=== PATIENT | female | born 1945 | race Caucasian/White ===

== ENCOUNTER 2019-02-07 09:55 | Emergency (ER) | payer MEDICARE, BC ==
[2019-02-07] MEDS: Ipratropium 0.02% 0.5 MG/2.5 ML Neb Soln NEB ONE (09:59)
[2019-02-07] MEDS: Ipratropium 0.02% 0.5 MG/2.5 ML Neb Soln ONE (10:06)
--- NOTE | 2019-02-07 10:39 | EDM.PDOC ---
ED HPI GENERAL MEDICAL PROBLEM - General Chief Complaint: Medication Administration Stated Complaint: med refill Time Seen by Provider: 02/07/19 10:15 Source of Information: Reports: Patient History Limitations: Reports: No Limitations - History of Present Illness INITIAL COMMENTS - FREE TEXT/NARRATIVE: Patient is O2 dependent with COPD. Usually receives separate supplies of albuterol and ipratropium via mail from [place] and her ipratropium is 5 days late. Unable to mix her nebs and use them QID PRN as directed. No acute complaints/health changes. Would like to be able to have the medication for daily use as prescribed which helps treat her chronic COPD. - Related Data Allergies Allergy/AdvReac Type Severity Reaction Status Date / Time IV Dye used for U/S (echo) Allergy Shortness Uncoded 02/07/19 10:02 of Breath Home Meds: Home Meds Albuterol/Ipratropium [Combivent Respimat] 1 puff INH QID PRN 06/26/13 [History] RX: Albuterol Sulfate 0.63 mg IH TID 06/26/13 [History] RX: Budesonide/Formoterol [Symbicort 160-4.5 MCG] 1 puff INH DAILY 06/26/13 [ History] RX: Ipratropium [place] 0.2 mg IH TID 06/26/13 [History] Warfarin [Coumadin] 5 mg PO DAILY 06/26/13 [History] Arformoterol [Brovana] 15 mcg INH Q12HR 02/07/19 [History] Budesonide [Pulmicort] 0.5 mg IH BID 02/07/19 [History] atorvaSTATin [Lipitor] 10 mg PO BEDTIME 02/07/19 [History] Past Medical History Cardiovascular History: Reports: High Cholesterol, Other (See Below) Other Cardiovascular History: chronic coumadin use Respiratory History: Reports: COPD, Other (See Below) Other Respiratory History: oxygen dependent Social & Family History - Tobacco Use Smoking Status *Q: Former Smoker Used Tobacco, but Quit: Yes Month/Year Tobacco Last Used: unknown - Caffeine Use Caffeine Use: Reports: None ED ROS GENERAL - Review of Systems Review Of Systems: Comprehensive ROS is negative, except as noted in HPI. ED EXAM, GENERAL - Physical Exam Exam: See Below Exam Limited By: No Limitations General Appearance: Alert, WD/WN, No Apparent Distress Throat/Mouth: Normal Lips, Normal Voice, No Airway Compromise Head: Atraumatic, Normocephalic Respiratory/Chest: No Respiratory Distress Neurological: Alert, Oriented, Normal Cognition Psychiatric: Normal Affect, Normal Mood Skin Exam: Warm, Dry, Intact, Normal Color Course - Vital Signs Last Recorded V/S: Last Vital Signs Temp 37.3 C 02/07/19 09:56 Pulse 87 02/07/19 09:56 Resp 24 H 02/07/19 09:56 BP 140/66 02/07/19 09:56 Pulse Ox 97 02/07/19 09:56 - Orders/Labs/Meds Orders: Active Orders 24 hr Category Date Time Status RT Post Treatment Assessment [RC] Click to Edit Care 02/07/19 10:03 Active RT Pre-Treatment Assessment [RC] Click to Edit Care 02/07/19 10:03 Active Meds: Medications Discontinued Medications Generic Name Dose Route Start Last Admin Trade Name Freq PRN Reason Stop Dose Admin Ipratropium [place] Confirm 02/07/19 09:58 02/07/19 10:06 Atrovent Administered 02/07/19 09:59 Not Given Dose 0.5 mg .ROUTE .STK-MED ONE Ipratropium [place] 0.5 mg 02/07/19 09:57 02/07/19 09:59 Atrovent NEB 02/07/19 09:58 0.5 mg ONETIME ONE Administration - Re-Assessments/Exams Free Text/Narrative Re-Assessment/Exam: 02/07/19 10:44 Patient received box of DuoNebs from ER supply. To use QID PRN. To follow up as needed. Departure - Departure Time of Disposition: 10:38 Disposition: Home, Self-Care 01 Condition: Good Clinical Impression: Has run out of medications COPD (chronic obstructive pulmonary disease) Qualifiers: COPD type: unspecified COPD Qualified Code(s): J44.9 - Chronic obstructive pulmonary disease, unspecified - Discharge Information *PRESCRIPTION DRUG MONITORING PROGRAM REVIEWED*: Not Applicable *COPY OF PRESCRIPTION DRUG MONITORING REPORT IN PATIENT INGE: Not Applicable Referrals: Leonor Millan PA-C [Primary Care Provider] - Forms: ED Department Discharge Additional Instructions: Follow up as needed. Sepsis Event Note - Evaluation Sepsis Screening Result: No Definite Risk - Focused Exam Vital Signs: Vital Signs Temp Pulse Resp BP Pulse Ox 02/07/19 09:56 37.3 C 87 24 H 140/66 97 Date Exam was Performed: 02/07/19 Time Exam was Performed: 10:41 - My Orders Last 24 Hours: My Active Orders 02/07/19 10:03 RT Post Treatment Assessment [RC] Click to Edit RT Pre-Treatment Assessment [RC] Click to Edit - Assessment/Plan Last 24 Hours: My Active Orders 02/07/19 10:03 RT Post Treatment Assessment [RC] Click to Edit RT Pre-Treatment Assessment [RC] Click to Edit
== END 2019-02-07 10:45 | disposition home or self-care (01) ==
LOC: LL.ED 09:55
DX: Z76.0 Encounter for issue of repeat prescription (principal); J44.9 Chronic obstructive pulmonary disease, unspecified; E78.00 Pure hypercholesterolemia, unspecified; Z99.81 Dependence on supplemental oxygen; Z91.041 Radiographic dye allergy status; Z79.899 Other long term (current) drug therapy; Z79.51 Long term (current) use of inhaled steroids; Z79.01 Long term (current) use of anticoagulants; Z87.891 Personal history of nicotine dependence
CPT/HCPCS: 99282-25

== ENCOUNTER 2019-05-23 10:31 | Emergency (ER) | payer MEDICARE, BC ==
[2019-05-23 11:03] LABS: CHLORIDE,CL 106 mmol/L (98-107); SODIUM,NA 144 mmol/L (136-145)
--- NOTE | 2019-05-23 11:35 | EDM.PDOC ---
ED HPI GENERAL MEDICAL PROBLEM - General Chief Complaint: Respiratory Problem Stated Complaint: SOB, COPD Time Seen by Provider: 05/23/19 11:13 Source of Information: Reports: Patient History Limitations: Reports: No Limitations - History of Present Illness INITIAL COMMENTS - FREE TEXT/NARRATIVE: She presents to the emergency department complaining of shortness of breath and cough. She states she has had a dry cough for about 2 weeks. 2 days ago she called her primary provider and was placed on oral steroids. She took just 1 dose Friday afternoon and felt worse so she has not taken any more. This morning she felt more short of breath. She increased her home oxygen from 3 L to 4 L. She is especially short of breath with activity. Cough has remained nonproductive. She had chills last night, but no other chills. No fever that she is aware of. No nausea, vomiting or diarrhea. She does have a history of COPD. She has been using her nebulization treatments at home. No known exposures. She has self quarantined at home for the past month. 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 - Related Data Allergies Allergy/AdvReac Type Severity Reaction Status Date / Time IV Dye used for U/S (echo) Allergy Shortness Uncoded 05/23/19 10:32 of Breath Home Meds: Home Meds Albuterol Sulfate 0.63 mg IH TID 06/26/13 [History] Ipratropium [place] 0.2 mg IH TID 06/26/13 [History] Warfarin [Coumadin] 5 mg PO SUTUWETHSA 06/26/13 [History] Arformoterol [Brovana] 15 mcg INH Q12HR 02/07/19 [History] Budesonide [Pulmicort] 0.5 mg IH BID 02/07/19 [History] atorvaSTATin [Lipitor] 10 mg PO BEDTIME 02/07/19 [History] Azithromycin [Zithromax] 250 mg PO DAILY 5 Days #6 tab 05/23/19 [Rx] Warfarin [Coumadin] 2.5 mg PO MOFR 05/23/19 [History] Past Medical History Cardiovascular History: Reports: High Cholesterol, Other (See Below) Other Cardiovascular History: chronic coumadin use Respiratory History: Reports: COPD, Other (See Below) Other Respiratory History: oxygen dependent Social & Family History - Tobacco Use Smoking Status *Q: Former Smoker Used Tobacco, but Quit: Yes Month/Year Tobacco Last Used: 2005 Second Hand Smoke Exposure: No - Caffeine Use Caffeine Use: Reports: None - Recreational Drug Use Recreational Drug Use: No ED ROS GENERAL - Review of Systems Review Of Systems: See Below Constitutional: Reports: Chills. Denies: Fever, Weakness HEENT: Denies: Eye Pain, Sinus Problem, Throat Pain Respiratory: Reports: Shortness of Breath, Wheezing, Cough. Denies: Sputum GI/Abdominal: Denies: Abdominal Pain, Nausea, Vomiting : Denies: Dysuria, Frequency, Urgency Skin: Denies: Rash Neurological: Denies: Confusion, Dizziness ED EXAM, GENERAL - Physical Exam Exam: See Below Exam Limited By: No Limitations General Appearance: Alert, WD/WN, No Apparent Distress Ears: Normal External Exam, Normal Canal, Hearing Grossly Normal, Normal TMs Nose: No Blood Throat/Mouth: Normal Inspection, Normal Voice, No Airway Compromise Head: Atraumatic, Normocephalic Neck: Non-Tender. No: Lymphadenopathy (L), Lymphadenopathy (R) Respiratory/Chest: No Respiratory Distress Cardiovascular: Regular Rate, Rhythm, No Murmur GI/Abdominal: Normal Bowel Sounds, Soft, Non-Tender Neurological: Alert, Oriented Psychiatric: Normal Affect, Normal Mood Skin Exam: Warm, Dry Course - Vital Signs Last Recorded V/S: Last Vital Signs Temp 36.4 C 05/23/19 10:31 Pulse 120 H 05/23/19 10:31 Resp 24 H 05/23/19 10:31 BP 139/67 05/23/19 10:31 Pulse Ox 94 L 05/23/19 10:31 - Orders/Labs/Meds Orders: Active Orders 24 hr Category Date Time Status Chest 2V [CR] Stat Exams 05/23/19 10:36 Taken Precautions [COMM] Routine Oth 05/23/19 10:55 Ordered Labs: Laboratory Tests 05/23/19 05/23/19 05/23/19 Range/Units 10:45 10:45 10:45 WBC 5.6 (4.0-10.2) K/uL RBC 4.28 (3.77-5.09) M/uL Hgb 12.3 D (11.7-15.5) g/dL Hct 39.2 (34.0-46.0) % MCV 91.6 D (84.0-98.0) fL MCH 28.7 (28.2-33.3) pg MCHC 31.4 L (31.7-36.0) g/dL RDW 13.1 (11.2-14.1) % Plt Count 200 (150-350) K/uL Neut % (Auto) 78.1 (45.0-80.0) % Lymph % (Auto) 11.8 (10.0-50.0) % [place] % (Auto) 6.8 (2.0-14.0) % Eos % (Auto) 2.9 (0.0-5.0) % Baso % (Auto) 0.4 (0.0-2.0) % Neut # (Auto) 4.37 (1.40-7.00) K/uL Lymph # (Auto) 0.66 (0.50-3.50) K/uL [place] # (Auto) 0.38 (0.00-1.00) K/uL Eos # (Auto) 0.16 (0.00-0.50) K/uL Baso # (Auto) 0.02 (0.00-0.20) K/uL PT 17.9 H (9.5-12.0) SEC INR 1.8 Sodium 144 D (136-145) mmol/L Potassium 3.8 (3.5-5.1) mmol/L Chloride 106 D (98-107) mmol/L Carbon Dioxide 29.9 (21.0-32.0) mmol/L BUN 22 H (7-18) mg/dL Creatinine 0.70 (0.51-1.17) mg/dL Est Cr Clr Drug Dosing 55.77 mL/min Estimated GFR (MDRD) > 60 mL/min Glucose 122 H (74-106) mg/dL Calcium 8.8 (8.5-10.1) mg/dL Total Bilirubin 0.6 (0.2-1.0) mg/dL AST 17 (15-37) U/L ALT 30 (12-78) U/L Alkaline Phosphatase 138 H (46-116) IU/L Total Protein 6.8 (6.4-8.2) g/dL Albumin 3.8 (3.4-5.0) g/dL - Radiology Interpretation Free Text/Narrative:: Chest x-ray shows normal cardiac silhouette. Lungs are slightly overexpanded. No apparent infiltrate. No acute process. Departure - Departure Time of Disposition: 11:44 Disposition: Home, Self-Care 01 Condition: Good Clinical Impression: COPD with exacerbation - Discharge Information *PRESCRIPTION DRUG MONITORING PROGRAM REVIEWED*: No *COPY OF PRESCRIPTION DRUG MONITORING REPORT IN PATIENT INGE: No Instructions: Shortness of Breath, Adult, [id number], Upper Respiratory Infection, Adult, [id number] Forms: ED Department Discharge Additional Instructions: Resume previous home medications. Albuterol nebulization 4 times daily. Zithromax 250 mg 2 tablets today then 1 tablet daily for 4 more days. Follow-up with primary provider if not improving. Sepsis Event Note - Evaluation Sepsis Screening Result: Possible Sepsis Risk - Focused Exam Vital Signs: Vital Signs Temp Pulse Resp BP Pulse Ox Pulse Ox 05/23/19 10:31 36.4 C 120 H 24 H 139/67 94 L 94 L Date Exam was Performed: 05/23/19 Time Exam was Performed: 11:43 - Problem List & Annotations (1) COPD with exacerbation SNOMED Code(s): 400070093 Code(s): J44.1 - CHRONIC OBSTRUCTIVE PULMONARY DISEASE W (ACUTE) EXACERBATION Status: Acute Current Visit: Yes - Problem List Review Problem List Initiated/Reviewed/Updated: Yes - My Orders Last 24 Hours: My Active Orders 05/23/19 10:36 Chest 2V [CR] Stat 05/23/19 10:55 Precautions [COMM] Routine - Assessment/Plan Last 24 Hours: My Active Orders 05/23/19 10:36 Chest 2V [CR] Stat 05/23/19 10:55 Precautions [COMM] Routine Assessment:: Apparent COPD exacerbation. Discussed findings and treatment options. She is encouraged to take the oral steroids as prescribed by her primary provider. We will treat presumptively with Zithromax for 5 days for possible secondary infection. Follow-up as needed.
[2019-05-23 12:23] VITALS: BP 138/88; PULSE 90
== END 2019-05-23 12:00 | disposition home or self-care (01) ==
LOC: LL.ED 10:31
DX: J44.1 Chronic obstructive pulmonary disease with (acute) exacerbation (principal); E78.00 Pure hypercholesterolemia, unspecified; Z79.899 Other long term (current) drug therapy; Z99.81 Dependence on supplemental oxygen; Z87.891 Personal history of nicotine dependence; Z91.041 Radiographic dye allergy status; Z79.01 Long term (current) use of anticoagulants
CPT/HCPCS: 36415; 71046; 80053; 85025; 85610; 99285-25

== ENCOUNTER 2019-07-23 08:30 | Emergency (ER) | payer MEDICARE, BC ==
--- NOTE | 2019-07-23 08:36 | EDM.PDOC ---
ED HPI GENERAL MEDICAL PROBLEM - General Chief Complaint: Respiratory Problem Stated Complaint: cough, SOB, COPD Time Seen by Provider: 07/23/19 08:30 Source of Information: Reports: Patient, Old Records ([facility] chart/EMR) History Limitations: Reports: No Limitations - History of Present Illness INITIAL COMMENTS - FREE TEXT/NARRATIVE: The patient was brought to the emergency room via private automobile by her for evaluation of progressive nonproductive cough symptoms with worsening symptoms during the last few days. Note that symptoms started on about 05/23/19 with initial evaluation in this facility at that time. Patient has been seen by her regular provider with an additional telemetry medicine visit with her medical pathologist about 2 weeks ago. The patient did complete a 1 week course of Levaquin for 7 days at the 750 mg dose with initiation of an additional regimen of 500 mg of Levaquin 5 days yesterday by her regular provider. She did have a negative COVID-19 on 07/07 with no known exposure to infection and patient following CDC guidelines for current pandemic. She did increase her oxygen on her own from previous 3 L to 4 L/m by nasal cannula. The patient denies any chest pain/pressure, heart flutter, dizziness, orthostasis, orthopnea, diaphoresis, paresthesias, recent decreased exercise tolerance, or any other anginal-type symptoms, although some increased dependent edema and dyspnea with activity during the last couple of weeks. No recent history of abdominal pain, heartburn, nausea, diarrhea, melena, gross hematochezia, or any food intolerance, including fatty foods, etc.. She denies any specific pain or discomfort. Onset: Gradual Duration: Getting Worse Location: Reports: Other (No pain) Quality: Reports: Same as Previous Episode Severity: Moderate Improves with: Reports: Rest Worsens with: Reports: Movement Context: Reports: Other (As above). Denies: Sick Contact, Trauma Associated Symptoms: Reports: Cough, Shortness of Breath. 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 Treatments, Other (see below) (Home medications) - Related Data Allergies Allergy/AdvReac Type Severity Reaction Status Date / Time IV Dye used for U/S (echo) Allergy Shortness Uncoded 07/23/19 08:36 of Breath Home Meds: Home Meds Warfarin [Coumadin] 5 mg PO SUTUWETHSA@20 06/26/13 [History] Budesonide [Pulmicort] 0.5 mg IH BID 02/07/19 [History] atorvaSTATin [Lipitor] 10 mg PO BEDTIME 02/07/19 [History] Warfarin [Coumadin] 2.5 mg PO MOFR@20 05/23/19 [History] Albuterol Sulfate 2.5 mg IH DAILY 07/23/19 [History] Albuterol [Ventolin HFA] 2 puff INH Q2H PRN 07/23/19 [History] Arformoterol [Brovana] 15 mcg INH Q12HR 07/23/19 [History] Ipratropium [Atrovent] 0.5 mg INH TID 07/23/19 [History] Levofloxacin [Levaquin] 500 mg PO DAILY 07/23/19 [History] guaiFENesin/Dextromethorphan [Mucinex Dm ER 1,200-60 mg Tab] 1 each PO Q12H #20 tab.er.12h 07/23/19 [Rx] Past Medical History HEENT History: Reports: Cataract, Impaired Vision, Other (See Below). Denies: Allergic Rhinitis, Glaucoma, Hard of Hearing, Macular Degeneration, Otitis Media , Retinal Detachment Other HEENT History: She wears glasses. Cardiovascular History: Reports: Blood Clots/VTE/DVT, High Cholesterol, Other ( See Below). Denies: Afib, Arrhythmia, CAD, Cardiomyopathy, Heart Failure, Heart Murmur, Hypertension, GA, PVD, Syncope Other Cardiovascular History: Postoperative DVT of the left leg on 02/18/07 after mastectomy in 2006 with current Coumadin therapy. Respiratory History: Reports: Bronchitis, Recurrent, COPD, Intubation, Previous , Pneumonia, Recurrent, Other (See Below). Denies: Asthma, Intubation, Difficult, PE, Pneumothorax, Sleep Apnea, TB Other Respiratory History: oxygen dependent Gastrointestinal History: Reports: Cholelithiasis. Denies: Bowel Obstruction, Celiac Disease, Chronic Constipation, Chronic Diarrhea, Colon Polyp, Fecal Incontinence, Gastritis, GERD, GI Bleed, Hepatitis, Inflammatory Bowel Disease, Irritable Bowel Syndrome, Jaundice, Pancreatitis, PUD Genitourinary History: Reports: None. Denies: Acute Renal Failure, Chronic Renal Insuffiency, Renal Calculus, STD, Urinary Incontinence, UTI, Recurrent HOSPITALIST NOCTURNIST PHYSICIAN History: Reports: Polycystic Ovaries, . Denies: Dysfunctional Uterine Bleeding, Endometriosis, Fibroids, Spontaneous : 2 Para: 2 LMP (Approximate): Other (See Below) Other HOSPITALIST NOCTURNIST PHYSICIAN History: Menopause in her 40s. Full term without complications during pregnancies or deliveries Musculoskeletal History: Reports: Arthritis, Osteoarthritis. Denies: Amputation , Back Pain, Chronic, Fracture, Fibromyalgia, Gout, Neck Pain, Chronic, Osteoporosis, RA, SLE Neurological History: Reports: Headaches, Chronic, Migraines, Other (See Below) . Denies: Cerebral Aneurysms, Concussion, CVA, Head Trauma, MS, Neuropathy, Peripheral, Parkinson's, Seizure, TIA Other Neuro History: Migraine headaches in early adulthood nonproblematic at this time. Psychiatric History: Reports: None. Denies: Abuse, Victim of, ADD, ADHD, Addiction, Anxiety, Depression, Psych Hospitalization(s), PTSD, Suicide Attempt , Suicidal Ideation Endocrine/Metabolic History: Reports: Obesity/BMI 30+, Other (See Below). Denies: Diabetes, Gestational, Diabetes, Type I, Diabetes, Type II, Diabetes Mellitus, Type 3c, Hypothyroidism, IDDM, Osteopenia, Osteoporosis Other Endocrine/Metabolic History: Prediabetes. Hyponatremia. Hematologic History: Reports: None. Denies: Anemia, Blood Transfusion(s), Iron Deficiency Immunologic History: Reports: None. Denies: AIDS, HIV, SLE Oncologic (Cancer) History: Reports: Breast, Other (See Below). Denies: Basal Cell Carcinoma, Cervix, Colon, Leukemia, Lymphoma, Malignant Melanoma, Metastatic, Non-Hodgkin's Lymphoma, Ovarian, Squamous Cell Carcinoma, Uterine Other Oncologic History: Left-sided stage I breast cancer in 2006 with mastectomy and radiation therapy. Dermatologic History: Reports: None. Denies: Eczema, Psoriasis - Infectious Disease History Infectious Disease History: Reports: Chicken Pox, Mumps. Denies: C-Difficile, Measles, Meningitis, Mononucleosis, MRSA, Pertussis (Whooping Cough), Rheumatic Fever, Rubella, Scarlet Fever, Shingles, TB, VRE - Past Surgical History Head Surgeries/Procedures: Reports: None HEENT Surgical History: Reports: Cataract Surgery, Oral Surgery, Other (See Below). Denies: Adenoidectomy, Eye Surgery, Laser Surgery, LASIK, Myringotomy w Tube(s), Naso-Sinus Surgery, Tonsillectomy Other HEENT Surgeries/Procedures: Bilateral cataract surgery in 2019. Complete teeth extraction. Cardiovascular Surgical History: Reports: None. Denies: Varicose Respiratory Surgical History: Reports: None. Denies: Thoracentesis GI Surgical History: Reports: Cholecystectomy, Other (See Below). Denies: Appendectomy, Colonoscopy, EGD, Hernia, Abdominal, Hernia, Inguinal, Hernia Repair/Other Other GI Surgeries/Procedures: Open cholecystectomy on 06/26/13. Female Surgical History: Reports: Mastectomy, Other (See Below). Denies: Section, D&C, Hysterectomy, Oophorectomy, Salpingo-Oophorectomy, Tubal Ligation Other Female Surgeries/Procedures: Left Sided mastectomy in 2006 Endocrine Surgical History: Reports: None. Denies: Thyroid Biopsy Neurological Surgical History: Reports: None. Denies: C-Spine, Discectomy, Intracranial, Laminectomy, Lumbar Spine, Sacral Spine, Spinal Fusion, Thoracic Spine, Vertebroplasty Musculoskeletal Surgical History: Reports: None. Denies: Arthroscopic Procedure , Carpal Tunnel, Ganglion Cyst, Joint Replacement, ORIF, Shoulder Surgery Oncologic Surgical History: Reports: Mastectomy, Other (See Below). Denies: Biopsy of Breast Other Oncologic Surgeries/Procedures: Mastectomy as above. Dermatological Surgical History: Reports: None - Past Imaging History Past Imaging History: Reports: CAT Scan (CT of the chest without contrast on 06/25. CT of the abdomen and pelvis on 06/26/13.), Mammogram (Last mammogram in November 2018 by patient history.), Venous Doppler (Left leg on 02/18/07.) Social & Family History - Family History HEENT: Reports: None. Denies: Glaucoma, Macular Degeneration, Retinal Detachment Cardiac: Reports: Pacemaker, Other (See Below). Denies: Afib, Aneurysm, Arrhythmia, Blood Clots/VTE/DVT, CAD, Heart Failure, Heart Murmur, High Cholesterol, Hypertension, GA, PVD/COD, Stent, Syncope Other Cardiac Family History: Mother with pacemaker. Respiratory: Reports: Asthma, Other (See Below). Denies: COPD, PE, Pneumothorax , Sleep Apnea Other Respiratory Family Hisory: Father with asthma secondary to coal exposure. GI: Reports: None. Denies: Celiac Disease, Cholelithiasis, Colon Polyps, GERD, GI bleed, Inflammatory Bowel Disease, Irritable Bowel Syndrome, PUD : Reports: None. Denies: Renal Calculus, Renal Disease/Insufficiency OBGYN: Reports: None. Denies: Endometriosis, Recurrent Spontaneous Musculoskeletal: Reports: None. Denies: Arthritis, Gout, RA, SLE Neurological: Reports: Alzheimers Disease, Dementia, Migraines, Other (See Below ). Denies: Cerebral Aneurysms, CVA, MS, Parkinson's, Seizure, TIA Other Neurological Family History: Mother with migraine headaches. Brothers 2 with organic brain syndrome. Psychiatric: Reports: None. Denies: Abuse, Victim of, ADD, ADHD, Anxiety, Depression, Psych Hospitalization(s), Psychosis, PTSD, Suicide Attempt Endocrine/Metabolic: Reports: Diabetes, type II, IDDM, Other (See Below). Denies: Diabetes, Type I, Diabetes Mellitus, Type 3c, Hypothyroidism Other Endocrine/Metabolic Family History: Mother with IDDM. Hematologic: Reports: None. Denies: Anemia, SLE Immunologic: Reports: None. Denies: AIDS, HIV, SLE Dermatologic: Reports: None. Denies: Eczema, Psoriasis Oncologic: Denies: Breast, Cervix, Colon, Hodgkin's Lymphoma, Leukemia, Lung, Lymphoma, Non-Hodgkin's Lymphoma, Ovarian, Skin - Tobacco Use Smoking Status *Q: Former Smoker Tobacco Use Within Last Twelve Months: Cigarettes Years of Tobacco use: 44 Packs/Tins Daily: 1.5 Packs/Tins Daily Comment: Smoked between ages 16 and 60. Used Tobacco, but Quit: Yes Smoking Cessation Information Provided To Patient: No Second Hand Smoke Exposure: Yes Second Hand Smoke Education Provided: Yes - Caffeine Use Caffeine Use: Reports: None. Denies: Coffee, Energy Drinks, Soda, Tea - Alcohol Use Alcohol Use History: No Days Per Week of Alcohol Use: 0 Number of Drinks Per Day: 0 Number of Drinks Per Day Comment: No previous DWIs, problems with alcohol abuse , etc. 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 ED EXAM, GENERAL - Physical Exam Exam: See Below Exam Limited By: No Limitations General Appearance: Alert, WD/WN, No Apparent Distress Eye Exam: Bilateral Eye: EOMI, Normal Inspection (No nystagmus. Patient wearing glasses.), PERRL Ears: Normal External Exam, Normal Canal, Hearing Grossly Normal, Normal TMs Nose: Normal Inspection, Normal Mucosa, No Blood Throat/Mouth: Normal Lips, Normal Gums, Normal Voice, No Airway Compromise, Other (Mild oral candidiasis). No: Normal Teeth (Complete dentures uppers and lowers), Dysphagia Head: Atraumatic, Normocephalic. No: Facial Swelling, Facial Tenderness, Sinus Tenderness Neck: Supple, Non-Tender, Full Range of Motion, Carotid Bruit (Mild bilateral bruits). No: Lymphadenopathy (L), Lymphadenopathy (R), Thyromegaly Respiratory/Chest: No Respiratory Distress, No Accessory Muscle Use, Chest Non- Tender, Rales (Mild bilateral basilar). No: Rhonchi, Wheezing, Pleural Rub, Retractions Cardiovascular: Normal Peripheral Pulses, Regular Rate, Rhythm, No Gallop, No JVD, No Murmur, No Rub. No: No Edema (Dependent edema as below), Gallop/S3, Gallop/S4, Friction Rub Peripheral Pulses: 2+: Radial (L), Radial (R), Dorsalis Pedis (L), Dorsalis Pedis (R) GI/Abdominal: Normal Bowel Sounds, Soft, Non-Tender, No Organomegaly, No Distention, No Abnormal Bruit, No Mass, Pelvis Stable, Other (Obese). No: Guarding (Female) Exam: Deferred Rectal (Female) Exam: Deferred Back Exam: Normal Inspection, Full Range of Motion. No: CVA Tenderness (L), CVA Tenderness (R), Muscle Spasm Extremities: Normal Inspection, Normal Range of Motion, Non-Tender, Normal Capillary Refill, Pedal Edema (Trace bilateral pedal/pretibial edema). No: Terrance's Sign Neurological: Alert, Oriented, CN II-XII Intact, Normal Cognition, Normal Gait, Normal Reflexes (Negative Babinski's), No Motor/Sensory Deficits Psychiatric: Normal Affect, Normal Mood Skin Exam: Warm, Dry, Intact, Normal Color, No Rash. No: Diaphoretic, Wound/ Incision Lymphatic: No Adenopathy EKG INTERPRETATION EKG Date: 07/23/19 Time: 08:52 Rhythm: NSR Rate (Beats/Min): 94 [place]: Normal (Neutral) P-Wave: Enlarged (Mild diffuse biphasic P waves with poor R-wave progression in the anterior leads) QRS: Normal (0.09 seconds with repolarization changes) ST-T: Normal (T-wave inversion in lead V1) QT: Normal OR/PQ Interval: 0.16 seconds Comparison: NA - No Prior EKG EKG Interpretation Comments: 1. No acute ischemic changes 2. Atrial enlargement-left Course - Vital Signs Last Recorded V/S: Last Vital Signs Temp 37.7 C 07/23/19 08:36 Pulse 91 07/23/19 10:06 Resp 20 07/23/19 10:06 BP 131/62 07/23/19 10:06 Pulse Ox 100 07/23/19 10:06 Vital Signs - 24 hr 07/23/19 07/23/19 07/23/19 08:36 08:51 09:06 Temperature [ 37.7 C Oral] Pulse, 100 96 93 Peripheral [ Pulse Oximetry] Respiratory 24 H 22 H 18 Rate Blood Pressure 141/78 H 127/63 140/72 [Left Upper Arm ] O2 Sat by Pulse 96 100 100 Oximetry O2 Sat by Pulse Oximetry [ Nasal Cannula] 07/23/19 09:21 Temperature [ Oral] Pulse, Peripheral [ Pulse Oximetry] Respiratory Rate Blood Pressure [Left Upper Arm ] O2 Sat by Pulse Oximetry O2 Sat by Pulse 100 Oximetry [ Nasal Cannula] Vital Signs - 24 hr 07/23/19 07/23/19 07/23/19 08:36 08:51 09:06 Temperature [ 37.7 C Oral] Pulse, 100 96 93 Peripheral [ Pulse Oximetry] Respiratory 24 H 22 H 18 Rate Blood Pressure 141/78 H 127/63 140/72 [Left Upper Arm ] O2 Sat by Pulse 96 100 100 Oximetry O2 Sat by Pulse Oximetry [ Nasal Cannula] 07/23/19 07/23/19 07/23/19 09:21 09:36 10:06 Temperature [ Oral] Pulse, 88 91 Peripheral [ Pulse Oximetry] Respiratory 20 20 Rate Blood Pressure 131/62 131/62 [Left Upper Arm ] O2 Sat by Pulse 100 100 Oximetry O2 Sat by Pulse 100 Oximetry [ Nasal Cannula] - Orders/Labs/Meds Orders: Active Orders 24 hr Category Date Time Status Cardiac Monitoring [RC] CONTINUOUS Care 07/23/19 08:37 Active Communication Order [RC] ROUTINE Care 07/23/19 08:37 Active EKG Documentation Completion [RC] ASDIRECTED Care 07/23/19 08:38 Active Oxygen Therapy, ED [RC] CONTINUOUS Care 07/23/19 08:37 Active Peripheral IV Care [RC] . DIRECTED Care 07/23/19 08:38 Active Pulse Oximetry [RC] CONTINUOUS Care 07/23/19 08:37 Active Up With Assistance [RC] ASDIRECTED Care 07/23/19 08:37 Active Nothing Per Oral Diet [DIET] Diet 07/23/19 Breakfast Active Chest 1V Frontal [CR] Stat Exams 07/23/19 08:37 Taken CORONAVIRUS COVID-19 PCR PHL Urgent Lab 07/23/19 08:50 Received CULTURE BLOOD [BC] Stat Lab 07/23/19 08:46 Received CULTURE BLOOD [BC] Stat Lab 07/23/19 08:51 Received CULTURE SPUTUM + SMEAR [RM] Urgent Lab 07/23/19 08:37 Ordered Sodium Chloride 0.9% [Saline Flush] Med 07/23/19 08:37 Active 10 ml FLUSH ASDIRECTED PRN Blood Culture x2 Reflex Set [OM.PC] Stat Oth 07/23/19 08:37 Ordered Obtain Past Medical Record [OM.PC] Stat Oth 07/23/19 08:37 Active Peripheral IV Insertion Adult [OM.PC] Stat Oth 07/23/19 08:37 Ordered Resuscitation Status Routine Resus Stat 07/23/19 08:37 Ordered Medication Orders Sodium Chloride (Saline Flush) 10 ml FLUSH ASDIRECTED PRN PRN Reason: Keep Vein Open Labs: Laboratory Tests 07/23/19 07/23/19 07/23/19 Range/Units 08:46 08:46 08:46 WBC 5.1 (4.0-10.2) K/uL RBC 4.25 (3.77-5.09) M/uL Hgb 12.3 (11.7-15.5) g/dL Hct 39.2 (34.0-46.0) % MCV 92.2 (84.0-98.0) fL MCH 28.9 (28.2-33.3) pg MCHC 31.4 L (31.7-36.0) g/dL RDW 14.3 H (11.2-14.1) % Plt Count 133 L (150-350) K/uL Neut % (Auto) 80.7 H (45.0-80.0) % Lymph % (Auto) 9.9 L (10.0-50.0) % [place] % (Auto) 8.4 (2.0-14.0) % Eos % (Auto) 0.8 (0.0-5.0) % Baso % (Auto) 0.2 (0.0-2.0) % Neut # (Auto) 4.15 (1.40-7.00) K/uL Lymph # (Auto) 0.51 (0.50-3.50) K/uL [place] # (Auto) 0.43 (0.00-1.00) K/uL Eos # (Auto) 0.04 (0.00-0.50) K/uL Baso # (Auto) 0.01 (0.00-0.20) K/uL PT 21.5 H (9.5-12.0) SEC INR 2.2 APTT 33.6 H (24.5-32.8) SEC D-Dimer, Quantitative < 100 (0-400) ng/mL Sodium (136-145) mmol/L Potassium (3.5-5.1) mmol/L Chloride (98-107) mmol/L Carbon Dioxide (21.0-32.0) mmol/L BUN (7-18) mg/dL Creatinine (0.51-1.17) mg/dL Est Cr Clr Drug Dosing mL/min Estimated GFR (MDRD) mL/min Glucose (74-106) mg/dL Lactic Acid (0.4-2.0) mmol/L Calcium (8.5-10.1) mg/dL Magnesium (1.8-2.4) mg/dL Total Bilirubin (0.2-1.0) mg/dL AST (15-37) U/L ALT (12-78) U/L Alkaline Phosphatase (46-116) IU/L Creatine Kinase (26-308) U/L Creatine Kinase Index (0.0-2.5) % CK-MB (CK-2) (0.00-3.60) ng/mL Troponin I (0.000-0.056) ng/mL NT-Pro-B Natriuret Pep (0-125) pg/mL Total Protein (6.4-8.2) g/dL Albumin (3.4-5.0) g/dL TSH, Ultra Sensitive (0.358-3.740) mIU/mL 07/23/19 07/23/19 Range/Units 08:46 08:46 WBC (4.0-10.2) K/uL RBC (3.77-5.09) M/uL Hgb (11.7-15.5) g/dL Hct (34.0-46.0) % MCV (84.0-98.0) fL MCH (28.2-33.3) pg MCHC (31.7-36.0) g/dL RDW (11.2-14.1) % Plt Count (150-350) K/uL Neut % (Auto) (45.0-80.0) % Lymph % (Auto) (10.0-50.0) % [place] % (Auto) (2.0-14.0) % Eos % (Auto) (0.0-5.0) % Baso % (Auto) (0.0-2.0) % Neut # (Auto) (1.40-7.00) K/uL Lymph # (Auto) (0.50-3.50) K/uL [place] # (Auto) (0.00-1.00) K/uL Eos # (Auto) (0.00-0.50) K/uL Baso # (Auto) (0.00-0.20) K/uL PT (9.5-12.0) SEC INR APTT (24.5-32.8) SEC D-Dimer, Quantitative (0-400) ng/mL Sodium 142 (136-145) mmol/L Potassium 4.0 (3.5-5.1) mmol/L Chloride 106 (98-107) mmol/L Carbon Dioxide 30.5 (21.0-32.0) mmol/L BUN 9 (7-18) mg/dL Creatinine 0.69 (0.51-1.17) mg/dL Est Cr Clr Drug Dosing 63.07 mL/min Estimated GFR (MDRD) > 60 mL/min Glucose 139 H (74-106) mg/dL Lactic Acid 1.0 (0.4-2.0) mmol/L Calcium 8.6 (8.5-10.1) mg/dL Magnesium 2.0 (1.8-2.4) mg/dL Total Bilirubin 1.1 H (0.2-1.0) mg/dL AST 23 (15-37) U/L ALT 42 (12-78) U/L Alkaline Phosphatase 108 (46-116) IU/L Creatine Kinase 46 (26-308) U/L Creatine Kinase Index 2.2 (0.0-2.5) % CK-MB (CK-2) 1.00 (0.00-3.60) ng/mL Troponin I 0.000 (0.000-0.056) ng/mL NT-Pro-B Natriuret Pep 168 H (0-125) pg/mL Total Protein 6.6 (6.4-8.2) g/dL Albumin 3.6 (3.4-5.0) g/dL TSH, Ultra Sensitive 2.656 (0.358-3.740) mIU/mL Blood cultures 2 were collected. Sputum could not be obtained. COVID-19 specimen collected Meds: Medications Generic Name Dose Route Start Last Admin Trade Name Freq PRN Reason Stop Dose Admin Sodium Chloride 10 ml 07/23/19 08:37 Saline Flush FLUSH ASDIRECTED PRN Keep Vein Open - Radiology Interpretation Free Text/Narrative:: Server Support Technician shows normal sinus rhythm in the 80-90s with no ectopy or arrhythmia Chest x-ray, portable, shows evidence of mild prominence of the proximal aortic arch with no cardiomegaly, however possible mild centralized CHF versus pulmonary hypertension. Moderate diffuse pulmonary obstructive disease with probable additional pulmonary fibrosis. Mild atelectasis versus beginning pulmonary infiltrates in the left lower lobe. No pneumothorax. Departure - Departure Time of Disposition: 10:35 Disposition: Home, Self-Care 01 Condition: Good Clinical Impression: Prediabetes, Oral candidiasis COPD (chronic obstructive pulmonary disease) Qualifiers: COPD type: COPD with acute lower respiratory infection Qualified Code(s): J44.0 - Chronic obstructive pulmonary disease with (acute) lower respiratory infection Hyperlipidemia Qualifiers: Hyperlipidemia type: unspecified Qualified Code(s): E78.5 - Hyperlipidemia, unspecified CHF (congestive heart failure) Qualifiers: Heart failure type: unspecified Heart failure chronicity: acute Qualified Code( s): I50.9 - Heart failure, unspecified - Discharge Information *PRESCRIPTION DRUG MONITORING PROGRAM REVIEWED*: Not Applicable *COPY OF PRESCRIPTION DRUG MONITORING REPORT IN PATIENT INGE: Not Applicable Prescriptions: guaiFENesin/Dextromethorphan [Mucinex Dm ER 1,200-60 mg Tab] 1 each PO Q12H #20 tab.er.12h Referrals: Leonor Millan PA-C [Primary Care Provider] - Forms: ED Department Discharge Additional Instructions: 1. Followup with your regular provider in 10-14 days as directed or reevaluation and recommended repeat chest x-ray, CBC, PT/INR, troponin I, CK, CK -MB, and BNP. Bring these discharge instructions with you to that visit. 2. Otherwise follow-up in this facility as already scheduled on 07/26 for your echocardiogram and CT of the chest without contrast 3. Avoid excessive use of oxygen with goal O2 saturation of 94% or greater 4. Maintain recommended quarantine until you have been notified of today's COVID-19 test results as discussed with return to previous social distancing, use of masks, etc., thereafter as per current recommended CDC guidelines 5. Immediately after this visit verify that your cellular telephone's voicemail has been activated and is empty. Also verify that your home telephone 's answering machine is operating properly and has space to receive messages. Note that it is sometimes necessary for us to be able to contact you at a later date to discuss your medical care. 6. Please remember that we are ALWAYS here for you and want to answer any questions you may have. Feel free to call the hospital any time and we call you back CHAR. 7. Listerine gargles four times per day, after meals and at bedtime, with additional Chloroseptic lozenges or spray as needed for 10 days and/or until symptoms resolve. Sepsis Event Note - Focused Exam Vital Signs: Vital Signs Temp Pulse Resp BP Pulse Ox Pulse Ox 07/23/19 10:06 91 20 131/62 100 07/23/19 09:36 88 20 131/62 100 07/23/19 09:21 100 07/23/19 09:06 93 18 140/72 100 07/23/19 08:51 96 22 H 127/63 100 07/23/19 08:36 37.7 C 100 24 H 141/78 H 96 Date Exam was Performed: 07/23/19 Time Exam was Performed: 10:51 - Problem List & Annotations (1) COPD (chronic obstructive pulmonary disease) SNOMED Code(s): 95582559 Code(s): J44.9 - CHRONIC OBSTRUCTIVE PULMONARY DISEASE, UNSPECIFIED Status : Acute Priority: High Current Visit: Yes Annotation/Comment:: O2 and steroid-dependent. Complete current Levaquin therapy with additional high-dose Mucinex DM, which should be continued until her follow-up visit as per discharge instructions. CT of the chest already ordered as below and no significant pneumonia by today's chest x-ray. Excellent O2 saturations today with the patient counseled on proper use of supplemental O2. Possible mild persistent bronchitis. Qualifiers: COPD type: COPD with acute lower respiratory infection Qualified Code(s): J44.0 - Chronic obstructive pulmonary disease with (acute) lower respiratory infection (2) CHF (congestive heart failure) SNOMED Code(s): 80138045 Code(s): I50.9 - HEART FAILURE, UNSPECIFIED Status: Acute Priority: High Current Visit: Yes Onset Date: 07/23/19 Annotation/Comment:: Mild BNP elevation with possible dyspnea secondary to borderline CHF and/or pulmonary hypertension. Her medical pathologist has already ordered an echocardiogram and CT of the chest without contrast, which will be conducted in this facility on 07/26. No recent chest pain or anginal type symptoms. No clinical evidence of DVT or PE with therapeutic INR today in spite of recent Levaquin therapy as above. Various therapeutic options were discussed with the patient wishes to delay initiation of oral Lasix and potassium chloride therapy for now. Further cardiology workup depending on her clinical course. Qualifiers: Heart failure type: unspecified Heart failure chronicity: acute Qualified Code(s): I50.9 - Heart failure, unspecified (3) Hyperlipidemia SNOMED Code(s): 22079065 Code(s): E78.5 - HYPERLIPIDEMIA, UNSPECIFIED Status: Chronic Priority: Medium Current Visit: Yes Annotation/Comment:: Currently under therapy Qualifiers: Hyperlipidemia type: unspecified Qualified Code(s): E78.5 - Hyperlipidemia , unspecified (4) Oral candidiasis SNOMED Code(s): 96644862 Code(s): B37.0 - CANDIDAL STOMATITIS Status: Acute Priority: Medium Current Visit: Yes Onset Date: 07/23/19 Annotation/Comment:: Mild oral candidiasis secondary to her recent antibiotics as above. Various therapeutic options were discussed with the patient not wishing to have gentian angelo treatment. Initiate Listerine treatments for now as per discharge instructions. (5) Prediabetes SNOMED Code(s): 134378193 Code(s): R73.03 - PREDIABETES Status: Chronic Priority: Medium Current Visit: Yes Annotation/Comment:: Stable by history. Note previous one week course of oral steroids couple of weeks ago. Continue to observe closely by her regular providers. - Problem List Review Problem List Initiated/Reviewed/Updated: Yes - My Orders Last 24 Hours: My Active Orders 07/23/19 08:37 Cardiac Monitoring [RC] CONTINUOUS Communication Order [RC] ROUTINE Oxygen Therapy, ED [RC] CONTINUOUS Pulse Oximetry [RC] CONTINUOUS Up With Assistance [RC] ASDIRECTED Chest 1V Frontal [CR] Stat CULTURE SPUTUM + SMEAR [RM] Urgent Sodium Chloride 0.9% [Saline Flush] 10 ml FLUSH ASDIRECTED PRN Blood Culture x2 Reflex Set [OM.PC] Stat Obtain Past Medical Record [OM.PC] Stat Peripheral IV Insertion Adult [OM.PC] Stat Resuscitation Status Routine 07/23/19 08:38 EKG Documentation Completion [RC] ASDIRECTED Peripheral IV Care [RC] . DIRECTED 07/23/19 08:46 CULTURE BLOOD [BC] Stat 07/23/19 08:50 CORONAVIRUS COVID-19 PCR PHL Urgent 07/23/19 08:51 CULTURE BLOOD [BC] Stat 07/23/19 Breakfast Nothing Per Oral Diet [DIET] - Assessment/Plan Last 24 Hours: My Active Orders 07/23/19 08:37 Cardiac Monitoring [RC] CONTINUOUS Communication Order [RC] ROUTINE Oxygen Therapy, ED [RC] CONTINUOUS Pulse Oximetry [RC] CONTINUOUS Up With Assistance [RC] ASDIRECTED Chest 1V Frontal [CR] Stat CULTURE SPUTUM + SMEAR [RM] Urgent Sodium Chloride 0.9% [Saline Flush] 10 ml FLUSH ASDIRECTED PRN Blood Culture x2 Reflex Set [OM.PC] Stat Obtain Past Medical Record [OM.PC] Stat Peripheral IV Insertion Adult [OM.PC] Stat Resuscitation Status Routine 07/23/19 08:38 EKG Documentation Completion [RC] ASDIRECTED Peripheral IV Care [RC] . DIRECTED 07/23/19 08:46 CULTURE BLOOD [BC] Stat 07/23/19 08:50 CORONAVIRUS COVID-19 PCR PHL Urgent 07/23/19 08:51 CULTURE BLOOD [BC] Stat 07/23/19 Breakfast Nothing Per Oral Diet [DIET] Assessment:: As above Plan: As above. Extensive precautions were given to the patient, who is in agreement with the treatment plan. See Patient Instructions for further treatment and plan.
[2019-07-23] MEDS ORDERED: Sodium Chloride 0.9% 10 ML Syringe FLUSH PRN (08:37)
[2019-07-23 09:19] LABS: PTT,PARTIAL THROMBOPLSTIN TIME 33.6 SEC (24.5-32.8)
[2019-07-23 09:22] LABS: CHLORIDE,CL 106 mmol/L (98-107); SODIUM,NA 142 mmol/L (136-145)
== END 2019-07-23 10:35 | disposition home or self-care (01) ==
LOC: LL.ED 08:30
DX: J44.0 Chronic obstructive pulmonary disease with (acute) lower respiratory infection (principal); E78.5 Hyperlipidemia, unspecified; I50.9 Heart failure, unspecified; B37.0 Candidal stomatitis; E78.00 Pure hypercholesterolemia, unspecified; Z86.718 Personal history of other venous thrombosis and embolism; E66.9 Obesity, unspecified; Z87.891 Personal history of nicotine dependence; Z68.29 Body mass index [BMI] 29.0-29.9, adult; Z91.041 Radiographic dye allergy status; Z79.01 Long term (current) use of anticoagulants; Z79.899 Other long term (current) drug therapy
CPT/HCPCS: 36415; 71045; 80053; 82550; 82553; 83605; 83735; 83880; 84443; 84484; 85025; 85379; 85610; 85730; 87040; 93005; 99284-25; U0002

== ENCOUNTER 2019-07-25 10:35 | Inpatient (IN) | payer MEDICARE, BC ==
--- NOTE | 2019-07-25 10:58 | EDM.PDOC ---
ED HPI GENERAL MEDICAL PROBLEM - General Chief Complaint: Respiratory Problem Stated Complaint: sob Time Seen by Provider: 07/25/19 10:40 Source of Information: Reports: Patient, Old Records History Limitations: Reports: No Limitations - History of Present Illness INITIAL COMMENTS - FREE TEXT/NARRATIVE: She is brought to the hospital by ambulance with complaints of shortness of breath. She has known COPD and CHF. She reports a cough with increased shortness of breath for 2 months. She states last night she had increased trouble breathing when using her nebulization all night without improvement. No fever or chills. Cough is nonproductive. No nausea, vomiting or diarrhea. No nasal congestion or sore throat. She was tested for COVID-19 about 2 weeks ago which was negative, and again 2 days ago which was also negative. She was seen in the emergency department 2 days ago. At that time they continued her Levaquin for possible pneumonia. She was also instructed to take Mucinex, but she does not feel that is been at all helpful. - Related Data Allergies Allergy/AdvReac Type Severity Reaction Status Date / Time IV Dye used for U/S (echo) Allergy Shortness Uncoded 07/25/19 10:38 of Breath Home Meds: Home Meds Warfarin [Coumadin] 5 mg PO SUTUWETHSA@20 06/26/13 [History] Budesonide [Pulmicort] 0.5 mg IH BID 02/07/19 [History] atorvaSTATin [Lipitor] 10 mg PO BEDTIME 02/07/19 [History] Warfarin [Coumadin] 2.5 mg PO MOFR@20 05/23/19 [History] Albuterol Sulfate 2.5 mg IH DAILY 07/23/19 [History] Albuterol [Ventolin HFA] 2 puff INH Q2H PRN 07/23/19 [History] Arformoterol [Brovana] 15 mcg INH Q12HR 07/23/19 [History] Ipratropium [Atrovent] 0.5 mg INH TID 07/23/19 [History] Levofloxacin [Levaquin] 500 mg PO DAILY 07/23/19 [History] guaiFENesin/Dextromethorphan [Mucinex Dm ER 1,200-60 mg Tab] 1 each PO Q12H #20 tab.er.12h 07/23/19 [Rx] Past Medical History HEENT History: Reports: Cataract, Impaired Vision, Other (See Below) Other HEENT History: She wears glasses. Cardiovascular History: Reports: Blood Clots/VTE/DVT, High Cholesterol, Other ( See Below) Other Cardiovascular History: Postoperative DVT of the left leg on 02/18/07 after mastectomy in 2006 with current Coumadin therapy. Respiratory History: Reports: Bronchitis, Recurrent, COPD, Intubation, Previous , Pneumonia, Recurrent, Other (See Below) Other Respiratory History: oxygen dependent Gastrointestinal History: Reports: Cholelithiasis Genitourinary History: Reports: None COAT EXAMINER History: Reports: Polycystic Ovaries, Other COAT EXAMINER History: Menopause in her 40s. Full term without complications during pregnancies or deliveries Musculoskeletal History: Reports: Arthritis, Osteoarthritis Neurological History: Reports: Headaches, Chronic, Migraines, Other (See Below) Other Neuro History: Migraine headaches in early adulthood nonproblematic at this time. Psychiatric History: Reports: None Endocrine/Metabolic History: Reports: Obesity/BMI 30+, Other (See Below) Other Endocrine/Metabolic History: Prediabetes. Hyponatremia. Hematologic History: Reports: None Immunologic History: Reports: None Oncologic (Cancer) History: Reports: Breast, Other (See Below) Other Oncologic History: Left-sided stage I breast cancer in 2006 with mastectomy and radiation therapy. Dermatologic History: Reports: None - Infectious Disease History Infectious Disease History: Reports: Chicken Pox, Mumps - Past Surgical History Head Surgeries/Procedures: Reports: None HEENT Surgical History: Reports: Cataract Surgery, Oral Surgery, Other (See Below) Other HEENT Surgeries/Procedures: Bilateral cataract surgery in 2019. Complete teeth extraction. Cardiovascular Surgical History: Reports: None Respiratory Surgical History: Reports: None GI Surgical History: Reports: Cholecystectomy, Other (See Below) Other GI Surgeries/Procedures: Open cholecystectomy on 06/26/13. Female Surgical History: Reports: Mastectomy, Other (See Below) Other Female Surgeries/Procedures: Left Sided mastectomy in 2006 Endocrine Surgical History: Reports: None Neurological Surgical History: Reports: None Musculoskeletal Surgical History: Reports: None Oncologic Surgical History: Reports: Mastectomy, Other (See Below) Other Oncologic Surgeries/Procedures: Mastectomy as above. Dermatological Surgical History: Reports: None - Past Imaging History Past Imaging History: Reports: CAT Scan (CT of the chest without contrast on 06/25. CT of the abdomen and pelvis on 06/26/13.), Mammogram (Last mammogram in November 2018 by patient history.), Venous Doppler (Left leg on 02/18/07.) Social & Family History - Family History HEENT: Reports: None Cardiac: Reports: Pacemaker, Other (See Below) Other Cardiac Family History: Mother with pacemaker. Respiratory: Reports: Asthma, Other (See Below) Other Respiratory Family Hisory: Father with asthma secondary to coal exposure. GI: Reports: None : Reports: None OBGYN: Reports: None Musculoskeletal: Reports: None Neurological: Reports: Alzheimers Disease, Dementia, Migraines, Other (See Below ) Other Neurological Family History: Mother with migraine headaches. Brothers 2 with organic brain syndrome. Psychiatric: Reports: None Endocrine/Metabolic: Reports: Diabetes, type II, IDDM, Other (See Below) Other Endocrine/Metabolic Family History: Mother with IDDM. Hematologic: Reports: None Immunologic: Reports: None Dermatologic: Reports: None - Caffeine Use Caffeine Use: Reports: None. 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 Denies: Fever, Chills HEENT: Denies: Hearing Loss, Rhinitis, Sinus Problem, Throat Pain, Throat Swelling Respiratory: Reports: Shortness of Breath, Wheezing, Cough Cardiovascular: Denies: Chest Pain, Lightheadedness, Palpitations GI/Abdominal: Denies: Abdominal Pain, Diarrhea, Nausea, Vomiting Musculoskeletal: Reports: No Symptoms Skin: Reports: No Symptoms Neurological: Denies: Confusion, Dizziness Psychiatric: Denies: Agitation, Anxiety, Confusion Hematologic/Lymphatic: Denies: Easy Bleeding ED EXAM, GENERAL - Physical Exam Exam: See Below Exam Limited By: No Limitations General Appearance: Alert, WD/WN, No Apparent Distress Ears: Normal External Exam Nose: Normal Inspection, Normal Mucosa Throat/Mouth: Normal Inspection, Normal Lips, Normal Gums, Normal Oropharynx Head: Atraumatic, Normocephalic Neck: Supple, Non-Tender. No: Lymphadenopathy (L), Lymphadenopathy (R) Respiratory/Chest: No Respiratory Distress, Lungs Clear, Normal Breath Sounds, Wheezing (Occasional expiratory wheezing at the bases bilaterally.). No: Stridor Cardiovascular: Regular Rate, Rhythm, No Murmur, Other (Trace edema in the ankles bilaterally.) GI/Abdominal: Normal Bowel Sounds, Soft, Non-Tender, No Mass Extremities: Pedal Edema (Trace edema in both ankles.) Neurological: Alert, Oriented, Normal Cognition Psychiatric: Normal Affect, Normal Mood Skin Exam: Warm, Dry Course - Vital Signs Last Recorded V/S: Last Vital Signs Temp 37.2 C 07/25/19 10:38 Pulse 101 H 07/25/19 10:38 Resp 22 H 07/25/19 10:38 BP 133/75 07/25/19 10:38 Pulse Ox 100 07/25/19 10:38 - Orders/Labs/Meds Orders: Active Orders 24 hr Category Date Time Status Chest 2V [CR] Stat Exams 07/25/19 10:59 Ordered Labs: Laboratory Tests 07/25/19 07/25/19 Range/Units 11:10 11:15 WBC 4.4 (4.0-10.2) K/uL RBC 4.09 (3.77-5.09) M/uL Hgb 11.8 (11.7-15.5) g/dL Hct 37.4 (34.0-46.0) % MCV 91.4 (84.0-98.0) fL MCH 28.9 (28.2-33.3) pg MCHC 31.6 L (31.7-36.0) g/dL RDW 13.9 (11.2-14.1) % Plt Count 135 L (150-350) K/uL Neut % (Auto) 81.9 H (45.0-80.0) % Lymph % (Auto) 10.0 (10.0-50.0) % [place] % (Auto) 7.2 (2.0-14.0) % Eos % (Auto) 0.7 (0.0-5.0) % Baso % (Auto) 0.2 (0.0-2.0) % Neut # (Auto) 3.62 (1.40-7.00) K/uL Lymph # (Auto) 0.44 L (0.50-3.50) K/uL [place] # (Auto) 0.32 (0.00-1.00) K/uL Eos # (Auto) 0.03 (0.00-0.50) K/uL Baso # (Auto) 0.01 (0.00-0.20) K/uL Sodium 143 (136-145) mmol/L Potassium 4.0 (3.5-5.1) mmol/L Chloride 105 (98-107) mmol/L Carbon Dioxide 27.9 (21.0-32.0) mmol/L BUN 10 (7-18) mg/dL Creatinine 0.66 (0.51-1.17) mg/dL Est Cr Clr Drug Dosing 60.91 mL/min Estimated GFR (MDRD) > 60 mL/min Glucose 122 H (74-106) mg/dL Calcium 8.9 (8.5-10.1) mg/dL Meds: Medications Discontinued Medications Generic Name Dose Route Start Last Admin Trade Name Freq PRN Reason Stop Dose Admin Furosemide 20 mg 07/25/19 11:44 Lasix IVPUSH 07/25/19 11:45 NOW ONE - Radiology Interpretation Free Text/Narrative:: chest x-ray shows no obvious infiltrate. No significant change from [id number]. - Re-Assessments/Exams Free Text/Narrative Re-Assessment/Exam: 07/25/19 11:56 Patient appears comfortable throughout the visit. Minimal cough. Since it is her second visit in 3 days with worsening complaints, will admit to the hospital for IV steroids and nebulization treatments. Departure - Departure Time of Disposition: 12:00 Disposition: Admitted As Inpatient 65 Condition: Good Clinical Impression: Shortness of breath CHF (congestive heart failure) Qualifiers: Heart failure type: unspecified Heart failure chronicity: acute Qualified Code( s): I50.9 - Heart failure, unspecified COPD (chronic obstructive pulmonary disease) Qualifiers: COPD type: COPD with acute lower respiratory infection Qualified Code(s): J44.0 - Chronic obstructive pulmonary disease with (acute) lower respiratory infection - Discharge Information *PRESCRIPTION DRUG MONITORING PROGRAM REVIEWED*: Not Applicable *COPY OF PRESCRIPTION DRUG MONITORING REPORT IN PATIENT INGE: Not Applicable Referrals: Leonor Millan PA-C [Primary Care Provider] - Forms: ED Department Discharge Sepsis Event Note - Evaluation Sepsis Screening Result: Possible Sepsis Risk - Focused Exam Vital Signs: Vital Signs Temp Pulse Resp BP Pulse Ox 07/25/19 10:38 37.2 C 101 H 22 H 133/75 100 Date Exam was Performed: 07/25/19 Time Exam was Performed: 11:56 - My Orders Last 24 Hours: My Active Orders 07/25/19 10:59 Chest 2V [CR] Stat - Assessment/Plan Last 24 Hours: My Active Orders 07/25/19 10:59 Chest 2V [CR] Stat
[2019-07-25] MEDS ORDERED: Furosemide 40 MG/4 ML VIAL IVPUSH ONE (11:44)
[2019-07-25 11:46] LABS: CHLORIDE,CL 105 mmol/L (98-107); SODIUM,NA 143 mmol/L (136-145)
[2019-07-25] MEDS ORDERED: Albuterol 0.083% 2.5 MG/3 ML Neb Soln NEB PRN (12:14)
[2019-07-25] MEDS: Sodium Chloride 0.9% 10 ML Syringe IV PRN ×2 (12:16→13:14)
[2019-07-25] MEDS: Levofloxacin 500 MG Tab PO SCH (13:14)
[2019-07-25] MEDS: Albuterol/Ipratropium 3.0-0.5 MG/3 ML Neb Soln NEB SCH ×2 (13:14→19:31)
[2019-07-25] MEDS: Omeprazole 20 MG Cap.CR PO SCH (13:14)
[2019-07-25] MEDS: methylPREDNISolone Sodium Succinate 40 MG/1 ML SDV IVPUSH SCH (13:14)
[2019-07-25] MEDS: Benzonatate 100 MG Cap PO PRN ×2 (13:14→19:41)
[2019-07-25] MEDS ORDERED: Sodium Chloride 0.9% 10 ML Syringe FLUSH PRN (16:17)
[2019-07-25] MEDS ORDERED: Budesonide 0.5 MG/2 ML Neb Susp INH SCH (18:00)
[2019-07-25] MEDS: Arformoterol 15 MCG/2 ML Neb Soln INH SCH (19:23)
[2019-07-25] MEDS ORDERED: atorvaSTATin 10 MG Tab PO SCH (20:00)
[2019-07-25] MEDS ORDERED: Warfarin 5 MG Tab PO SCH (20:00)
[2019-07-26] MEDS: methylPREDNISolone Sodium Succinate 40 MG/1 ML SDV IVPUSH SCH ×2 (00:09→11:55)
[2019-07-26] MEDS: Albuterol/Ipratropium 3.0-0.5 MG/3 ML Neb Soln NEB SCH ×2 (01:00→07:23)
[2019-07-26 07:21] VITALS: BP 133/74; PULSE 89
[2019-07-26] MEDS: Levofloxacin 500 MG Tab PO SCH (07:22)
[2019-07-26] MEDS: Omeprazole 20 MG Cap.CR PO SCH (07:22)
[2019-07-26] MEDS: Arformoterol 15 MCG/2 ML Neb Soln INH SCH (07:23)
[2019-07-26] MEDS: Benzonatate 100 MG Cap PO PRN (07:32)
[2019-07-26] MEDS ORDERED: Budesonide 0.5 MG/2 ML Neb Susp INH SCH (08:00)
[2019-07-26 09:16] LABS: CHLORIDE,CL 104 mmol/L (98-107); SODIUM,NA 144 mmol/L (136-145)
--- NOTE | 2019-07-26 12:17 | PCM.DCSUM1 ---
Discharge Summary - Hospital Course Free Text/Narrative:: Pt admitted with COPD exacerbation Pt placed on oral Cipro and IV Solu-medrol Pt uses oxygen 3 L at home Pt sats currently 98 % on 3 L Diagnosis: Stroke: No - Discharge Data Discharge Date: 07/26/19 Discharge Disposition: Home, Self-Care 01 Condition: Good - Referral to Home Health Primary Care Physician: Leonor Millan PA-C - Discharge Diagnosis/Problem(s) (1) COPD (chronic obstructive pulmonary disease) SNOMED Code(s): 91429963 ICD Code: J44.9 - CHRONIC OBSTRUCTIVE PULMONARY DISEASE, UNSPECIFIED Status : Acute Priority: High Current Visit: Yes Problem Details: O2 and steroid- dependent. Complete current Levaquin therapy with additional high-dose Mucinex DM, which should be continued until her follow-up visit as per discharge instructions. CT of the chest already ordered as below and no significant pneumonia by today's chest x-ray. Excellent O2 saturations today with the patient counseled on proper use of supplemental O2. Possible mild persistent bronchitis. Qualifiers: COPD type: COPD with acute lower respiratory infection Qualified Code(s): J44.0 - Chronic obstructive pulmonary disease with (acute) lower respiratory infection (2) COPD with exacerbation SNOMED Code(s): 651465680 ICD Code: J44.1 - CHRONIC OBSTRUCTIVE PULMONARY DISEASE W (ACUTE) EXACERBATION Status: Acute Current Visit: No - Patient Summary/Data Hospital Course: Pt placed on oral antibiotics and IV Solu-medrol Pt is doing well and at baseline - Patient Instructions Diet: Regular Diet as Tolerated Activity: As Tolerated Notify Provider of: Fever - Discharge Plan *PRESCRIPTION DRUG MONITORING PROGRAM REVIEWED*: Not Applicable *COPY OF PRESCRIPTION DRUG MONITORING REPORT IN PATIENT INGE: Not Applicable Prescriptions/Med Rec: Benzonatate [Tessalon Perle] 100 mg PO TID PRN #30 capsule PRN Reason: Cough methylPREDNISolone [Medrol Dose Pack] 4 mg PO ASDIRECTED #1 dospk Home Medications: Home Meds Warfarin [Coumadin] 5 mg PO SUTUWETHSA@06/26/13 [History] Budesonide [Pulmicort] 0.5 mg IH BID 02/07/19 [History] atorvaSTATin [Lipitor] 10 mg PO BEDTIME 02/07/19 [History] Warfarin [Coumadin] 2.5 mg PO MOFR@05/23/19 [History] Albuterol Sulfate 2.5 mg IH DAILY 07/23/19 [History] Albuterol [Ventolin HFA] 2 puff INH Q2H PRN 07/23/19 [History] Arformoterol [Brovana] 15 mcg INH Q12HR 07/23/19 [History] Ipratropium [Atrovent] 0.5 mg INH TID 07/23/19 [History] Levofloxacin [Levaquin] 500 mg PO DAILY 07/23/19 [History] guaiFENesin/Dextromethorphan [Mucinex DM ER 1,200-60 MG] 1 each PO Q12H #20 tab.er.12h 07/23/19 [Rx] Benzonatate [Tessalon Perle] 100 mg PO TID PRN #30 capsule 07/26/19 [Rx] methylPREDNISolone [Medrol Dose Pack] 4 mg PO ASDIRECTED #1 dospk 07/26/19 [Rx] Forms: ED Department Discharge Referrals: Leonor Millan PA-C [Primary Care Provider] - - Discharge Summary/Plan Comment DC Time >30 min.: No - General Info Date of Service: 07/26/19 Admission Dx/Problem (Free Text: Pt admitted with COPD exacerbation Pt doing better now - Review of Systems General: Reports: No Symptoms Pulmonary: Reports: Shortness of Breath, Cough Cardiovascular: Reports: No Symptoms Gastrointestinal: Reports: No Symptoms Genitourinary: Reports: No Symptoms Musculoskeletal: Reports: No Symptoms - Patient Data Vitals - Most Recent: Last Vital Signs Temp 98.3 F 07/26/19 07:21 Pulse 89 07/26/19 07:21 Resp 16 07/26/19 07:21 BP 133/74 07/26/19 07:21 Pulse Ox 98 07/26/19 07:21 Weight - Most Recent: 165 lb 12.813 oz I&O - Last 24 hours: Intake & Output 07/26/19 07/26/19 07/26/19 02:59 10:59 18:59 Intake Total 220 120 Output Total 300 450 Balance -300 -230 120 Lab Results - Last 24 hrs: Laboratory Results - last 24 hr 07/26/19 07/26/19 07/26/19 Range/Units 08:40 08:40 09:10 WBC 7.3 (4.0-10.2) K/uL RBC 4.47 (3.77-5.09) M/uL Hgb 13.0 (11.7-15.5) g/dL Hct 40.5 (34.0-46.0) % MCV 90.6 (84.0-98.0) fL MCH 29.1 (28.2-33.3) pg MCHC 32.1 (31.7-36.0) g/dL RDW 13.7 (11.2-14.1) % Plt Count 169 (150-350) K/uL Neut % (Auto) 94.5 H (45.0-80.0) % Lymph % (Auto) 4.4 L (10.0-50.0) % [place] % (Auto) 1.0 L (2.0-14.0) % Eos % (Auto) 0.0 (0.0-5.0) % Baso % (Auto) 0.1 (0.0-2.0) % Neut # (Auto) 6.89 (1.40-7.00) K/uL Lymph # (Auto) 0.32 L (0.50-3.50) K/uL [place] # (Auto) 0.07 (0.00-1.00) K/uL Eos # (Auto) 0.00 (0.00-0.50) K/uL Baso # (Auto) 0.01 (0.00-0.20) K/uL PT 24.2 H (9.5-12.0) SEC INR 2.5 Sodium 144 (136-145) mmol/L Potassium 3.8 (3.5-5.1) mmol/L Chloride 104 (98-107) mmol/L Carbon Dioxide 28.6 (21.0-32.0) mmol/L BUN 15 (7-18) mg/dL Creatinine 0.64 (0.51-1.17) mg/dL Est Cr Clr Drug Dosing 62.81 mL/min Estimated GFR (MDRD) > 60 mL/min Glucose 224 H (74-106) mg/dL Calcium 9.4 (8.5-10.1) mg/dL Total Bilirubin 0.8 (0.2-1.0) mg/dL AST 18 (15-37) U/L ALT 41 (12-78) U/L Alkaline Phosphatase 106 (46-116) IU/L Total Protein 6.9 (6.4-8.2) g/dL Albumin 3.7 (3.4-5.0) g/dL Med Orders - Current: Current Medications Albuterol (Proventil Neb Soln) 2.5 mg NEB Q4HRRT PRN PRN Reason: Shortness of Breath Albuterol/Ipratropium (Duoneb 3.0-0.5 Mg/3 Ml) 3 ml NEB Q6HRRT [facility] Last Admin: 07/26/19 07:23 Dose: 3 ml Arformoterol Tartrate (Brovana) 15 mcg INH Q12HR [facility] Last Admin: 07/26/19 07:23 Dose: 15 mcg Atorvastatin Calcium (Lipitor) 10 mg PO BEDTIME [facility] Last Admin: 07/25/19 19:29 Dose: 10 mg Benzonatate (Tessalon Perles) 100 mg PO TID PRN PRN Reason: Cough Last Admin: 07/26/19 07:32 Dose: 100 mg Budesonide (Pulmicort) 0.5 mg INH BIDRT [facility] Last Admin: 07/26/19 07:23 Dose: 0.5 mg Methylprednisolone Sodium Succinate (Solu-Medrol) 40 mg IVPUSH Q12H [facility] Last Admin: 07/26/19 11:55 Dose: Not Given Omeprazole (Omeprazole) 20 mg PO DAILY [facility] Last Admin: 07/26/19 07:22 Dose: 20 mg Sodium Chloride (Saline Flush) 10 ml FLUSH ASDIRECTED PRN PRN Reason: Keep Vein Open Last Admin: 07/26/19 00:09 Dose: 10 ml Warfarin Sodium (Coumadin) 2.5 mg PO MOFR@20 [place] Warfarin Sodium (Coumadin) 5 mg PO SUTUWETHSA@20 [facility] Last Admin: 07/25/19 19:29 Dose: 5 mg Discontinued Medications Budesonide (Pulmicort) 0.5 mg INH BID [facility] Last Admin: 07/25/19 17:00 Dose: 0.5 mg Furosemide (Lasix) 20 mg IVPUSH NOW ONE Stop: 07/25/19 11:45 Last Admin: 07/25/19 12:16 Dose: 20 mg Levofloxacin (Levaquin) 500 mg PO DAILY [facility] Stop: 07/26/19 08:01 Last Admin: 07/26/19 07:22 Dose: 500 mg Non-Formulary Medication (Guaifenesin/Dextromethorphan [Mucinex Dm Er 1,200-60 Mg]) 1 each PO Q12H [place] Last Admin: 07/25/19 12:59 Dose: Not Given Sodium Chloride (Saline Flush) 10 ml IV ASDIRECTED PRN PRN Reason: Keep Vein Open Last Admin: 07/25/19 13:14 Dose: 10 ml - Exam General: Reports: Alert, Oriented Neck: Reports: Supple Lungs: Reports: Decreased Breath Sounds Cardiovascular: Reports: Regular Rate GI/Abdominal Exam: Non-Tender
[2019-07-26] MEDS ORDERED: Warfarin 2.5 MG Tab PO SCH (20:00)
== END 2019-07-26 14:00 | disposition home or self-care (01) | DRG 192 ==
LOC: LL.ED 10:35 → LL.MS 11:45
PROVIDERS: ADMIT Family Medicine; ATTEND Family Medicine
DX: J44.0 Chronic obstructive pulmonary disease with (acute) lower respiratory infection (principal); J44.1 Chronic obstructive pulmonary disease with (acute) exacerbation; E78.00 Pure hypercholesterolemia, unspecified; H54.7 Unspecified visual loss; M19.90 Unspecified osteoarthritis, unspecified site; Z86.718 Personal history of other venous thrombosis and embolism; E66.9 Obesity, unspecified; I50.9 Heart failure, unspecified; Z85.3 Personal history of malignant neoplasm of breast; Z90.12 Acquired absence of left breast and nipple; Z92.3 Personal history of irradiation; Z98.42 Cataract extraction status, left eye; Z98.41 Cataract extraction status, right eye; Z91.041 Radiographic dye allergy status; Z79.01 Long term (current) use of anticoagulants; Z79.899 Other long term (current) drug therapy; Z87.01 Personal history of pneumonia (recurrent); Z79.51 Long term (current) use of inhaled steroids; Z99.81 Dependence on supplemental oxygen; Z90.49 Acquired absence of other specified parts of digestive tract; Z68.29 Body mass index [BMI] 29.0-29.9, adult
CPT/HCPCS: 36415; 71046; 80048; 80053; 85025; 85610; 94640; 99285-25; A9270-GY; J1940; J2920; J7620-GY

== ENCOUNTER 2019-07-29 15:08 | Emergency (ER) | payer MEDICARE, BC ==
[2019-07-29 15:57] LABS: CHLORIDE,CL 106 mmol/L (98-107); SODIUM,NA 144 mmol/L (136-145)
--- NOTE | 2019-07-29 16:21 | EDM.PDOC ---
ED HPI GENERAL MEDICAL PROBLEM - General Chief Complaint: Respiratory Problem Stated Complaint: shortness of breath Time Seen by Provider: 07/29/19 15:15 Source of Information: Reports: Patient History Limitations: Reports: No Limitations - History of Present Illness INITIAL COMMENTS - FREE TEXT/NARRATIVE: Pt presents with SOB Was recently admitted for COPD exacerbation Was discharged several days ago States took oral prednisone and her SOB was worse Stopped the Medrol Dosepak No fever Is followed by pulmonology Uses oxygen at home Onset: Gradual Duration: Day(s):, Chronic Location: Reports: Chest - Related Data Allergies Allergy/AdvReac Type Severity Reaction Status Date / Time IV Dye used for U/S (echo) Allergy Shortness Uncoded 07/25/19 10:38 of Breath Home Meds: Home Meds Warfarin [Coumadin] 5 mg PO SUTUWETHSA@20 06/26/13 [History] Budesonide [Pulmicort] 0.5 mg IH BID 02/07/19 [History] atorvaSTATin [Lipitor] 10 mg PO BEDTIME 02/07/19 [History] Warfarin [Coumadin] 2.5 mg PO MOFR@20 05/23/19 [History] Albuterol Sulfate 2.5 mg IH DAILY 07/23/19 [History] Albuterol [Ventolin HFA] 2 puff INH Q2H PRN 07/23/19 [History] Arformoterol [Brovana] 15 mcg INH Q12HR 07/23/19 [History] Ipratropium [Atrovent] 0.5 mg INH TID 07/23/19 [History] Levofloxacin [Levaquin] 500 mg PO DAILY 07/23/19 [History] guaiFENesin/Dextromethorphan [Mucinex DM ER 1,200-60 MG] 1 each PO Q12H #20 tab.er.12h 07/23/19 [Rx] Benzonatate [Tessalon Perle] 100 mg PO TID PRN #30 capsule 07/26/19 [Rx] methylPREDNISolone [Medrol Dose Pack] 4 mg PO ASDIRECTED #1 dospk 07/26/19 [Rx] Past Medical History HEENT History: Reports: Cataract, Impaired Vision, Other (See Below) Other HEENT History: She wears glasses. Cardiovascular History: Reports: Blood Clots/VTE/DVT, High Cholesterol, Other ( See Below) Other Cardiovascular History: Postoperative DVT of the left leg on 02/18/07 after mastectomy in 2006 with current Coumadin therapy. Respiratory History: Reports: Bronchitis, Recurrent, COPD, Intubation, Previous , Pneumonia, Recurrent, Other (See Below) Other Respiratory History: oxygen dependent Gastrointestinal History: Reports: Cholelithiasis Genitourinary History: Reports: None MANAGER [employer] SERVICES History: Reports: Polycystic Ovaries, Other MANAGER [employer] SERVICES History: Menopause in her 40s. Full term without complications during pregnancies or deliveries Musculoskeletal History: Reports: Arthritis, Osteoarthritis Neurological History: Reports: Headaches, Chronic, Migraines, Other (See Below) Other Neuro History: Migraine headaches in early adulthood nonproblematic at this time. Psychiatric History: Reports: None Endocrine/Metabolic History: Reports: Obesity/BMI 30+, Other (See Below) Other Endocrine/Metabolic History: Prediabetes. Hyponatremia. Hematologic History: Reports: None Immunologic History: Reports: None Oncologic (Cancer) History: Reports: Breast, Other (See Below) Other Oncologic History: Left-sided stage I breast cancer in 2006 with mastectomy and radiation therapy. Dermatologic History: Reports: None - Infectious Disease History Infectious Disease History: Reports: Chicken Pox, Mumps - Past Surgical History Head Surgeries/Procedures: Reports: None HEENT Surgical History: Reports: Cataract Surgery, Oral Surgery, Other (See Below) Other HEENT Surgeries/Procedures: Bilateral cataract surgery in 2019. Complete teeth extraction. Cardiovascular Surgical History: Reports: None Respiratory Surgical History: Reports: None GI Surgical History: Reports: Cholecystectomy, Other (See Below) Other GI Surgeries/Procedures: Open cholecystectomy on 06/26/13. Female Surgical History: Reports: Mastectomy, Other (See Below) Other Female Surgeries/Procedures: Left Sided mastectomy in 2006 Endocrine Surgical History: Reports: None Neurological Surgical History: Reports: None Musculoskeletal Surgical History: Reports: None Oncologic Surgical History: Reports: Mastectomy, Other (See Below) Other Oncologic Surgeries/Procedures: Mastectomy as above. Dermatological Surgical History: Reports: None - Past Imaging History Past Imaging History: Reports: CAT Scan (CT of the chest without contrast on 06/25. CT of the abdomen and pelvis on 06/26/13.), Mammogram (Last mammogram in November 2018 by patient history.), Venous Doppler (Left leg on 02/18/07.) Social & Family History - Family History HEENT: Reports: None Cardiac: Reports: Pacemaker, Other (See Below) Other Cardiac Family History: Mother with pacemaker. Respiratory: Reports: Asthma, Other (See Below) Other Respiratory Family Hisory: Father with asthma secondary to coal exposure. GI: Reports: None : Reports: None OBGYN: Reports: None Musculoskeletal: Reports: None Neurological: Reports: Alzheimers Disease, Dementia, Migraines, Other (See Below ) Other Neurological Family History: Mother with migraine headaches. Brothers 2 with organic brain syndrome. Psychiatric: Reports: None Endocrine/Metabolic: Reports: Diabetes, type II, IDDM, Other (See Below) Other Endocrine/Metabolic Family History: Mother with IDDM. 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65) ED ROS GENERAL - Review of Systems Review Of Systems: See Below Respiratory: Reports: Shortness of Breath Cardiovascular: Reports: No Symptoms GI/Abdominal: Reports: No Symptoms ED EXAM, GENERAL - Physical Exam Exam: See Below Exam Limited By: No Limitations General Appearance: Alert, No Apparent Distress Respiratory/Chest: No Respiratory Distress, Decreased Breath Sounds, Other (No wheezing) GI/Abdominal: Non-Tender Course - Vital Signs Last Recorded V/S: Last Vital Signs Temp 98.8 F 07/29/19 15:12 Pulse 96 07/29/19 15:12 Resp 16 07/29/19 15:12 BP 132/72 07/29/19 15:12 Pulse Ox 97 07/29/19 15:12 - Orders/Labs/Meds Orders: Active Orders 24 hr Category Date Time Status Chest 2V [CR] Stat Exams 07/29/19 15:22 Taken Labs: Laboratory Tests 07/29/19 07/29/19 Range/Units 15:35 15:35 WBC 6.7 (4.0-10.2) K/uL RBC 4.25 (3.77-5.09) M/uL Hgb 12.4 (11.7-15.5) g/dL Hct 38.6 (34.0-46.0) % MCV 90.8 (84.0-98.0) fL MCH 29.2 (28.2-33.3) pg MCHC 32.1 (31.7-36.0) g/dL RDW 14.0 (11.2-14.1) % Plt Count 165 (150-350) K/uL Neut % (Auto) 79.0 (45.0-80.0) % Lymph % (Auto) 12.6 (10.0-50.0) % [place]oddard % (Auto) 7.6 (2.0-14.0) % Eos % (Auto) 0.7 (0.0-5.0) % Baso % (Auto) 0.1 (0.0-2.0) % Neut # (Auto) 5.31 (1.40-7.00) K/uL Lymph # (Auto) 0.85 (0.50-3.50) K/uL [place] # (Auto) 0.51 (0.00-1.00) K/uL Eos # (Auto) 0.05 (0.00-0.50) K/uL Baso # (Auto) 0.01 (0.00-0.20) K/uL Sodium 144 (136-145) mmol/L Potassium 3.6 (3.5-5.1) mmol/L Chloride 106 (98-107) mmol/L Carbon Dioxide 29.3 (21.0-32.0) mmol/L BUN 11 (7-18) mg/dL Creatinine 0.66 (0.51-1.17) mg/dL Est Cr Clr Drug Dosing TNP Estimated GFR (MDRD) > 60 mL/min Glucose 105 (74-106) mg/dL Calcium 8.7 (8.5-10.1) mg/dL Total Bilirubin 1.2 H (0.2-1.0) mg/dL AST 17 (15-37) U/L ALT 31 (12-78) U/L Alkaline Phosphatase 98 (46-116) IU/L Total Protein 6.3 L (6.4-8.2) g/dL Albumin 3.6 (3.4-5.0) g/dL - Re-Assessments/Exams Free Text/Narrative Re-Assessment/Exam: 07/29/19 16:20 See lab and CXR report Pt sats 98% on RA in ER Departure - Departure Time of Disposition: 16:30 Disposition: Home, Self-Care 01 Clinical Impression: COPD (chronic obstructive pulmonary disease) Qualifiers: COPD type: unspecified COPD Qualified Code(s): J44.9 - Chronic obstructive pulmonary disease, unspecified - Discharge Information Instructions: Chronic Obstructive Pulmonary Disease Exacerbation, [id number] , Shortness of Breath, Adult, [id number] Referrals: Leonor Millan PA-C [Primary Care Provider] - Additional Instructions: Follow up in clinic Sepsis Event Note (ED) - Evaluation Sepsis Screening Result: No Definite Risk - Focused Exam Vital Signs: Vital Signs Temp Pulse Resp BP Pulse Ox 07/29/19 15:12 98.8 F 96 16 132/72 97 - My Orders Last 24 Hours: My Active Orders 07/29/19 15:22 Chest 2V [CR] Stat - Assessment/Plan Last 24 Hours: My Active Orders 07/29/19 15:22 Chest 2V [CR] Stat
== END 2019-07-29 16:35 | disposition home or self-care (01) ==
LOC: LL.ED 15:08
DX: J44.9 Chronic obstructive pulmonary disease, unspecified (principal); E78.00 Pure hypercholesterolemia, unspecified; Z09 Encounter for follow-up examination after completed treatment for conditions other than malignant neoplasm; Z99.81 Dependence on supplemental oxygen; E66.9 Obesity, unspecified; Z91.041 Radiographic dye allergy status; Z79.01 Long term (current) use of anticoagulants; Z79.899 Other long term (current) drug therapy; Z86.718 Personal history of other venous thrombosis and embolism
CPT/HCPCS: 36415; 71046; 80053; 85025; 85610; 99285-25

== ENCOUNTER 2020-02-04 12:47 | Emergency (ER) | payer MEDICARE, BC ==
[2020-02-04] MEDS ORDERED: Sodium Chloride 0.9% 10 ML Syringe FLUSH PRN (12:52)
[2020-02-04] MEDS ORDERED: Famotidine 20 MG/2 ML SDV IVPUSH ONE (12:52)
--- NOTE | 2020-02-04 12:52 | EDM.PDOC ---
ED HPI GENERAL MEDICAL PROBLEM - General Chief Complaint: Abdominal Pain Stated Complaint: shortness of breath, epigastric pain Time Seen by Provider: 02/04/20 12:50 Source of Information: Reports: Patient, Family (), Old Records (ARSENIO Tolliver on [facility] chart/EMR) History Limitations: Reports: No Limitations - History of Present Illness INITIAL COMMENTS - FREE TEXT/NARRATIVE: The patient was brought to the emergency room via private automobile by her for evaluation of progressive nonspecific dyspnea associated with 10/10 nonspecific epigastric/heartburn discomfort with symptoms starting at about 9 AM this morning. She has not taken any medications for her symptoms to this point. No recent history of other abdominal pain, nausea, diarrhea, melena, gross hematochezia, or any food intolerance, including fatty foods, etc., although she does have a 1 month history of nonspecific diffuse abdominal cramping and bloating with colonoscopy scheduled in this facility on 02/03/2020. She only had a very small bowel movement earlier this morning with significant abdominal discomfort from the bowel prep for the planned colonoscopy as above. Patient was seen by her regular provider at the [facility] with IV normal saline, 1 L, given yesterday secondary to possible secondary dehydration. The patient denies any chest pain/pressure, heart flutter, dizziness, orthostasis, orthopnea, diaphoresis, paresthesias, recent decreased exercise tolerance, or any other anginal-type symptoms. The patient also denies any recent fever, cough, wheezing, etc., however note nonspecific dyspnea as above. Note that her symptoms did improved to 8/10 shortly prior to arrival to this facility. Onset: Today, Gradual Onset Date: 02/04/20 Onset Time: 09:00 Duration: Improving Location: Reports: Abdomen. Denies: Head, Face, Chest, Back, Pelvis, Upper Extremity, Left, Upper Extremity, Right, Lower Extremity, Left, Radiates to Quality: Reports: Same as Previous Episode, Stabbing Severity: Severe Improves with: Reports: None Worsens with: Reports: None Context: Reports: Other (As above). Denies: Sick Contact, Trauma Associated Symptoms: Reports: Shortness of Breath. Denies: Confusion, Chest Pain, Cough, Diaphoresis, Fever/Chills, Headaches, Loss of Appetite, Nausea/Vomiting, Weakness Treatments [employer]: Reports: Other (see below) (None) Epigastric Pain Pain Score (Numeric/FACES): 8 - Related Data Allergies Allergy/AdvReac Type Severity Reaction Status Date / Time IV Dye used for U/S (echo) Allergy Shortness Uncoded 02/04/20 12:50 of Breath Home Meds: Home Meds Warfarin [Coumadin] 5 mg PO SUTUWETHSA@20 06/26/13 [History] Budesonide [Pulmicort] 0.5 mg IH BID@0800,199902/07/19 [History] Warfarin [Coumadin] 2.5 mg PO MOWEFR@20 05/23/19 [History] Albuterol Sulfate 2.5 mg IH DAILY 07/23/19 [History] Albuterol [Ventolin HFA] 2 puff INH Q4H PRN 07/23/19 [History] Arformoterol [Brovana] 15 mcg INH Q12HR 07/23/19 [History] Ipratropium [Atrovent] 0.5 mg INH TID@0800,1500,199907/23/19 [History] Phytonadione [Vitamin K] 100 mg PO DAILY 02/04/20 [History] Simethicone [Gas-X Ultra Strength] 1 tab PO ASDIRECTED 02/04/20 [History] polyethylene glycoL 3350 [MiraLAX] 17 gm PO DAILY #30 packet 02/04/20 [Rx] Past Medical History HEENT History: Reports: Cataract, Impaired Vision, Other (See Below). Denies: Allergic Rhinitis, Glaucoma, Hard of Hearing, Macular Degeneration, Otitis Media, Retinal Detachment Other HEENT History: She wears glasses. Cardiovascular History: Reports: Blood Clots/VTE/DVT, High Cholesterol, Other (See Below). Denies: Aneurysm, Arrhythmia, CAD, Heart Failure, Heart Murmur, Hypertension, RI, PVD, Syncope Other Cardiovascular History: Postoperative DVT of the left leg on 02/18/07 after mastectomy in 2006 with current Coumadin therapy. Respiratory History: Reports: Bronchitis, Recurrent, COPD, Intubation, Previous, Pneumonia, Recurrent, Other (See Below). 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 Gastrointestinal History: Reports: Cholelithiasis, Diverticulosis, GERD. Denies: Celiac Disease, Chronic Constipation, Chronic Diarrhea, Colon Polyp, Fecal Incontinence, Gastritis, GI Bleed, Hepatitis, Hiatal Hernia, Inflammatory Bowel Disease, Irritable Bowel Syndrome, Jaundice, PUD Genitourinary History: Reports: None. Denies: Acute Renal Failure, Chronic Renal Insuffiency, Renal Calculus, Retention, Urinary, STD, Urinary Incontinence, UTI, Recurrent MODEL MAKER History: Reports: Polycystic Ovaries, . Denies: Dysfunctional Uterine Bleeding, Endometriosis, Fibroids, Spontaneous : 2 Para: 2 LMP (Approximate): Other (See Below) Other MODEL MAKER History: Menopause in her 40s. Full term without complications during pregnancies or deliveries Musculoskeletal History: Reports: Arthritis, Osteoarthritis, Osteoporosis. Denies: Amputation, Back Pain, Chronic, Fracture, Gout, Neck Pain, Chronic, RA, SLE Neurological History: Reports: Headaches, Chronic, Migraines, Other (See Below). Denies: Cerebral Aneurysms, CVA, MS, Neuropathy, Peripheral, Parkinson's, Seizure, TIA, Vertigo Other Neuro History: Migraine headaches in early adulthood nonproblematic at this time. Psychiatric History: Reports: None. Denies: Abuse, Victim of, ADD, ADHD, Addiction, Anxiety, Depression, Hallucinations, Psych Hospitalization(s), PTSD, Suicide Attempt, Suicidal Ideation Endocrine/Metabolic History: Reports: Diabetes, Type II, Obesity/BMI 30+, Osteopenia, Osteoporosis, Other (See Below). Denies: Diabetes, Gestational, Diabetes, Type I, Diabetes Mellitus, Type 3c, IDDM Other Endocrine/Metabolic History: Prediabetes. Hyponatremia. Hematologic History: Reports: None. Denies: Anemia, B12 Deficiency, Blood Transfusion(s), Iron Deficiency Immunologic History: Reports: None. Denies: AIDS, HIV, SLE Oncologic (Cancer) History: Reports: Breast, Other (See Below). Denies: Basal Cell Carcinoma, Cervix, Colon, Hodgkin's Lymphoma, Leukemia, Lymphoma, Malignant Melanoma, Non-Hodgkin's Lymphoma, Ovarian, Squamous Cell Carcinoma, Uterine Other Oncologic History: Left-sided stage I breast cancer in 2006 with mastectomy and radiation therapy. Dermatologic History: Reports: None. Denies: Eczema, Psoriasis - Infectious Disease History Infectious Disease History: Reports: Chicken Pox, Mumps. Denies: C-Difficile, Measles, Meningitis, Mononucleosis, MRSA, Novel Coronavirus, Pertussis (Whooping Cough), Rheumatic Fever, Rubella, Scarlet Fever, Shingles, TB, VRE - Past Surgical History Head Surgeries/Procedures: Reports: None HEENT Surgical History: Reports: Cataract Surgery, Oral Surgery, Other (See Below). Denies: Adenoidectomy, Eye Surgery, Laser Surgery, LASIK, Myringotomy w Tube(s), Naso-Sinus Surgery, Tonsillectomy Other HEENT Surgeries/Procedures: Bilateral cataract surgery in 2019. Complete teeth extraction. Cardiovascular Surgical History: Reports: None. Denies: Varicose Respiratory Surgical History: Reports: None. Denies: Thoracentesis GI Surgical History: Reports: Cholecystectomy, Other (See Below). Denies: Appendectomy, Colonoscopy, EGD, Hernia, Abdominal, Hernia, Inguinal, Hernia Repair/Other, Polypectomy Other GI Surgeries/Procedures: Open cholecystectomy on 06/26/13. Female Surgical History: Reports: Breast Biopsy, Mastectomy, Other (See Below). Denies: D&C, Hysterectomy, Salpingo-Oophorectomy, Tubal Ligation Other Female Surgeries/Procedures: Left Sided mastectomy in 2006 Endocrine Surgical History: Reports: None. Denies: Thyroid Biopsy Neurological Surgical History: Reports: None. Denies: Discectomy, Laminectomy, Lumbar Spine, Sacral Spine, Spinal Fusion, Thoracic Spine, Vertebroplasty Musculoskeletal Surgical History: Reports: None. Denies: Arthroscopic Procedure, Carpal Tunnel, Ganglion Cyst, Hip Replacement, Joint Replacement, ORIF, Shoulder Surgery Oncologic Surgical History: Reports: Biopsy of Breast, Mastectomy, Other (See Below) Other Oncologic Surgeries/Procedures: Mastectomy as above. Dermatological Surgical History: Reports: None - Past Imaging History Past Imaging History: Reports: Cardiac Echo (08/17/2019 with ejection fraction of 50-60%.), CAT Scan (CT of the chest without contrast on 08/17/2019 [address] 06/25/17. CT of the abdomen and pelvis on 12/29/2019 and 06/26/13.), Mammogram (Last mammogram in November 2018 by patient history.), Venous Doppler (Left leg on 02/18/07.) Social & Family History - Family History HEENT: Reports: None. Denies: Glaucoma, Macular Degeneration, Retinal Detachment Cardiac: Reports: Arrhythmia, Pacemaker, Other (See Below). Denies: Afib, Aneurysm, Blood Clots/VTE/DVT, CAD, Heart Failure, High Cholesterol, Hypertension, Syncope Other Cardiac Family History: Mother with pacemaker. Respiratory: Reports: Asthma, Other (See Below). Denies: COPD, PE, Pneumothorax, Sleep Apnea Other Respiratory Family Hisory: Father with asthma secondary to coal exposure. GI: Reports: None. Denies: Cholelithiasis, Colon Polyps, GERD, GI bleed, Inflammatory Bowel Disease, Irritable Bowel Syndrome, PUD : Reports: None. Denies: Renal Calculus, Renal Disease/Insufficiency OBGYN: Reports: None. Denies: Dysfunctional uterine bleeding, Endometriosis, Recurrent Spontaneous Musculoskeletal: Reports: None. Denies: Arthritis, Gout, Osteoarthritis, RA, SLE Neurological: Reports: Alzheimers Disease, Dementia, Migraines, Other (See Below). Denies: Cerebral Aneurysms, CVA, MS, Parkinson's, Seizure, TIA Other Neurological Family History: Mother with migraine headaches. Brothers 2 with organic brain syndrome. Psychiatric: Reports: None. Denies: Abuse, Victim of, ADD, ADHD, Anxiety, Depression, Psych Hospitalization(s), Psychosis, PTSD, Suicide Attempt Endocrine/Metabolic: Reports: Diabetes, type II, IDDM, Other (See Below). Denies: Diabetes, Type I, Diabetes Mellitus, Type 3c, Hypothyroidism Other Endocrine/Metabolic Family History: Mother with IDDM. Hematologic: Reports: None. Denies: SLE Immunologic: Reports: None. Denies: AIDS, HIV, SLE Dermatologic: Reports: None. Denies: Eczema, Psoriasis Oncologic: Reports: None. Denies: Breast, Cervix, Colon, Hodgkin's Lymphoma, Leukemia, Lymphoma, Non-Hodgkin's Lymphoma, Ovarian, Skin, Uterine - Tobacco Use Tobacco Use Status *Q: Former Tobacco User Tobacco Use Within Last Twelve Months: No Years of Tobacco use: 44 Packs/Tins Daily: 1.5 Packs/Tins Daily Comment: Smoked between ages 16 and 60. Used Tobacco, but Quit: Yes Smoking Cessation Information Provided To Patient: No Second Hand Smoke Exposure: Yes - Caffeine Use Caffeine Use: Reports: None. Denies: Coffee, Energy Drinks, Soda, Tea - Alcohol Use Alcohol Use History: No Days Per Week of Alcohol Use: 0 Number of Drinks Per Day: 0 Number of Drinks Per Day Comment: No previous DWIs, problems with alcohol abuse, etc. 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 ED EXAM, GENERAL - Physical Exam Exam: See Below Exam Limited By: No Limitations General Appearance: Alert, WD/WN, No Apparent Distress Eye Exam: Bilateral Eye: EOMI, Normal Inspection (Patient is wearing glasses. No nystagmus), PERRL Ears: Normal External Exam, Normal Canal, Hearing Grossly Normal, Normal TMs Nose: Normal Inspection, Normal Mucosa, No Blood Throat/Mouth: Normal Lips, Normal Teeth (Complete dentures uppers and lowers), Normal Gums, Normal Oropharynx, Normal Voice, No Airway Compromise. No: Dysphagia, Perioral Cyanosis Head: Atraumatic, Normocephalic. No: Facial Swelling, Facial Tenderness, Sinus Tenderness Neck: Supple, Non-Tender, Full Range of Motion, Carotid Bruit (Mild bilateral carotid bruits). No: Lymphadenopathy (L), Lymphadenopathy (R), Thyromegaly Respiratory/Chest: No Respiratory Distress, Lungs Clear, Normal Breath Sounds, No Accessory Muscle Use, Chest Non-Tender. No: Pleural Rub, Retractions Cardiovascular: Normal Peripheral Pulses, Regular Rate, Rhythm, No Edema, No Gallop, No JVD, No Murmur, No Rub. No: Gallop/S3, Gallop/S4, Friction Rub Peripheral Pulses: 2+: Radial (L), Radial (R) GI/Abdominal: Normal Bowel Sounds, Soft, Non-Tender, No Organomegaly, No Distention, No Abnormal Bruit, No Mass, Other (Obese). No: Guarding (Female) Exam: Deferred Rectal (Female) Exam: Deferred Back Exam: Normal Inspection, Full Range of Motion. No: CVA Tenderness (L), CVA Tenderness (R), Muscle Spasm Extremities: Normal Inspection, Normal Range of Motion, Non-Tender, No Pedal Edema, Normal Capillary Refill. No: Terrance's Sign Neurological: Alert, Oriented, CN II-XII Intact, Normal Cognition, Normal Gait, No Motor/Sensory Deficits Psychiatric: Normal Affect, Normal Mood Skin Exam: Warm, Dry, Intact, Normal Color, No Rash. No: Diaphoretic, Wound/Incision Lymphatic: No Adenopathy #1 Interpretation EKG Date: 02/04/20 Time: 13:14 Rhythm: NSR Rate (Beats/Min): 86 [place]: Normal (Left cardiac access) P-Wave: Present QRS: Normal (0.09 seconds with stable repolarization changes with resolution of previous T wave inversion in lead V1) ST-T: Normal QT: Normal CO/PQ Interval: 0.16 seconds with poor R wave progression in the anterior leads. Comparison: Change From Previous EKG (As above since 07/23/2019.) EKG Interpretation Comments: 1. No acute ischemic changes 2. Repolarization changes Course - Vital Signs Last Recorded V/S: Last Vital Signs Temp 35.6 C L 02/04/20 13:55 Pulse 80 02/04/20 14:10 Resp 20 02/04/20 14:10 BP 123/63 02/04/20 14:10 Pulse Ox 100 02/04/20 14:10 Vital Signs - 24 hr 02/04/20 02/04/20 12:52 13:55 Temperature [ 35.6 C L 35.6 C L Temporal] Pulse, 90 87 Peripheral [ Right Pulse Oximetry] Respiratory 22 H 22 H Rate Blood Pressure 109/76 122/58 L [Right Upper Arm] O2 Sat by Pulse 98 100 Oximetry O2 Sat by Pulse 98 Oximetry [ Nasal Cannula] - Orders/Labs/Meds Orders: Active Orders 24 hr Category Date Time Status Abdomen Series w Chest 1V [CR] Routine Exams 02/04/20 12:54 Taken Isolation [COMM] Routine Oth 02/04/20 12:54 Active Obtain Past Medical Record [OM.PC] Urgent Oth 02/04/20 12:52 Active Peripheral IV Insertion Adult [OM.PC] Stat Oth 02/04/20 12:52 Ordered Resuscitation Status Stat Resus Stat 02/04/20 12:52 Ordered Labs: Laboratory Tests 12/18/20 12/18/20 12/18/20 Range/Units 12:53 13:08 13:08 WBC 5.4 (4.0-10.2) K/uL RBC 4.16 (3.77-5.09) M/uL Hgb 12.0 (11.7-15.5) g/dL Hct 37.8 (34.0-46.0) % MCV 90.9 (84.0-98.0) fL MCH 28.8 (28.2-33.3) pg MCHC 31.7 (31.7-36.0) g/dL RDW 14.2 H (11.2-14.1) % Plt Count 170 (150-350) K/uL Neut % (Auto) 82.6 H (45.0-80.0) % Lymph % (Auto) 9.9 L (10.0-50.0) % [place] % (Auto) 6.7 (2.0-14.0) % Eos % (Auto) 0.6 (0.0-5.0) % Baso % (Auto) 0.2 (0.0-2.0) % Neut # (Auto) 4.42 (1.40-7.00) K/uL Lymph # (Auto) 0.53 (0.50-3.50) K/uL [place] # (Auto) 0.36 (0.00-1.00) K/uL Eos # (Auto) 0.03 (0.00-0.50) K/uL Baso # (Auto) 0.01 (0.00-0.20) K/uL PT 20.3 H D (9.5-12.0) SEC INR 2.1 APTT 30.4 (24.5-32.8) SEC D-Dimer, Quantitative (0-400) ng/mL Sodium (136-145) mmol/L Potassium (3.5-5.1) mmol/L Chloride (98-107) mmol/L Carbon Dioxide (21.0-32.0) mmol/L BUN (7-18) mg/dL Creatinine (0.51-1.17) mg/dL Est Cr Clr Drug Dosing Estimated GFR (MDRD) mL/min Glucose (74-106) mg/dL Lactic Acid (0.4-2.0) mmol/L Uric Acid (2.6-7.2) mg/dL Calcium (8.5-10.1) mg/dL Magnesium (1.8-2.4) mg/dL Total Bilirubin (0.2-1.0) mg/dL AST (15-37) U/L ALT (12-78) U/L Alkaline Phosphatase (46-116) IU/L Creatine Kinase (26-308) U/L Creatine Kinase Index (0.0-2.5) % CK-MB (CK-2) (0.00-3.60) ng/mL Troponin I (0.000-0.056) ng/mL NT-Pro-B Natriuret Pep (0-125) pg/mL Total Protein (6.4-8.2) g/dL Albumin (3.4-5.0) g/dL Amylase (25-115) U/L Lipase (73-393) U/L TSH, Ultra Sensitive (0.358-3.740) mIU/mL SARS-CoV-2 RNA (BETO) Negative (NEGATIVE) 02/04/20 02/04/20 02/04/20 Range/Units 13:08 13:08 13:08 WBC (4.0-10.2) K/uL RBC (3.77-5.09) M/uL Hgb (11.7-15.5) g/dL Hct (34.0-46.0) % MCV (84.0-98.0) fL MCH (28.2-33.3) pg MCHC (31.7-36.0) g/dL RDW (11.2-14.1) % Plt Count (150-350) K/uL Neut % (Auto) (45.0-80.0) % Lymph % (Auto) (10.0-50.0) % [place] % (Auto) (2.0-14.0) % Eos % (Auto) (0.0-5.0) % Baso % (Auto) (0.0-2.0) % Neut # (Auto) (1.40-7.00) K/uL Lymph # (Auto) (0.50-3.50) K/uL [place] # (Auto) (0.00-1.00) K/uL Eos # (Auto) (0.00-0.50) K/uL Baso # (Auto) (0.00-0.20) K/uL PT (9.5-12.0) SEC INR APTT (24.5-32.8) SEC D-Dimer, Quantitative < 100 (0-400) ng/mL Sodium 140 (136-145) mmol/L Potassium 3.7 (3.5-5.1) mmol/L Chloride 104 (98-107) mmol/L Carbon Dioxide 26.5 (21.0-32.0) mmol/L BUN 8 (7-18) mg/dL Creatinine 0.59 (0.51-1.17) mg/dL Est Cr Clr Drug Dosing TNP Estimated GFR (MDRD) > 60 mL/min Glucose 97 (74-106) mg/dL Lactic Acid 1.1 (0.4-2.0) mmol/L Uric Acid 4.5 (2.6-7.2) mg/dL Calcium 9.1 (8.5-10.1) mg/dL Magnesium 1.9 (1.8-2.4) mg/dL Total Bilirubin 0.5 (0.2-1.0) mg/dL AST 17 (15-37) U/L ALT 25 (12-78) U/L Alkaline Phosphatase 119 H (46-116) IU/L Creatine Kinase 70 (26-308) U/L Creatine Kinase Index 1.1 (0.0-2.5) % CK-MB (CK-2) 0.80 (0.00-3.60) ng/mL Troponin I 0.000 (0.000-0.056) ng/mL NT-Pro-B Natriuret Pep 264 H (0-125) pg/mL Total Protein 6.6 (6.4-8.2) g/dL Albumin 3.9 (3.4-5.0) g/dL Amylase 25 (25-115) U/L Lipase 39 L (73-393) U/L TSH, Ultra Sensitive 2.350 (0.358-3.740) mIU/mL SARS-CoV-2 RNA (BETO) (NEGATIVE) Microbiology 02/04/20 13:08 Influenza Type A Antigen Screen - Final Nasal, Unspecified NEGATIVE INFLUENZA A VIRUS AG REFERENCE RANGE: NEGATIVE Influenza Type B Antigen Screen - Final NEGATIVE INFLUENZA B VIRUS AG REFERENCE RANGE: NEGATIVE Meds: Medications Discontinued Medications Generic Name Dose Route Start Last Admin Trade Name Freq PRN Reason Stop Dose Admin Famotidine 40 mg 02/04/20 12:52 02/04/20 13:37 Pepcid IVPUSH 02/04/20 12:53 40 mg ONETIME ONE Administration Sodium Chloride 10 ml 02/04/20 12:52 Saline Flush FLUSH ASDIRECTED PRN Keep Vein Open - Radiology Interpretation Free Text/Narrative:: teletypesetter monitor shows normal sinus rhythm with heart rate in the 80s with no ectopy or arrhythmia Acute abdominal x-rays shows mild prominence of the proximal aortic arch and mild aortic valve calcification with no significant cardiomegaly, CHF, or pulmonary infiltrates. Note surgical clips in the right upper quadrant consistent with previous cholecystectomy. Large amounts of diffuse stool with nonspecific bowel gaseous pattern with no fluid levels, ileus, free air, etc. Moderate osteoarthritic changes noted. Moderate COPD also present. Departure - Departure Time of Disposition: 15:00 Disposition: Home, Self-Care 01 Clinical Impression: Peptic reflux disease, Diverticulosis CHF (congestive heart failure) Qualifiers: Heart failure type: unspecified Heart failure chronicity: acute Qualified Code(s): I50.9 - Heart failure, unspecified COPD (chronic obstructive pulmonary disease) Qualifiers: COPD type: unspecified COPD Qualified Code(s): J44.9 - Chronic obstructive pulmonary disease, unspecified Constipation Qualifiers: Constipation type: chronic idiopathic constipation Qualified Code(s): K59.04 - Chronic idiopathic constipation - Discharge Information *PRESCRIPTION DRUG MONITORING PROGRAM REVIEWED*: Not Applicable *COPY OF PRESCRIPTION DRUG MONITORING REPORT IN PATIENT INGE: Not Applicable Prescriptions: polyethylene glycoL 3350 [MiraLAX] 17 gm PO DAILY #30 packet Instructions: High-Fiber Diet, Constipation, Adult, Cpdn-hb-Tapp, Diverticulosis Referrals: Leonor Millan PA-C [Primary Care Provider] - Forms: ED Department Discharge Additional Instructions: 1. Followup with your regular provider in 10-14 days as directed for reevaluation and preoperative history and physical, blood work, etc. for admission into our facility for recommended EGD and colonoscopy with admission 2 days prior for aggressive bowel preparation, IV hydration, etc. as discussed. Bring these discharge instructions with you to that visit. 2. [place] diet including encouragement of oral fluids such as sports drinks, etc. for 24-48 hours as directed. Advance to fluid restricted, high-fiber, diverticulosis, heart healthy diet as tolerated thereafter. 3. Immediately after this visit verify that your cellular telephone's voicemail has been activated and is empty. Also verify that your home telephone's answering machine is operating properly and has space to receive messages. Note that it is sometimes necessary for us to be able to contact you at a later date to discuss your medical care. 4. Please remember that we are ALWAYS here for you and want to answer any questions you may have. Feel free to call the hospital any time and we call you back CHAR. 5. 1 packet versus 1 capful of MiraLAX and prune juice daily as discussed with this medication to be held, if severe diarrhea occurs. Sepsis Event Note (ED) - Focused Exam Vital Signs: Vital Signs Temp Pulse Resp BP Pulse Ox Pulse Ox 02/04/20 14:10 80 20 123/63 100 02/04/20 14:00 83 20 126/65 100 02/04/20 13:55 35.6 C L 87 22 H 122/58 L 100 02/04/20 12:52 35.6 C L 90 22 H 109/76 98 98 - Problem List & Annotations (1) Constipation SNOMED Code(s): 13701727 Code(s): K59.00 - CONSTIPATION, UNSPECIFIED Status: Acute Priority: High Onset Date: 02/04/20 Annotation/Comment:: Significant constipation despite previous bowel prep for colonoscopy as above. No colonoscopy on 02/03/2020 was canceled secondary to patient's problems with the bowel preparation. This procedure would have been ineffective secondary to persistent large stool today with overall poor bowel preparation. Various therapeutic options were discussed with the patient and her with patient to be admitted to this facility 2 days prior to planned recommended EGD and colonoscopy in early February. Aggressive bowel preparation and careful IV fluid hydration should be conducted during that hospital stay. Dietary issues were extensively discussed, including high-fiber, diverticulosis, etc. with information provided at discharge. Patient agrees to initiate daily MiraLAX for now. Recommend repeat abdominal x- rays both on admission and shortly prior to her colonoscopy to verify adequate bowel preparation prior to initiation of anesthesia. Qualifiers: Constipation type: chronic idiopathic constipation Qualified Code(s): K59.04 - Chronic idiopathic constipation (2) Peptic reflux disease SNOMED Code(s): 356571688 Code(s): K21.9 - GASTRO-ESOPHAGEAL REFLUX DISEASE WITHOUT ESOPHAGITIS Status: Acute Priority: Medium Onset Date: 02/04/20 Annotation/Comment:: Probable GERD. Overall good response to IV Pepcid given in the emergency room. Additional EGD to be conducted with previously planned colonoscopy as per discharge instructions and as above. (3) Diverticulosis SNOMED Code(s): 528002952 Code(s): K57.90 - DVRTCLOS OF INTEST, PART UNSP, W/O PERF OR ABSCESS W/O BLEED Status: Chronic Priority: Medium Annotation/Comment:: By CT scan of the abdomen and pelvis on 12/29/2019. No evidence of diverticulitis. High- fiber diverticulosis diet as above. (4) CHF (congestive heart failure) SNOMED Code(s): 69412540 Code(s): I50.9 - HEART FAILURE, UNSPECIFIED Status: Acute Priority: High Onset Date: 07/23/19 Annotation/Comment:: Mild BNP elevation with no significant evidence of significant CHF either by physical exam or today's chest x-ray. Note IV fluids given by her regular provider yesterday secondary to some mild dehydration from her previous bowel preparation without apparent sequelae. No chest pain or anginal type symptoms. Qualifiers: Heart failure type: unspecified Heart failure chronicity: acute Qualified Code(s): I50.9 - Heart failure, unspecified (5) COPD (chronic obstructive pulmonary disease) SNOMED Code(s): 39752167 Code(s): J44.9 - CHRONIC OBSTRUCTIVE PULMONARY DISEASE, UNSPECIFIED Status: Acute Priority: High Annotation/Comment:: O2 and steroid-dependent COPD with no evidence of acute bronchitis, fever, etc. Patient did receive her influenza booster this season. Note negative influenza and COVID-19 tests today. Qualifiers: COPD type: unspecified COPD Qualified Code(s): J44.9 - Chronic obstructive pulmonary disease, unspecified - Problem List Review Problem List Initiated/Reviewed/Updated: Yes - My Orders Last 24 Hours: My Active Orders 02/04/20 12:52 Obtain Past Medical Record [OM.PC] Urgent Peripheral IV Insertion Adult [OM.PC] Stat Resuscitation Status Stat 02/04/20 12:54 Abdomen Series w Chest 1V [CR] Routine Isolation [COMM] Routine - Assessment/Plan Last 24 Hours: My Active Orders 02/04/20 12:52 Obtain Past Medical Record [OM.PC] Urgent Peripheral IV Insertion Adult [OM.PC] Stat Resuscitation Status Stat 02/04/20 12:54 Abdomen Series w Chest 1V [CR] Routine Isolation [COMM] Routine Assessment:: As above Plan: As above. Extensive precautions were given to the patient and her , who are in agreement with the treatment plan. See Patient Instructions for further treatment and plan.
[2020-02-04 13:33] LABS: PTT,PARTIAL THROMBOPLSTIN TIME 30.4 SEC (24.5-32.8)
[2020-02-04 13:42] LABS: CHLORIDE,CL 104 mmol/L (98-107); SODIUM,NA 140 mmol/L (136-145)
== END 2020-02-04 15:00 | disposition home or self-care (01) ==
LOC: LL.ED 12:47
DX: K21.9 Gastro-esophageal reflux disease without esophagitis (principal); I50.9 Heart failure, unspecified; J44.9 Chronic obstructive pulmonary disease, unspecified; K59.04 Chronic idiopathic constipation; K57.90 Diverticulosis of intestine, part unspecified, without perforation or abscess without bleeding; E11.9 Type 2 diabetes mellitus without complications; E66.9 Obesity, unspecified; Z91.041 Radiographic dye allergy status; Z79.01 Long term (current) use of anticoagulants; Z79.899 Other long term (current) drug therapy; Z86.718 Personal history of other venous thrombosis and embolism; Z99.81 Dependence on supplemental oxygen; Z20.828 Contact with and (suspected) exposure to other viral communicable diseases
CPT/HCPCS: 36415; 74022; 80053; 82150; 82550; 82553; 83605; 83690; 83735; 83880; 84443; 84484; 84550; 85025; 85379; 85610; 85730; 87804; 93005; 96374; 99285-25; J3490; U0002

== ENCOUNTER 2020-03-09 09:33 | Day surgery (SDC) | payer MEDICARE, BC ==
--- OUTSIDE RECORDS SUMMARY | 2020-01-17 15:48 | XMSREPORT | Referral Summary ---
:1945 Author Organization [facility] s Address [address] [place] [id number] Care Team Providers Name Role Phone Fam Millan PA-C Attributed Provider Fam Millan PA-C Primary Care Provider Reason for Referral Transitions of Care (Routine) Status Reason Specialty Diagnoses / Referred By Referred To Procedures Contact Contact New Request Patient Diagnoses Generalized abdominal fullness Leonor Millan, Health, [facility] Preference [place], [address] [facility] [address] [place] [phone] Phone: Fax: Reason for Visit Reason Comments Constipation Encounter Details Date Type Department Care Team Description 01/17/2020 Office Visit [facility] Leonor Millan, Generalized abdominal [facility] fullness (Primary Dx) [address] [place] [address] [place] [address] Allergies Active Allergy Reactions Severity Noted Date Comments Methylprednisolone Shortness of breath 08/01/2019 Revefenacin Other (Specify in 06/29/2019 Lightheade d, did not Comments) feel well on th is documented as of this encounter (statuses as of 01/17/2020) Medications Medication Sig Dispensed Refills Start End Status Date Date roflumilast (DALIRESP) Take 1 tablet 90 tablet 4 01/07/20 Active 500 mcg (500 mcg) by 19 tabletIndications: mouth 1 time COPD, severe (HCC) per day atorvaSTATin (LIPITOR) Take 1 tablet 90 tablet 2 03/26/19 Active 10 mg (10 mg) by 20 tabletIndications: Pure mouth every hypercholesterolemia night at bedtime albuterol HFA INHALE 2 PUFFS 3 Inhaler 4 05/10/19 A ctive (ALBUTEROL, VENTOLIN ORALLY EVERY 4 20 BRAND,) 108 (90 Base) HOURS NEEDED MCG/ACT FOR SHORTNESS inhalerIndications: OF BREATH COPD, severe (HCC) warfarin (COUMADIN) 5 *ANTICOAGULATIO 135 tablet 3 12/22/19 Active mg tabletIndications: N CLINIC 20 [facility] current use MANAGED PT* of anticoagulant TAKE therapy DIRECTED. (INSURANCE PURPOSES ONLY: 5MG - 7.5 MG DAILY DOSE RANGE) CALL [phone] WITH ?'S arformoterol (BROVANA) Inhale 1 nebule 360 mL 4 01/04/20 1 03/10/ Active 15 MCG/2ML inhalation (15 mcg) by 2020 solutionIndications: nebulization 2 Chronic obstructive times a day pulmonary disease, unspecified COPD type (HCC) budesonide (PULMICORT) Inhale 1 nebule 360 mL 4 01/04/20 1 03/10/ Active 0.5 mg/2 mL inhalation (0.5 mg) by 2020 solutionIndications: nebulization 2 Chronic obstructive times a day pulmonary disease, unspecified COPD type (HCC) ipratropium (ATROVENT) Inhale 1 675 mL 4 01/04/2001/08/ Active 0.5 mg/2.5 mL unit-dose (0.5 2020 inhalation mg) by solutionIndications: nebulization 3 COPD, severe (HCC) times a day albuterol (PROVENTIL) Inhale 1 nebule 90 nebule 4 01/04/20/ Active (2.5 mg/3mL) 0.083% (2.5 mg) by 2020 inhalation nebulization 1 solutionIndications: time per day COPD, severe (HCC) Phytonadione, vitamin Take 1 tablet 100 tablet 01/10/20 Active K, 100 MCG TABS (100 mcg) by tabletIndications: Long mouth 1 time term current use of per day anticoagulant predniSONE 10 mg Take 4 tabs 23 tablet 0 12/01/19 iscontinued tabletIndications: once daily X 3 2019 (Therapy Acute exacerbation of days then 2 completed) chronic obstructive tabs X 3 days pulmonary disease then 1 tab X 3 (COPD) (HCC) days then 0.5 tab X 3 days documented as of this encounter (statuses as of 01/17/2020) Active Problems Problem Noted Date Pure hypercholesterolemia 03/17/2018 Obesity (BMI 30.0-34.9) 03/16/2018 COPD (chronic obstructive pulmonary disease) 4 History of DVT (deep vein thrombosis) 08/08/2011 Heterozygous factor V Leiden mutation 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 010 Edema 06/02/2008 Malignant neoplasm of female breast 12/15/2006 documented as of this encounter (statuses as of 01/17/2020) Resolved Problems Problem Noted Date Resolved Date Pneumonia 10/04/2016 05/15/2017 COPD exacerbation 10/04/2016 05/15/2017 Prediabetes 07/15/2013 10/14/2018 Cholecystitis, acute 06/28/2013 03/16/2018 Acute thromboembolism of deep veins of lower extremity 02/1809/04/2015 documented as of this encounter (statuses as of 01/17/2020) Immunizations Name Administration Dates Next Due FLU VACCINE TRIVALENT 11/23/2012 MULTIDOSE(Fluvirin,Afluria) Influenza Trivalent w/preserv 02/08/2008 FLU VACCINE HIGH DOSE 65YR+(Fluzone) 11/16/2019, 11/12/2018, 10/29/2017, 11/04/2016, 12/18/2015, 12/06/2013 Influenza Vaccine,unspecified 11/15/2010 Pneumococcal Conj PCV13 12/18/2015 Pneumococcal Polysaccharide PPSV23 01/16/2012, 11/15/2006 TDAP 03/27/2012 documented as of this encounter Social History Tobacco Use Types Packs/Day Years Used Date Former Smoker Cigarettes 1.25 54 10/29/1953 - 0 03/19/2006 Smokeless Tobacco: Never Used Alcohol Use Drinks/Week oz/Week Comments No Physical Activity Answer Date Recorded On average, how many days per week do you engage in moderate to 5 days 10/13/2018 strenuous exercise (like walking fast, running, jogging, dancing, swimming, biking, or other activities that cause a light or heavy sweat)? On average, how many minutes do you engage in exercise at th is 30 min 10/13/2018 level? 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 Is this person blind or does he/she have difficulty No 10/04/2016 seeing even when wearing glasses? Do you have difficulty with walking, balance, climbing No 03/16/2018 stairs, or had a fall in the last 3 months? Does the patient have difficulty dressing or bathing? No 10/04/2016 Because of a physical, mental, or emotional condition; No 10/04/2016 does this person have difficulty doing errands alone such as visiting a doctor's office or shopping? Cognitive Status Response Date of Assessment Because of a physical, mental, or emotional condition; No 10/04/2016 does this person have serious difficulty concentrating, remembering, or making decisions? documented as of this encounter Plan of Treatment Name Type Priority Associated Diagnoses Order S [facility] CLINIC REFERRAL Referral Routine Generalized abdominal Ord ered: 01/17/2020 ENDOSCOPY NON ONE CHART fullness documented as of this encounter Goals Goal Patient Goal Associated Recent Patient-Stated? Author Type Problems Progress DIET - REDUCE Diet No Buhr, CALORIE INTAKE MAU Silver RD, LRD LIFESTYLE - Exercise No Buhr, EXERCISE A Lupe Gustafson, NUMBER OF TIMES RD, LRD PER WEEK Lifestyle < 200 Lifestyle 72.3 kg (159 No Buhr, lb 6.4 oz) Lupe Gustafson (01/17/2020 RD, LRD 2:48 PM MAINTENANCE DISPATCHER) documented as of this encounter Visit Diagnoses Diagnosis Generalized abdominal fullness - Primary Other symptoms involving abdomen and pel vis documented in this encounter
--- OUTSIDE RECORDS SUMMARY | 2020-02-22 08:42 | XMSREPORT | Referral Summary ---
:1945 Author Organization [facility] Address [address] [place] [address] [address] [place] [address] Care Team Providers Name Role Phone Fam Millan PA-C Attributed Provider Fam Millan PA-C Primary Care Provider Reason for Referral Transitions of Care (Routine) Status Reason Specialty Diagnoses / Referred By Referred To Procedures Contact Contact New Request Service Not Diagnoses Abdominal bloating Weight loss, unintentional Malaise Leonor Millan, Health, Chi Available at [facility] [address] [place] [id number] Phone: Fax: Reason for Visit Reason Comments Other Visit about colonoscopy Encounter Details Date Type Department Care Team Description 02/15/2020 Office Visit [facility] Leonor Millan, Abdominal bl oating (Primary Dx); [facility] Weight loss, unintentional; [address] [place] [address] [place] [address] Allergies Active Allergy Reactions Severity Noted Date Comments Methylprednisolone Shortness of breath 08/01/2019 Revefenacin Other (Specify in 06/29/2019 Lightheade d, did not Comments) feel well on th is documented as of this encounter (statuses as of 02/15/2020) Medications Medication Sig Dispensed Refills Start End Date Status Date roflumilast (DALIRESP) Take 1 tablet 90 tablet 4 Active 500 mcg (500 mcg) by 9 tabletIndications: COPD, mouth 1 time per severe (HCC) day warfarin (COUMADIN) 5 mg *ANTICOAGULATION 135 tablet 3 02 Active tabletIndications: Long CLINIC MANAGED 0 term current use of PT* TAKE anticoagulant therapy DIRECTED. (INSURANCE PURPOSES ONLY: 5MG - 7.5 MG DAILY DOSE RANGE) CALL [phone] WITH ?'S ipratropium (ATROVENT) Inhale 1 675 mL 4 0 Active 0.5 mg/2.5 mL inhalation unit-dose (0.5 0 21 solutionIndications: mg) by COPD, severe (HCC) nebulization 3 times a day Phytonadione, vitamin K, Take 1 tablet 100 tablet Active 100 MCG TABS (100 mcg) by 0 tabletIndications: Long mouth 1 time per term current use of day anticoagulant benzonatate (TESSALON) Take 1 capsule 42 capsule 0 Active 100 mg (100 mg) by mouth 0 capsuleIndications: Cough 3 times a day atorvaSTATin (LIPITOR) 10 TAKE 1 TABLET (10 90 tablet 0 Active mg tabletIndications: MG) BY MOUTH 0 Pure hypercholesterolemia EVERY NIGHT AT BEDTIME albuterol (PROVENTIL) Inhale 1 nebule 270 mL 4 Active (2.5 mg/3mL) 0.083% (2.5 mg) by 0 21 inhalation nebulization 1 solutionIndications: time per day COPD, severe (HCC) arformoterol (BROVANA) 15 Inhale 1 nebule 360 mL 4 01/21/20 2 01/26/20 Active MCG/2ML inhalation (15 mcg) by 0 21 solutionIndications: nebulization 2 Chronic obstructive times a day pulmonary disease, unspecified COPD type (HCC) budesonide (PULMICORT) Inhale 1 nebule 360 mL 4 1 03/28/19 Active 0.5 mg/2 mL inhalation (0.5 mg) by 0 21 solutionIndications: nebulization 2 Chronic obstructive times a day pulmonary disease, unspecified COPD type (HCC) albuterol HFA (ALBUTEROL, INHALE 2 PUFFS 54 g 4 Active VENTOLIN BRAND,) 108 (90 ORALLY EVERY 4 0 Base) MCG/ACT HOURS NEEDED inhalerIndications: COPD, FOR SHORTNESS OF severe (HCC) BREATH Hospital, Clinic, or Other Ordered Dose Route Frequency Start Date End Date Status Facility Administered Medication sodium chloride 0.9% IV IV Continuous 02/03/2020 Active solutionIndications: Dehydration documented as of this encounter (statuses as of 02/15/2020) Active Problems Problem Noted Date Pure hypercholesterolemia 03/17/2018 Obesity (BMI 30.0-34.9) 03/16/2018 COPD (chronic obstructive pulmonary disease) 4 History of DVT (deep vein thrombosis) 08/08/2011 Heterozygous factor V Leiden mutation 08/08/2011 [facility] current use of anticoagulant therapy 010 Edema 06/02/2008 Malignant neoplasm of female breast 12/15/2006 documented as of this encounter (statuses as of 02/15/2020) Resolved Problems Problem Noted Date Resolved Date Pneumonia 10/04/2016 05/15/2017 COPD exacerbation 10/04/2016 05/15/2017 Prediabetes 07/15/2013 10/14/2018 Cholecystitis, acute 06/28/2013 03/16/2018 Acute thromboembolism of deep veins of lower extremity 02/1809/04/2015 documented as of this encounter (statuses as of 02/15/2020) Immunizations Name Administration Dates Next Due FLU [...] Sign Reading Time Taken Comments Blood Pressure 128/60 02/15/2020 1:06 PM MUSHROOM GROWING SUPERVISOR Pulse 96 02/15/2020 1:06 PM MUSHROOM GROWING SUPERVISOR Temperature - - Respiratory Rate 16 02/15/2020 1:06 PM MUSHROOM GROWING SUPERVISOR Oxygen Saturation 93% 02/15/2020 1:06 PM MUSHROOM GROWING SUPERVISOR Inhaled Oxygen Concentration - - Weight 70.3 kg (155 lb) 02/15/2020 1:06 PM MUSHROOM GROWING SUPERVISOR Height - - Body Mass Index 27.9 12/17/2018 2:02 PM CDT documented in this [...] Name Type Priority Associated Diagnoses Order S chedule CLINIC REFERRAL Referral Routine Abdominal bloati ng Ordered: 02/15/2020 ENDOSCOPY NON ONE CHART Weight loss, unintentional Malaise documented as of this encounter Goals Goal Patient Goal Associated Recent Patient-Stated? Author Type Problems Progress DIET - REDUCE Diet No Buhr, CALORIE INTAKE Lupe Gustafson, [place] RD, LRD LIFESTYLE - Exercise No Buhr, EXERCISE A Lupe Gustafson, NUMBER OF TIMES RD, LRD PER WEEK Lifestyle < 200 Lifestyle 70.3 kg (155 No Buhr, lb) Lupe Gustafson, (02/15/2020 RD, LRD 1:06 PM MUSHROOM GROWING SUPERVISOR) documented as of this encounter Visit Diagnoses Diagnosis Abdominal bloating - Primary Flatulence, eructation, and gas pain Weight loss, unintentional Loss of weight Malaise Other malaise and fatigue documented in this encounter
[2020-03-09] MEDS ORDERED: Sodium Chloride 0.9% 10 ML Syringe FLUSH PRN (09:45)
[2020-03-09] MEDS ORDERED: Lactated Ringers 1,000 ML IV SCH (09:45)
[2020-03-09] MEDS ORDERED: Midazolam 1 MG/ML 2 ML SDV ONE ×2 (11:41→11:44)
[2020-03-09] MEDS ORDERED: Propofol 200 MG/20 ML SDV ONE ×2 (11:41→11:44)
--- NOTE | 2020-03-09 11:46 | PCM.HPR ---
H & P Addendum review - H & P Addendum Review Date of Original H & P: 02/15/20 Date Reviewed: 03/09/20 (n) Patient was Examined: No Changes
--- NOTE | 2020-03-09 12:10 | PCM.OPNOTE ---
- General Post-Op/Procedure Note Date of Surgery/Procedure: 03/09/20 Operative Procedure(s): Colonoscopy Findings: Diverticulosis Pre Op Diagnosis: Abd Pain, cahnge in bowel habits Post-Op Diagnosis: Same Anesthesia Technique: CHA Primary Surgeon: Meet Maria Anesthesia Provider: Elva Dowd Complications: None Condition: Good
--- NOTE | 2020-03-09 13:20 | OR ---
Date of Procedure: 03/09/2020 PREOPERATIVE DIAGNOSIS: Abdominal pain and bloating with change in bowel habits. POSTOPERATIVE DIAGNOSIS: Diverticulosis. PROCEDURE: Colonoscopy. ANESTHESIA: IV sedation. PROCEDURE IN DETAIL: Patient was brought to the procedure room where she was placed on her left side and IV sedation administered. Digital rectal exam was performed, which was normal. Colonoscope was inserted and advanced to the level of the cecum with minimal difficulty getting through a tortuous left colon with multiple large diverticula present. I was then able to reach the cecum easily, which was confirmed by identifying the appendiceal lumen and ileocecal valve. The prep was good and surfaces were well visualized. Upon withdrawing the scope, the ascending, transverse, and descending colon were normal other than a few scattered diverticula. Sigmoid colon was tortuous with multiple large diverticula. Rectum was normal and retroflexion was normal. Air was removed, and the scope withdrawn. The patient tolerated the procedure well and returned to recovery in stable condition. No further colon screening is necessary due to patient's age. I will recommend that she use MiraLAX daily to try to maintain regularity. JIM HOLLIDAY MD /[id number]
== END 2020-03-09 13:31 | disposition home or self-care (01) ==
LOC: LL.SDS 09:33
PROVIDERS: ATTEND Surgery
DX: K57.30 Diverticulosis of large intestine without perforation or abscess without bleeding (principal); E78.00 Pure hypercholesterolemia, unspecified; E66.9 Obesity, unspecified; J44.9 Chronic obstructive pulmonary disease, unspecified; Z01.812 Encounter for preprocedural laboratory examination; Z20.822 Contact with and (suspected) exposure to COVID-19; Z68.27 Body mass index [BMI] 27.0-27.9, adult; Z79.899 Other long term (current) drug therapy; Z88.8 Allergy status to other drugs, medicaments and biological substances; Z79.01 Long term (current) use of anticoagulants
CPT/HCPCS: 45378; J2250; J2704; J7120; U0002; 00812

== ENCOUNTER 2020-05-27 12:49 | Emergency (ER) | payer MEDICARE, BC ==
[2020-05-27] MEDS ORDERED: Albuterol/Ipratropium 3.0-0.5 MG/3 ML Neb Soln NEB ONE (13:04)
[2020-05-27] MEDS ORDERED: Sodium Chloride 0.9% 10 ML Syringe FLUSH PRN (13:04)
[2020-05-27] MEDS ORDERED: Budesonide 0.5 MG/2 ML Neb Susp NEB ONE (13:04)
[2020-05-27] MEDS ORDERED: Dexamethasone 10 MG/ML SDV IV ONE (13:05)
[2020-05-27] MEDS ORDERED: Dexamethasone 10 MG/ML SDV PO ONE (13:16)
[2020-05-27 13:45] LABS: CHLORIDE,CL 104 mmol/L (98-107); SODIUM,NA 138 mmol/L (136-145)
--- NOTE | 2020-05-27 14:03 | EDM.PDOC ---
ED HPI GENERAL MEDICAL PROBLEM - General Chief Complaint: Respiratory Problem Stated Complaint: coughing up sputum, increased SOB Time Seen by Provider: 05/27/20 12:51 Source of Information: Reports: Patient History Limitations: Reports: No Limitations - History of Present Illness INITIAL COMMENTS - FREE TEXT/NARRATIVE: Patient comes emergency department today with complaints of worsening shortness of breath cough and increased sputum production. This patient is in a long-term COPD patient who for the past 3 to 4 days has had increasing shortness of breath difficulty breathing as well as increased in sputum production and thickness. She denies any fever or chills. No tightness or pain in her chest. No weakness dizziness lightheadedness. No palpitations. No abdominal pain no nausea or vomiting. No hematuria dysuria or urinary frequency. No Covid exposure no Covid symptoms. She was just recently started on Daliresp to help her sleep at night because she cannot sleep when she is laying down. She does use her CPap at bedtime. Covid exposure no Covid symptoms - Related Data Allergies Allergy/AdvReac Type Severity Reaction Status Date / Time methylprednisolone Allergy Shortness Verified 05/27/20 12:51 of Breath revefenacin [From Yupelri] Allergy Other Verified 05/27/20 12:51 IV Dye used for U/S (echo) Allergy Shortness Uncoded 05/27/20 12:51 of Breath Home Meds: Home Meds Budesonide [Pulmicort] 0.5 mg IH BID@08,199902/07/19 [History] Albuterol Sulfate 1 ampule INH QAM 07/23/19 [History] Albuterol [Ventolin HFA] 2 puff INH Q4H PRN 07/23/19 [History] Arformoterol [Brovana] 15 mcg INH Q12HR 07/23/19 [History] Ipratropium [Atrovent] 0.5 mg INH TID@0800,1499,199907/23/19 [History] Phytonadione [Vitamin K] 100 mg PO DAILY 02/04/20 [History] Benzonatate [Tessalon Perle] 100 mg PO BID 03/08/20 [History] Warfarin [Coumadin] 1 tab PO SUTUTHSA@199903/08/20 [History] Warfarin [Coumadin] 0.5 tab PO MOWEFR@199903/09/20 [History] Doxycycline Hyclate 100 mg PO BID #4 tablet. 05/27/20 [Rx] Roflumilast [Daliresp] 1 tab PO BEDTIME 05/27/20 [History] predniSONE 10 mg PO DAILY #16 tab 05/27/20 [Rx] Past Medical History HEENT History: Reports: Impaired Vision Other HEENT History: wears glasses. has full upper and lower dentures Cardiovascular History: Reports: Blood Clots/VTE/DVT Other Cardiovascular History: Postoperative DVT of the left leg on 02/18/07 after mastectomy in 2006 with current Coumadin therapy. Respiratory History: Reports: COPD Other Respiratory History: oxygen dependent at home: 3L/NC Gastrointestinal History: Reports: Cholelithiasis, Diverticulosis, GERD Genitourinary History: Reports: None ADMISSIONS NURSE History: Reports: Polycystic Ovaries, Other ADMISSIONS NURSE History: Menopause in her 40s. Full term without complications during pregnancies or deliveries Musculoskeletal History: Reports: Arthritis, Osteoarthritis, Osteoporosis Neurological History: Reports: Headaches, Chronic, Migraines, Other (See Below) Other Neuro History: Migraine headaches in early adulthood nonproblematic at this time. Psychiatric History: Reports: None Endocrine/Metabolic History: Reports: Diabetes, Type II, Obesity/BMI 30+, Osteopenia, Osteoporosis, Other (See Below) Other Endocrine/Metabolic History: Prediabetes. Hyponatremia. Hematologic History: Reports: None Immunologic History: Reports: None Oncologic (Cancer) History: Reports: Breast, Other (See Below) Other Oncologic History: Left-sided stage I breast cancer in 2006 with mastectomy and radiation therapy. Dermatologic History: Reports: None - Infectious Disease History Infectious Disease History: Reports: Chicken Pox, Mumps - Past Surgical History GI Surgical History: Reports: Cholecystectomy - Past Imaging History Past Imaging History: Reports: Cardiac Echo (08/17/2019 with ejection fraction of 50-60%.), CAT Scan (CT of the chest without contrast on 08/17/2019 and 06/25/17. CT of the abdomen and pelvis on 12/29/2019 and 06/26/13.), Mammogram (Last mammogram in November 2018 by patient history.), Venous Doppler (Left leg on 02/18/07.) Social & Family History - Family History HEENT: Reports: None Cardiac: Reports: Arrhythmia, Pacemaker, Other (See Below) Other Cardiac Family History: Mother with pacemaker. Respiratory: Reports: Asthma, Other (See Below) Other Respiratory Family Hisory: Father with asthma secondary to coal exposure. GI: Reports: None : Reports: None OBGYN: Reports: None Musculoskeletal: Reports: None Neurological: Reports: Alzheimers Disease, Dementia, Migraines, Other (See Below) Other Neurological Family History: Mother with migraine headaches. Brothers 2 with organic brain syndrome. Psychiatric: Reports: None Endocrine/Metabolic: Reports: Diabetes, type II, IDDM, Other (See Below) Other Endocrine/Metabolic Family History: Mother with IDDM. 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 ED EXAM, GENERAL - Physical Exam Exam: See Below Free Text/Narrative:: She appears dyspneic when I enter the room. She is able to speak in 2-3 word sentences before she has to stop and take a breath. She is alert appropriate maintaining her airway. Exam Limited By: Respiratory Distress General Appearance: Alert, WD/WN, Moderate Distress Eye Exam: Bilateral Eye: EOMI, PERRL Throat/Mouth: Normal Inspection Head: Atraumatic, Normocephalic Neck: Normal Inspection, Supple, Non-Tender, Full Range of Motion Respiratory/Chest: Respiratory Distress (Moderate distress.), Decreased Breath Sounds (Throughout), Wheezing (Inspiratory expiratory), Accessory Muscle Use (Supraclavicular retractions and tripod positioning) Cardiovascular: Normal Peripheral Pulses, Regular Rate, Rhythm, Tachycardia Peripheral Pulses: 2+: Radial (L), Radial (R), Posterior Tibial (L), Posterior Tibial (R), Dorsalis Pedis (L), Dorsalis Pedis (R) GI/Abdominal: Normal Bowel Sounds, Soft (Female) Exam: Deferred Rectal (Female) Exam: Deferred Back Exam: Normal Inspection Extremities: Normal Inspection Neurological: Alert, Oriented, Normal Cognition, No Motor/Sensory Deficits Psychiatric: Normal Affect, Normal Mood Skin Exam: Warm, Dry, Intact, Normal Color, No Rash Course - Vital Signs Last Recorded V/S: Last Vital Signs Temp 97.0 F 05/27/20 13:00 Pulse 106 H 05/27/20 13:00 Resp 24 H 05/27/20 13:00 BP 155/71 H 05/27/20 13:00 Pulse Ox 96 05/27/20 13:00 - Orders/Labs/Meds Orders: Active Orders 24 hr Category Date Time Status EKG Documentation Completion [RC] ASDIRECTED Care 05/27/20 13:29 Active EKG Documentation Completion [RC] STAT Care 05/27/20 13:02 Active Peripheral IV Care [RC] . DIRECTED Care 05/27/20 13:04 Active RT Aerosol Therapy [RC] ASDIRECTED Care 05/27/20 13:04 Active Chest 2V [CR] Urgent Exams 05/27/20 13:03 Taken Sodium Chloride 0.9% [Saline Flush] Med 05/27/20 13:04 Active 10 ml FLUSH ASDIRECTED PRN Peripheral IV Insertion Adult [OM.PC] Stat Oth 05/27/20 13:02 Ordered Medication Orders Sodium Chloride (Sodium Chloride 0.9% 10 Ml Syringe) 10 ml FLUSH ASDIRECTED PRN PRN Reason: Keep Vein Open Labs: Laboratory Tests 05/27/20 05/27/20 05/27/20 Range/Units 12:50 13:16 13:16 WBC 5.6 (4.0-10.2) K/uL RBC 4.23 (3.77-5.09) M/uL Hgb 12.2 (11.7-15.5) g/dL Hct 37.3 (34.0-46.0) % MCV 88.2 (84.0-98.0) fL MCH 28.8 (28.2-33.3) pg MCHC 32.7 (31.7-36.0) g/dL RDW 12.5 (11.2-14.1) % Plt Count 176 (150-350) K/uL Neut % (Auto) 81.8 H (45.0-80.0) % Lymph % (Auto) 10.0 (10.0-50.0) % [place] % (Auto) 7.3 (2.0-14.0) % Eos % (Auto) 0.5 (0.0-5.0) % Baso % (Auto) 0.4 (0.0-2.0) % Neut # (Auto) 4.57 (1.40-7.00) K/uL Lymph # (Auto) 0.56 (0.50-3.50) K/uL [place] # (Auto) 0.41 (0.00-1.00) K/uL Eos # (Auto) 0.03 (0.00-0.50) K/uL Baso # (Auto) 0.02 (0.00-0.20) K/uL Sodium 138 (136-145) mmol/L Potassium 3.6 (3.5-5.1) mmol/L Chloride 104 (98-107) mmol/L Carbon Dioxide 22.5 (21.0-32.0) mmol/L BUN 8 (7-18) mg/dL Creatinine 0.56 (0.51-1.17) mg/dL Est Cr Clr Drug Dosing TNP Estimated GFR (MDRD) > 60 mL/min Glucose 98 (70-99) mg/dL Lactic Acid (0.4-2.0) mmol/L Calcium 8.9 (8.5-10.1) mg/dL Total Bilirubin 0.6 (0.2-1.0) mg/dL AST 18 (15-37) U/L ALT 15 (12-78) U/L Alkaline Phosphatase 124 H (46-116) IU/L Troponin I 0.000 (0.000-0.056) ng/mL C-Reactive Protein 2.4 H (<=0.9) mg/dL Total Protein 6.5 (6.4-8.2) g/dL Albumin 3.5 (3.4-5.0) g/dL SARS-CoV-2 RNA (BETO) Negative (NEGATIVE) 05/27/20 Range/Units 13:16 WBC (4.0-10.2) K/uL RBC (3.77-5.09) M/uL Hgb (11.7-15.5) g/dL Hct (34.0-46.0) % MCV (84.0-98.0) fL MCH (28.2-33.3) pg MCHC (31.7-36.0) g/dL RDW (11.2-14.1) % Plt Count (150-350) K/uL Neut % (Auto) (45.0-80.0) % Lymph % (Auto) (10.0-50.0) % [place] % (Auto) (2.0-14.0) % Eos % (Auto) (0.0-5.0) % Baso % (Auto) (0.0-2.0) % Neut # (Auto) (1.40-7.00) K/uL Lymph # (Auto) (0.50-3.50) K/uL [place] # (Auto) (0.00-1.00) K/uL Eos # (Auto) (0.00-0.50) K/uL Baso # (Auto) (0.00-0.20) K/uL Sodium (136-145) mmol/L Potassium (3.5-5.1) mmol/L Chloride (98-107) mmol/L Carbon Dioxide (21.0-32.0) mmol/L BUN (7-18) mg/dL Creatinine (0.51-1.17) mg/dL Est Cr Clr Drug Dosing Estimated GFR (MDRD) mL/min Glucose (70-99) mg/dL Lactic Acid 0.9 (0.4-2.0) mmol/L Calcium (8.5-10.1) mg/dL Total Bilirubin (0.2-1.0) mg/dL AST (15-37) U/L ALT (12-78) U/L Alkaline Phosphatase (46-116) IU/L Troponin I (0.000-0.056) ng/mL C-Reactive Protein (<=0.9) mg/dL Total Protein (6.4-8.2) g/dL Albumin (3.4-5.0) g/dL SARS-CoV-2 RNA (BETO) (NEGATIVE) Meds: Medications Generic Name Dose Route Start Last Admin Trade Name Freq PRN Reason Stop Dose Admin Sodium Chloride 10 ml 05/27/20 13:04 Sodium Chloride 0.9% 10 Ml Syringe FLUSH ASDIRECTED PRN Keep Vein Open Discontinued Medications Generic Name Dose Route Start Last Admin Trade Name Freq PRN Reason Stop Dose Admin Albuterol/Ipratropium 3 ml 05/27/20 13:04 05/27/20 14:03 Albuterol/Ipratropium 3.0-0.5 Mg/3 Ml Neb Soln NEB 05/27/20 13:05 3 ml ONETIME ONE Administration Budesonide 1 mg 05/27/20 13:04 05/27/20 14:07 Budesonide 0.5 Mg/2 Ml Neb Susp NEB 05/27/20 13:05 1 mg ONETIME ONE Administration Dexamethasone 6 mg 05/27/20 13:05 05/27/20 13:33 Dexamethasone 10 Mg/Ml Sdv IV 05/27/20 13:06 Not Given ONETIME ONE Dexamethasone 10 mg 05/27/20 13:16 05/27/20 13:31 Dexamethasone 10 Mg/Ml Sdv PO 05/27/20 13:17 10 mg ONETIME ONE Administration Doxycycline Monohydrate 100 mg 05/27/20 15:00 05/27/20 15:23 Doxycycline Monohydrate 100 Mg Cap PO 05/27/20 15:01 100 mg ONETIME ONE Administration - Radiology Interpretation Free Text/Narrative:: Chest x-ray initially reviewed by myself Stemper any sleep. Signs of chronic hyperinflation without any hemopneumothorax infiltrate consolidation or vascular congestion. No pleural effusions. Radiological review to follow. - Re-Assessments/Exams Free Text/Narrative Re-Assessment/Exam: Labs are drawn. 10 mg of IV Decadron given orally. Budesonide 1 mg nebulizer. DuoNeb nebulizer. EKG completed. Chest x-ray no acute findings on my extemporaneously initial review. Radiological review to follow. Laboratory evaluation actually looks really good. She has a normal white blood cell count 5.6, hemoglobin 12.2, platelets 176. She has a normal comprehensive metabolic panel other than a alk phos of 124. Troponin is normal at 0.000. C-reactive protein minimally elevated if at all at 2.4. Covid test is negative. After the above therapy the patient felt quite a bit better. She was able to speak in pretty much full sentences and her accessory muscle use has resolved. She was given a dose of doxycycline in the emergency department. I also discussed with her that when she is having a COPD flare is important for her to use her nebulizers instead of the MDI she will get better relief from these as the timing is not is crucial with the nebulizers as they are with the MDIs. She is not back to baseline but she feels quite a bit better and would like to try it at home. I think that is appropriate at this time as she is shown quite a bit of improvement initially in the emergency department. We will dose her with prednisone with a slow tapering because of her chronicity and seriousness of her COPD. Cover her with doxycycline as well. Anything new or worse she is to recheck she is comfortable with this plan and her questions are answered. Departure - Departure Time of Disposition: 15:13 Disposition: Home, Self-Care 01 Clinical Impression: COPD with exacerbation - Discharge Information *PRESCRIPTION DRUG MONITORING PROGRAM REVIEWED*: Not Applicable *COPY OF PRESCRIPTION DRUG MONITORING REPORT IN PATIENT INGE: Not Applicable Prescriptions: Doxycycline Hyclate 100 mg PO BID #4 tablet. predniSONE 10 mg PO DAILY #16 tab Instructions: Chronic Obstructive Pulmonary Disease Exacerbation, [id number] Forms: ED Department Discharge Additional Instructions: Continue with your previous breathing treatments. Add when you are in distress Albuterol nebulizer 1 every 4 hrs as needed for sob wheezing or cough. Works better than your inhaler during times of exacerbation. Box sent home from the ED. Doxycycline 1 tablet twice daily for the next 7 days. 5 days home from the ED and RX sent to your pharmacy in [place]. Prednisone 10mg tablet. 60mg a day starting 05/28/20 for 3 days. Then 40mg a day for 3 days and then 20mg a day for 3 days. Rx to your pharmacy. Return to the ED if new or worsening symptoms. Follow up with PCP in the next 4-6 days if not improving sooner if worse. Sepsis Event Note (ED) - Evaluation Sepsis Screening Result: No Definite Risk - Focused Exam Vital Signs: Vital Signs Temp Pulse Resp BP Pulse Ox 05/27/20 13:00 97.0 F 106 H 24 H 155/71 H 96 - My Orders Last 24 Hours: My Active Orders 05/27/20 13:02 EKG Documentation Completion [RC] STAT Peripheral IV Insertion Adult [OM.PC] Stat 05/27/20 13:03 Chest 2V [CR] Urgent 05/27/20 13:04 Peripheral IV Care [RC] . DIRECTED RT Aerosol Therapy [RC] ASDIRECTED Sodium Chloride 0.9% [Saline Flush] 10 ml FLUSH ASDIRECTED PRN 05/27/20 13:29 EKG Documentation Completion [RC] ASDIRECTED - Assessment/Plan Last 24 Hours: My Active Orders 05/27/20 13:02 EKG Documentation Completion [RC] STAT Peripheral IV Insertion Adult [OM.PC] Stat 05/27/20 13:03 Chest 2V [CR] Urgent 05/27/20 13:04 Peripheral IV Care [RC] . DIRECTED RT Aerosol Therapy [RC] ASDIRECTED Sodium Chloride 0.9% [Saline Flush] 10 ml FLUSH ASDIRECTED PRN 05/27/20 13:29 EKG Documentation Completion [RC] ASDIRECTED
[2020-05-27] MEDS ORDERED: Doxycycline Monohydrate 100 MG Cap PO ONE (15:00)
== END 2020-05-27 15:28 | disposition home or self-care (01) ==
LOC: LL.ED 12:49
DX: J44.1 Chronic obstructive pulmonary disease with (acute) exacerbation (principal); E11.9 Type 2 diabetes mellitus without complications; E66.9 Obesity, unspecified; Z86.718 Personal history of other venous thrombosis and embolism; Z20.822 Contact with and (suspected) exposure to COVID-19; Z88.8 Allergy status to other drugs, medicaments and biological substances; Z91.041 Radiographic dye allergy status; Z79.01 Long term (current) use of anticoagulants
CPT/HCPCS: 36415; 71046; 80053; 83605; 84484; 85025; 86140; 93005; 99285-25; A9270-GY; J1100; J7620-GY; U0002

== ENCOUNTER 2020-06-02 08:42 | Emergency (ER) | payer MEDICARE, BC ==
[2020-06-02 09:39] LABS: CHLORIDE,CL 101 mmol/L (98-107); SODIUM,NA 137 mmol/L (136-145)
--- NOTE | 2020-06-02 10:32 | EDM.PDOC ---
ED HPI GENERAL MEDICAL PROBLEM - General Chief Complaint: General Stated Complaint: dry mouth Time Seen by Provider: 06/02/20 09:35 Source of Information: Reports: Patient History Limitations: Reports: No Limitations - History of Present Illness INITIAL COMMENTS - FREE TEXT/NARRATIVE: Patient comes to ER concerned that she has a dry mouth/lips cracked. Started within last 24 hours. Discharged two days ago from [place]. Was evaluated and treated for a cough complaint. Had a two week history of irritating cough and white foamy sputum. The cough made her feel SOB. 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 Evaluated last weekend at ER here. Started on Doxy and placed on Prednisone. Evaluation at that time did not show pneumonia/obvious infection. Xray showed COPD. Patient says she felt worse the next day/shaky and ended up in [place] admitted. Was told by provider in [place] that "everything looked fine" but received IV steroids and was on antibiotics. Discharged home two days ago on Ceftin and Prednisone taper. Two new meds: Pepcid and Ceftin. Took Pepcid after discharge and had no issue. Took for dose of Ceftin last night once Rx available. Very unhappy because she slept poorly and her mouth felt dry despite drinking water. Does wear C-Pap at night. She is here wondering if it is safe to take the Ceftin with the Pepcid (denies heart burn/reflux) as her discharge papers said they interacted. Is wondering if she is dehydrated and that is causing the dry lips/mouth. Dry cough did improve during admission. Denies having any fevers over the past few weeks. No other acute changes of ROS. No acute SOB complaint. - Related Data Allergies Allergy/AdvReac Type Severity Reaction Status Date / Time methylprednisolone Allergy Shortness Verified 06/02/20 08:52 of Breath revefenacin [From Yupelri] Allergy Other Verified 06/02/20 08:52 IV Dye used for U/S (echo) Allergy Shortness Uncoded 06/02/20 08:52 of Breath Home Meds: Home Meds Budesonide [Pulmicort] 0.5 mg IH BID@0800,199902/07/19 [History] Albuterol Sulfate 1 ampule INH QAM 07/23/19 [History] Albuterol [Ventolin HFA] 2 puff INH Q4H PRN 07/23/19 [History] Arformoterol [Brovana] 15 mcg INH Q12HR 07/23/19 [History] Ipratropium [Atrovent] 0.5 mg INH TID@0800,1500,199907/23/19 [History] Phytonadione [Vitamin K] 100 mg PO DAILY 02/04/20 [History] Benzonatate [Tessalon Perle] 100 mg PO BID 03/08/20 [History] Warfarin [Coumadin] 1 tab PO SUTUTHSA@199903/08/20 [History] Warfarin [Coumadin] 0.5 tab PO MOWEFR@199903/09/20 [History] Roflumilast [Daliresp] 1 tab PO BEDTIME 05/27/20 [History] predniSONE 10 mg PO DAILY #16 tab 05/27/20 [Rx] Cefuroxime [Ceftin] 500 mg pe PO BID 06/02/20 [History] Famotidine [Pepcid] 1 tab PO DAILY 06/02/20 [History] Past Medical History HEENT History: Reports: Impaired Vision Other HEENT History: wears glasses. has full upper and lower dentures Cardiovascular History: Reports: Blood Clots/VTE/DVT Other Cardiovascular History: Postoperative DVT of the left leg on 02/18/07 after mastectomy in 2006 with current Coumadin therapy. Respiratory History: Reports: COPD Other Respiratory History: oxygen dependent at home: 3L/NC Gastrointestinal History: Reports: Cholelithiasis, Diverticulosis, GERD Genitourinary History: Reports: None SCALER PACKER History: Reports: Polycystic Ovaries, Other SCALER PACKER History: Menopause in her 40s. Full term without complications during pregnancies or deliveries Musculoskeletal History: Reports: Arthritis, Osteoarthritis, Osteoporosis Neurological History: Reports: Headaches, Chronic, Migraines, Other (See Below) Other Neuro History: Migraine headaches in early adulthood nonproblematic at this time. Psychiatric History: Reports: None Endocrine/Metabolic History: Reports: Diabetes, Type II, Obesity/BMI 30+, Osteopenia, Osteoporosis, Other (See Below) Other Endocrine/Metabolic History: Prediabetes. Hyponatremia. Hematologic History: Reports: None Immunologic History: Reports: None Oncologic (Cancer) History: Reports: Breast, Other (See Below) Other Oncologic History: Left-sided stage I breast cancer in 2006 with mastectomy and radiation therapy. Dermatologic History: Reports: None - Infectious Disease History Infectious Disease History: Reports: Chicken Pox, Mumps - Past Surgical History Head Surgeries/Procedures: Reports: None HEENT Surgical History: Reports: Cataract Surgery, Oral Surgery, Other (See Below) Other HEENT Surgeries/Procedures: Bilateral cataract surgery in 2019. Complete teeth extraction. Cardiovascular Surgical History: Reports: None Respiratory Surgical History: Reports: None GI Surgical History: Reports: Cholecystectomy Other GI Surgeries/Procedures: Open cholecystectomy on 06/26/13. Female Surgical History: Reports: Breast Biopsy, Mastectomy, Other (See Below) Other Female Surgeries/Procedures: Left Sided mastectomy in 2006 Endocrine Surgical History: Reports: None Neurological Surgical History: Reports: None Musculoskeletal Surgical History: Reports: None Oncologic Surgical History: Reports: Biopsy of Breast, Mastectomy, Other (See Below) Other Oncologic Surgeries/Procedures: Mastectomy as above. Dermatological Surgical History: Reports: None - Past Imaging History Past Imaging History: Reports: Cardiac Echo (08/17/2019 with ejection fraction of 50-60%.), CAT Scan (CT of the chest without contrast on 08/17/2019 and 06/25/17. CT of the abdomen and pelvis on 12/29/2019 and 06/26/13.), Mammogram (Last mammogram in November 2018 by patient history.), Venous Doppler (Left leg on 02/18/07.) Social & Family History - Family History HEENT: Reports: None Cardiac: Reports: Arrhythmia, Pacemaker, Other (See Below) Other Cardiac Family History: Mother with pacemaker. Respiratory: Reports: Asthma, Other (See Below) Other Respiratory Family Hisory: Father with asthma secondary to coal exposure. GI: Reports: None : Reports: None OBGYN: Reports: None Musculoskeletal: Reports: None Neurological: Reports: Alzheimers Disease, Dementia, Migraines, Other (See Below) Other Neurological Family History: Mother with migraine headaches. Brothers 2 with organic brain syndrome. Psychiatric: Reports: None Endocrine/Metabolic: Reports: Diabetes, type II, IDDM, Other (See Below) Other Endocrine/Metabolic Family History: Mother with IDDM. 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 ED EXAM, GENERAL - Physical Exam Exam: See Below Exam Limited By: No Limitations General Appearance: Alert, Anxious Eye Exam: Bilateral Eye: EOMI, PERRL Ears: Hearing Grossly Normal Nose: No: Nasal Deformity, Nasal Swelling, Nasal Drainage Throat/Mouth: Normal Lips, Normal Voice, No Airway Compromise Head: Atraumatic, Normocephalic Neck: Supple Respiratory/Chest: No Respiratory Distress, Lungs Clear, Normal Breath Sounds, No Accessory Muscle Use, Chest Non-Tender. No: Respiratory Distress, Decreased Breath Sounds, Crackles, Rales, Rhonchi, Wheezing, Stridor, Accessory Muscle Use, Retractions Cardiovascular: Regular Rate, Rhythm, No Murmur GI/Abdominal: Soft, Non-Tender (Female) Exam: Deferred Rectal (Female) Exam: Deferred Back Exam: No: CVA Tenderness (L) Extremities: Normal Capillary Refill Neurological: Alert, Oriented, No Motor/Sensory Deficits Psychiatric: Anxious Skin Exam: Warm, Dry, Ecchymosis (arms/recent IV sites) Course - Vital Signs Last Recorded V/S: Last Vital Signs Temp 36.8 C 06/02/20 08:47 Pulse 94 06/02/20 09:01 Resp 18 06/02/20 09:01 BP 136/66 06/02/20 09:01 Pulse Ox 100 06/02/20 09:01 - Orders/Labs/Meds Labs: Laboratory Tests 06/02/20 06/02/20 06/02/20 Range/Units 09:20 09:20 09:49 WBC 9.5 (4.0-10.2) K/uL RBC 4.28 (3.77-5.09) M/uL Hgb 12.4 (11.7-15.5) g/dL Hct 38.1 (34.0-46.0) % MCV 89.0 (84.0-98.0) fL MCH 29.0 (28.2-33.3) pg MCHC 32.5 (31.7-36.0) g/dL RDW 12.5 (11.2-14.1) % Plt Count 196 (150-350) K/uL Neut % (Auto) 78.2 (45.0-80.0) % Lymph % (Auto) 11.5 (10.0-50.0) % Morris % (Auto) 9.9 (2.0-14.0) % Eos % (Auto) 0.3 (0.0-5.0) % Baso % (Auto) 0.1 (0.0-2.0) % Neut # (Auto) 7.46 H (1.40-7.00) K/uL Lymph # (Auto) 1.10 (0.50-3.50) K/uL Morris # (Auto) 0.94 (0.00-1.00) K/uL Eos # (Auto) 0.03 (0.00-0.50) K/uL Baso # (Auto) 0.01 (0.00-0.20) K/uL Sodium 137 (136-145) mmol/L Potassium 3.4 L (3.5-5.1) mmol/L Chloride 101 (98-107) mmol/L Carbon Dioxide 28.2 (21.0-32.0) mmol/L BUN 11 (7-18) mg/dL Creatinine 0.63 (0.51-1.17) mg/dL Est Cr Clr Drug Dosing 61.02 mL/min Estimated GFR (MDRD) > 60 mL/min Glucose 129 H (70-99) mg/dL Calcium 8.7 (8.5-10.1) mg/dL Magnesium 2.3 (1.8-2.4) mg/dL Total Bilirubin 0.5 (0.2-1.0) mg/dL AST 13 L (15-37) U/L ALT 23 (12-78) U/L Alkaline Phosphatase 88 (46-116) IU/L Total Protein 5.8 L (6.4-8.2) g/dL Albumin 3.4 (3.4-5.0) g/dL Specimen Type Urinblad Urine Color Yellow Urine Appearance Clear Urine pH 6.5 (5.0-9.0) Ur Specific [place] 1.010 (1.005-1.030) Urine Protein Negative (NEGATIVE) mg/dL Urine Glucose (UA) Negative (NEGATIVE) mg/dL Urine Ketones Negative (NEGATIVE) mg/dL Urine Occult Blood Trace-intact H (NEGATIVE) Urine Nitrite Negative (NEGATIVE) Urine Bilirubin Negative (NEGATIVE) Urine Urobilinogen 0.2 (0.2-1.0) E.U./dL Ur Leukocyte Esterase Negative (NEGATIVE) Urine RBC 0-5 /HPF Urine WBC 0-5 /HPF Ur Epithelial Cells Occasional /LPF Urine Bacteria Not seen (NONE TO FEW) /HPF - Re-Assessments/Exams Free Text/Narrative Re-Assessment/Exam: 06/02/20 10:50 Basic labs requested. Overall unremarkable/no evidence of acute dehydration noted. Interactions/side effects of Solumedrol/Prednisone/Pepcid/Ceftin reviewed. Medication that would most likely cause this would be the steroids. Steroids also linked to anxiety and poor sleep. Much less likely with the other two meds. Significant amount of time spent reviewing patient's concerns with patient and potential causes for the dry mouth and insomnia. Plan formulated where patient can put Pepcid and Prednisone on hold today. Given the half life of the IV steroids she received in addition to the PO steroids she should cont inue to experience their anti-inflammatory effect for the 24-48 hours we discussed holding it. She is to RESTART the steroids by the 48 hour bartolome and is aware that if the dry mouth improves, it may get worse again with the restart. OK to hold Pepcid for now. She denies history of reflux/heartburn. To continue Ceftin. Recommend she make an appointment for re-eval by PCP next week. To return to ER if she has sudden worsening problems. Departure - Departure Time of Disposition: 10:27 Disposition: Home, Self-Care 01 Condition: Good Clinical Impression: Dry mouth - Discharge Information *PRESCRIPTION DRUG MONITORING PROGRAM REVIEWED*: Not Applicable *COPY OF PRESCRIPTION DRUG MONITORING REPORT IN PATIENT INGE: Not Applicable Referrals: Leonor Millan PA-C [Primary Care Provider] - Forms: ED Department Discharge Additional Instructions: We did check your blood count, blood chemistry, and urine. Everything looked good and there is no flag indicating dehydration. Your oxygen saturation on room air was 100%. As we discussed, the most obvious potential cause for dry mouth/poor sleep would be the Solu-Medrol/steroids that you received this week. The antibiotic and antacid would be less likely to do that. Steroids can also mess up sleep and make one more agitated. You can hold the Pepcid for now to see if that helps. The Pepcid can reduce the absorption of the Ceftin anyway. You can also hold the Prednisone for a few days as you will still have some in your system from the IV steroids you received in [place] as we discussed. If your lips get a bit better but then get worse again when you restart the Prednisone, then we likely have identified the problem. Follow up with your primary provider next week/get an appointment set up so that you can be rechecked for the cough and today's complaints. Sepsis Event Note (ED) - Evaluation Sepsis Screening Result: No Definite Risk - Focused Exam Vital Signs: Vital Signs Temp Pulse Resp BP Pulse Ox 06/02/20 09:01 94 18 136/66 100 06/02/20 08:47 36.8 C 97 18 139/70 100
== END 2020-06-02 10:50 | disposition home or self-care (01) ==
LOC: LL.ED 08:42
DX: R68.2 Dry mouth, unspecified (principal); J44.9 Chronic obstructive pulmonary disease, unspecified; E11.9 Type 2 diabetes mellitus without complications; E66.9 Obesity, unspecified; K21.9 Gastro-esophageal reflux disease without esophagitis; Z79.01 Long term (current) use of anticoagulants; Z86.718 Personal history of other venous thrombosis and embolism; Z91.041 Radiographic dye allergy status; Z88.8 Allergy status to other drugs, medicaments and biological substances; Z87.891 Personal history of nicotine dependence; Z68.26 Body mass index [BMI] 26.0-26.9, adult
CPT/HCPCS: 36415; 80053; 81001; 83735; 85025; 99283

== ENCOUNTER 2020-06-05 15:04 | Emergency (ER) | payer MEDICARE, BC ==
--- NOTE | 2020-06-05 15:26 | EDM.PDOC ---
ED HPI GENERAL MEDICAL PROBLEM - General Chief Complaint: General Stated Complaint: just has questions Time Seen by Provider: 06/05/20 15:12 Source of Information: Reports: Patient, Family History Limitations: Reports: No Limitations - History of Present Illness INITIAL COMMENTS - FREE TEXT/NARRATIVE: Was recently admitted in [place] for COPD exacerbation Is oxygen dependent COPD Was started on Ceftin, Tessalon and Prednisone Also given Famotadine Has questions about her meds Duration: Chronic Location: Reports: Generalized - Related Data Allergies Allergy/AdvReac Type Severity Reaction Status Date / Time methylprednisolone Allergy Shortness Verified 06/02/20 08:52 of Breath revefenacin [From Yupelri] Allergy Other Verified 06/02/20 08:52 IV Dye used for U/S (echo) Allergy Shortness Uncoded 06/02/20 08:52 of Breath Home Meds: Home Meds Budesonide [Pulmicort] 0.5 mg IH BID@0800,199902/07/19 [History] Albuterol Sulfate 1 ampule INH QAM 07/23/19 [History] Albuterol [Ventolin HFA] 2 puff INH Q4H PRN 07/23/19 [History] Arformoterol [Brovana] 15 mcg INH Q12HR 07/23/19 [History] Ipratropium [Atrovent] 0.5 mg INH TID@0800,1500,199907/23/19 [History] Phytonadione [Vitamin K] 100 mg PO DAILY 02/04/20 [History] Benzonatate [Tessalon Perle] 100 mg PO BID 03/08/20 [History] Warfarin [Coumadin] 1 tab PO SUTUTHSA@199903/08/20 [History] Warfarin [Coumadin] 0.5 tab PO MOWEFR@199903/09/20 [History] Roflumilast [Daliresp] 1 tab PO BEDTIME 05/27/20 [History] predniSONE 10 mg PO DAILY #16 tab 05/27/20 [Rx] Cefuroxime [Ceftin] 500 mg pe PO BID 06/02/20 [History] Famotidine [Pepcid] 1 tab PO DAILY 06/02/20 [History] Past Medical History HEENT History: Reports: Impaired Vision Other HEENT History: wears glasses. has full upper and lower dentures Cardiovascular History: Reports: Blood Clots/VTE/DVT Other Cardiovascular History: Postoperative DVT of the left leg on 02/18/07 after mastectomy in 2006 with current Coumadin therapy. Respiratory History: Reports: COPD Other Respiratory History: oxygen dependent at home: 3L/NC Gastrointestinal History: Reports: Cholelithiasis, Diverticulosis, GERD Genitourinary History: Reports: None HUMANITIES INSTRUCTOR History: Reports: Polycystic Ovaries, Other HUMANITIES INSTRUCTOR History: Menopause in her 40s. Full term without complications during pregnancies or deliveries Musculoskeletal History: Reports: Arthritis, Osteoarthritis, Osteoporosis Neurological History: Reports: Headaches, Chronic, Migraines, Other (See Below) Other Neuro History: Migraine headaches in early adulthood nonproblematic at this time. Psychiatric History: Reports: None Endocrine/Metabolic History: Reports: Diabetes, Type II, Obesity/BMI 30+, Osteopenia, Osteoporosis, Other (See Below) Other Endocrine/Metabolic History: Prediabetes. Hyponatremia. Hematologic History: Reports: None Immunologic History: Reports: None Oncologic (Cancer) History: Reports: Breast, Other (See Below) Other Oncologic History: Left-sided stage I breast cancer in 2006 with mastectomy and radiation therapy. Dermatologic History: Reports: None - Infectious Disease History Infectious Disease History: Reports: Chicken Pox, Mumps - Past Surgical History Head Surgeries/Procedures: Reports: None HEENT Surgical History: Reports: Cataract Surgery, Oral Surgery, Other (See Below) Other HEENT Surgeries/Procedures: Bilateral cataract surgery in 2019. Complete teeth extraction. Cardiovascular Surgical History: Reports: None Respiratory Surgical History: Reports: None GI Surgical History: Reports: Cholecystectomy Other GI Surgeries/Procedures: Open cholecystectomy on 06/26/13. Female Surgical History: Reports: Breast Biopsy, Mastectomy, Other (See Below) Other Female Surgeries/Procedures: Left Sided mastectomy in 2006 Endocrine Surgical History: Reports: None Neurological Surgical History: Reports: None Musculoskeletal Surgical History: Reports: None Oncologic Surgical History: Reports: Biopsy of Breast, Mastectomy, Other (See Below) Other Oncologic Surgeries/Procedures: Mastectomy as above. Dermatological Surgical History: Reports: None - Past Imaging History Past Imaging History: Reports: Cardiac Echo (08/17/2019 with ejection fraction of 50-60%.), CAT Scan (CT of the chest without contrast on 08/17/2019 [address] 06/25/17. CT of the abdomen and pelvis on 12/29/2019 and 06/26/13.), Mammogram (Last mammogram in November 2018 by patient history.), Venous Doppler (Left leg on 02/18/07.) Social & Family History - Family History HEENT: Reports: None Cardiac: Reports: Arrhythmia, Pacemaker, Other (See Below) Other Cardiac Family History: Mother with pacemaker. Respiratory: Reports: Asthma, Other (See Below) Other Respiratory Family Hisory: Father with asthma secondary to coal exposure. GI: Reports: None : Reports: None OBGYN: Reports: None Musculoskeletal: Reports: None Neurological: Reports: Alzheimers Disease, Dementia, Migraines, Other (See Below) Other Neurological Family History: Mother with migraine headaches. Brothers 2 with organic brain syndrome. Psychiatric: Reports: None Endocrine/Metabolic: Reports: Diabetes, type II, IDDM, Other (See Below) Other Endocrine/Metabolic Family History: Mother with IDDM. 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65) ED ROS GENERAL - Review of Systems Review Of Systems: See Below HEENT: Reports: No Symptoms Respiratory: Reports: Shortness of Breath Cardiovascular: Reports: No Symptoms GI/Abdominal: Reports: No Symptoms Musculoskeletal: Reports: No Symptoms Skin: Reports: No Symptoms ED EXAM, GENERAL - Physical Exam Exam: See Below Exam Limited By: No Limitations General Appearance: Alert, WD/WN Respiratory/Chest: Decreased Breath Sounds Course - Vital Signs Last Recorded V/S: Last Vital Signs Temp 98.8 F 06/05/20 15:06 Pulse 92 06/05/20 15:06 Resp 20 06/05/20 15:06 BP 125/88 06/05/20 15:06 Pulse Ox 98 06/05/20 15:06 - Re-Assessments/Exams Free Text/Narrative Re-Assessment/Exam: 06/05/20 15:25 Paperwork from previous admit reviewed Medications d/w patient Questions answered Will restart her meds and complete RX Follow up with usual provider Departure - Departure Time of Disposition: 15:30 Disposition: Home, Self-Care 01 Clinical Impression: COPD with exacerbation - Discharge Information *PRESCRIPTION DRUG MONITORING PROGRAM REVIEWED*: Not Applicable *COPY OF PRESCRIPTION DRUG MONITORING REPORT IN PATIENT INGE: Not Applicable Instructions: Chronic Obstructive Pulmonary Disease, [id number] Additional Instructions: Follow up in clinic Sepsis Event Note (ED) - Evaluation Sepsis Screening Result: No Definite Risk - Focused Exam Vital Signs: Vital Signs Temp Pulse Resp BP Pulse Ox 06/05/20 15:06 98.8 F 92 20 125/88 98
== END 2020-06-05 15:30 | disposition home or self-care (01) ==
LOC: LL.ED 15:04
DX: J44.1 Chronic obstructive pulmonary disease with (acute) exacerbation (principal); E11.9 Type 2 diabetes mellitus without complications; E66.9 Obesity, unspecified; K21.9 Gastro-esophageal reflux disease without esophagitis; Z88.8 Allergy status to other drugs, medicaments and biological substances; Z91.041 Radiographic dye allergy status; Z79.899 Other long term (current) drug therapy; Z79.01 Long term (current) use of anticoagulants; Z86.718 Personal history of other venous thrombosis and embolism; Z99.81 Dependence on supplemental oxygen
CPT/HCPCS: 99284

== ENCOUNTER 2020-07-10 11:58 | Emergency (ER) | payer MEDICARE, BC ==
[2020-07-10] MEDS ORDERED: Furosemide 40 MG/4 ML VIAL IVPUSH ONE (12:10)
[2020-07-10] MEDS ORDERED: Sodium Chloride 0.9% 10 ML Syringe FLUSH PRN (12:10)
[2020-07-10] MEDS ORDERED: LORazepam 2 MG/ML SDV IVPUSH ONE (12:13)
[2020-07-10] MEDS ORDERED: Albuterol/Ipratropium 3.0-0.5 MG/3 ML Neb Soln NEB ONE (12:16)
[2020-07-10] MEDS ORDERED: methylPREDNISolone Sodium Succinate 125 MG/2 ML SDV IV ONE (12:16)
[2020-07-10 12:49] LABS: CHLORIDE,CL 103 mmol/L (98-107); SODIUM,NA 140 mmol/L (136-145)
--- NOTE | 2020-07-10 13:13 | EDM.PDOC ---
ED HPI GENERAL MEDICAL PROBLEM - General Chief Complaint: Respiratory Problem Stated Complaint: anxiety, SOB Time Seen by Provider: 07/10/20 12:04 Source of Information: Reports: Patient, EMS History Limitations: Reports: No Limitations - History of Present Illness INITIAL COMMENTS - FREE TEXT/NARRATIVE: Pt. presents to ER with complaints of shortness of breath and anxiety. Pt. has a longstanding history of COPD and was hospitalized at [facility] from 07/02 thru 07/05 with COPD exacerbation, acute on chronic respiratory failure, and was on BiPAP at that time. Chest x-ray on 07/02 did not show any acute infiltrate. Pt. was started on IV rocephin and solu medrol, and discharged with a prednisone taper and oral ceftin. Pt. finished the course of antibiotics, but is still on the prednisone. Pt. also on lasix in the hospital but this was discontinued prior to discharge. She was receiving ativan as well as vistaril for anxiety, and was discharged home with vistaril which she states makes her feel fatigued and generally unwell. She was also discharged home with tessalon, and states that she has not been coughing much lately. Pt. states that over the past 24 hours, he has noticed increased edema in lower extremities, as well as increased shortness of breath. She has been doing her breathing treatments. She states that she has not been experiencing any substernal chest, jaw, arm, or neck pain. Denies any lightheadedness or palpitations. No nausea, vomiting, or diarrhea. - Related Data Allergies Allergy/AdvReac Type Severity Reaction Status Date / Time methylprednisolone Allergy Shortness Verified 07/10/20 12:13 of Breath revefenacin [From Yupelri] Allergy Other Verified 07/10/20 12:13 IV Dye used for U/S (echo) Allergy Shortness Uncoded 07/10/20 12:13 of Breath Home Meds: Home Meds Budesonide [Pulmicort] 0.5 mg IH BID@799,199902/07/19 [History] Albuterol Sulfate 1 ampule INH QAM 07/23/19 [History] Albuterol [Ventolin HFA] 2 puff INH Q4H PRN 07/23/19 [History] Arformoterol [Brovana] 15 mcg INH Q12HR 07/23/19 [History] Ipratropium [Atrovent] 0.5 mg INH TID@0800,1500,199907/23/19 [History] Benzonatate [Tessalon Perle] 100 mg PO BID 03/08/20 [History] Warfarin [Coumadin] 1 tab PO SUTUTHSA@199903/08/20 [History] Roflumilast [Daliresp] 1 tab PO BEDTIME 05/27/20 [History] Nystatin 4 ml PO QID 07/10/20 [History] Phytonadione [Vitamin K] 100 mcg PO DAILY 07/10/20 [History] atorvaSTATin [Lipitor] 10 mg PO BEDTIME 07/10/20 [History] hydrOXYzine pamoate [Vistaril] 25 mg PO Q6H PRN 07/10/20 [History] polyethylene glycoL 3350 [MiraLAX] 17 gm PO BEDTIME 07/10/20 [History] predniSONE [Prednisone] 30 mg PO BID 07/10/20 [History] Past Medical History HEENT History: Reports: Impaired Vision Other HEENT History: wears glasses. has full upper and lower dentures Cardiovascular History: Reports: Blood Clots/VTE/DVT Other Cardiovascular History: Postoperative DVT of the left leg on 02/18/07 after mastectomy in 2006 with current Coumadin therapy. Respiratory History: Reports: COPD Other Respiratory History: oxygen dependent at home: 3L/NC Gastrointestinal History: Reports: Cholelithiasis, Diverticulosis, GERD Genitourinary History: Reports: None MARKET MANAGER History: Reports: Polycystic Ovaries, Other MARKET MANAGER History: Menopause in her 40s. Full term without complications during pregnancies or deliveries Musculoskeletal History: Reports: Arthritis, Osteoarthritis, Osteoporosis Neurological History: Reports: Headaches, Chronic, Migraines, Other (See Below) Other Neuro History: Migraine headaches in early adulthood nonproblematic at this time. Psychiatric History: Reports: None Endocrine/Metabolic History: Reports: Diabetes, Type II, Obesity/BMI 30+, Osteo penia, Osteoporosis, Other (See Below) Other Endocrine/Metabolic History: Prediabetes. Hyponatremia. Hematologic History: Reports: None Immunologic History: Reports: None Oncologic (Cancer) History: Reports: Breast, Other (See Below) Other Oncologic History: Left-sided stage I breast cancer in 2006 with mastectomy and radiation therapy. Dermatologic History: Reports: None - Infectious Disease History Infectious Disease History: Reports: Chicken Pox, Mumps - Past Surgical History Head Surgeries/Procedures: Reports: None HEENT Surgical History: Reports: Cataract Surgery, Oral Surgery, Other (See Below) Other HEENT Surgeries/Procedures: Bilateral cataract surgery in 2019. Complete teeth extraction. Cardiovascular Surgical History: Reports: None Respiratory Surgical History: Reports: None GI Surgical History: Reports: Cholecystectomy Other GI Surgeries/Procedures: Open cholecystectomy on 06/26/13. Female Surgical History: Reports: Breast Biopsy, Mastectomy, Other (See Below) Other Female Surgeries/Procedures: Left Sided mastectomy in 2006 Endocrine Surgical History: Reports: None Neurological Surgical History: Reports: None Musculoskeletal Surgical History: Reports: None Oncologic Surgical History: Reports: Biopsy of Breast, Mastectomy, Other (See Below) Other Oncologic Surgeries/Procedures: Mastectomy as above. Dermatological Surgical History: Reports: None - Past Imaging History Past Imaging History: Reports: Cardiac Echo (08/17/2019 with ejection fraction of 50-60%.), CAT Scan (CT of the chest without contrast on 08/17/2019 and 06/25/17. CT of the abdomen and pelvis on 12/29/2019 and 06/26/13.), Mammogram (Last mammogram in November 2018 by patient history.), Venous Doppler (Left leg on 02/18/07.) Social & Family History - Family History HEENT: Reports: None Cardiac: Reports: Arrhythmia, Pacemaker, Other (See Below) Other Cardiac Family History: Mother with pacemaker. Respiratory: Reports: Asthma, Other (See Below) Other Respiratory Family Hisory: Father with asthma secondary to coal exposure. GI: Reports: None : Reports: None OBGYN: Reports: None Musculoskeletal: Reports: None Neurological: Reports: Alzheimers Disease, Dementia, Migraines, Other (See Below) Other Neurological Family History: Mother with migraine headaches. Brothers 2 with organic brain syndrome. Psychiatric: Reports: None Endocrine/Metabolic: Reports: Diabetes, type II, IDDM, Other (See Below) Other Endocrine/Metabolic Family History: Mother with IDDM. 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 Denies: Fever, Chills, Malaise, Weakness, Fatigue HEENT: Reports: No Symptoms Respiratory: Reports: Shortness of Breath. Denies: Cough Cardiovascular: Reports: Orthopnea, Palpitations Endocrine: Reports: No Symptoms GI/Abdominal: Reports: No Symptoms : Reports: No Symptoms Musculoskeletal: Reports: No Symptoms Skin: Reports: No Symptoms Neurological: Reports: No Symptoms Psychiatric: Reports: Anxiety Hematologic/Lymphatic: Reports: No Symptoms Immunologic: Reports: No Symptoms ED EXAM, GENERAL - Physical Exam Exam: See Below Exam Limited By: No Limitations General Appearance: Alert, WD/WN, No Apparent Distress Eye Exam: Bilateral Eye: EOMI, PERRL Nose: Normal Inspection, Normal Mucosa, No Blood Throat/Mouth: Normal Inspection, Normal Lips, Normal Voice, No Airway Compromise Head: Atraumatic, Normocephalic Neck: Normal Inspection, Supple, Non-Tender, Full Range of Motion Respiratory/Chest: Decreased Breath Sounds, Crackles, Prolonged Expiration Cardiovascular: Normal Peripheral Pulses, Regular Rate, Rhythm, Other (1+ peripheral edema) Peripheral Pulses: 4+: Radial (L) GI/Abdominal: Soft, Non-Tender, No Distention, No Mass (Female) Exam: Deferred Rectal (Female) Exam: Deferred Back Exam: Normal Inspection, Full Range of Motion Extremities: Normal Inspection, Normal Range of Motion, Non-Tender, Normal Capillary Refill Neurological: Alert, Oriented, CN II-XII Intact, Normal Cognition, Normal Reflexes, No Motor/Sensory Deficits Psychiatric: Anxious Skin Exam: Warm, Dry, Intact, Normal Color, No Rash Lymphatic: No Adenopathy #1 Interpretation Rhythm: NSR [place]: Normal P-Wave: Present QRS: Normal ST-T: Normal QT: Normal Comparison: No Change Course - Vital Signs Last Recorded V/S: Last Vital Signs Temp 37.0 C 07/10/20 12:04 Pulse 97 07/10/20 13:00 Resp 20 07/10/20 12:04 BP 140/65 07/10/20 13:00 Pulse Ox 100 07/10/20 13:00 - Orders/Labs/Meds Orders: Active Orders 24 hr Category Date Time Status EKG Documentation Completion [RC] ASDIRECTED Care 07/10/20 12:12 Active Peripheral IV Care [RC] . DIRECTED Care 07/10/20 12:12 Active RT Aerosol Therapy [RC] ASDIRECTED Care 07/10/20 12:17 Active Chest 1V Frontal [CR] Stat Exams 07/10/20 12:17 Ordered Sodium Chloride 0.9% [Saline Flush] Med 07/10/20 12:10 Active 10 ml FLUSH ASDIRECTED PRN Peripheral IV Insertion Adult [OM.PC] Routine Oth 07/10/20 12:11 Ordered Medication Orders Sodium Chloride (Sodium Chloride 0.9% 10 Ml Syringe) 10 ml FLUSH ASDIRECTED PRN PRN Reason: Keep Vein Open Last Admin: 07/10/20 12:44 Dose: 10 ml Documented by: KRISS Labs: Laboratory Tests 07/10/20 07/10/20 07/10/20 Range/Units 12:11 12:11 12:19 WBC (4.0-10.2) K/uL RBC (3.77-5.09) M/uL Hgb (11.7-15.5) g/dL Hct (34.0-46.0) % MCV (84.0-98.0) fL MCH (28.2-33.3) pg MCHC (31.7-36.0) g/dL RDW (11.2-14.1) % Plt Count (150-350) K/uL Neut % (Auto) (45.0-80.0) % Lymph % (Auto) (10.0-50.0) % [place] % (Auto) (2.0-14.0) % Eos % (Auto) (0.0-5.0) % Baso % (Auto) (0.0-2.0) % Neut # (Auto) (1.40-7.00) K/uL Lymph # (Auto) (0.50-3.50) K/uL [place] # (Auto) (0.00-1.00) K/uL Eos # (Auto) (0.00-0.50) K/uL Baso # (Auto) (0.00-0.20) K/uL PT (9.5-12.0) SEC INR APTT (24.5-32.8) SEC Sodium (136-145) mmol/L Potassium (3.5-5.1) mmol/L Chloride (98-107) mmol/L Carbon Dioxide (21.0-32.0) mmol/L BUN (7-18) mg/dL Creatinine (0.51-1.17) mg/dL Est Cr Clr Drug Dosing Estimated GFR (MDRD) mL/min Glucose (70-99) mg/dL Calcium (8.5-10.1) mg/dL Magnesium (1.8-2.4) mg/dL Total Bilirubin (0.2-1.0) mg/dL AST (15-37) U/L ALT (12-78) U/L Alkaline Phosphatase (46-116) IU/L Troponin I (0.000-0.056) ng/mL C-Reactive Protein (<=0.9) mg/dL NT-Pro-B Natriuret Pep 435 H (0-125) pg/mL Total Protein (6.4-8.2) g/dL Albumin (3.4-5.0) g/dL Specimen Type Urincc Urine Color Yellow Urine Appearance Clear Urine pH 6.5 (5.0-9.0) Ur Specific [place] 1.010 (1.005-1.030) Urine Protein Negative (NEGATIVE) mg/dL Urine Glucose (UA) Negative (NEGATIVE) mg/dL Urine Ketones Negative (NEGATIVE) mg/dL Urine Occult Blood Trace-lysed H (NEGATIVE) Urine Nitrite Negative (NEGATIVE) Urine Bilirubin Negative (NEGATIVE) Urine Urobilinogen 0.2 (0.2-1.0) E.U./dL Ur Leukocyte Esterase Negative (NEGATIVE) Urine RBC 0-5 /HPF Urine WBC Not seen /HPF Ur Epithelial Cells Occasional /LPF Urine Bacteria Occasional (NONE TO FEW) /HPF SARS-CoV-2 RNA (BETO) Negative (NEGATIVE) 07/10/20 07/10/20 07/10/20 Range/Units 12:30 12:30 12:30 WBC 18.6 H (4.0-10.2) K/uL RBC 4.79 (3.77-5.09) M/uL Hgb 13.5 (11.7-15.5) g/dL Hct 41.5 (34.0-46.0) % MCV 86.6 (84.0-98.0) fL MCH 28.2 (28.2-33.3) pg MCHC 32.5 (31.7-36.0) g/dL RDW 13.7 (11.2-14.1) % Plt Count 271 D (150-350) K/uL Neut % (Auto) 91.2 H (45.0-80.0) % Lymph % (Auto) 5.5 L (10.0-50.0) % [place] % (Auto) 3.2 (2.0-14.0) % Eos % (Auto) 0.0 (0.0-5.0) % Baso % (Auto) 0.1 (0.0-2.0) % Neut # (Auto) 16.94 H (1.40-7.00) K/uL Lymph # (Auto) 1.03 (0.50-3.50) K/uL [place] # (Auto) 0.59 (0.00-1.00) K/uL Eos # (Auto) 0.00 (0.00-0.50) K/uL Baso # (Auto) 0.01 (0.00-0.20) K/uL PT 38.4 H D (9.5-12.0) SEC INR 4.0 APTT (24.5-32.8) SEC Sodium 140 (136-145) mmol/L Potassium 3.8 (3.5-5.1) mmol/L Chloride 103 (98-107) mmol/L Carbon Dioxide 25.0 (21.0-32.0) mmol/L BUN 16 (7-18) mg/dL Creatinine 0.62 (0.51-1.17) mg/dL Est Cr Clr Drug Dosing TNP Estimated GFR (MDRD) > 60 mL/min Glucose 179 H (70-99) mg/dL Calcium 8.9 (8.5-10.1) mg/dL Magnesium 2.4 (1.8-2.4) mg/dL Total Bilirubin 0.5 (0.2-1.0) mg/dL AST 14 L (15-37) U/L ALT 38 (12-78) U/L Alkaline Phosphatase 90 (46-116) IU/L Troponin I 0.003 (0.000-0.056) ng/mL C-Reactive Protein < 0.2 (<=0.9) mg/dL NT-Pro-B Natriuret Pep (0-125) pg/mL Total Protein 6.1 L (6.4-8.2) g/dL Albumin 3.3 L (3.4-5.0) g/dL Specimen Type Urine Color Urine Appearance Urine pH (5.0-9.0) Ur Specific [place] (1.005-1.030) Urine Protein (NEGATIVE) mg/dL Urine Glucose (UA) (NEGATIVE) mg/dL Urine Ketones (NEGATIVE) mg/dL Urine Occult Blood (NEGATIVE) Urine Nitrite (NEGATIVE) Urine Bilirubin (NEGATIVE) Urine Urobilinogen (0.2-1.0) E.U./dL Ur Leukocyte Esterase (NEGATIVE) Urine RBC /HPF Urine WBC /HPF Ur Epithelial Cells /LPF Urine Bacteria (NONE TO FEW) /HPF SARS-CoV-2 RNA (BETO) (NEGATIVE) 07/10/20 Range/Units 12:30 WBC (4.0-10.2) K/uL RBC (3.77-5.09) M/uL Hgb (11.7-15.5) g/dL Hct (34.0-46.0) % MCV (84.0-98.0) fL MCH (28.2-33.3) pg MCHC (31.7-36.0) g/dL RDW (11.2-14.1) % Plt Count (150-350) K/uL Neut % (Auto) (45.0-80.0) % Lymph % (Auto) (10.0-50.0) % [place] % (Auto) (2.0-14.0) % Eos % (Auto) (0.0-5.0) % Baso % (Auto) (0.0-2.0) % Neut # (Auto) (1.40-7.00) K/uL Lymph # (Auto) (0.50-3.50) K/uL [place] # (Auto) (0.00-1.00) K/uL Eos # (Auto) (0.00-0.50) K/uL Baso # (Auto) (0.00-0.20) K/uL PT (9.5-12.0) SEC INR APTT 29.1 (24.5-32.8) SEC Sodium (136-145) mmol/L Potassium (3.5-5.1) mmol/L Chloride (98-107) mmol/L Carbon Dioxide (21.0-32.0) mmol/L BUN (7-18) mg/dL Creatinine (0.51-1.17) mg/dL Est Cr Clr Drug Dosing Estimated GFR (MDRD) mL/min Glucose (70-99) mg/dL Calcium (8.5-10.1) mg/dL Magnesium (1.8-2.4) mg/dL Total Bilirubin (0.2-1.0) mg/dL AST (15-37) U/L ALT (12-78) U/L Alkaline Phosphatase (46-116) IU/L Troponin I (0.000-0.056) ng/mL C-Reactive Protein (<=0.9) mg/dL NT-Pro-B Natriuret Pep (0-125) pg/mL Total Protein (6.4-8.2) g/dL Albumin (3.4-5.0) g/dL Specimen Type Urine Color Urine Appearance Urine pH (5.0-9.0) Ur Specific [place] (1.005-1.030) Urine Protein (NEGATIVE) mg/dL Urine Glucose (UA) (NEGATIVE) mg/dL Urine Ketones (NEGATIVE) mg/dL Urine Occult Blood (NEGATIVE) Urine Nitrite (NEGATIVE) Urine Bilirubin (NEGATIVE) Urine Urobilinogen (0.2-1.0) E.U./dL Ur Leukocyte Esterase (NEGATIVE) Urine RBC /HPF Urine WBC /HPF Ur Epithelial Cells /LPF Urine Bacteria (NONE TO FEW) /HPF SARS-CoV-2 RNA (BETO) (NEGATIVE) Meds: Medications Generic Name Dose Route Start Last Admin Trade Name Freq PRN Reason Stop Dose Admin Sodium Chloride 10 ml 07/10/20 12:10 07/10/20 12:44 Sodium Chloride 0.9% 10 Ml Syringe FLUSH 10 ml ASDIRECTED PRN Administration Keep Vein Open Discontinued Medications Generic Name Dose Route Start Last Admin Trade Name Freq PRN Reason Stop Dose Admin Albuterol/Ipratropium 3 ml 07/10/20 12:16 07/10/20 12:50 Albuterol/Ipratropium 3.0-0.5 Mg/3 Ml Neb Soln NEB 07/10/20 12:17 3 ml ONETIME ONE Administration Furosemide 40 mg 07/10/20 12:10 07/10/20 12:42 Furosemide 40 Mg/4 Ml Vial IVPUSH 07/10/20 12:11 40 mg NOW ONE Administration Lorazepam 1 mg 07/10/20 12:13 07/10/20 12:34 Lorazepam 2 Mg/Ml Sdv IVPUSH 07/10/20 12:14 1 mg ONETIME ONE Administration Methylprednisolone Sodium Succinate 125 mg 07/10/20 12:16 07/10/20 12:39 Methylprednisolone Sodium Succinate 125 Mg/2 Ml Sdv IV 07/10/20 12:17 125 mg ONETIME ONE Administration - Radiology Interpretation Free Text/Narrative:: No acute cardiopulmonary pathology. Evidence of hyperinflation. No infiltrate, pneumothorax, or other pathology noted. - Re-Assessments/Exams Free Text/Narrative Re-Assessment/Exam: IV access established. Pt. Pt. was given ativan 1 mg IV. She was also given lasix 40mg IV and solu medrol 125mg IV. She was given a duo neb breathing treatment. Pt. reported feeling much improved after above medications. Chest x-ray did no reveal any significant failure pattern, infiltrate, or other pathology. EKG was unchanged. Departure - Departure Time of Disposition: 14:36 Disposition: Home, Self-Care 01 Clinical Impression: Cor pulmonale, Anxiety - Discharge Information Instructions: Generalized Anxiety Disorder, Adult, Cor Pulmonale Referrals: Leonor Millan PA-C [Primary Care Provider] - Forms: ED Department Discharge Additional Instructions: Lasix 20mg 1 tab every morning. Ativan 1mg 1 tab three times daily as needed for anxiety. Stop the hydroxyzine. Echocardiogram tomorrow. The likely cause of your heart failure today is caused by your COPD, but I want to make sure you don't have any valve/structural problems with the heart. If there is anything abnormal, I will call you. I will forward the results to your Scott Chart. Watch your intake of salt. This contributes to fluid retention. Return to ER if you have worsening shortness of breath, chest pain, lighthead edness, or call at any time. Sepsis Event Note (ED) - Evaluation Sepsis Screening Result: No Definite Risk - Focused Exam Vital Signs: Vital Signs Temp Pulse Resp BP Pulse Ox 07/10/20 13:00 97 140/65 100 07/10/20 12:45 94 122/59 L 100 07/10/20 12:30 94 117/78 100 07/10/20 12:15 96 100 07/10/20 12:04 37.0 C 103 H 20 142/94 H 100 07/10/20 12:00 142/94 H 100 - Problem List Review Problem List Initiated/Reviewed/Updated: Yes - My Orders Last 24 Hours: My Active Orders 07/10/20 12:10 Sodium Chloride 0.9% [Saline Flush] 10 ml FLUSH ASDIRECTED PRN 07/10/20 12:11 Peripheral IV Insertion Adult [OM.PC] Routine 07/10/20 12:12 EKG Documentation Completion [RC] ASDIRECTED Peripheral IV Care [RC] . DIRECTED 07/10/20 12:17 RT Aerosol Therapy [RC] ASDIRECTED Chest 1V Frontal [CR] Stat - Assessment/Plan Last 24 Hours: My Active Orders 07/10/20 12:10 Sodium Chloride 0.9% [Saline Flush] 10 ml FLUSH ASDIRECTED PRN 07/10/20 12:11 Peripheral IV Insertion Adult [OM.PC] Routine 07/10/20 12:12 EKG Documentation Completion [RC] ASDIRECTED Peripheral IV Care [RC] . DIRECTED 07/10/20 12:17 RT Aerosol Therapy [RC] ASDIRECTED Chest 1V Frontal [CR] Stat Plan: Hydroxyzine will be stopped. Start ativan 1mg three times daily as needed for anxiety. Continue with prednisone course. No need for further antibiotics at this time. Pt. does have an elevated white count, likely a stress response. She is afebrile and has no other signs of infectious process. UA is negative. Start lasix 20mg once daily Transthoracic echo was ordered for tomorrow. She has not had one since 2017. Cause of her fluid retention is likely R heart failure secondary to cor pulmon milly.Typically these patients respond well to lower doses of loop diuretics. Will refer to cardiology as needed if there is evidence of valvular heart disease/L heart failure.
== END 2020-07-10 14:15 | disposition home or self-care (01) ==
LOC: LL.ED 11:58
DX: F41.9 Anxiety disorder, unspecified (principal); J44.9 Chronic obstructive pulmonary disease, unspecified; K21.9 Gastro-esophageal reflux disease without esophagitis; E11.9 Type 2 diabetes mellitus without complications; E66.9 Obesity, unspecified; Z68.30 Body mass index [BMI] 30.0-30.9, adult; Z86.718 Personal history of other venous thrombosis and embolism; Z79.01 Long term (current) use of anticoagulants; Z91.041 Radiographic dye allergy status; Z88.1 Allergy status to other antibiotic agents; Z20.822 Contact with and (suspected) exposure to COVID-19
CPT/HCPCS: 36415; 71045; 80053; 81001; 83735; 83880; 84484; 85025; 85610; 85730; 86140; 93005; 93010; 94640; 96374; 96375; 99285; 99285-25; J1940; J2060; J2930; J7620-GY; U0002

== ENCOUNTER 2020-07-27 17:45 | Emergency (ER) | payer MEDICARE, BC ==
[2020-07-27] MEDS: Lactated Ringers 1,000 ML IV SCH (18:25)
--- NOTE | 2020-07-27 18:27 | EDM.PDOC ---
ED HPI GENERAL MEDICAL PROBLEM - General Chief Complaint: General Stated Complaint: dry cough, dry mouth Time Seen by Provider: 07/27/20 17:53 Source of Information: Reports: Patient, Family History Limitations: Reports: No Limitations - History of Present Illness INITIAL COMMENTS - FREE TEXT/NARRATIVE: Pt. presents to ER with complaints of weakness and dry mouth. Pt. was seen in ER on 07/10 with complaints of shortness of breath, anxiety, and increased peripheral edema. Pt. was noted to have 2+ ankle edema at that time and was started on lasix 20mg daily. Pt. has a history of severe COPD and frequent COPD exacerbations. Pt was hospitalized at [place] from 07/02-07/05. She was on BiPAP during that stay and was weaned. Echocardiogram was ordered and was performed 07/11. It showed EF of 55-60%, no significant LV or RV dysfunction, and no significant valvular disease. She did have a trace pericardial effusion. She states that the lasix is making her urinate a lot. She also complains that her house is hot, especially last night when the air conditioning was off. She states that she has greatly decreased her sodium and water consumption due to fears of holding on to more fluid. She denies any significant shortness of breath, more than normal. Denies any chest pain. Denies any palpitations or lightheadedness. denies any fever or chills. Denies any nausea, vomiting, or diarrhea. states that he is concerned that the patient is depressed. Her appetite is poor. Onset: Today Onset Date: 07/27/20 Location: Reports: Generalized Associated Symptoms: Reports: Malaise, Weakness. Denies: Confusion, Chest Pain, Cough, cough w sputum, Diaphoresis, Fever/Chills, Headaches, Loss of Appetite, Nausea/Vomiting, Rash, Seizure, Shortness of Breath - Related Data Allergies Allergy/AdvReac Type Severity Reaction Status Date / Time methylprednisolone Allergy Shortness Verified 07/27/20 18:03 of Breath revefenacin [From Yupelri] Allergy Other Verified 07/27/20 18:03 IV Dye used for U/S (echo) Allergy Shortness Uncoded 07/27/20 18:03 of Breath Home Meds: Home Meds Budesonide [Pulmicort] 0.5 mg IH BID@0800,199902/07/19 [History] Albuterol Sulfate 1 ampule INH QAM 07/23/19 [History] Albuterol [Ventolin HFA] 2 puff INH Q4H PRN 07/23/19 [History] Arformoterol [Brovana] 15 mcg INH Q12HR 07/23/19 [History] Ipratropium [Atrovent] 0.5 mg INH TID@0800,1500,2000 07/23/19 [History] Benzonatate [Tessalon Perle] 100 mg PO TID 03/08/20 [History] Warfarin [Coumadin] 1 tab PO ASDIRECTED 03/08/20 [History] Roflumilast [Daliresp] 1 tab PO BEDTIME 05/27/20 [History] Phytonadione [Vitamin K] 100 mcg PO DAILY 07/10/20 [History] atorvaSTATin [Lipitor] 10 mg PO BEDTIME 07/10/20 [History] polyethylene glycoL 3350 [MiraLAX] 17 gm PO BEDTIME 07/10/20 [History] Furosemide [Lasix] 20 mg PO DAILY 07/27/20 [History] LORazepam [Ativan] 1 mg PO TID PRN 07/27/20 [History] Past Medical History HEENT History: Reports: Impaired Vision Other HEENT History: wears glasses. has full upper and lower dentures Cardiovascular History: Reports: Blood Clots/VTE/DVT Other Cardiovascular History: Postoperative DVT of the left leg on 02/18/07 after mastectomy in 2006 with current Coumadin therapy. Respiratory History: Reports: COPD Other Respiratory History: oxygen dependent at home: 3L/NC Gastrointestinal History: Reports: Cholelithiasis, Diverticulosis, GERD Genitourinary History: Reports: None JOB HAND History: Reports: Polycystic Ovaries, Other JOB HAND History: Menopause in her 40s. Full term without complications during pregnancies or deliveries Musculoskeletal History: Reports: Arthritis, Osteoarthritis, Osteoporosis Neurological History: Reports: Headaches, Chronic, Migraines, Other (See Below) Other Neuro History: Migraine headaches in early adulthood nonproblematic at this time. Psychiatric History: Reports: None Endocrine/Metabolic History: Reports: Diabetes, Type II, Obesity/BMI 30+, Osteopenia, Osteoporosis, Other (See Below) Other Endocrine/Metabolic History: Prediabetes. Hyponatremia. Hematologic History: Reports: None Immunologic History: Reports: None Oncologic (Cancer) History: Reports: Breast, Other (See Below) Other Oncologic History: Left-sided stage I breast cancer in 2006 with mastectomy and radiation therapy. Dermatologic History: Reports: None - Infectious Disease History Infectious Disease History: Reports: Chicken Pox, Mumps - Past Surgical History Head Surgeries/Procedures: Reports: None HEENT Surgical History: Reports: Cataract Surgery, Oral Surgery, Other (See Below) Other HEENT Surgeries/Procedures: Bilateral cataract surgery in 2019. Complete teeth extraction. Cardiovascular Surgical History: Reports: None Respiratory Surgical History: Reports: None GI Surgical History: Reports: Cholecystectomy Other GI Surgeries/Procedures: Open cholecystectomy on 06/26/13. Female Surgical History: Reports: Breast Biopsy, Mastectomy, Other (See Below) Other Female Surgeries/Procedures: Left Sided mastectomy in 2006 Endocrine Surgical History: Reports: None Neurological Surgical History: Reports: None Musculoskeletal Surgical History: Reports: None Oncologic Surgical History: Reports: Biopsy of Breast, Mastectomy, Other (See Below) Other Oncologic Surgeries/Procedures: Mastectomy as above. Dermatological Surgical History: Reports: None - Past Imaging History Past Imaging History: Reports: Cardiac Echo (08/17/2019 with ejection fraction of 50-60%.), CAT Scan (CT of the chest without contrast on 08/17/2019 [address] 06/25/17. CT of the abdomen and pelvis on 12/29/2019 and 06/26/13.), Mammogram (Last mammogram in November 2018 by patient history.), Venous Doppler (Left leg on 02/18/07.) Social & Family History - Family History HEENT: Reports: None Cardiac: Reports: Arrhythmia, Pacemaker, Other (See Below) Other Cardiac Family History: Mother with pacemaker. Respiratory: Reports: Asthma, Other (See Below) Other Respiratory Family Hisory: Father with asthma secondary to coal exposure. GI: Reports: None : Reports: None OBGYN: Reports: None Musculoskeletal: Reports: None Neurological: Reports: Alzheimers Disease, Dementia, Migraines, Other (See Below) Other Neurological Family History: Mother with migraine headaches. Brothers 2 with organic brain syndrome. Psychiatric: Reports: None Endocrine/Metabolic: Reports: Diabetes, type II, IDDM, Other (See Below) Other Endocrine/Metabolic Family History: Mother with IDDM. 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 Denies: Fever, Chills HEENT: Reports: No Symptoms Respiratory: Reports: No Symptoms. Denies: Shortness of Breath, Wheezing, Pleuritic Chest Pain, Cough, Sputum, Hemoptysis Cardiovascular: Reports: No Symptoms. Denies: Chest Pain, Claudication, Palpitations, PND, Syncope Endocrine: Reports: No Symptoms GI/Abdominal: Reports: No Symptoms : Reports: No Symptoms Musculoskeletal: Reports: No Symptoms Skin: Reports: No Symptoms Neurological: Reports: No Symptoms Psychiatric: Reports: No Symptoms Hematologic/Lymphatic: Reports: No Symptoms Immunologic: Reports: No Symptoms ED EXAM, GENERAL - Physical Exam Exam: See Below Exam Limited By: No Limitations General Appearance: Alert, WD/WN, Mild Distress Throat/Mouth: Normal Lips, Normal Teeth, Normal Voice, No Airway Compromise, Other (oral mucosa is quite dry) Neck: Normal Inspection, Supple, Non-Tender Respiratory/Chest: No Respiratory Distress, No Accessory Muscle Use, Chest Non- Tender, Decreased Breath Sounds, Other (Decreased BS, no wheezing. Significantly improved from her visit on 07/10/2020.) Cardiovascular: Normal Peripheral Pulses, Regular Rate, Rhythm, No Edema (No edema, significantly improved from previous visit.), No JVD GI/Abdominal: Soft, Non-Tender, No Distention, No Mass (Female) Exam: Deferred Back Exam: Normal Inspection, Full Range of Motion Extremities: Normal Inspection, Normal Range of Motion, Non-Tender, No Pedal Edema, Normal Capillary Refill Neurological: Alert, Oriented, CN II-XII Intact, Normal Cognition, Normal Gait Psychiatric: Normal Affect, Normal Mood Skin Exam: Warm, Dry, Intact, Normal Color, No Rash Course - Vital Signs Last Recorded V/S: Last Vital Signs Temp 37.0 C 07/27/20 17:53 Pulse 98 07/27/20 17:53 Resp 20 07/27/20 17:53 BP 113/64 07/27/20 17:53 Pulse Ox 95 07/27/20 17:53 - Orders/Labs/Meds Orders: Active Orders 24 hr Category Date Time Status Chest 1V Frontal [CR] Stat Exams 07/27/20 17:59 Ordered CBC WITH AUTO DIFF [HEME] Stat Lab 07/27/20 18:15 Received COMPREHENSIVE METABOLIC PN,CMP [CHEM] Stat Lab 07/27/20 17:58 Ordered CRP [C-REACTIVE PROTEIN] [CHEM] Stat Lab 07/27/20 17:58 Ordered MAGNESIUM [CHEM] Stat Lab 07/27/20 17:58 Ordered PRO B-TYPE NATRIUR PEPT,BNPPRO [CHEM] Stat Lab 07/27/20 17:58 Ordered Lactated Ringers [Ringers, Lactated] 1,000 ml Med 07/27/20 18:15 Active IV ASDIRECTED Medication Orders Lactated Ringer's (Ringers, Lactated) 1,000 mls @ 500 mls/hr IV ASDIRECTED OK Last Admin: 07/27/20 18:25 Dose: 500 mls/hr Documented by: BONITA Meds: Medications Generic Name Dose Route Start Last Admin Trade Name Freq PRN Reason Stop Dose Admin Lactated Ringer's 1,000 mls @ 500 mls/hr 07/27/20 18:15 07/27/20 18:25 Ringers, Lactated IV 500 mls/hr ASDIRECTED OK Administration - Radiology Interpretation Free Text/Narrative:: CHF, no significant acute pathology. Departure - Departure Time of Disposition: 18:58 Disposition: Home, Self-Care 01 Clinical Impression: Dehydration - Discharge Information Referrals: Leonor Millan PA-C [Primary Care Provider] - Forms: ED Department Discharge Sepsis Event Note (ED) - Evaluation Sepsis Screening Result: No Definite Risk - Focused Exam Vital Signs: Vital Signs Temp Pulse Resp BP Pulse Ox 07/27/20 17:53 37.0 C 98 20 113/64 95 - Problem List Review Problem List Initiated/Reviewed/Updated: Yes - My Orders Last 24 Hours: My Active Orders 07/27/20 17:58 COMPREHENSIVE METABOLIC PN,CMP [CHEM] Stat CRP [C-REACTIVE PROTEIN] [CHEM] Stat MAGNESIUM [CHEM] Stat PRO B-TYPE NATRIUR PEPT,BNPPRO [CHEM] Stat 07/27/20 17:59 Chest 1V Frontal [CR] Stat 07/27/20 18:15 CBC WITH AUTO DIFF [HEME] Stat Lactated Ringers [Ringers, Lactated] 1,000 ml IV ASDIRECTED - Assessment/Plan Last 24 Hours: My Active Orders 07/27/20 17:58 COMPREHENSIVE METABOLIC PN,CMP [CHEM] Stat CRP [C-REACTIVE PROTEIN] [CHEM] Stat MAGNESIUM [CHEM] Stat PRO B-TYPE NATRIUR PEPT,BNPPRO [CHEM] Stat 07/27/20 17:59 Chest 1V Frontal [CR] Stat 07/27/20 18:15 CBC WITH AUTO DIFF [HEME] Stat Lactated Ringers [Ringers, Lactated] 1,000 ml IV ASDIRECTED Plan: Pt. will be discharged. She was given a 500ml bolus of LR in ER and reported feeling much improved. Discontinued lasix for now. states that she has been fluid restricting and minimizing consumption of sodium. She was advised to eat a regular, low sodium diet, but she does need to eat some sodium. He is also concerned that the pt. is depressed and not eating. Advised her to follow-up with her PCP to discuss possible depression, appetite stimulants, etc.
[2020-07-27 18:42] LABS: CHLORIDE,CL 105 mmol/L (98-107); SODIUM,NA 140 mmol/L (136-145)
== END 2020-07-27 19:26 | disposition home or self-care (01) ==
LOC: LL.ED 17:45
DX: E86.0 Dehydration (principal); J44.9 Chronic obstructive pulmonary disease, unspecified; E11.9 Type 2 diabetes mellitus without complications; E66.9 Obesity, unspecified; Z68.30 Body mass index [BMI] 30.0-30.9, adult; Z91.041 Radiographic dye allergy status; Z88.8 Allergy status to other drugs, medicaments and biological substances; Z79.899 Other long term (current) drug therapy
CPT/HCPCS: 36415; 71045; 80053; 83735; 83880; 85025; 86140; 99284; 99285-25; J7120

== ENCOUNTER 2020-07-30 12:01 | Emergency (ER) | payer MEDICARE, BC ==
--- NOTE | 2020-07-30 12:20 | EDM.PDOC ---
ED HPI GENERAL MEDICAL PROBLEM - General Chief Complaint: General Stated Complaint: shortness of breath, "swollen ankles" Time Seen by Provider: 07/30/20 12:20 Source of Information: Reports: Patient, Family (), Old Records ([facility] chart/EMR) History Limitations: Reports: No Limitations - History of Present Illness INITIAL COMMENTS - FREE TEXT/NARRATIVE: The patient was brought to the emergency room via private automobile by her for evaluation of progressive dyspnea and increased dependent edema since about 10 PM yesterday. Note that the patient has been evaluated in this emergency room for similar type symptoms both on 07/10 and 07/27/2020 after previous hospitalization at [facility] in [place] from 07/02 through 07/05/2020 for COPD exacerbation with BiPAP required at that time. The patient does have a chronic O2 requirement with no recent needed increased oxygen therapy at this time. She did take her nebulizer treatment yesterday evening and also her Ventolin inhaler shortly prior to arrival today with no improvement of her symptoms. Note that the patient was advised to stop her oral Lasix therapy on 07/27/2020 secondary to some dehydration at that time, although she did take her dose of Lasix this morning at about 9 AM. The patient denies any chest pain/pressure, heart flutter, dizziness, orthostasis, orthopnea, diap horesis, paresthesias, recent decreased exercise tolerance, or any other anginal-type symptoms, although her overall activity level is low secondary to her COPD. No recent history of abdominal pain, heartburn, nausea, diarrhea, melena, gross hematochezia, or any food intolerance, including fatty foods, etc. with normal BM earlier this morning. She denies any gross hematuria, colic, or other UTI symptoms. The patient also denies any recent fever, wheezing, etc., with stable mostly clear nonproductive cough, however increased dyspnea as above. She denies any current pain or discomfort. She does not weigh herself daily as previously recommended. Onset: Gradual, Other (As above) Onset Date: 07/29/20 Onset Time: 22:00 Duration: Getting Worse, Other (No pain) Quality: Reports: Same as Previous Episode Severity: Severe (Dyspnea) Improves with: Reports: None Worsens with: Reports: None Context: Reports: Other (As above). Denies: Sick Contact, Trauma Associated Symptoms: Reports: Cough (Stable as above), cough w sputum (Stable clear as above), Shortness of Breath. Denies: Confusion, Chest Pain, Diaphoresis, Fever/Chills, Headaches, Loss of Appetite, Malaise, Nausea/Vomiting, Rash, Seizure, Syncope, Weakness Treatments CLINICAL APPLICATION SPECIALIST: Reports: Breathing Treatments (As above), Oxygen (Stable chronic) - Related Data Allergies Allergy/AdvReac Type Severity Reaction Status Date / Time methylprednisolone Allergy Shortness Verified 07/30/20 12:03 of Breath revefenacin [From Yupelri] Allergy Other Verified 07/30/20 12:03 IV Dye used for U/S (echo) Allergy Shortness Uncoded 07/30/20 12:03 of Breath Home Meds: Home Meds Budesonide [Pulmicort] 0.5 mg IH BID@799,199902/07/19 [History] Albuterol Sulfate 1 ampule INH QAM 07/23/19 [History] Albuterol [Ventolin HFA] 2 puff INH Q4H PRN 07/23/19 [History] Arformoterol [Brovana] 15 mcg INH Q12HR 07/23/19 [History] Ipratropium [Atrovent] 0.5 mg INH TID@0800,1499,199907/23/19 [History] Benzonatate [Tessalon Perle] 100 mg PO TID 03/08/20 [History] Warfarin [Coumadin] 1 tab PO ASDIRECTED 03/08/20 [History] Roflumilast [Daliresp] 1 tab PO BEDTIME 05/27/20 [History] Phytonadione [Vitamin K] 100 mcg PO DAILY 07/10/20 [History] atorvaSTATin [Lipitor] 10 mg PO BEDTIME 07/10/20 [History] polyethylene glycoL 3350 [MiraLAX] 17 gm PO BEDTIME 07/10/20 [History] Furosemide [Lasix] 20 mg PO DAILY 07/27/20 [History] LORazepam [Ativan] 1 mg PO TID PRN 07/27/20 [History] Potassium Chloride 20 meq PO BIDMEALS #20 tablet.er 07/30/20 [Rx] Past Medical History HEENT History: Reports: Cataract, Impaired Vision. Denies: Allergic Rhinitis, Glaucoma, Hard of Hearing, Macular Degeneration, Otitis Media, Retinal Detachment Other HEENT History: Patient wears glasses. Complete full upper and lower dentures. Cardiovascular History: Reports: Arrhythmia, Blood Clots/VTE/DVT, Cardiomyopathy, Heart Failure, High Cholesterol. Denies: Afib, Aneurysm, CAD, Hypertension, KS, PVD, Syncope Other Cardiovascular History: PVCs. Moderate sinus arrhythmia. Cardiomegaly with history of Cor pulmonale. Postoperative DVT of the left leg on 02/18/07 after mastectomy in 2006 with current Coumadin therapy. Respiratory History: Reports: Bronchitis, Recurrent, COPD, Intubation, Previous, Pneumonia, Recurrent. Denies: Asthma, Intubation, Difficult, PE, Pneumothorax, Sleep Apnea, TB Other Respiratory History: Oxygen dependent at home: 2-3L/NC. Despite previous medical records patient denies history of sleep apnea and CPAP requirement. Gastrointestinal History: Reports: Cholelithiasis, Chronic Constipation, Diverticulosis, GERD, Other (See Below). Denies: Celiac Disease, Colon Polyp, Fecal Incontinence, Gastritis, GI Bleed, Hepatitis, Hiatal Hernia, Inflammatory Bowel Disease, Irritable Bowel Syndrome, Jaundice, Pancreatitis Other Gastrointestinal History: Tortuous colon. Genitourinary History: Reports: None. Denies: Acute Renal Failure, Chronic Renal Insuffiency, Renal Calculus, STD, Urinary Incontinence, UTI, Recurrent SPANISH PROFESSOR History: Reports: Polycystic Ovaries, . Denies: Dysfunctional Uterine Bleeding, Endometriosis, Fibroids, Spontaneous : 2 Para: 2 LMP (Approximate): Other (See Below) Other SPANISH PROFESSOR History: Menopause in her 40s. Full term without complications during pregnancies or deliveries Musculoskeletal History: Reports: Arthritis, Osteoarthritis, Osteoporosis. Denies: Amputation, Back Pain, Chronic, Fracture, Gout, Neck Pain, Chronic, RA, SLE Neurological History: Reports: Headaches, Chronic, Migraines, Other (See Below). Denies: Alzheimers Disease, Cerebral Aneurysms, Concussion, CVA, Head Trauma, MS, Neuropathy, Peripheral, Parkinson's, Seizure, TIA, Vertigo Other Neuro History: Migraine headaches in early adulthood nonproblematic at this time. Psychiatric History: Reports: Anxiety, Depression. Denies: Abuse, Victim of, ADD, ADHD, Addiction, Psych Hospitalization(s), PTSD, Suicide Attempt, Suicidal Ideation Endocrine/Metabolic History: Reports: Diabetes, Type II, Hypokalemia, Obesity/BMI 30+, Osteopenia, Osteoporosis, Other (See Below). Denies: Diabetes, Gestational, Diabetes, Type I, Diabetes Mellitus, Type 3c, Hypothyroidism, IDDM Other Endocrine/Metabolic History: Prediabetes. Hyponatremia. Hypoalbuminemia. Hematologic History: Reports: None. Denies: Anemia, B12 Deficiency, Blood Transfusion(s), Iron Deficiency Immunologic History: Reports: None. Denies: AIDS, HIV, SLE Oncologic (Cancer) History: Reports: Breast, Other (See Below). Denies: Basal Cell Carcinoma, Cervix, Colon, Hodgkin's Lymphoma, Leukemia, Lymphoma, Malignant Melanoma, Metastatic, Non-Hodgkin's Lymphoma, Ovarian, Squamous Cell Carcinoma, Uterine Other Oncologic History: Left-sided stage I breast cancer in 2006 with mastectomy and radiation therapy. Dermatologic History: Reports: None. Denies: Eczema, Psoriasis - Infectious Disease History Infectious Disease History: Reports: Chicken Pox, Mumps. Denies: C-Difficile, Measles, Meningitis, Mononucleosis, MRSA, Novel Coronavirus (The patient did receive her second Moderna injection in April 2020.), Pertussis (Whooping Cough), Rheumatic Fever, Rubella, Shingles, TB, VRE - Past Surgical History Head Surgeries/Procedures: Reports: None HEENT Surgical History: Reports: Cataract Surgery, Oral Surgery, Other (See Below). Denies: Adenoidectomy, Eye Surgery, Laser Surgery, LASIK, Myringotomy w Tube(s), Naso-Sinus Surgery, Tonsillectomy Other HEENT Surgeries/Procedures: Bilateral cataract surgery in 2019. Complete teeth extraction. Cardiovascular Surgical History: Reports: None. Denies: Varicose, Vascular Surgery Respiratory Surgical History: Reports: None. Denies: Thoracentesis GI Surgical History: Reports: Cholecystectomy, Colonoscopy. Denies: Appendectomy, EGD, Hernia, Abdominal, Hernia, Inguinal, Hernia Repair/Other, Catrachito ypectomy Other GI Surgeries/Procedures: Colonoscopy on 03/09/2020. Open cholecystectomy on 06/26/13. Female Surgical History: Reports: Breast Biopsy, Mastectomy, Other (See Below) Other Female Surgeries/Procedures: Left Sided mastectomy in 2006 Endocrine Surgical History: Reports: None. Denies: Thyroid Biopsy Neurological Surgical History: Reports: None. Denies: C-Spine, Discectomy, Laminectomy, Lumbar Spine, Sacral Spine, Spinal Fusion, Thoracic Spine, Vertebroplasty Musculoskeletal Surgical History: Reports: None. Denies: Arthroscopic Procedure, Carpal Tunnel, Ganglion Cyst, Joint Replacement, ORIF, Shoulder Surgery Oncologic Surgical History: Reports: Biopsy of Breast, Mastectomy, Other (See Below) Other Oncologic Surgeries/Procedures: Mastectomy as above. Dermatological Surgical History: Reports: None - Past Imaging History Past Imaging History: Reports: Cardiac Echo (Last on 07/17/2020 with ejection fraction of 55-60% with previous evaluation on 08/17/2019 with ejection fraction of 50-60%.), CAT Scan (CT of the chest without contrast on 08/17/2019 [address] 06/25/17. CT of the abdomen and pelvis on 12/29/2019 and 06/26/13.), Mammogram (Last mammogram in November 2018 by patient history.), Venous Doppler (Left leg on 02/18/07.) Social & Family History - Family History HEENT: Reports: None. Denies: Glaucoma, Macular Degeneration, Retinal Detachment Cardiac: Reports: Arrhythmia, Pacemaker, Other (See Below). Denies: Afib, An eurysm, Blood Clots/VTE/DVT, CAD, Cardiomyopathy, Heart Failure, Heart Murmur, KS, PVD/COD, Syncope Other Cardiac Family History: Mother with pacemaker. Respiratory: Reports: Asthma, Other (See Below). Denies: COPD, PE, Pneumothorax, Sleep Apnea Other Respiratory Family Hisory: Father with asthma secondary to coal exposure. GI: Reports: None. Denies: Celiac Disease, Cholelithiasis, Colon Polyps, GERD, GI bleed, Inflammatory Bowel Disease, Irritable Bowel Syndrome, PUD : Reports: None. Denies: Renal Calculus, Renal Disease/Insufficiency OBGYN: Reports: None. Denies: Dysfunctional uterine bleeding, Endometriosis, Recurrent Spontaneous Musculoskeletal: Reports: None. Denies: Arthritis, Gout, Osteoarthritis, RA, SLE Neurological: Reports: Alzheimers Disease, Dementia, Migraines, Other (See Below). Denies: Cerebral Aneurysms, CVA, MS, Parkinson's, Seizure, TIA Other Neurological Family History: Mother with migraine headaches. Brothers 2 with organic brain syndrome. Psychiatric: Reports: None. Denies: Abuse, Victim of, ADD, ADHD, Anxiety, Depression, Psych Hospitalization(s), PTSD, Suicide Attempt Endocrine/Metabolic: Reports: Diabetes, type II, IDDM, Other (See Below). Denies: Diabetes, Gestational, Diabetes, Type I, Diabetes Mellitus, Type 3c, Hypothyroidism Other Endocrine/Metabolic Family History: Mother with IDDM. Hematologic: Reports: None. Denies: Anemia, SLE Immunologic: Reports: None. Denies: AIDS, HIV, SLE Dermatologic: Reports: None. Denies: Eczema, Psoriasis Oncologic: Reports: None. Denies: Bladder, Breast, Cervix, Colon, Hodgkin's Lymphoma, Leukemia, Lung, Lymphoma, Non-Hodgkin's Lymphoma, Ovarian, Skin, Uterine - Tobacco Use Tobacco Use Status *Q: Former Tobacco User Tobacco Use Within Last Twelve Months: No Years of Tobacco use: 44 Packs/Tins Daily: 1.5 Packs/Tins Daily Comment: Smoked between ages 16 and 60. Used Tobacco, but Quit: Yes Smoking Cessation Information Provided To Patient: No Second Hand Smoke Exposure: No Second Hand Smoke Education Provided: No - Caffeine Use Caffeine Use: Reports: None. Denies: Coffee, Energy Drinks, Soda, Tea - Alcohol Use Alcohol Use History: No Days Per Week of Alcohol Use: 0 Number of Drinks Per Day: 0 Number of Drinks Per Day Comment: No previous DWIs, problems with alcohol abuse, etc. 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 ED EXAM, GENERAL - Physical Exam Exam: See Below Exam Limited By: No Limitations General Appearance: Alert, WD/WN, No Apparent Distress, Anxious (Moderate) Eye Exam: Bilateral Eye: EOMI, Normal Inspection (No vertigo or nystagmus. Patient is wearing glasses), PERRL Ears: Normal External Exam, Normal Canal, Hearing Grossly Normal, Normal TMs Nose: Normal Inspection, Normal Mucosa, No Blood Throat/Mouth: Normal Inspection, Normal Lips, Normal Gums, Normal Oropharynx, Normal Voice, No Airway Compromise, Other (Mild Kussmaul breathing). No: Normal Teeth (Complete absent dentition with complete upper and lower dentures.), Dysphagia, Inflammation, Perioral Cyanosis Head: Atraumatic, Normocephalic. No: Facial Swelling, Facial Tenderness, Sinus Tenderness Neck: Supple, Non-Tender, Full Range of Motion, Carotid Bruit (Mild bilateral carotid bruits). No: Lymphadenopathy (L), Lymphadenopathy (R), Thyromegaly Respiratory/Chest: No Accessory Muscle Use, Respiratory Distress ( minimal), Rales (Mild bilateral basilar). No: Rhonchi, Wheezing, Pleural Rub, Retractions Cardiovascular: Normal Peripheral Pulses, No Gallop, No JVD, No Murmur, No Rub, Tachycardia (Regular rhythm). No: No Edema (Dependent edema as below), Gallop/S3, Gallop/S4, Friction Rub Peripheral Pulses: 2+: Radial (L), Radial (R), Dorsalis Pedis (L), Dorsalis Pedis (R) GI/Abdominal: Normal Bowel Sounds, Soft, Non-Tender, No Organomegaly, No Distention, No Abnormal Bruit, No Mass, Other (Obese). No: Guarding (Female) Exam: Deferred Rectal (Female) Exam: Deferred Back Exam: Normal Inspection, Full Range of Motion. No: CVA Tenderness (L), CVA Tenderness (R), Muscle Spasm Extremities: Normal Range of Motion, Non-Tender, Normal Capillary Refill, Pedal Edema (+1 bilateral pedal/pretibial). No: Terrance's Sign Neurological: Alert, Oriented, CN II-XII Intact, Normal Cognition, Normal Gait, Normal Reflexes (Negative Babinski's), No Motor/Sensory Deficits Psychiatric: Anxious (Moderate), Depressed Mood (Borderline) Skin Exam: Warm, Dry, Intact, Normal Color, No Rash. No: Diaphoretic, Wo und/Incision Lymphatic: No Adenopathy #1 Interpretation EKG Date: 07/30/20 Time: 12:56 Rhythm: Other (Sinus tachycardia with PVCs and one fusion complex, which are new.) Rate (Beats/Min): 104 Hammon: Normal (Neutral) P-Wave: Enlarged (Moderate diffuse biphasic) QRS: Normal (0.09 seconds) ST-T: Normal (Stable borderline T wave inversion lead aVL) QT: Normal CA/PQ Interval: 0.17 seconds with stable severe poor R wave progression in the anterior leads Comparison: Change From Previous EKG (As above since 07/10/2020.) EKG Interpretation Comments: 1. No acute ischemic changes 2. Sinus tachycardia with PVCs/fusion complexes 3. Left atrial enlargement Course - Vital Signs Last Recorded V/S: Last Vital Signs Temp 36.8 C 07/30/20 13:48 Pulse 106 H 07/30/20 13:48 Resp 25 H 07/30/20 13:48 BP 108/55 L 07/30/20 13:48 Pulse Ox 100 07/30/20 13:48 Vital Signs - 24 hr 07/30/20 07/30/20 12:05 12:30 Temperature [ 36.1 C Temporal] Pulse, 115 H 110 H Peripheral [ Pulse Oximetry] Respiratory 24 H 23 H Rate Blood Pressure 117/69 100/72 [Left Upper Arm ] O2 Sat by Pulse 100 100 Oximetry - Orders/Labs/Meds Orders: Active Orders 24 hr Category Date Time Status Chest 1V Frontal [CR] Stat Exams 07/30/20 12:21 Taken Obtain Past Medical Record [OM.PC] Urgent Oth 07/30/20 12:21 Active Peripheral IV Insertion Adult [OM.PC] Stat Oth 07/30/20 12:21 Ordered Resuscitation Status Stat Resus Stat 07/30/20 12:21 Ordered Labs: Laboratory Tests 07/30/20 07/30/20 07/30/20 Range/Units 12:50 13:01 13:01 WBC 4.2 (4.0-10.2) K/uL RBC 4.09 (3.77-5.09) M/uL Hgb 11.6 L (11.7-15.5) g/dL Hct 35.6 (34.0-46.0) % MCV 87.0 (84.0-98.0) fL MCH 28.4 (28.2-33.3) pg MCHC 32.6 (31.7-36.0) g/dL RDW 13.7 (11.2-14.1) % Plt Count 233 D (150-350) K/uL Neut % (Auto) 77.7 (45.0-80.0) % Lymph % (Auto) 12.6 (10.0-50.0) % Ocean % (Auto) 8.8 (2.0-14.0) % Eos % (Auto) 0.7 (0.0-5.0) % Baso % (Auto) 0.2 (0.0-2.0) % Neut # (Auto) 3.26 (1.40-7.00) K/uL Lymph # (Auto) 0.53 (0.50-3.50) K/uL Ocean # (Auto) 0.37 (0.00-1.00) K/uL Eos # (Auto) 0.03 (0.00-0.50) K/uL Baso # (Auto) 0.01 (0.00-0.20) K/uL PT 21.1 H D (9.5-12.0) SEC INR 2.2 APTT 28.5 (24.5-32.8) SEC D-Dimer, Quantitative (0-400) ng/mL Sodium (136-145) mmol/L Potassium (3.5-5.1) mmol/L Chloride (98-107) mmol/L Carbon Dioxide (21.0-32.0) mmol/L BUN (7-18) mg/dL Creatinine (0.51-1.17) mg/dL Est Cr Clr Drug Dosing Estimated GFR (MDRD) mL/min Glucose (70-99) mg/dL Lactic Acid (0.4-2.0) mmol/L Uric Acid (2.6-7.2) mg/dL Calcium (8.5-10.1) mg/dL Magnesium (1.8-2.4) mg/dL Total Bilirubin (0.2-1.0) mg/dL AST (15-37) U/L ALT (12-78) U/L Alkaline Phosphatase (46-116) IU/L Troponin I (0.000-0.056) ng/mL NT-Pro-B Natriuret Pep (0-125) pg/mL Total Protein (6.4-8.2) g/dL Albumin (3.4-5.0) g/dL TSH, Ultra Sensitive (0.358-3.740) mIU/mL SARS-CoV-2 RNA (BETO) Negative (NEGATIVE) 07/30/20 07/30/20 07/30/20 Range/Units 13:01 13:01 13:01 WBC (4.0-10.2) K/uL RBC (3.77-5.09) M/uL Hgb (11.7-15.5) g/dL Hct (34.0-46.0) % MCV (84.0-98.0) fL MCH (28.2-33.3) pg MCHC (31.7-36.0) g/dL RDW (11.2-14.1) % Plt Count (150-350) K/uL Neut % (Auto) (45.0-80.0) % Lymph % (Auto) (10.0-50.0) % Ocean % (Auto) (2.0-14.0) % Eos % (Auto) (0.0-5.0) % Baso % (Auto) (0.0-2.0) % Neut # (Auto) (1.40-7.00) K/uL Lymph # (Auto) (0.50-3.50) K/uL Ocean # (Auto) (0.00-1.00) K/uL Eos # (Auto) (0.00-0.50) K/uL Baso # (Auto) (0.00-0.20) K/uL PT (9.5-12.0) SEC INR APTT (24.5-32.8) SEC D-Dimer, Quantitative 146 (0-400) ng/mL Sodium 140 (136-145) mmol/L Potassium 3.2 L (3.5-5.1) mmol/L Chloride 102 (98-107) mmol/L Carbon Dioxide 30.4 (21.0-32.0) mmol/L BUN 3 L (7-18) mg/dL Creatinine 0.60 (0.51-1.17) mg/dL Est Cr Clr Drug Dosing TNP Estimated GFR (MDRD) > 60 mL/min Glucose 114 H (70-99) mg/dL Lactic Acid 1.5 (0.4-2.0) mmol/L Uric Acid 4.4 (2.6-7.2) mg/dL Calcium 9.0 (8.5-10.1) mg/dL Magnesium 1.8 (1.8-2.4) mg/dL Total Bilirubin 0.8 (0.2-1.0) mg/dL AST 18 (15-37) U/L ALT 27 (12-78) U/L Alkaline Phosphatase 113 (46-116) IU/L Troponin I 0.000 (0.000-0.056) ng/mL NT-Pro-B Natriuret Pep 290 H (0-125) pg/mL Total Protein 6.5 (6.4-8.2) g/dL Albumin 3.3 L (3.4-5.0) g/dL TSH, Ultra Sensitive 2.321 (0.358-3.740) mIU/mL SARS-CoV-2 RNA (BETO) (NEGATIVE) Meds: Medications Discontinued Medications Generic Name Dose Route Start Last Admin Trade Name Freq PRN Reason Stop Dose Admin Famotidine 40 mg 07/30/20 12:21 07/30/20 13:09 Famotidine 20 Mg/2 Ml Sdv IVPUSH 07/30/20 12:22 40 mg ONETIME ONE Administration Furosemide 20 mg 07/30/20 13:39 07/30/20 13:52 Furosemide 40 Mg/4 Ml Vial IVPUSH 07/30/20 13:40 20 mg NOW ONE Administration Potassium Chloride 40 meq 07/30/20 13:15 07/30/20 13:20 Potassium Chloride 20 Meq Tab.Er PO 07/30/20 13:16 40 meq ONETIME ONE Administration Sodium Chloride 10 ml 07/30/20 12:21 07/30/20 13:52 Sodium Chloride 0.9% 10 Ml Syringe FLUSH 10 ml ASDIRECTED PRN Administration Keep Vein Open - Radiology Interpretation Free Text/Narrative:: property assessment monitor shows mild sinus tachycardia with heart rate in the 100s 110s with no ectopy or arrhythmia Chest x-ray, portable, shows moderate to severe COPD with probable pulmonary hypertension and/or mild centralized CHF. No significant cardiomegaly, pulmonary infiltrates, pneumothorax, etc. Departure - Departure Time of Disposition: 13:55 Disposition: Home, Self-Care 01 Condition: Good Clinical Impression: Mixed anxiety depressive disorder, Peptic reflux disease, Hypoalbuminemia, Hypokalemia, PVCs (premature ventricular contractions) COPD (chronic obstructive pulmonary disease) Qualifiers: COPD type: emphysema Emphysema type: panlobular Qualified Code(s): J43.1 - Panlobular emphysema CHF (congestive heart failure) Qualifiers: Heart failure type: unspecified Heart failure chronicity: acute Qualified Cod e(s): I50.9 - Heart failure, unspecified Osteoarthritis Qualifiers: Osteoarthritis location: multiple joints Osteoarthritis type: primary Qualified Code(s): M89.49 - Other hypertrophic osteoarthropathy, multiple sites - Discharge Information *PRESCRIPTION DRUG MONITORING PROGRAM REVIEWED*: Not Applicable *COPY OF PRESCRIPTION DRUG MONITORING REPORT IN PATIENT INGE: Not Applicable Prescriptions: Potassium Chloride 20 meq PO BIDMEALS #20 tablet.er Referrals: Leonor Millan PA-C [Primary Care Provider] - Forms: ED Department Discharge Additional Instructions: 1. Followup with your regular provider in 4-5 days as directed for reevaluation and recommended repeat CBC, CRP, basic metabolic panel, magnesium level, t roponin I, and BNP. Additional chest x-ray and EKG depending on your symptoms at that time. Bring these discharge instructions with you to that visit. 2. Daily weights with your regular provider to be notified, if you gain more than 5 pounds. 3. Continue oral Lasix/furosemide therapy and initiate your new potassium chloride therapy tomorrow morning as discussed. 4. Immediately after this visit verify that your cellular telephone's voicemail has been activated and is empty. Also verify that your home telephone's answering machine is operating properly and has space to receive messages. Note that it is sometimes necessary for us to be able to contact you at a later date to discuss your medical care. 5. Please remember that we are ALWAYS here for you and want to answer any questions you may have. Feel free to call the hospital any time and we call you back CHRA. Sepsis Event Note (ED) - Evaluation Sepsis Screening Result: No Definite Risk - Focused Exam Vital Signs: Vital Signs Temp Pulse Resp BP Pulse Ox 07/30/20 13:48 36.8 C 106 H 25 H 108/55 L 100 07/30/20 12:45 105 H 25 H 115/63 100 07/30/20 12:30 110 H 23 H 100/72 100 07/30/20 12:05 36.1 C 115 H 24 H 117/69 100 - Problem List & Annotations (1) CHF (congestive heart failure) SNOMED Code(s): 93175425 Code(s): I50.9 - HEART FAILURE, UNSPECIFIED Status: Acute Priority: High Onset Date: 07/23/19 Annotation/Comment:: Mild BNP elevation with borderline centralized CHF by chest x-ray with additional increasing dependent edema. She did take her Lasix orally this morning with delay of IV Lasix for now. Patient and feel that her morning Lasix has already helped with her dependent edema. Additional low-dose IV Lasix therapy was given in the emergency room with excessive diuretic therapy avoided secondary to patient's mild hypokalemia. Follow-up by regular provider as per discharge instructions. No chest pain or anginal type symptoms with chest pain protocol not initiated in the emergency room. Note recent normal echocardiogram on 07/11/2020, although diastolic dysfunction could not be assessed at that time. Qualifiers: Heart failure type: unspecified Heart failure chronicity: acute Qualified Code(s): I50.9 - Heart failure, unspecified (2) COPD (chronic obstructive pulmonary disease) SNOMED Code(s): 17516455 Code(s): J44.9 - CHRONIC OBSTRUCTIVE PULMONARY DISEASE, UNSPECIFIED Status: Acute Priority: High Annotation/Comment:: O2 dependant COPD with no recent history of hypoxia or increased oxygen requirement. Note previous steroid dependency. No recent history of fever or bronchitic type symptoms despite mildly elevated CRP. Decreased exercise tolerance likely secondary to her CHF. Patient did receive her influenza booster this season. Note negative influenza and COVID-19 test today was negative with patient already receiving her complete Moderna immunization as above. Qualifiers: COPD type: emphysema Emphysema type: panlobular Qualified Code(s): J43.1 - Panlobular emphysema (3) Hypoalbuminemia SNOMED Code(s): 712812422 Code(s): E88.09 - OTH DISORDERS OF PLASMA-PROTEIN METABOLISM, NEC Status: Chronic Priority: Medium Annotation/Comment:: Stable continue to observe by regular providers. (4) Hypokalemia SNOMED Code(s): 44174495 Code(s): E87.6 - HYPOKALEMIA Status: Acute Priority: Medium Onset Date: 07/30/20 Annotation/Comment:: High-dose potassium chloride given orally as above. Continue oral potassium starting tomorrow. Close follow-up by regular provider. (5) Peptic reflux disease SNOMED Code(s): 697100456 Code(s): K21.9 - GASTRO-ESOPHAGEAL REFLUX DISEASE WITHOUT ESOPHAGITIS Status: Acute Priority: Medium Onset Date: 02/04/20 Annotation/Comment:: Nonproblematic at this time. High-dose IV Pepcid given as GI prophylaxis. (6) Mixed anxiety depressive disorder SNOMED Code(s): 390708864 Code(s): F41.8 - OTHER SPECIFIED ANXIETY DISORDERS Status: Acute Priority: Medium Annotation/Comment:: Chronic and currently under moderate control. Continue to observe closely by regular providers. (7) Osteoarthritis SNOMED Code(s): 436308300 Code(s): M19.90 - UNSPECIFIED OSTEOARTHRITIS, UNSPECIFIED SITE Status: Chronic Priority: Medium Annotation/Comment:: Stable by history Qualifiers: Osteoarthritis location: multiple joints Osteoarthritis type: primary Qualified Code(s): M89.49 - Other hypertrophic osteoarthropathy, multiple sites (8) PVCs (premature ventricular contractions) SNOMED Code(s): 73029950 Code(s): I49.3 - VENTRICULAR PREMATURE DEPOLARIZATION Status: Chronic Priority: Medium Annotation/Comment:: Nonsymptomatic. Fusion complexes noted in EKG. Note mild sinus tachycardia. Continue to observe closely with consideration of Holter/event monitor, etc. depending on her clinical course. - Problem List Review Problem List Initiated/Reviewed/Updated: Yes - My Orders Last 24 Hours: My Active Orders 07/30/20 12:21 Chest 1V Frontal [CR] Stat Obtain Past Medical Record [OM.PC] Urgent Peripheral IV Insertion Adult [OM.PC] Stat Resuscitation Status Stat - Assessment/Plan Last 24 Hours: My Active Orders 07/30/20 12:21 Chest 1V Frontal [CR] Stat Obtain Past Medical Record [OM.PC] Urgent Peripheral IV Insertion Adult [OM.PC] Stat Resuscitation Status Stat Assessment:: As above. Plan: As above. Extensive precautions were given to the patient and her , who are in agreement with the treatment plan. See Patient Instructions for further treatment and plan.
[2020-07-30] MEDS ORDERED: Famotidine 20 MG/2 ML SDV IVPUSH ONE (12:21)
[2020-07-30] MEDS: Sodium Chloride 0.9% 10 ML Syringe FLUSH PRN ×2 (13:10→13:52)
[2020-07-30] MEDS ORDERED: Potassium Chloride 20 MEQ Tab.ER PO ONE (13:15)
[2020-07-30 13:22] LABS: PTT,PARTIAL THROMBOPLSTIN TIME 28.5 SEC (24.5-32.8)
[2020-07-30 13:33] LABS: CHLORIDE,CL 102 mmol/L (98-107); SODIUM,NA 140 mmol/L (136-145)
[2020-07-30] MEDS ORDERED: Furosemide 40 MG/4 ML VIAL IVPUSH ONE (13:39)
== END 2020-07-30 13:55 | disposition home or self-care (01) ==
LOC: LL.ED 12:01
DX: J43.1 Panlobular emphysema (principal); I50.9 Heart failure, unspecified; F41.8 Other specified anxiety disorders; M89.49 Other hypertrophic osteoarthropathy, multiple sites; K21.9 Gastro-esophageal reflux disease without esophagitis; E66.09 Other obesity due to excess calories; I49.3 Ventricular premature depolarization; E87.6 Hypokalemia; E66.9 Obesity, unspecified; Z87.891 Personal history of nicotine dependence; Z20.822 Contact with and (suspected) exposure to COVID-19; Z68.30 Body mass index [BMI] 30.0-30.9, adult; Z79.899 Other long term (current) drug therapy; Z91.041 Radiographic dye allergy status; Z88.8 Allergy status to other drugs, medicaments and biological substances; Z79.01 Long term (current) use of anticoagulants
CPT/HCPCS: 36415; 71045; 80053; 83605; 83735; 83880; 84443; 84484; 84550; 85025; 85379; 85610; 85730; 93005; 96374; 96375; 99285; A9270; J1940; J3490; U0002; 93010; 99284

== ENCOUNTER 2020-08-05 18:32 | Observation (INO) | payer MEDICARE, BC ==
[2020-08-05] MEDS ORDERED: Lactated Ringers 1,000 ML IV SCH ×2 (19:00→21:00)
--- NOTE | 2020-08-05 19:14 | EDM.PDOC ---
ED HPI GENERAL MEDICAL PROBLEM - General Chief Complaint: General Stated Complaint: weakness Time Seen by Provider: 08/05/20 18:39 Source of Information: Reports: Patient History Limitations: Reports: No Limitations - History of Present Illness INITIAL COMMENTS - FREE TEXT/NARRATIVE: Pt. presents to ER with complaints of fall x2, lightheadedness, and dry mouth. Pt. was seen in ER numerous times this month, the past time being the 30 of July. Pt. at that time was complaining of shortness of breath and increased peripheral edema. Pt. has a history of COPD and congestive heart failure. Her lasix was increased at that time. She has been fluid restricting and states that she has not been eating or drinking due to concerns of fluid retention. has been concerned about this in the past, and she was recently started on lexapro for depression. Pt. states that she is lightheaded when she goes from lying to sitting and sitting to standing. Pt. denies any chest pain or shortness of breath. No abdominal pain. Denies any bloody stools, diarrhea, fever, chills, dysuria, headache, or abdominal pain. Onset: Today Location: Reports: Generalized - Related Data Allergies Allergy/AdvReac Type Severity Reaction Status Date / Time methylprednisolone Allergy Shortness Verified 08/05/20 18:53 of Breath revefenacin [From Yupelri] Allergy Other Verified 08/05/20 18:53 IV Dye used for U/S (echo) Allergy Shortness Uncoded 08/05/20 18:53 of Breath Home Meds: Home Meds Budesonide [Pulmicort] 0.5 mg IH BID@799,199902/07/19 [History] Albuterol Sulfate 1 ampule INH QAM 07/23/19 [History] Albuterol [Ventolin HFA] 2 puff INH Q4H PRN 07/23/19 [History] Arformoterol [Brovana] 15 mcg INH Q12HR 07/23/19 [History] Ipratropium [Atrovent] 0.5 mg INH TID@0800,1500,199907/23/19 [History] Benzonatate [Tessalon Perle] 100 mg PO TID 03/08/20 [History] Warfarin [Coumadin] 1 tab PO ASDIRECTED 03/08/20 [History] Roflumilast [Daliresp] 1 tab PO BEDTIME 05/27/20 [History] Phytonadione [Vitamin K] 100 mcg PO DAILY 07/10/20 [History] atorvaSTATin [Lipitor] 10 mg PO BEDTIME 07/10/20 [History] polyethylene glycoL 3350 [MiraLAX] 17 gm PO BEDTIME 07/10/20 [History] Furosemide [Lasix] 20 mg PO DAILY 07/27/20 [History] LORazepam [Ativan] 1 mg PO TID PRN 07/27/20 [History] Potassium Chloride 20 meq PO BIDMEALS #20 tablet.er 07/30/20 [Rx] Citalopram [Citalopram HBr] 20 mg PO DAILY 08/05/20 [History] Doxycycline [Vibramycin] 100 mg PO BID 08/05/20 [History] Past Medical History HEENT History: Reports: Cataract, Impaired Vision. Denies: Allergic Rhinitis, Glaucoma, Hard of Hearing, Macular Degeneration, Otitis Media, Retinal Detachment Other HEENT History: Patient wears glasses. Complete full upper and lower dentures. Cardiovascular History: Reports: Arrhythmia, Blood Clots/VTE/DVT, Cardiomyopathy, Heart Failure, High Cholesterol. Denies: Afib, Aneurysm, CAD, Hypertension, [place], PVD, Syncope Other Cardiovascular History: PVCs. Moderate sinus arrhythmia. Cardiomegaly with history of Cor pulmonale. Postoperative DVT of the left leg on 02/18/07 after mastectomy in 2006 with current Coumadin therapy. Respiratory History: Reports: Bronchitis, Recurrent, COPD, Intubation, Previous, Pneumonia, Recurrent. Denies: Asthma, Intubation, Difficult, PE, Pneumothorax, Sleep Apnea, TB Other Respiratory History: Oxygen dependent at home: 2-3L/NC. Despite previous medical records patient denies history of sleep apnea and CPAP requirement. Gastrointestinal History: Reports: Cholelithiasis, Chronic Constipation, Diverticulosis, GERD, Other (See Below). Denies: Celiac Disease, Colon Polyp, Fecal Incontinence, Gastritis, GI Bleed, Hepatitis, Hiatal Hernia, Inflammatory Bowel Disease, Irritable Bowel Syndrome, Jaundice, Pancreatitis Other Gastrointestinal History: Tortuous colon. Genitourinary History: Reports: None. Denies: Acute Renal Failure, Chronic Renal Insuffiency, Renal Calculus, STD, Urinary Incontinence, UTI, Recurrent DYE TANK TENDER History: Reports: Polycystic Ovaries, . Denies: Dysfunctional Uterine Bleeding, Endometriosis, Fibroids, Spontaneous Other DYE TANK TENDER History: Menopause in her 40s. Full term without complications during pregnancies or deliveries Musculoskeletal History: Reports: Arthritis, Osteoarthritis, Osteoporosis. Denies: Amputation, Back Pain, Chronic, Fracture, Gout, Neck Pain, Chronic, RA, SLE Neurological History: Reports: Headaches, Chronic, Migraines, Other (See Below). Denies: Alzheimers Disease, Cerebral Aneurysms, Concussion, CVA, Head Trauma, MS, Neuropathy, Peripheral, Parkinson's, Seizure, TIA, Vertigo Other Neuro History: Migraine headaches in early adulthood nonproblematic at this time. Psychiatric History: Reports: Anxiety, Depression. Denies: Abuse, Victim of, ADD, ADHD, Addiction, Psych Hospitalization(s), PTSD, Suicide Attempt, Suicidal Ideation Endocrine/Metabolic History: Reports: Diabetes, Type II, Hypokalemia, Obesity/BMI 30+, Osteopenia, Osteoporosis, Other (See Below). Denies: Diabetes, Gestational, Diabetes, Type I, Diabetes Mellitus, Type 3c, Hypothyroidism, IDDM Other Endocrine/Metabolic History: Prediabetes. Hyponatremia. Hypoalbuminemia. Hematologic History: Reports: None. Denies: Anemia, B12 Deficiency, Blood Transfusion(s), Iron Deficiency Immunologic History: Reports: None. Denies: AIDS, HIV, SLE Oncologic (Cancer) History: Reports: Breast, Other (See Below). Denies: Basal Cell Carcinoma, Cervix, Colon, Hodgkin's Lymphoma, Leukemia, Lymphoma, Malignant Melanoma, Metastatic, Non-Hodgkin's Lymphoma, Ovarian, Squamous Cell Carcinoma, Uterine Other Oncologic History: Left-sided stage I breast cancer in 2006 with mastectomy and radiation therapy. Dermatologic History: Reports: None. Denies: Eczema, Psoriasis - Infectious Disease History Infectious Disease History: Reports: Chicken Pox, Mumps. Denies: C-Difficile, Measles, Meningitis, Mononucleosis, MRSA, Novel Coronavirus (The patient did receive her second Moderna injection in April 2020.), Pertussis (Whooping Cough), Rheumatic Fever, Rubella, Shingles, TB, VRE - Past Surgical History HEENT Surgical History: Reports: Cataract Surgery, Oral Surgery, Other (See Below). Denies: Adenoidectomy, Eye Surgery, Laser Surgery, LASIK, Myringotomy w Tube(s), Naso-Sinus Surgery, Tonsillectomy Cardiovascular Surgical History: Reports: None. Denies: Varicose, Vascular Surgery Respiratory Surgical History: Reports: None. Denies: Thoracentesis GI Surgical History: Reports: Cholecystectomy, Colonoscopy. Denies: Appendectomy, EGD, Hernia, Abdominal, Hernia, Inguinal, Hernia Repair/Other, Polypectomy Other GI Surgeries/Procedures: Colonoscopy on 03/09/2020. Open cholecystectomy on 06/26/13. Endocrine Surgical History: Reports: None. Denies: Thyroid Biopsy Neurological Surgical History: Reports: None. Denies: C-Spine, Discectomy, Laminectomy, Lumbar Spine, Sacral Spine, Spinal Fusion, Thoracic Spine, Vertebroplasty Musculoskeletal Surgical History: Reports: None. Denies: Arthroscopic Procedure, Carpal Tunnel, Ganglion Cyst, Joint Replacement, ORIF, Shoulder Surgery - Past Imaging History Past Imaging History: Reports: Cardiac Echo (Last on 07/17/2020 with ejection fraction of 55-60% with previous evaluation on 08/17/2019 with ejection fraction of 50-60%.), CAT Scan (CT of the chest without contrast on 08/17/2019 [address] 06/25/17. CT of the abdomen and pelvis on 12/29/2019 and 06/26/13.), Mammogram (Last mammogram in November 2018 by patient history.), Venous Doppler (Left leg on 02/18/07.) Social & Family History - Family History HEENT: Reports: None. Denies: Glaucoma, Macular Degeneration, Retinal Detachment Cardiac: Reports: Arrhythmia, Pacemaker, Other (See Below). Denies: Afib, Aneurysm, Blood Clots/VTE/DVT, CAD, Cardiomyopathy, Heart Failure, Heart Murmur, NJ, PVD/COD, Syncope Other Cardiac Family History: Mother with pacemaker. Respiratory: Reports: Asthma, Other (See Below). Denies: COPD, PE, Pneumothorax, Sleep Apnea Other Respiratory Family Hisory: Father with asthma secondary to coal exposure. GI: Reports: None. Denies: Celiac Disease, Cholelithiasis, Colon Polyps, GERD, GI bleed, Inflammatory Bowel Disease, Irritable Bowel Syndrome, PUD : Reports: None. Denies: Renal Calculus, Renal Disease/Insufficiency OBGYN: Reports: None. Denies: Dysfunctional uterine bleeding, Endometriosis, Recurrent Spontaneous Musculoskeletal: Reports: None. Denies: Arthritis, Gout, Osteoarthritis, RA, SLE Neurological: Reports: Alzheimers Disease, Dementia, Migraines, Other (See Below). Denies: Cerebral Aneurysms, CVA, MS, Parkinson's, Seizure, TIA Other Neurological Family History: Mother with migraine headaches. Brothers 2 with organic brain syndrome. Psychiatric: Reports: None. Denies: Abuse, Victim of, ADD, ADHD, Anxiety, Depression, Psych Hospitalization(s), PTSD, Suicide Attempt Endocrine/Metabolic: Reports: Diabetes, type II, IDDM, Other (See Below). Denies: Diabetes, Gestational, Diabetes, Type I, Diabetes Mellitus, Type 3c, Hypothyroidism Other Endocrine/Metabolic Family History: Mother with IDDM. Hematologic: Reports: None. Denies: Anemia, SLE Immunologic: Reports: None. Denies: AIDS, HIV, SLE Dermatologic: Reports: None. Denies: Eczema, Psoriasis Oncologic: Reports: None. Denies: Bladder, Breast, Cervix, Colon, Hodgkin's Lymphoma, Leukemia, Lung, Lymphoma, Non-Hodgkin's Lymphoma, Ovarian, Skin, Uterine - Caffeine Use Caffeine Use: Reports: None. 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65) ED ROS GENERAL - Review of Systems Review Of Systems: See Below Constitutional: Reports: No Symptoms HEENT: Reports: Other (dry mouth) Respiratory: Reports: No Symptoms Cardiovascular: Reports: Lightheadedness Endocrine: Reports: No Symptoms GI/Abdominal: Reports: No Symptoms : Reports: No Symptoms Musculoskeletal: Reports: No Symptoms Skin: Reports: No Symptoms Neurological: Reports: Weakness Psychiatric: Reports: Depression, Mood Lability Hematologic/Lymphatic: Reports: No Symptoms Immunologic: Reports: No Symptoms ED EXAM, GENERAL - Physical Exam Exam: See Below Exam Limited By: No Limitations General Appearance: Alert, WD/WN, No Apparent Distress Eye Exam: Bilateral Eye: EOMI, Normal Fundi, PERRL Throat/Mouth: Normal Inspection, Normal Lips, Other (oral mucosa dry) Head: Atraumatic, Normocephalic Neck: Normal Inspection, Supple, Non-Tender Respiratory/Chest: No Respiratory Distress, Lungs Clear, Normal Breath Sounds, No Accessory Muscle Use, Chest Non-Tender Cardiovascular: Normal Peripheral Pulses, Regular Rate, Rhythm, No JVD Peripheral Pulses: 4+: Radial (R) GI/Abdominal: Soft, Non-Tender, No Distention, No Mass (Female) Exam: Deferred Rectal (Female) Exam: Deferred Back Exam: Normal Inspection, Full Range of Motion Extremities: Normal Inspection, Normal Range of Motion, Normal Capillary Refill Neurological: Alert, Oriented, CN II-XII Intact, Normal Cognition, Normal Reflexes, No Motor/Sensory Deficits Psychiatric: Depressed Mood, Flat Affect #1 Interpretation EKG Date: 08/05/20 Rhythm: NSR Marks: Normal P-Wave: Present QRS: Normal ST-T: Normal QT: Normal Course - Vital Signs Last Recorded V/S: Last Vital Signs Temp 37.2 C 08/05/20 18:39 Pulse 110 H 08/05/20 18:39 Resp 20 08/05/20 18:39 BP 116/62 08/05/20 18:39 Pulse Ox 96 08/05/20 18:39 - Orders/Labs/Meds Orders: Active Orders 24 hr Category Date Time Status Patient Status [ADT] Routine ADT 08/05/20 20:00 Active EKG Documentation Completion [RC] STAT Care 08/05/20 19:00 Active UA RFX ADAN AND CULT IF INDIC [URIN] Stat Lab 08/05/20 19:00 Ordered Lactated Ringers [Ringers, Lactated] 1,000 ml Med 08/05/20 19:00 Active IV ASDIRECTED EKG 12 Lead [EK] Stat Ther 08/05/20 19:00 Ordered Medication Orders Lactated Ringer's (Ringers, Lactated) 1,000 mls @ 500 mls/hr IV ASDIRECTED OK Last Admin: 08/05/20 19:00 Dose: 500 mls/hr Documented by: EZIO Lactated Ringer's (Ringers, Lactated) 1,000 mls @ 100 mls/hr IV ASDIRECTED [facility] Labs: Laboratory Tests 08/05/20 08/05/20 08/05/20 Range/Units 19:26 19:26 19:26 WBC 6.9 (4.0-10.2) K/uL RBC 3.78 (3.77-5.09) M/uL Hgb 10.6 L (11.7-15.5) g/dL Hct 32.8 L (34.0-46.0) % MCV 86.8 (84.0-98.0) fL MCH 28.0 L (28.2-33.3) pg MCHC 32.3 (31.7-36.0) g/dL RDW 13.6 (11.2-14.1) % Plt Count 245 (150-350) K/uL Neut % (Auto) 80.3 H (45.0-80.0) % Lymph % (Auto) 9.3 L (10.0-50.0) % Cassia % (Auto) 9.7 (2.0-14.0) % Eos % (Auto) 0.4 (0.0-5.0) % Baso % (Auto) 0.3 (0.0-2.0) % Neut # (Auto) 5.52 (1.40-7.00) K/uL Lymph # (Auto) 0.64 (0.50-3.50) K/uL Cassia # (Auto) 0.67 (0.00-1.00) K/uL Eos # (Auto) 0.03 (0.00-0.50) K/uL Baso # (Auto) 0.02 (0.00-0.20) K/uL Sodium 136 (136-145) mmol/L Potassium 3.9 (3.5-5.1) mmol/L Chloride 97 L (98-107) mmol/L Carbon Dioxide 27.8 (21.0-32.0) mmol/L BUN 6 L (7-18) mg/dL Creatinine 0.61 (0.51-1.17) mg/dL Est Cr Clr Drug Dosing TNP Estimated GFR (MDRD) > 60 mL/min Glucose 105 H (70-99) mg/dL Calcium 8.6 (8.5-10.1) mg/dL Magnesium 1.5 L (1.8-2.4) mg/dL Total Bilirubin 0.7 (0.2-1.0) mg/dL AST 22 (15-37) U/L ALT 21 (12-78) U/L Alkaline Phosphatase 88 (46-116) IU/L Troponin I 0.000 (0.000-0.056) ng/mL NT-Pro-B Natriuret Pep 495 H (0-125) pg/mL Total Protein 5.6 L (6.4-8.2) g/dL Albumin 2.5 L (3.4-5.0) g/dL Meds: Medications Generic Name Dose Route Start Last Admin Trade Name Freq PRN Reason Stop Dose Admin Lactated Ringer's 1,000 mls @ 500 mls/hr 08/05/20 19:00 08/05/20 19:00 Ringers, Lactated IV 500 mls/hr ASDIRECTED OK Administration Lactated Ringer's 1,000 mls @ 100 mls/hr 08/05/20 21:00 Ringers, Lactated IV ASDIRECTED OK Discontinued Medications Generic Name Dose Route Start Last Admin Trade Name Freq PRN Reason Stop Dose Admin Magnesium Sulfate 4 gm/ Premix 100 mls @ 100 mls/hr 08/05/20 20:09 IV 08/05/20 21:08 ONETIME ONE Departure - Departure Time of Disposition: 21:32 Disposition: Home, Self-Care 01 Condition: Fair Clinical Impression: Dehydration, Hypomagnesemia - Discharge Information Sepsis Event Note (ED) - Evaluation Sepsis Screening Result: No Definite Risk - Focused Exam Vital Signs: Vital Signs Temp Pulse Resp BP Pulse Ox 08/05/20 18:39 37.2 C 110 H 20 116/62 96 - Problem List Review Problem List Initiated/Reviewed/Updated: Yes - My Orders Last 24 Hours: My Active Orders 08/05/20 19:00 EKG Documentation Completion [RC] STAT UA RFX ADAN AND CULT IF INDIC [URIN] Stat Lactated Ringers [Ringers, Lactated] 1,000 ml IV ASDIRECTED EKG 12 Lead [EK] Stat 08/05/20 20:00 Patient Status [ADT] Routine - Assessment/Plan Admission H&P: Please use this note as an admission H&P Last 24 Hours: My Active Orders 08/05/20 19:00 EKG Documentation Completion [RC] STAT UA RFX ADAN AND CULT IF INDIC [URIN] Stat Lactated Ringers [Ringers, Lactated] 1,000 ml IV ASDIRECTED EKG 12 Lead [EK] Stat 08/05/20 20:00 Patient Status [ADT] Routine Plan: Pt. will be admitted observation. She indicates that she is a full code. Pt. will be kept on LR at 100ml/hr. after the first liter. Pt. will be given 4 gm mag sulfate infused over 4 hours tonight. Telemetry tonight. Recheck chemistry and magnesium tomorrow. O2 only if sat is less than 92%. She is using her O2 [employer] and is satting in the high 90s in ER. She is supposed to only use it when she sleeps. Still awaiting urine sample to obtain UA. Discussed findings at length with and on phone with the pt. daughter, Delmis ([phone]). Daughter lives in the [facility] and is coming to [place] to help her parents. Pt. family members are concerned about the pt. cognitive status. Will order a cognitive eval. Pt. will likely be discharged tomorrow but this can be done as an outpatient. They are also concerned about depression. She was started on citalopram 20mg on 08/04/2020. Will continue this.
[2020-08-05 19:51] LABS: CHLORIDE,CL 97 mmol/L (98-107); SODIUM,NA 136 mmol/L (136-145)
[2020-08-05] MEDS ORDERED: Magnesium Sulfate/Water 4 GM in Premix Bag 1 BAG IV ONE (20:09)
[2020-08-06] MEDS: Arformoterol 15 MCG/2 ML Neb Soln NEB SCH ×2 (02:26→08:31)
[2020-08-06] MEDS: Budesonide 0.5 MG/2 ML Neb Susp NEB SCH ×2 (02:29→08:15)
[2020-08-06] MEDS ORDERED: LORazepam 1 MG Tab PO PRN (07:09)
[2020-08-06] MEDS ORDERED: Albuterol 6.7 GM Inhaler INH PRN (07:09)
[2020-08-06] MEDS ORDERED: Warfarin 5 MG Tab PO SCH (07:15)
[2020-08-06] MEDS ORDERED: Potassium Chloride 20 MEQ Tab.ER PO SCH (07:30)
[2020-08-06] MEDS ORDERED: Phytonadione 100 MCG Tab PO SCH (08:00)
[2020-08-06] MEDS ORDERED: Budesonide 0.5 MG/2 ML Neb Susp INH SCH (08:00)
[2020-08-06] MEDS ORDERED: Furosemide 20 MG Tab PO SCH (08:00)
[2020-08-06] MEDS ORDERED: Albuterol 0.083% 2.5 MG/3 ML Neb Soln NEB ONE (08:00)
[2020-08-06] MEDS ORDERED: Albuterol 0.083% 2.5 MG/3 ML Neb Soln INH SCH (08:00)
[2020-08-06] MEDS ORDERED: Arformoterol 15 MCG/2 ML Neb Soln INH SCH (08:00)
[2020-08-06] MEDS ORDERED: Ipratropium 0.02% 0.5 MG/2.5 ML Neb Soln INH SCH (08:00)
[2020-08-06] MEDS ORDERED: Citalopram 20 MG Tab PO SCH (08:00)
[2020-08-06] MEDS ORDERED: Doxycycline Monohydrate 100 MG Cap PO SCH (08:00)
[2020-08-06] MEDS: Benzonatate 100 MG Cap PO SCH ×2 (08:31→11:41)
[2020-08-06 08:58] LABS: CHLORIDE,CL 100 mmol/L (98-107); SODIUM,NA 137 mmol/L (136-145)
--- NOTE | 2020-08-06 10:26 | PCM.DCSUM1 ---
Discharge Summary - Hospital Course Free Text/Narrative:: Pt. was admitted last evening for dehydration secondary to overdiuresis with oral furosemide. She was given a 500ml bolus of LR in ER and then was started on LR at 100ml/hr. overnight. She was also given magnesium 4 gm IV overnight as well. Pt. states that she is feeling somewhat better today. She he been ambulating to the bathroom. Denies any current shortness of breath. No lightheadedness or chest pain. No nausea, vomiting, or diarrhea. Troponin was trended and is negative this AM. Magnesium is back into normal limits. Plan is to discharge patient today for follow-up with her PCP this week. Cognitive eval was ordered for the patient that will be done as an outpatient. Pt. daughter is coming to stay with her parents to help facilitate her care in the next few weeks. Diagnosis: Stroke: No Modified [place] Scale: No Symptoms at All Modified [place] Scale Score: 0 - Discharge Data Discharge Date: 08/06/20 Discharge Disposition: Home, Self-Care 01 Condition: Good - Referral to Home Health Primary Care Physician: Leonor Millan PA-C - Discharge Diagnosis/Problem(s) (1) Dehydration SNOMED Code(s): 44388691 ICD Code: E86.0 - DEHYDRATION Status: Acute Current Visit: Yes (2) Hypomagnesemia SNOMED Code(s): 683691236 ICD Code: E83.42 - HYPOMAGNESEMIA Status: Acute Current Visit: Yes - Discharge Plan Home Medications: Home Meds Budesonide [Pulmicort] 0.5 mg IH BID@799,199902/07/19 [History] Albuterol Sulfate 1 ampule INH QAM 07/23/19 [History] Albuterol [Ventolin HFA] 2 puff INH Q4H PRN 07/23/19 [History] Arformoterol [Brovana] 15 mcg INH Q12HR 07/23/19 [History] Ipratropium [Atrovent] 0.5 mg INH TID@0800,1500,199907/23/19 [History] Benzonatate [Tessalon Perle] 100 mg PO TID 03/08/20 [History] Warfarin [Coumadin] 1 tab PO ASDIRECTED 03/08/20 [History] Roflumilast [Daliresp] 1 tab PO BEDTIME 05/27/20 [History] Phytonadione [Vitamin K] 100 mcg PO DAILY 07/10/20 [History] atorvaSTATin [Lipitor] 10 mg PO BEDTIME 07/10/20 [History] polyethylene glycoL 3350 [MiraLAX] 17 gm PO BEDTIME 07/10/20 [History] Furosemide [Lasix] 20 mg PO DAILY 07/27/20 [History] LORazepam [Ativan] 1 mg PO TID PRN 07/27/20 [History] Potassium Chloride 20 meq PO BIDMEALS #20 tablet.er 07/30/20 [Rx] Citalopram [Citalopram HBr] 20 mg PO DAILY 08/05/20 [History] Doxycycline [Vibramycin] 100 mg PO BID 08/05/20 [History] Arformoterol [Brovana] 15 mcg NEB BIDRT neb 08/06/20 [Rx] Budesonide [Pulmicort] 0.5 mg NEB BIDRT neb 08/06/20 [Rx] Forms: ED Department Discharge Referrals: Leonor Millan PA-C [Primary Care Provider] - - Discharge Summary/Plan Comment DC Time >30 min.: Yes Discharge Summary/Plan Comment: OT will contact pt. regarding cognitive evaluation. Start magnesium 500mg twice daily (OTC supplement). Stressed the importance of eating and drinking. Wear TOMMY hose to decrease peripheral edema. Continue all other medications. - General Info Date of Service: 08/06/20 Functional Status: Reports: Pain Controlled - Review of Systems General: Reports: No Symptoms HEENT: Reports: No Symptoms Pulmonary: Reports: No Symptoms Cardiovascular: Reports: No Symptoms Gastrointestinal: Reports: No Symptoms Genitourinary: Reports: No Symptoms Musculoskeletal: Reports: No Symptoms Skin: Reports: No Symptoms Neurological: Reports: No Symptoms Psychiatric: Reports: No Symptoms - Patient Data Vitals - Most Recent: Last Vital Signs Temp 37.1 C 08/06/20 04:00 Pulse 93 08/06/20 04:00 Resp 28 H 08/06/20 04:00 BP 108/49 L 08/06/20 04:00 Pulse Ox 96 08/06/20 04:00 Weight - Most Recent: 59.375 kg I&O - Last 24 hours: Intake & Output 08/05/20 08/06/20 08/06/20 22:59 06:59 14:59 Intake Total 998 Output Total 500 Balance 498 Lab Results - Last 24 hrs: Laboratory Results - last 24 hr 08/05/20 08/05/20 08/05/20 Range/Units 19:26 19:26 19:26 WBC 6.9 (4.0-10.2) K/uL RBC 3.78 (3.77-5.09) M/uL Hgb 10.6 L (11.7-15.5) g/dL Hct 32.8 L (34.0-46.0) % MCV 86.8 (84.0-98.0) fL MCH 28.0 L (28.2-33.3) pg MCHC 32.3 (31.7-36.0) g/dL RDW 13.6 (11.2-14.1) % Plt Count 245 (150-350) K/uL Neut % (Auto) 80.3 H (45.0-80.0) % Lymph % (Auto) 9.3 L (10.0-50.0) % [place] % (Auto) 9.7 (2.0-14.0) % Eos % (Auto) 0.4 (0.0-5.0) % Baso % (Auto) 0.3 (0.0-2.0) % Neut # (Auto) 5.52 (1.40-7.00) K/uL Lymph # (Auto) 0.64 (0.50-3.50) K/uL [place] # (Auto) 0.67 (0.00-1.00) K/uL Eos # (Auto) 0.03 (0.00-0.50) K/uL Baso # (Auto) 0.02 (0.00-0.20) K/uL Sodium 136 (136-145) mmol/L Potassium 3.9 (3.5-5.1) mmol/L Chloride 97 L (98-107) mmol/L Carbon Dioxide 27.8 (21.0-32.0) mmol/L BUN 6 L (7-18) mg/dL Creatinine 0.61 (0.51-1.17) mg/dL Est Cr Clr Drug Dosing TNP Estimated GFR (MDRD) > 60 mL/min Glucose 105 H (70-99) mg/dL Calcium 8.6 (8.5-10.1) mg/dL Magnesium 1.5 L (1.8-2.4) mg/dL Total Bilirubin 0.7 (0.2-1.0) mg/dL AST 22 (15-37) U/L ALT 21 (12-78) U/L Alkaline Phosphatase 88 (46-116) IU/L Troponin I 0.000 (0.000-0.056) ng/mL NT-Pro-B Natriuret Pep 495 H (0-125) pg/mL Total Protein 5.6 L (6.4-8.2) g/dL Albumin 2.5 L (3.4-5.0) g/dL Specimen Type Urine Color Urine Appearance Urine pH (5.0-9.0) Ur Specific [place] (1.005-1.030) Urine Protein (NEGATIVE) mg/dL Urine Glucose (UA) (NEGATIVE) mg/dL Urine Ketones (NEGATIVE) mg/dL Urine Occult Blood (NEGATIVE) Urine Nitrite (NEGATIVE) Urine Bilirubin (NEGATIVE) Urine Urobilinogen (0.2-1.0) E.U./dL Ur Leukocyte Esterase (NEGATIVE) 08/05/20 08/06/20 08/06/20 Range/Units 21:54 08:09 08:09 WBC (4.0-10.2) K/uL RBC (3.77-5.09) M/uL Hgb (11.7-15.5) g/dL Hct (34.0-46.0) % MCV (84.0-98.0) fL MCH (28.2-33.3) pg MCHC (31.7-36.0) g/dL RDW (11.2-14.1) % Plt Count (150-350) K/uL Neut % (Auto) (45.0-80.0) % Lymph % (Auto) (10.0-50.0) % [place] % (Auto) (2.0-14.0) % Eos % (Auto) (0.0-5.0) % Baso % (Auto) (0.0-2.0) % Neut # (Auto) (1.40-7.00) K/uL Lymph # (Auto) (0.50-3.50) K/uL [place] # (Auto) (0.00-1.00) K/uL Eos # (Auto) (0.00-0.50) K/uL Baso # (Auto) (0.00-0.20) K/uL Sodium 137 (136-145) mmol/L Potassium 3.7 (3.5-5.1) mmol/L Chloride 100 (98-107) mmol/L Carbon Dioxide 27.9 (21.0-32.0) mmol/L BUN 4 L (7-18) mg/dL Creatinine 0.51 (0.51-1.17) mg/dL Est Cr Clr Drug Dosing TNP Estimated GFR (MDRD) > 60 mL/min Glucose 85 (70-99) mg/dL Calcium 7.9 L (8.5-10.1) mg/dL Magnesium 2.1 (1.8-2.4) mg/dL Total Bilirubin (0.2-1.0) mg/dL AST (15-37) U/L ALT (12-78) U/L Alkaline Phosphatase (46-116) IU/L Troponin I 0.008 (0.000-0.056) ng/mL NT-Pro-B Natriuret Pep (0-125) pg/mL Total Protein (6.4-8.2) g/dL Albumin (3.4-5.0) g/dL Specimen Type [place] Urine Color Yellow Urine Appearance Clear Urine pH 5.0 (5.0-9.0) Ur Specific [place] 1.015 (1.005-1.030) Urine Protein Negative (NEGATIVE) mg/dL Urine Glucose (UA) Negative (NEGATIVE) mg/dL Urine Ketones 40 H (NEGATIVE) mg/dL Urine Occult Blood Negative (NEGATIVE) Urine Nitrite Negative (NEGATIVE) Urine Bilirubin Negative (NEGATIVE) Urine Urobilinogen 0.2 (0.2-1.0) E.U./dL Ur Leukocyte Esterase Negative (NEGATIVE) Med Orders - Current: Current Medications Albuterol (Albuterol 6.7 Gm Inhaler) gm INH Q4H PRN PRN Reason: Dyspnea Albuterol (Albuterol 0.083% 2.5 Mg/3 Ml Neb Soln) 2.5 mg INH QAM [facility] Last Admin: 08/06/20 08:00 Dose: 2.5 mg Documented by: Arformoterol Tartrate (Arformoterol 15 Mcg/2 Ml Neb Soln) 15 mcg NEB BIDRT [facility] Last Admin: 08/06/20 08:31 Dose: 15 mcg Documented by: Atorvastatin Calcium (Atorvastatin 10 Mg Tab) 10 mg PO BEDTIME [facility] Benzonatate (Benzonatate 100 Mg Cap) 100 mg PO TID [facility] Last Admin: 08/06/20 08:31 Dose: 100 mg Documented by: Budesonide (Budesonide 0.5 Mg/2 Ml Neb Susp) 0.5 mg NEB BIDRT [facility] Last Admin: 08/06/20 08:15 Dose: 0.5 mg Documented by: Citalopram Hydrobromide (Citalopram 20 Mg Tab) 20 mg PO DAILY [facility] Last Admin: 08/06/20 08:31 Dose: 20 mg Documented by: Doxycycline Monohydrate (Doxycycline Monohydrate 100 Mg Cap) 100 mg PO BID [facility] Stop: 08/12/20 23:59 Last Admin: 08/06/20 08:31 Dose: 100 mg Documented by: Furosemide (Furosemide 20 Mg Tab) 20 mg PO DAILY [facility] Last Admin: 08/06/20 08:31 Dose: 20 mg Documented by: Lactated Ringer's (Ringers, Lactated) 1,000 mls @ 500 mls/hr IV ASDIRECTED [facility] Last Admin: 08/05/20 19:00 Dose: 500 mls/hr Documented by: Ipratropium [place] (Ipratropium 0.02% 0.5 Mg/2.5 Ml Neb Soln) 0.5 mg INH TID@0800,1500,2000 [facility] Lorazepam (Lorazepam 1 Mg Tab) 1 mg PO TID PRN PRN Reason: Anxiety Non-Formulary Medication (Roflumilast [Daliresp]) 1 tab PO BEDTIME [facility] Phytonadione (Phytonadione 100 Mcg Tab) 100 mcg PO DAILY [facility] Last Admin: 08/06/20 08:31 Dose: 100 mcg Documented by: Polyethylene Glycol (Polyethylene Glycol 3350 Powder 17 Gm Packet) 17 gm PO BEDTIME [facility] Potassium Chloride (Potassium Chloride 20 Meq Tab.Er) 20 meq PO BIDMEALS [facility] Last Admin: 08/06/20 08:31 Dose: 20 meq Documented by: Warfarin Sodium (Warfarin 5 Mg Tab) 5 mg PO ASDIRECTED [facility] Discontinued Medications Albuterol (Albuterol 0.083% 2.5 Mg/3 Ml Neb Soln) 2.5 mg NEB ONETIME ONE Stop: 08/06/20 08:01 Last Admin: 08/06/20 09:08 Dose: Not Given Documented by: Arformoterol Tartrate (Arformoterol 15 Mcg/2 Ml Neb Soln) 15 mcg INH Q12HR [facility] Last Admin: 08/06/20 09:08 Dose: Not Given Documented by: Budesonide (Budesonide 0.5 Mg/2 Ml Neb Susp) 0.5 mg INH BID@0800,2000 [facility] Last Admin: 08/06/20 09:08 Dose: Not Given Documented by: Magnesium Sulfate 4 gm/ Premix 100 mls @ 100 mls/hr IV ONETIME ONE Stop: 08/05/20 21:08 Last Admin: 08/05/20 22:01 Dose: 100 mls/hr Documented by: Lactated Ringer's (Ringers, Lactated) 1,000 mls @ 100 mls/hr IV ASDIRECTED [facility] Last Admin: 08/05/20 23:12 Dose: 100 mls/hr Documented by: - Exam General: Reports: Alert, Oriented Lungs: Reports: Clear to Auscultation, Normal Respiratory Effort Cardiovascular: Reports: Regular Rate, Regular Rhythm GI/Abdominal Exam: Soft, Non-Tender, No Organomegaly, No Distention, No Mass Extremities: Normal Inspection, Normal Range of Motion, Non-Tender, No Pedal Edema, Normal Capillary Refill Skin: Reports: Warm, Dry, Intact Neurological: Reports: No New Focal Deficit Psy/Mental Status: Reports: Alert, Normal Affect, Normal Mood
[2020-08-06] MEDS ORDERED: atorvaSTATin 10 MG Tab PO SCH (20:00)
[2020-08-06] MEDS ORDERED: Polyethylene Glycol 3350 Powder 17 GM Packet PO SCH (20:00)
== END 2020-08-06 12:25 | disposition home or self-care (01) ==
LOC: LL.ED 18:32 → LL.MS 20:25
PROVIDERS: ADMIT Physician Assistant; ATTEND Physician Assistant
DX: R42 Dizziness and giddiness (principal); J44.9 Chronic obstructive pulmonary disease, unspecified; I50.9 Heart failure, unspecified; E86.0 Dehydration; E83.42 Hypomagnesemia; Z88.8 Allergy status to other drugs, medicaments and biological substances; Z91.041 Radiographic dye allergy status; Z79.899 Other long term (current) drug therapy; Z98.890 Other specified postprocedural states; Z90.49 Acquired absence of other specified parts of digestive tract
CPT/HCPCS: 36415; 80048; 80053; 81003; 83735; 83880; 84484; 85025; 93005; 94640; 96374; 99217; 99220; 99285-25; A9270-GY; G0378; J3475; J7120; J7613-GY

== ENCOUNTER 2020-10-01 14:05 | Inpatient (IN) | payer MEDICARE, BC ==
[2020-10-01] MEDS ORDERED: Sodium Chloride 0.9% 1,000 ML IV SCH (14:45)
--- NOTE | 2020-10-01 14:51 | EDM.PDOC ---
ED HPI GENERAL MEDICAL PROBLEM - General Chief Complaint: General Stated Complaint: "feel icky", feeling unwell with stomach upset, weakness and falls Time Seen by Provider: 10/01/20 14:35 Source of Information: Reports: Patient, EMS, Family, Old Records History Limitations: Reports: Other (memory impairment, helps with history ) - History of Present Illness INITIAL COMMENTS - FREE TEXT/NARRATIVE: Patient presents to the ED via EMS for increasing weakness and feeling unwell for the last week. Patient has been having some physical and cognitive decline over the past couple of months. Has been at home with her and does not leave with fear of covid. She has been vaccinated. SHe has home health nursing and therapy. She has been taking her medications and eating and drinking normally. She states that her stomach does not feel well, can not say when it started but is not vomtiing. Nauseated and normal bowel movements that she recalls. 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 She was last seen in the ED in late July, was sent for cognitive testing but has refused to go to [place] due to concerns for Covid 19. Fell two days ago x 2 on carpet, unsure if she hit her head. According to is acting appropriately in regards to no new neurological deficit, but just significantly weaker. She does have COPD and is maintained on 2 lpm NC Onset: Gradual Duration: Day(s):, Getting Worse Associated Symptoms: Reports: Confusion, Malaise, Nausea/Vomiting, Weakness - Related Data Allergies Allergy/AdvReac Type Severity Reaction Status Date / Time methylprednisolone Allergy Shortness Verified 10/01/20 14:47 of Breath revefenacin [From Yupelri] Allergy Other Verified 10/01/20 14:47 IV Dye used for U/S (echo) Allergy Shortness Uncoded 08/05/20 18:53 of Breath Home Meds: Home Meds Budesonide [Pulmicort] 0.5 mg IH BID@08,199902/07/19 [History] Albuterol Sulfate 1 ampule INH QAM 07/23/19 [History] Albuterol [Ventolin HFA] 2 puff INH Q4H PRN 07/23/19 [History] Arformoterol [Brovana] 15 mcg INH Q12HR 07/23/19 [History] Ipratropium [Atrovent] 0.5 mg INH TID@0800,1500,2000 07/23/19 [History] Benzonatate [Tessalon Perle] 100 mg PO TID 03/08/20 [History] Warfarin [Coumadin] 1 tab PO ASDIRECTED 03/08/20 [History] Roflumilast [Daliresp] 1 tab PO DAILY 05/27/20 [History] Phytonadione [Vitamin K] 100 mcg PO DAILY 07/10/20 [History] atorvaSTATin [Lipitor] 10 mg PO BEDTIME 07/10/20 [History] polyethylene glycoL 3350 [MiraLAX] 17 gm PO BEDTIME 07/10/20 [History] Furosemide [Lasix] 20 mg PO DAILY 07/27/20 [History] LORazepam [Ativan] 1 mg PO TID PRN 07/27/20 [History] Potassium Chloride 20 meq PO BIDMEALS #20 tablet.er 07/30/20 [Rx] Citalopram [Citalopram HBr] 20 mg PO DAILY 08/05/20 [History] Arformoterol [Brovana] 15 mcg NEB BIDRT neb 08/06/20 [Rx] Budesonide [Pulmicort] 0.5 mg NEB BIDRT neb 08/06/20 [Rx] Past Medical History HEENT History: Reports: Cataract, Impaired Vision Other HEENT History: Patient wears glasses. Complete full upper and lower dentures. Cardiovascular History: Reports: Arrhythmia, Blood Clots/VTE/DVT, Cardiomyopathy, Heart Failure, High Cholesterol Other Cardiovascular History: PVCs. Moderate sinus arrhythmia. Cardiomegaly with history of Cor pulmonale. Postoperative DVT of the left leg on 02/18/07 after mastectomy in 2006 with current Coumadin therapy. Respiratory History: Reports: Bronchitis, Recurrent, COPD, Intubation, Previous, Pneumonia, Recurrent Other Respiratory History: Oxygen dependent at home: 2-3L/NC. Despite previous medical records patient denies history of sleep apnea and CPAP requirement. Gastrointestinal History: Reports: Cholelithiasis, Chronic Constipation, Diverticulosis, GERD, Other (See Below) Other Gastrointestinal History: Tortuous colon. Genitourinary History: Reports: None RUG CUTTER HELPER History: Reports: Polycystic Ovaries, Other RUG CUTTER HELPER History: Menopause in her 40s. Full term without complications during pregnancies or deliveries Musculoskeletal History: Reports: Arthritis, Osteoarthritis, Osteoporosis Neurological History: Reports: Headaches, Chronic, Migraines, Other (See Below) Other Neuro History: Migraine headaches in early adulthood nonproblematic at this time. Psychiatric History: Reports: Anxiety, Depression Endocrine/Metabolic History: Reports: Diabetes, Type II, Hypokalemia, Obesity/BMI 30+, Osteopenia, Osteoporosis, Other (See Below) Other Endocrine/Metabolic History: Prediabetes. Hyponatremia. Hypoalbuminemia. Hematologic History: Reports: None Immunologic History: Reports: None Oncologic (Cancer) History: Reports: Breast, Other (See Below) Other Oncologic History: Left-sided stage I breast cancer in 2006 with mastectomy and radiation therapy. Dermatologic History: Reports: None - Infectious Disease History Infectious Disease History: Reports: Chicken Pox, Mumps - Past Surgical History Head Surgeries/Procedures: Reports: None HEENT Surgical History: Reports: Cataract Surgery, Oral Surgery, Other (See Below) Other HEENT Surgeries/Procedures: Bilateral cataract surgery in 2019. Complete teeth extraction. Cardiovascular Surgical History: Reports: None Respiratory Surgical History: Reports: None GI Surgical History: Reports: Cholecystectomy, Colonoscopy Other GI Surgeries/Procedures: Colonoscopy on 03/09/2020. Open cholecystectomy on 06/26/13. Female Surgical History: Reports: Breast Biopsy, Mastectomy, Other (See Below) Other Female Surgeries/Procedures: Left Sided mastectomy in 2006 Endocrine Surgical History: Reports: None Neurological Surgical History: Reports: None Musculoskeletal Surgical History: Reports: None Oncologic Surgical History: Reports: Biopsy of Breast, Mastectomy, Other (See Below) Other Oncologic Surgeries/Procedures: Mastectomy as above. Dermatological Surgical History: Reports: None - Past Imaging History Past Imaging History: Reports: Cardiac Echo (Last on 07/17/2020 with ejection fraction of 55-60% with previous evaluation on 08/17/2019 with ejection fraction of 50-60%.), CAT Scan (CT of the chest without contrast on 08/17/2019 and 06/25/17. CT of the abdomen and pelvis on 12/29/2019 and 06/26/13.), Mammogram (Last mammogram in November 2018 by patient history.), Venous Doppler (Left leg on 02/18/07.) Social & Family History - Family History HEENT: Reports: None Cardiac: Reports: Arrhythmia, Pacemaker, Other (See Below) Other Cardiac Family History: Mother with pacemaker. Respiratory: Reports: Asthma, Other (See Below) Other Respiratory Family Hisory: Father with asthma secondary to coal exposure. GI: Reports: None : Reports: None OBGYN: Reports: None Musculoskeletal: Reports: None Neurological: Reports: Alzheimers Disease, Dementia, Migraines, Other (See Below) Other Neurological Family History: Mother with migraine headaches. Brothers 2 with organic brain syndrome. Psychiatric: Reports: None Endocrine/Metabolic: Reports: Diabetes, type II, IDDM, Other (See Below) Other Endocrine/Metabolic Family History: Mother with IDDM. 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 Denies: Rhinitis, Sinus Problem, Throat Pain, Throat Swelling Respiratory: Reports: No Symptoms. Denies: Shortness of Breath, Pleuritic Chest Pain, Cough Cardiovascular: Reports: No Symptoms. Denies: Chest Pain, Dyspnea on Exertion, Edema, Lightheadedness, Palpitations GI/Abdominal: Reports: Abdominal Pain, Decreased Appetite, Nausea. Denies: Diarrhea, Difficulty Swallowing, Flatus, Hematemesis, Hematochezia, Vomiting : Reports: No Symptoms Musculoskeletal: Reports: Muscle Pain (diffuse, difficult to do tasks, not new, due to deconditioning) Neurological: Reports: Confusion, Pre-Existing Deficit ED EXAM, GENERAL - Physical Exam Exam: See Below Exam Limited By: No Limitations General Appearance: Alert, WD/WN, No Apparent Distress Eye Exam: Bilateral Eye: EOMI, Normal Inspection, PERRL Ears: Normal External Exam, Normal Canal, Hearing Grossly Normal, Normal TMs Nose: Normal Inspection, Normal Mucosa, No Blood. No: Nasal Swelling Throat/Mouth: Normal Inspection, Normal Lips, Normal Teeth, Normal Oropharynx, Normal Voice, No Airway Compromise Head: Atraumatic Neck: Normal Inspection, Supple, Non-Tender, Full Range of Motion Respiratory/Chest: No Respiratory Distress, Lungs Clear, Normal Breath Sounds, No Accessory Muscle Use, Chest Non-Tender Cardiovascular: Normal Peripheral Pulses, Regular Rate, Rhythm, No Edema, No Gallop, No Murmur GI/Abdominal: Normal Bowel Sounds, Soft, Non-Tender, No Organomegaly, No Abnormal Bruit, No Mass Back Exam: Normal Inspection, Full Range of Motion. No: CVA Tenderness (L), CVA Tenderness (R), Decreased Range of Motion, Muscle Spasm, Paraspinal Tenderness, Vertebral Tenderness Extremities: Normal Inspection, Normal Range of Motion, Non-Tender, No Pedal Edema, Other (moves upper and lower extremities freely, ) Neurological: Alert, CN II-XII Intact, Confused, Memory Loss Remote Events, Memory Loss Recent Events, Other (tremors, negative pronator drift, normal finger to nose with eyes closed. Gait is shakey but not ataxic) Psychiatric: Anxious #1 Interpretation EKG Date: 10/01/20 Time: 15:23 Rhythm: NSR Rate (Beats/Min): 87 [place]: Normal P-Wave: Present ST-T: Other (T flipped in V1 and flat in V2, changed from previous) QT: Normal Comparison: Change From Previous EKG Course - Vital Signs Last Recorded V/S: Last Vital Signs Temp 37.0 C 10/01/20 14:29 Pulse 82 10/01/20 17:05 Resp 20 10/01/20 17:05 BP 122/58 L 10/01/20 17:05 Pulse Ox 100 10/01/20 17:05 - Orders/Labs/Meds Orders: Active Orders 24 hr Category Date Time Status EKG Documentation Completion [RC] ASDIRECTED Care 10/01/20 14:38 Active Peripheral IV Care [RC] . DIRECTED Care 10/01/20 14:38 Active Chest 1V Frontal [CR] Stat Exams 10/01/20 14:37 Ordered Head wo Cont [CT] Stat Exams 10/01/20 14:37 Ordered Sodium Chloride 0.9% [Normal Saline] 1,000 ml Med 10/01/20 14:45 Active IV ASDIRECTED Sodium Chloride 0.9% [Saline Flush] Med 10/01/20 14:37 Active 10 ml FLUSH ASDIRECTED PRN levETIRAcetam [Keppra] 1,000 mg Med 10/01/20 17:30 Ordered Sodium Chloride 0.9% [Normal Saline] 100 ml IV ONETIME Peripheral IV Insertion Adult [OM.PC] Routine Oth 10/01/20 14:37 Ordered Medication Orders Sodium Chloride (Normal Saline) 1,000 mls @ 1,000 mls/hr IV ASDIRECTED KO Last Admin: 10/01/20 15:45 Dose: 1,000 mls/hr Documented by: [email or web address] Levetiracetam 1,000 mg/ Sodium (Chloride) 110 mls @ 400 mls/hr IV ONETIME ONE Stop: 10/01/20 17:46 Sodium Chloride (Sodium Chloride 0.9% 10 Ml Syringe) 10 ml FLUSH ASDIRECTED PRN PRN Reason: Keep Vein Open Labs: Laboratory Tests 10/01/20 10/01/20 10/01/20 Range/Units 15:00 15:00 15:00 WBC 6.8 (4.0-10.2) K/uL RBC 3.99 (3.77-5.09) M/uL Hgb 11.1 L (11.7-15.5) g/dL Hct 35.2 (34.0-46.0) % MCV 88.2 (84.0-98.0) fL MCH 27.8 L (28.2-33.3) pg MCHC 31.5 L (31.7-36.0) g/dL RDW 14.4 H (11.2-14.1) % Plt Count 204 (150-350) K/uL Neut % (Auto) 80.6 H (45.0-80.0) % Lymph % (Auto) 10.4 (10.0-50.0) % [place] % (Auto) 8.0 (2.0-14.0) % Eos % (Auto) 0.7 (0.0-5.0) % Baso % (Auto) 0.3 (0.0-2.0) % Neut # (Auto) 5.45 (1.40-7.00) K/uL Lymph # (Auto) 0.70 (0.50-3.50) K/uL [place] # (Auto) 0.54 (0.00-1.00) K/uL Eos # (Auto) 0.05 (0.00-0.50) K/uL Baso # (Auto) 0.02 (0.00-0.20) K/uL PT (9.5-12.0) SEC INR Sodium 141 (136-145) mmol/L Potassium 4.2 (3.5-5.1) mmol/L Chloride 105 (98-107) mmol/L Carbon Dioxide 32.3 H (21.0-32.0) mmol/L Anion Gap 7.9 (7-15) meq/L BUN 13 (7-18) mg/dL Creatinine 0.75 (0.51-1.17) mg/dL Est Cr Clr Drug Dosing TNP Estimated GFR (MDRD) > 60 mL/min Glucose 131 H (70-99) mg/dL Lactic Acid 0.9 (0.4-2.0) mmol/L Calcium 8.6 (8.5-10.1) mg/dL Magnesium 2.0 (1.8-2.4) mg/dL Total Bilirubin 0.4 (0.2-1.0) mg/dL AST 10 L (15-37) U/L ALT 22 (12-78) U/L Alkaline Phosphatase 107 (46-116) IU/L Troponin I High Sens < 4 (<=51) ng/L C-Reactive Protein 1.3 H (<=0.9) mg/dL Total Protein 6.2 L (6.4-8.2) g/dL Albumin 3.1 L (3.4-5.0) g/dL Lipase 58 L (73-393) U/L Specimen Type Urine Color Urine Appearance Urine pH (5.0-9.0) Ur Specific [place] (1.005-1.030) Urine Protein (NEGATIVE) mg/dL Urine Glucose (UA) (NEGATIVE) mg/dL Urine Ketones (NEGATIVE) mg/dL Urine Occult Blood (NEGATIVE) Urine Nitrite (NEGATIVE) Urine Bilirubin (NEGATIVE) Urine Urobilinogen (0.2-1.0) E.U./dL Ur Leukocyte Esterase (NEGATIVE) U Hyaline Cast (Auto) Urine RBC /HPF Urine WBC /HPF Ur Epithelial Cells /LPF Amorphous Sediment (0/HPF) /HPF Urine Bacteria (NONE TO FEW) /HPF SARS-CoV-2 RNA (BETO) (NEGATIVE) 10/01/20 10/01/20 10/01/20 Range/Units 15:00 15:20 15:20 WBC (4.0-10.2) K/uL RBC (3.77-5.09) M/uL Hgb (11.7-15.5) g/dL Hct (34.0-46.0) % MCV (84.0-98.0) fL MCH (28.2-33.3) pg MCHC (31.7-36.0) g/dL RDW (11.2-14.1) % Plt Count (150-350) K/uL Neut % (Auto) (45.0-80.0) % Lymph % (Auto) (10.0-50.0) % [place] % (Auto) (2.0-14.0) % Eos % (Auto) (0.0-5.0) % Baso % (Auto) (0.0-2.0) % Neut # (Auto) (1.40-7.00) K/uL Lymph # (Auto) (0.50-3.50) K/uL [place] # (Auto) (0.00-1.00) K/uL Eos # (Auto) (0.00-0.50) K/uL Baso # (Auto) (0.00-0.20) K/uL PT 35.2 H D (9.5-12.0) SEC INR 3.7 Sodium (136-145) mmol/L Potassium (3.5-5.1) mmol/L Chloride (98-107) mmol/L Carbon Dioxide (21.0-32.0) mmol/L Anion Gap (7-15) meq/L BUN (7-18) mg/dL Creatinine (0.51-1.17) mg/dL Est Cr Clr Drug Dosing Estimated GFR (MDRD) mL/min Glucose (70-99) mg/dL Lactic Acid (0.4-2.0) mmol/L Calcium (8.5-10.1) mg/dL Magnesium (1.8-2.4) mg/dL Total Bilirubin (0.2-1.0) mg/dL AST (15-37) U/L ALT (12-78) U/L Alkaline Phosphatase (46-116) IU/L Troponin I High Sens (<=51) ng/L C-Reactive Protein (<=0.9) mg/dL Total Protein (6.4-8.2) g/dL Albumin (3.4-5.0) g/dL Lipase (73-393) U/L Specimen Type Urincc Urine Color Yellow Urine Appearance Cloudy Urine pH 8.5 (5.0-9.0) Ur Specific [place] 1.020 (1.005-1.030) Urine Protein Negative (NEGATIVE) mg/dL Urine Glucose (UA) Negative (NEGATIVE) mg/dL Urine Ketones Negative (NEGATIVE) mg/dL Urine Occult Blood Trace-intact H (NEGATIVE) Urine Nitrite Negative (NEGATIVE) Urine Bilirubin Negative (NEGATIVE) Urine Urobilinogen 0.2 (0.2-1.0) E.U./dL Ur Leukocyte Esterase Negative (NEGATIVE) U Hyaline Cast (Auto) Occasional Urine RBC 0-5 /HPF Urine WBC 0-5 /HPF Ur Epithelial Cells Few /LPF Amorphous Sediment Moderate H (0/HPF) /HPF Urine Bacteria Occasional (NONE TO FEW) /HPF SARS-CoV-2 RNA (BETO) Negative (NEGATIVE) Meds: Medications Generic Name Dose Route Start Last Admin Trade Name Freq PRN Reason Stop Dose Admin Sodium Chloride 1,000 mls @ 1,000 mls/hr 10/01/20 14:45 10/01/20 15:45 Normal Saline IV 1,000 mls/hr ASDIRECTED OK Administration Levetiracetam 1,000 mg/ Sodium 110 mls @ 400 mls/hr 10/01/20 17:30 Chloride IV 10/01/20 17:46 ONETIME ONE Sodium Chloride 10 ml 10/01/20 14:37 Sodium Chloride 0.9% 10 Ml Syringe FLUSH ASDIRECTED PRN Keep Vein Open Discontinued Medications Generic Name Dose Route Start Last Admin Trade Name Freq PRN Reason Stop Dose Admin Factor IX Complex Human/ 0 mls @ 2,500 mls/hr 10/01/20 17:15 Factor IX (Pha) IV 10/01/20 17:16 ONETIME ONE - Radiology Interpretation Free Text/Narrative:: chest x-ray interpreted prelinimary by author, no acute call from radiology 16:55 Ct head non contrast with subacute ( acute on chronic) bilateral parietal and frontal subdural hematomas 10-11 mm with 2-3 mm hyperacute bleeding within. There is effacement of the ventricles, no midline shift and no eminent herniation. See report; - Re-Assessments/Exams Free Text/Narrative Re-Assessment/Exam: 10/01/20 14:56 VSS, no temp. Will check lab,s urine, ekg, head ct due to recent trauma on a blood thinner. Will check covid and give a liter of fluid. History of meaghan, electrolyte problems, troponin and chest x-ray. 10/01/20 16:00 laboratory testing is normal, slight dehydration noted in the urine, otherwise coumadin is therapeutic, negative for covid. Awaiting CT results. fluids infusing 17:00 call to [facility] call for transfer after discussion with family. Neurosurgeon will review and call back. 10/01/20 17:[address] Kruse, neurosurgeon at [facility] and he did review the images. Feels since the fall was not today and no focal neurological defect, will reverse the coumain. She is on this for a blood clot post breast surgery 10 years ago/ MAnaged by [facility] in [place]. Will stop the coumadin after reversal. We do not have kcentra available here. Will reverse with vitamin K. Discussed appropriate dosing with telepharmacy. Will give IV 10 mg and recheck INR in 12 hours. Platelets are available, but only 1 units for lakia. recheck INR closely. Keppra one gram IV given, will be on bid 500 mg indefinitely. we will repeat head ct in the morning. neuro checks q 4 hours and will need neurosrugery follow up in [address] Sooner for changes. Discussed all of this along with a possible [facility] admission or [facility] for rehab until the daughter Delmis can move home in 10 days or so. Family understands the need for short term rehab, Will talk with therapy and social work tomorrow ( friday). Daughters number is [phone] 10/01/20 18:02 Please use the ED document as the admission H & P Departure - Departure Time of Disposition: 17:02 Disposition: Admitted As Inpatient 65 Clinical Impression: Weakness, Dehydration, Subdural hematoma - Discharge Information *PRESCRIPTION DRUG MONITORING PROGRAM REVIEWED*: Not Applicable *COPY OF PRESCRIPTION DRUG MONITORING REPORT IN PATIENT INGE: Not Applicable Instructions: Weakness, [id number], Dehydration, Adult, [id number] Referrals: PCP,None [Primary Care Provider] - Forms: ED Department Discharge Additional Instructions: please use er document as admission h and P Sepsis Event Note (ED) - Evaluation Sepsis Screening Result: No Definite Risk - Focused Exam Vital Signs: Vital Signs Temp Pulse Resp BP BP Pulse Ox 10/01/20 17:05 82 20 122/58 L 100 10/01/20 17:00 82 20 122/58 L 100 10/01/20 15:32 88 20 109/56 L 10/01/20 14:47 81 108/59 L 10/01/20 14:32 82 20 117/60 98 10/01/20 14:29 37.0 C 88 20 103/61 99 10/01/20 14:19 37.0 C 87 20 103/61 100 - My Orders Last 24 Hours: My Active Orders 10/01/20 14:37 Chest 1V Frontal [CR] Stat Head wo Cont [CT] Stat Sodium Chloride 0.9% [Saline Flush] 10 ml FLUSH ASDIRECTED PRN Peripheral IV Insertion Adult [OM.PC] Routine 10/01/20 14:38 EKG Documentation Completion [RC] ASDIRECTED Peripheral IV Care [RC] . DIRECTED 10/01/20 14:45 Sodium Chloride 0.9% [Normal Saline] 1,000 ml IV ASDIRECTED 10/01/20 17:30 levETIRAcetam [Keppra] 1,000 mg Sodium Chloride 0.9% [Normal Saline] 100 ml IV ONETIME - Assessment/Plan Last 24 Hours: My Active Orders 10/01/20 14:37 Chest 1V Frontal [CR] Stat Head wo Cont [CT] Stat Sodium Chloride 0.9% [Saline Flush] 10 ml FLUSH ASDIRECTED PRN Peripheral IV Insertion Adult [OM.PC] Routine 10/01/20 14:38 EKG Documentation Completion [RC] ASDIRECTED Peripheral IV Care [RC] . DIRECTED 10/01/20 14:45 Sodium Chloride 0.9% [Normal Saline] 1,000 ml IV ASDIRECTED 10/01/20 17:30 levETIRAcetam [Keppra] 1,000 mg Sodium Chloride 0.9% [Normal Saline] 100 ml IV ONETIME
[2020-10-01 15:27] LABS: CHLORIDE,CL 105 mmol/L (98-107); SODIUM,NA 141 mmol/L (136-145)
[2020-10-01 15:29] LABS: ANION GAP 7.9 meq/L (7-15)
[2020-10-01] MEDS ORDERED: HUM PROTHROMBIN CPLX(PCC)4FACT 2,000 UNIT, Factor IX Complex Human 500 UNIT IV ONE ×2 (17:15)
[2020-10-01] MEDS ORDERED: levETIRAcetam 1,000 MG in Sodium Chloride 0.9% 100 ML IV ONE (17:30)
[2020-10-01] MEDS ORDERED: Phytonadione 10 MG in Sodium Chloride 0.9% 50 ML IV ONE (17:52)
[2020-10-01] MEDS: Sodium Chloride 0.9% 10 ML Syringe FLUSH PRN (18:07)
[2020-10-01] MEDS ORDERED: Acetaminophen 325 MG Tab PO PRN (18:58)
[2020-10-01] MEDS ORDERED: Ondansetron 4 MG Tab.DIS PO PRN (18:58)
[2020-10-01] MEDS ORDERED: Bisacodyl 5 MG Tab PO PRN (18:58)
[2020-10-01] MEDS ORDERED: LORazepam 1 MG Tab PO PRN (19:07)
[2020-10-01] MEDS: Ipratropium 0.02% 0.5 MG/2.5 ML Neb Soln INH SCH (20:01)
[2020-10-01] MEDS: atorvaSTATin 10 MG Tab PO SCH (20:01)
[2020-10-01] MEDS: Budesonide 0.5 MG/2 ML Neb Susp NEB SCH (20:01)
[2020-10-01] MEDS: Arformoterol 15 MCG/2 ML Neb Soln INH SCH (20:01)
--- NOTE | 2020-10-01 23:12 | PCM.SN.2 ---
- Free Text/Narrative Note: Note there was only one unit of FFP available. Given in conjunction with 10 mg Vitamin K IV. INR after FFP was down to 2.2 from 3.7. Will recheck in the morning 12 hours from initial Vitamine K dose. If INR is greater than 1.2 will repeat 10 mg of vitamin K IV
[2020-10-02] MEDS ORDERED: Albuterol 0.083% 2.5 MG/3 ML Neb Soln NEB PRN (06:10)
[2020-10-02] MEDS ORDERED: Phytonadione 10 MG in Sodium Chloride 0.9% 50 ML IV ONE (06:30)
[2020-10-02 07:16] LABS: CHLORIDE,CL 108 mmol/L (98-107); SODIUM,NA 143 mmol/L (136-145)
[2020-10-02 07:18] LABS: PTT,PARTIAL THROMBOPLSTIN TIME 25.6 SEC (24.5-32.8)
[2020-10-02 07:19] LABS: ANION GAP 7.4 meq/L (7-15)
[2020-10-02] MEDS: Sodium Chloride 0.9% 10 ML Syringe FLUSH PRN ×2 (09:04→19:17)
[2020-10-02] MEDS: Benzonatate 100 MG Cap PO SCH ×3 (09:07→17:12)
[2020-10-02] MEDS: Potassium Chloride 20 MEQ Tab.ER PO SCH ×2 (09:07→17:12)
[2020-10-02] MEDS: levETIRAcetam 500 MG Tab PO SCH ×2 (09:08→17:12)
[2020-10-02] MEDS: Citalopram 20 MG Tab PO SCH (09:08)
[2020-10-02] MEDS: Furosemide 20 MG Tab PO SCH (09:08)
[2020-10-02] MEDS: Albuterol 0.083% 2.5 MG/3 ML Neb Soln INH SCH (09:12)
[2020-10-02] MEDS: Budesonide 0.5 MG/2 ML Neb Susp NEB SCH ×2 (09:12→19:16)
[2020-10-02] MEDS: Arformoterol 15 MCG/2 ML Neb Soln INH SCH ×2 (09:13→19:16)
[2020-10-02] MEDS: Ipratropium 0.02% 0.5 MG/2.5 ML Neb Soln INH SCH ×3 (09:13→19:16)
--- NOTE | 2020-10-02 14:35 | PCM.PN ---
- General Info Date of Service: 10/02/20 Admission Dx/Problem (Free Text): acute on chronic subdural hematoma on warfarin Subjective Update: patient did well over night. Able to get up and use the bathroom with walker. maintaining sats well . No new neurological problems, INR last night 2.2, repeat this am 1.4, another 10 mg of vitamin K given IV. repeat INR pending Functional Status: Reports: Pain Controlled, Tolerating Diet, Ambulating. Denies: New Symptoms - Review of Systems General: Reports: Weakness, Fatigue HEENT: Reports: No Symptoms Pulmonary: Reports: Shortness of Breath (chronically) Cardiovascular: Reports: No Symptoms Gastrointestinal: Reports: No Symptoms Genitourinary: Reports: No Symptoms Musculoskeletal: Reports: No Symptoms Skin: Reports: No Symptoms Neurological: Reports: Confusion, Tremors - Patient Data Vitals - Most Recent: Last Vital Signs Temp 36.3 C 10/02/20 06:54 Pulse 80 10/02/20 06:54 Resp 17 10/02/20 06:54 BP 98/51 L 10/02/20 06:54 Pulse Ox 98 10/02/20 06:54 Weight - Most Recent: 57.153 kg I&O - Last 24 Hours: Intake & Output 10/01/20 10/02/20 10/02/20 22:59 06:59 14:59 Intake Total 1327 270 Output Total 900 200 600 Balance 427 -200 -330 Lab Results Last 24 Hours: Laboratory Results - last 24 hr 10/01/20 10/01/20 10/01/20 Range/Units 15:00 15:00 15:00 WBC 6.8 (4.0-10.2) K/uL RBC 3.99 (3.77-5.09) M/uL Hgb 11.1 L (11.7-15.5) g/dL Hct 35.2 (34.0-46.0) % MCV 88.2 (84.0-98.0) fL MCH 27.8 L (28.2-33.3) pg MCHC 31.5 L (31.7-36.0) g/dL RDW 14.4 H (11.2-14.1) % Plt Count 204 (150-350) K/uL Neut % (Auto) 80.6 H (45.0-80.0) % Lymph % (Auto) 10.4 (10.0-50.0) % [place] % (Auto) 8.0 (2.0-14.0) % Eos % (Auto) 0.7 (0.0-5.0) % Baso % (Auto) 0.3 (0.0-2.0) % Neut # (Auto) 5.45 (1.40-7.00) K/uL Lymph # (Auto) 0.70 (0.50-3.50) K/uL [place] # (Auto) 0.54 (0.00-1.00) K/uL Eos # (Auto) 0.05 (0.00-0.50) K/uL Baso # (Auto) 0.02 (0.00-0.20) K/uL PT (9.5-12.0) SEC INR APTT (24.5-32.8) SEC Sodium 141 (136-145) mmol/L Potassium 4.2 (3.5-5.1) mmol/L Chloride 105 (98-107) mmol/L Carbon Dioxide 32.3 H (21.0-32.0) mmol/L Anion Gap 7.9 (7-15) meq/L BUN 13 (7-18) mg/dL Creatinine 0.75 (0.51-1.17) mg/dL Est Cr Clr Drug Dosing TNP Estimated GFR (MDRD) > 60 mL/min Glucose 131 H (70-99) mg/dL Lactic Acid 0.9 (0.4-2.0) mmol/L Calcium 8.6 (8.5-10.1) mg/dL Magnesium 2.0 (1.8-2.4) mg/dL Total Bilirubin 0.4 (0.2-1.0) mg/dL AST 10 L (15-37) U/L ALT 22 (12-78) U/L Alkaline Phosphatase 107 (46-116) IU/L Troponin I High Sens < 4 (<=51) ng/L C-Reactive Protein 1.3 H (<=0.9) mg/dL Total Protein 6.2 L (6.4-8.2) g/dL Albumin 3.1 L (3.4-5.0) g/dL Lipase 58 L (73-393) U/L Specimen Type Urine Color Urine Appearance Urine pH (5.0-9.0) Ur Specific [place] (1.005-1.030) Urine Protein (NEGATIVE) mg/dL Urine Glucose (UA) (NEGATIVE) mg/dL Urine Ketones (NEGATIVE) mg/dL Urine Occult Blood (NEGATIVE) Urine Nitrite (NEGATIVE) Urine Bilirubin (NEGATIVE) Urine Urobilinogen (0.2-1.0) E.U./dL Ur Leukocyte Esterase (NEGATIVE) U Hyaline Cast (Auto) Urine RBC /HPF Urine WBC /HPF Ur Epithelial Cells /LPF Amorphous Sediment (0/HPF) /HPF Urine Bacteria (NONE TO FEW) /HPF SARS-CoV-2 RNA (BETO) (NEGATIVE) Blood Type 10/01/20 10/01/20 10/01/20 Range/Units 15:00 15:00 15:20 WBC (4.0-10.2) K/uL RBC (3.77-5.09) M/uL Hgb (11.7-15.5) g/dL Hct (34.0-46.0) % MCV (84.0-98.0) fL MCH (28.2-33.3) pg MCHC (31.7-36.0) g/dL RDW (11.2-14.1) % Plt Count (150-350) K/uL Neut % (Auto) (45.0-80.0) % Lymph % (Auto) (10.0-50.0) % [place] % (Auto) (2.0-14.0) % Eos % (Auto) (0.0-5.0) % Baso % (Auto) (0.0-2.0) % Neut # (Auto) (1.40-7.00) K/uL Lymph # (Auto) (0.50-3.50) K/uL [place] # (Auto) (0.00-1.00) K/uL Eos # (Auto) (0.00-0.50) K/uL Baso # (Auto) (0.00-0.20) K/uL PT 35.2 H D (9.5-12.0) SEC INR 3.7 APTT (24.5-32.8) SEC Sodium (136-145) mmol/L Potassium (3.5-5.1) mmol/L Chloride (98-107) mmol/L Carbon Dioxide (21.0-32.0) mmol/L Anion Gap (7-15) meq/L BUN (7-18) mg/dL Creatinine (0.51-1.17) mg/dL Est Cr Clr Drug Dosing Estimated GFR (MDRD) mL/min Glucose (70-99) mg/dL Lactic Acid (0.4-2.0) mmol/L Calcium (8.5-10.1) mg/dL Magnesium (1.8-2.4) mg/dL Total Bilirubin (0.2-1.0) mg/dL AST (15-37) U/L ALT (12-78) U/L Alkaline Phosphatase (46-116) IU/L Troponin I High Sens (<=51) ng/L C-Reactive Protein (<=0.9) mg/dL Total Protein (6.4-8.2) g/dL Albumin (3.4-5.0) g/dL Lipase (73-393) U/L Specimen Type Urincc Urine Color Yellow Urine Appearance Cloudy Urine pH 8.5 (5.0-9.0) Ur Specific [place] 1.020 (1.005-1.030) Urine Protein Negative (NEGATIVE) mg/dL Urine Glucose (UA) Negative (NEGATIVE) mg/dL Urine Ketones Negative (NEGATIVE) mg/dL Urine Occult Blood Trace-intact H (NEGATIVE) Urine Nitrite Negative (NEGATIVE) Urine Bilirubin Negative (NEGATIVE) Urine Urobilinogen 0.2 (0.2-1.0) E.U./dL Ur Leukocyte Esterase Negative (NEGATIVE) U Hyaline Cast (Auto) Occasional Urine RBC 0-5 /HPF Urine WBC 0-5 /HPF Ur Epithelial Cells Few /LPF Amorphous Sediment Moderate H (0/HPF) /HPF Urine Bacteria Occasional (NONE TO FEW) /HPF SARS-CoV-2 RNA (BETO) (NEGATIVE) Blood Type A POSITIVE 10/01/20 10/01/20 10/02/20 Range/Units 15:20 21:20 06:52 WBC 5.0 (4.0-10.2) K/uL RBC 3.77 (3.77-5.09) M/uL Hgb 10.5 L (11.7-15.5) g/dL Hct 33.9 L (34.0-46.0) % MCV 89.9 (84.0-98.0) fL MCH 27.9 L (28.2-33.3) pg MCHC 31.0 L (31.7-36.0) g/dL RDW 14.6 H (11.2-14.1) % Plt Count 188 (150-350) K/uL Neut % (Auto) 72.2 (45.0-80.0) % Lymph % (Auto) 18.6 (10.0-50.0) % [place] % (Auto) 7.6 (2.0-14.0) % Eos % (Auto) 1.2 (0.0-5.0) % Baso % (Auto) 0.4 (0.0-2.0) % Neut # (Auto) 3.61 (1.40-7.00) K/uL Lymph # (Auto) 0.93 (0.50-3.50) K/uL [place] # (Auto) 0.38 (0.00-1.00) K/uL Eos # (Auto) 0.06 (0.00-0.50) K/uL Baso # (Auto) 0.02 (0.00-0.20) K/uL PT 21.2 H D (9.5-12.0) SEC INR 2.2 APTT (24.5-32.8) SEC Sodium (136-145) mmol/L Potassium (3.5-5.1) mmol/L Chloride (98-107) mmol/L Carbon Dioxide (21.0-32.0) mmol/L Anion Gap (7-15) meq/L BUN (7-18) mg/dL Creatinine (0.51-1.17) mg/dL Est Cr Clr Drug Dosing Estimated GFR (MDRD) mL/min Glucose (70-99) mg/dL Lactic Acid (0.4-2.0) mmol/L Calcium (8.5-10.1) mg/dL Magnesium (1.8-2.4) mg/dL Total Bilirubin (0.2-1.0) mg/dL AST (15-37) U/L ALT (12-78) U/L Alkaline Phosphatase (46-116) IU/L Troponin I High Sens (<=51) ng/L C-Reactive Protein (<=0.9) mg/dL Total Protein (6.4-8.2) g/dL Albumin (3.4-5.0) g/dL Lipase (73-393) U/L Specimen Type Urine Color Urine Appearance Urine pH (5.0-9.0) Ur Specific [place] (1.005-1.030) Urine Protein (NEGATIVE) mg/dL Urine Glucose (UA) (NEGATIVE) mg/dL Urine Ketones (NEGATIVE) mg/dL Urine Occult Blood (NEGATIVE) Urine Nitrite (NEGATIVE) Urine Bilirubin (NEGATIVE) Urine Urobilinogen (0.2-1.0) E.U./dL Ur Leukocyte Esterase (NEGATIVE) U Hyaline Cast (Auto) Urine RBC /HPF Urine WBC /HPF Ur Epithelial Cells /LPF Amorphous Sediment (0/HPF) /HPF Urine Bacteria (NONE TO FEW) /HPF SARS-CoV-2 RNA (BETO) Negative (NEGATIVE) Blood Type 10/02/20 10/02/20 Range/Units 06:52 06:52 WBC (4.0-10.2) K/uL RBC (3.77-5.09) M/uL Hgb (11.7-15.5) g/dL Hct (34.0-46.0) % MCV (84.0-98.0) fL MCH (28.2-33.3) pg MCHC (31.7-36.0) g/dL RDW (11.2-14.1) % Plt Count (150-350) K/uL Neut % (Auto) (45.0-80.0) % Lymph % (Auto) (10.0-50.0) % [place] % (Auto) (2.0-14.0) % Eos % (Auto) (0.0-5.0) % Baso % (Auto) (0.0-2.0) % Neut # (Auto) (1.40-7.00) K/uL Lymph # (Auto) (0.50-3.50) K/uL [place] # (Auto) (0.00-1.00) K/uL Eos # (Auto) (0.00-0.50) K/uL Baso # (Auto) (0.00-0.20) K/uL PT 14.2 H D (9.5-12.0) SEC INR 1.4 APTT 25.6 (24.5-32.8) SEC Sodium 143 (136-145) mmol/L Potassium 3.9 (3.5-5.1) mmol/L Chloride 108 H (98-107) mmol/L Carbon Dioxide 31.5 (21.0-32.0) mmol/L Anion Gap 7.4 (7-15) meq/L BUN 13 (7-18) mg/dL Creatinine 0.55 (0.51-1.17) mg/dL Est Cr Clr Drug Dosing 68.82 Estimated GFR (MDRD) > 60 mL/min Glucose 104 H (70-99) mg/dL Lactic Acid (0.4-2.0) mmol/L Calcium 8.6 (8.5-10.1) mg/dL Magnesium (1.8-2.4) mg/dL Total Bilirubin (0.2-1.0) mg/dL AST (15-37) U/L ALT (12-78) U/L Alkaline Phosphatase (46-116) IU/L Troponin I High Sens (<=51) ng/L C-Reactive Protein (<=0.9) mg/dL Total Protein (6.4-8.2) g/dL Albumin (3.4-5.0) g/dL Lipase (73-393) U/L Specimen Type Urine Color Urine Appearance Urine pH (5.0-9.0) Ur Specific [place] (1.005-1.030) Urine Protein (NEGATIVE) mg/dL Urine Glucose (UA) (NEGATIVE) mg/dL Urine Ketones (NEGATIVE) mg/dL Urine Occult Blood (NEGATIVE) Urine Nitrite (NEGATIVE) Urine Bilirubin (NEGATIVE) Urine Urobilinogen (0.2-1.0) E.U./dL Ur Leukocyte Esterase (NEGATIVE) U Hyaline Cast (Auto) Urine RBC /HPF Urine WBC /HPF Ur Epithelial Cells /LPF Amorphous Sediment (0/HPF) /HPF Urine Bacteria (NONE TO FEW) /HPF SARS-CoV-2 RNA (BETO) (NEGATIVE) Blood Type Med Orders - Current: Current Medications Acetaminophen (Acetaminophen 325 Mg Tab) 650 mg PO Q4H PRN PRN Reason: Pain (Mild 1-3)/fever Albuterol (Albuterol 0.083% 2.5 Mg/3 Ml Neb Soln) 2.5 mg INH DAILYRT [facility] Last Admin: 10/02/20 09:12 Dose: 2.5 mg Documented by: Albuterol (Albuterol 0.083% 2.5 Mg/3 Ml Neb Soln) 2.5 mg NEB Q4HRRT PRN PRN Reason: Dyspnea Last Admin: 10/02/20 06:24 Dose: 2.5 mg Documented by: Arformoterol Tartrate (Arformoterol 15 Mcg/2 Ml Neb Soln) 15 mcg INH [id number] [facility] Last Admin: 10/02/20 09:13 Dose: 15 mcg Documented by: Atorvastatin Calcium (Atorvastatin 10 Mg Tab) 10 mg PO BEDTIME [facility] Last Admin: 10/01/20 20:01 Dose: 10 mg Documented by: Benzonatate (Benzonatate 100 Mg Cap) 100 mg PO TID [facility] Last Admin: 10/02/20 12:27 Dose: 100 mg Documented by: Bisacodyl (Bisacodyl 5 Mg Tab) 5 mg PO DAILY PRN PRN Reason: Constipation Budesonide (Budesonide 0.5 Mg/2 Ml Neb Susp) 0.5 mg NEB BIDRT [facility] Last Admin: 10/02/20 09:12 Dose: 0.5 mg Documented by: Citalopram Hydrobromide (Citalopram 20 Mg Tab) 20 mg PO DAILY [facility] Last Admin: 10/02/20 09:08 Dose: 20 mg Documented by: Furosemide (Furosemide 20 Mg Tab) 20 mg PO DAILY [facility] Last Admin: 10/02/20 09:08 Dose: 20 mg Documented by: Sodium Chloride (Normal Saline) 1,000 mls @ 1,000 mls/hr IV ASDIRECTED [facility] Last Admin: 10/01/20 15:45 Dose: 1,000 mls/hr Documented by: Ipratropium [place] (Ipratropium 0.02% 0.5 Mg/2.5 Ml Neb Soln) 0.5 mg INH TIDRT [facility] Last Admin: 10/02/20 09:13 Dose: 0.5 mg Documented by: Levetiracetam (Levetiracetam 500 Mg Tab) 500 mg PO BID [facility] Last Admin: 10/02/20 09:08 Dose: 500 mg Documented by: Lorazepam (Lorazepam 1 Mg Tab) 1 mg PO TID PRN PRN Reason: Anxiety Non-Formulary Medication (Roflumilast [Daliresp]) 1 tab PO DAILY [facility] Ondansetron HCl (Ondansetron 4 Mg Tab.Dis) 4 mg PO Q4H PRN PRN Reason: Nausea/Vomiting Potassium Chloride (Potassium Chloride 20 Meq Tab.Er) 20 meq PO BIDMEALS [place] Last Admin: 10/02/20 09:07 Dose: 20 meq Documented by: Sodium Chloride (Sodium Chloride 0.9% 10 Ml Syringe) 10 ml FLUSH ASDIRECTED PRN PRN Reason: Keep Vein Open Last Admin: 10/02/20 09:04 Dose: 10 ml Documented by: Discontinued Medications Factor IX Complex Human/ (Factor IX (Pha)) 0 mls @ 2,500 mls/hr IV ONETIME ONE Stop: 10/01/20 17:16 Last Admin: 10/01/20 18:21 Dose: Not Given Documented by: Levetiracetam 1,000 mg/ Sodium (Chloride) 110 mls @ 400 mls/hr IV ONETIME ONE Stop: 10/01/20 17:46 Last Admin: 10/01/20 17:27 Dose: 400 mls/hr Documented by: Phytonadione 10 mg/ Sodium (Chloride) 51 mls @ 100 mls/hr IV NOW ONE Stop: 10/01/20 18:22 Last Admin: 10/01/20 18:06 Dose: 100 mls/hr Documented by: Phytonadione 10 mg/ Sodium (Chloride) 51 mls @ 100 mls/hr IV ONETIME ONE Stop: 10/02/20 07:00 Last Admin: 10/02/20 09:04 Dose: 100 mls/hr Documented by: - Exam Quality Assessment: Supplemental Oxygen General: Alert, Oriented HEENT: Pupils Equal Neck: Supple Lungs: Decreased Breath Sounds (bases, stable) Cardiovascular: Regular Rate, Regular Rhythm GI/Abdominal Exam: Normal Bowel Sounds Extremities: Normal Inspection, Normal Range of Motion Neurological: No New Focal Deficit - Patient Data Lab Results Last 24 hrs: Laboratory Results - last 24 hr 10/01/20 10/01/20 10/01/20 Range/Units 15:00 15:00 15:00 WBC 6.8 (4.0-10.2) K/uL RBC 3.99 (3.77-5.09) M/uL Hgb 11.1 L (11.7-15.5) g/dL Hct 35.2 (34.0-46.0) % MCV 88.2 (84.0-98.0) fL MCH 27.8 L (28.2-33.3) pg MCHC 31.5 L (31.7-36.0) g/dL RDW 14.4 H (11.2-14.1) % Plt Count 204 (150-350) K/uL Neut % (Auto) 80.6 H (45.0-80.0) % Lymph % (Auto) 10.4 (10.0-50.0) % [place] % (Auto) 8.0 (2.0-14.0) % Eos % (Auto) 0.7 (0.0-5.0) % Baso % (Auto) 0.3 (0.0-2.0) % Neut # (Auto) 5.45 (1.40-7.00) K/uL Lymph # (Auto) 0.70 (0.50-3.50) K/uL [place] # (Auto) 0.54 (0.00-1.00) K/uL Eos # (Auto) 0.05 (0.00-0.50) K/uL Baso # (Auto) 0.02 (0.00-0.20) K/uL PT (9.5-12.0) SEC INR APTT (24.5-32.8) SEC Sodium 141 (136-145) mmol/L Potassium 4.2 (3.5-5.1) mmol/L Chloride 105 (98-107) mmol/L Carbon Dioxide 32.3 H (21.0-32.0) mmol/L Anion Gap 7.9 (7-15) meq/L BUN 13 (7-18) mg/dL Creatinine 0.75 (0.51-1.17) mg/dL Est Cr Clr Drug Dosing TNP Estimated GFR (MDRD) > 60 mL/min Glucose 131 H (70-99) mg/dL Lactic Acid 0.9 (0.4-2.0) mmol/L Calcium 8.6 (8.5-10.1) mg/dL Magnesium 2.0 (1.8-2.4) mg/dL Total Bilirubin 0.4 (0.2-1.0) mg/dL AST 10 L (15-37) U/L ALT 22 (12-78) U/L Alkaline Phosphatase 107 (46-116) IU/L Troponin I High Sens < 4 (<=51) ng/L C-Reactive Protein 1.3 H (<=0.9) mg/dL Total Protein 6.2 L (6.4-8.2) g/dL Albumin 3.1 L (3.4-5.0) g/dL Lipase 58 L (73-393) U/L Specimen Type Urine Color Urine Appearance Urine pH (5.0-9.0) Ur Specific [place] (1.005-1.030) Urine Protein (NEGATIVE) mg/dL Urine Glucose (UA) (NEGATIVE) mg/dL Urine Ketones (NEGATIVE) mg/dL Urine Occult Blood (NEGATIVE) Urine Nitrite (NEGATIVE) Urine Bilirubin (NEGATIVE) Urine Urobilinogen (0.2-1.0) E.U./dL Ur Leukocyte Esterase (NEGATIVE) U Hyaline Cast (Auto) Urine RBC /HPF Urine WBC /HPF Ur Epithelial Cells /LPF Amorphous Sediment (0/HPF) /HPF Urine Bacteria (NONE TO FEW) /HPF SARS-CoV-2 RNA (BETO) (NEGATIVE) Blood Type 10/01/20 10/01/20 10/01/20 Range/Units 15:00 15:00 15:20 WBC (4.0-10.2) K/uL RBC (3.77-5.09) M/uL Hgb (11.7-15.5) g/dL Hct (34.0-46.0) % MCV (84.0-98.0) fL MCH (28.2-33.3) pg MCHC (31.7-36.0) g/dL RDW (11.2-14.1) % Plt Count (150-350) K/uL Neut % (Auto) (45.0-80.0) % Lymph % (Auto) (10.0-50.0) % [place] % (Auto) (2.0-14.0) % Eos % (Auto) (0.0-5.0) % Baso % (Auto) (0.0-2.0) % Neut # (Auto) (1.40-7.00) K/uL Lymph # (Auto) (0.50-3.50) K/uL [place] # (Auto) (0.00-1.00) K/uL Eos # (Auto) (0.00-0.50) K/uL Baso # (Auto) (0.00-0.20) K/uL PT 35.2 H D (9.5-12.0) SEC INR 3.7 APTT (24.5-32.8) SEC Sodium (136-145) mmol/L Potassium (3.5-5.1) mmol/L Chloride (98-107) mmol/L Carbon Dioxide (21.0-32.0) mmol/L Anion Gap (7-15) meq/L BUN (7-18) mg/dL Creatinine (0.51-1.17) mg/dL Est Cr Clr Drug Dosing Estimated GFR (MDRD) mL/min Glucose (70-99) mg/dL Lactic Acid (0.4-2.0) mmol/L Calcium (8.5-10.1) mg/dL Magnesium (1.8-2.4) mg/dL Total Bilirubin (0.2-1.0) mg/dL AST (15-37) U/L ALT (12-78) U/L Alkaline Phosphatase (46-116) IU/L Troponin I High Sens (<=51) ng/L C-Reactive Protein (<=0.9) mg/dL Total Protein (6.4-8.2) g/dL Albumin (3.4-5.0) g/dL Lipase (73-393) U/L Specimen Type Urincc Urine Color Yellow Urine Appearance Cloudy Urine pH 8.5 (5.0-9.0) Ur Specific [place] 1.020 (1.005-1.030) Urine Protein Negative (NEGATIVE) mg/dL Urine Glucose (UA) Negative (NEGATIVE) mg/dL Urine Ketones Negative (NEGATIVE) mg/dL Urine Occult Blood Trace-intact H (NEGATIVE) Urine Nitrite Negative (NEGATIVE) Urine Bilirubin Negative (NEGATIVE) Urine Urobilinogen 0.2 (0.2-1.0) E.U./dL Ur Leukocyte Esterase Negative (NEGATIVE) U Hyaline Cast (Auto) Occasional Urine RBC 0-5 /HPF Urine WBC 0-5 /HPF Ur Epithelial Cells Few /LPF Amorphous Sediment Moderate H (0/HPF) /HPF Urine Bacteria Occasional (NONE TO FEW) /HPF SARS-CoV-2 RNA (BETO) (NEGATIVE) Blood Type A POSITIVE 10/01/20 10/01/20 10/02/20 Range/Units 15:20 21:20 06:52 WBC 5.0 (4.0-10.2) K/uL RBC 3.77 (3.77-5.09) M/uL Hgb 10.5 L (11.7-15.5) g/dL Hct 33.9 L (34.0-46.0) % MCV 89.9 (84.0-98.0) fL MCH 27.9 L (28.2-33.3) pg MCHC 31.0 L (31.7-36.0) g/dL RDW 14.6 H (11.2-14.1) % Plt Count 188 (150-350) K/uL Neut % (Auto) 72.2 (45.0-80.0) % Lymph % (Auto) 18.6 (10.0-50.0) % [place] % (Auto) 7.6 (2.0-14.0) % Eos % (Auto) 1.2 (0.0-5.0) % Baso % (Auto) 0.4 (0.0-2.0) % Neut # (Auto) 3.61 (1.40-7.00) K/uL Lymph # (Auto) 0.93 (0.50-3.50) K/uL [place] # (Auto) 0.38 (0.00-1.00) K/uL Eos # (Auto) 0.06 (0.00-0.50) K/uL Baso # (Auto) 0.02 (0.00-0.20) K/uL PT 21.2 H D (9.5-12.0) SEC INR 2.2 APTT (24.5-32.8) SEC Sodium (136-145) mmol/L Potassium (3.5-5.1) mmol/L Chloride (98-107) mmol/L Carbon Dioxide (21.0-32.0) mmol/L Anion Gap (7-15) meq/L BUN (7-18) mg/dL Creatinine (0.51-1.17) mg/dL Est Cr Clr Drug Dosing Estimated GFR (MDRD) mL/min Glucose (70-99) mg/dL Lactic Acid (0.4-2.0) mmol/L Calcium (8.5-10.1) mg/dL Magnesium (1.8-2.4) mg/dL Total Bilirubin (0.2-1.0) mg/dL AST (15-37) U/L ALT (12-78) U/L Alkaline Phosphatase (46-116) IU/L Troponin I High Sens (<=51) ng/L C-Reactive Protein (<=0.9) mg/dL Total Protein (6.4-8.2) g/dL Albumin (3.4-5.0) g/dL Lipase (73-393) U/L Specimen Type Urine Color Urine Appearance Urine pH (5.0-9.0) Ur Specific [place] (1.005-1.030) Urine Protein (NEGATIVE) mg/dL Urine Glucose (UA) (NEGATIVE) mg/dL Urine Ketones (NEGATIVE) mg/dL Urine Occult Blood (NEGATIVE) Urine Nitrite (NEGATIVE) Urine Bilirubin (NEGATIVE) Urine Urobilinogen (0.2-1.0) E.U./dL Ur Leukocyte Esterase (NEGATIVE) U Hyaline Cast (Auto) Urine RBC /HPF Urine WBC /HPF Ur Epithelial Cells /LPF Amorphous Sediment (0/HPF) /HPF Urine Bacteria (NONE TO FEW) /HPF SARS-CoV-2 RNA (BETO) Negative (NEGATIVE) Blood Type 10/02/20 10/02/20 Range/Units 06:52 06:52 WBC (4.0-10.2) K/uL RBC (3.77-5.09) M/uL Hgb (11.7-15.5) g/dL Hct (34.0-46.0) % MCV (84.0-98.0) fL MCH (28.2-33.3) pg MCHC (31.7-36.0) g/dL RDW (11.2-14.1) % Plt Count (150-350) K/uL Neut % (Auto) (45.0-80.0) % Lymph % (Auto) (10.0-50.0) % [place] % (Auto) (2.0-14.0) % Eos % (Auto) (0.0-5.0) % Baso % (Auto) (0.0-2.0) % Neut # (Auto) (1.40-7.00) K/uL Lymph # (Auto) (0.50-3.50) K/uL [place] # (Auto) (0.00-1.00) K/uL Eos # (Auto) (0.00-0.50) K/uL Baso # (Auto) (0.00-0.20) K/uL PT 14.2 H D (9.5-12.0) SEC INR 1.4 APTT 25.6 (24.5-32.8) SEC Sodium 143 (136-145) mmol/L Potassium 3.9 (3.5-5.1) mmol/L Chloride 108 H (98-107) mmol/L Carbon Dioxide 31.5 (21.0-32.0) mmol/L Anion Gap 7.4 (7-15) meq/L BUN 13 (7-18) mg/dL Creatinine 0.55 (0.51-1.17) mg/dL Est Cr Clr Drug Dosing 68.82 Estimated GFR (MDRD) > 60 mL/min Glucose 104 H (70-99) mg/dL Lactic Acid (0.4-2.0) mmol/L Calcium 8.6 (8.5-10.1) mg/dL Magnesium (1.8-2.4) mg/dL Total Bilirubin (0.2-1.0) mg/dL AST (15-37) U/L ALT (12-78) U/L Alkaline Phosphatase (46-116) IU/L Troponin I High Sens (<=51) ng/L C-Reactive Protein (<=0.9) mg/dL Total Protein (6.4-8.2) g/dL Albumin (3.4-5.0) g/dL Lipase (73-393) U/L Specimen Type Urine Color Urine Appearance Urine pH (5.0-9.0) Ur Specific [place] (1.005-1.030) Urine Protein (NEGATIVE) mg/dL Urine Glucose (UA) (NEGATIVE) mg/dL Urine Ketones (NEGATIVE) mg/dL Urine Occult Blood (NEGATIVE) Urine Nitrite (NEGATIVE) Urine Bilirubin (NEGATIVE) Urine Urobilinogen (0.2-1.0) E.U./dL Ur Leukocyte Esterase (NEGATIVE) U Hyaline Cast (Auto) Urine RBC /HPF Urine WBC /HPF Ur Epithelial Cells /LPF Amorphous Sediment (0/HPF) /HPF Urine Bacteria (NONE TO FEW) /HPF SARS-CoV-2 RNA (BETO) (NEGATIVE) Blood Type Result Diagrams: 10/02/20 06:52 10/02/20 06:52 Imaging Impressions Last 24 hrs: similar size adn configuration of the bilateral mixed density subdural hematomas with assoicated mass effect causing mild to moderate effacement of the bilateral cerebral sulchi and moderate effacement of the suprasellar cistern. Stable from yesterday Sepsis Event Note - Evaluation Sepsis Screening Result: No Definite Risk - Focused Exam Vital Signs: Vital Signs Temp Pulse Resp BP Pulse Ox Pulse Ox 10/02/20 06:54 36.3 C 80 17 98/51 L 98 10/02/20 06:00 97 10/02/20 04:00 36.2 C 79 16 91/46 L 98 - Problem List & Annotations (1) Subdural hematoma SNOMED Code(s): 151439447 Code(s): S06.5X9A - TRAUM SUBDR HEM W LOC OF UNSP DURATION, INIT Status: Ac little traverse Current Visit: Yes Annotation/Comment:: 10/02/2020 stable from yesterday. Has been reversed with anticoagulation, needs follow up with neurosurgery in 3 weeks with repeat head ct unless new neurological changes (2) Weakness SNOMED Code(s): 43396252 Code(s): R53.1 - WEAKNESS Status: Acute Current Visit: Yes Annotation/Comment:: Physical therapy evaluation. Fall risk at home. can not lift her. Concern for need for rehab prior to home and prior to daughter moving here. (3) COPD (chronic obstructive pulmonary disease) SNOMED Code(s): 72788001 Code(s): J44.9 - CHRONIC OBSTRUCTIVE PULMONARY DISEASE, UNSPECIFIED Status: Acute Priority: High Current Visit: No Qualifiers: COPD type: emphysema Emphysema type: panlobular Qualified Code(s): J43.1 - Panlobular emphysema Annotation/Comment:: 10/02 stable continue chronic cares previous noted O2 dependant COPD with no recent history of hypoxia or increased oxygen re quirement. Note previous steroid dependency. No recent history of fever or bronchitic type symptoms despite mildly elevated CRP. Decreased exercise tolerance likely secondary to her CHF. Patient did receive her influenza booster this season. Note negative influenza and COVID-19 test today was negative with patient already receiving her complete Moderna immunization as above. - Problem List Review Problem List Initiated/Reviewed/Updated: Yes - My Orders Last 24 Hours: My Active Orders 10/01/20 14:37 Chest 1V Frontal [CR] Stat Head wo Cont [CT] Stat Sodium Chloride 0.9% [Saline Flush] 10 ml FLUSH ASDIRECTED PRN Peripheral IV Insertion Adult [OM.PC] Routine 10/01/20 14:38 EKG Documentation Completion [RC] ASDIRECTED 10/01/20 14:45 Sodium Chloride 0.9% [Normal Saline] 1,000 ml IV ASDIRECTED 10/01/20 17:39 Admission Status [Patient Status] [ADT] Routine 10/01/20 18:56 Blood Transfusion Reflex Orders [OM.PC] Routine Transfuse Fresh Frozen Plasma [COMM] Stat 10/01/20 18:58 Height and Weight [RC] DAILY May Shower [RC] ASDIRECTED Oxygen Therapy [RC] 18 Up With Assistance [RC] ASDIRECTED VTE/DVT Education [RC] PER UNIT ROUTINE Acetaminophen [TylenoL] 650 mg PO Q4H PRN Ondansetron [Zofran ODT] 4 mg PO Q4H PRN bisacodyL [Dulcolax] 5 mg PO DAILY PRN Anticoagulation Contraindications VTE [AST] Per Unit Routine Resuscitation Status Routine 10/01/20 19:01 Intake and Output [RC] 06,18 10/01/20 19:02 Antiembolic Devices [RC] 08,20 Sequential Compression Device [OM.PC] Per Unit Routine 10/01/20 19:06 Communication Order [RC] STAT 10/01/20 19:07 LORazepam [Ativan] 1 mg PO TID PRN 10/01/20 19:09 RT Aerosol Therapy [RC] ASDIRECTED RT Post Treatment Assessment [RC] Click to Edit RT Pre-Treatment Assessment [RC] Click to Edit 10/01/20 20:00 Arformoterol [Brovana] 15 mcg INH [id number] Budesonide [Pulmicort] 0.5 mg NEB BIDRT Ipratropium [Atrovent] 0.5 mg INH TIDRT atorvaSTATin [Lipitor] 10 mg PO BEDTIME 10/02/20 06:10 Albuterol [Proventil Neb Soln] 2.5 mg NEB Q4HRRT PRN 10/02/20 06:11 RT Aerosol Therapy [RC] ASDIRECTED 10/02/20 06:54 Vital Signs [RC] Q8H 10/02/20 Breakfast Regular Diet [DIET] Potassium Chloride [Klor-Con M20] 20 meq PO BIDMEALS 10/02/20 08:00 Head wo Cont [CT] Routine Albuterol [Proventil Neb Soln] 2.5 mg INH DAILYRT Benzonatate [Tessalon Perles] 100 mg PO TID Citalopram [Celexa] 20 mg PO DAILY Furosemide [Lasix] 20 mg PO DAILY Roflumilast [Daliresp] 1 tab PO DAILY levETIRAcetam [Keppra] 500 mg PO BID 10/02/20 11:08 Dietary Supplements [RC] BIDAC 10/02/20 11:13 Consult to Physical Therapy [PT Evaluation and Treatment] [CONS] Routine 10/02/20 17:00 INR,PT,PROTHROMBIN TIME [COAG] Routine - Assessment Assessment:: acute on chronic subdural hematoma with stability. has been reversed with anticogulation weakness, needs rehab - Plan Plan:: consult physical therapy. Consider swingbed or residential. Social work and nursing is working on this.
[2020-10-02] MEDS: atorvaSTATin 10 MG Tab PO SCH (19:16)
--- NOTE | 2020-10-02 19:31 | PCM.SN.2 ---
- Free Text/Narrative Note: Patient qualifies for swingbed. needs two more inapatient days for qualification. medically stable, no further bleeding on scan and no new neurological problems. INR still at 1.4 today. will continue with orders and hand off care to new provider in the morning
--- NOTE | 2020-10-03 07:07 | PCM.SN.2 ---
- Free Text/Narrative Note: Patient has been doing well without neurological changes. Physical therapy has qualified her for swingbed. This will happen after 10/04. report given to provider coming on board for coverage. no new orders Vital Signs - 24 hr 10/02/20 10/02/20 14:54 21:58 Temperature [ 36.1 C 35.8 C L Temporal] Pulse, 73 74 Peripheral [ Left Pulse Oximetry] Respiratory 17 19 Rate Blood Pressure 108/54 L [Left Upper Arm ] Blood Pressure 106/61 [Right Upper Arm] O2 Sat by Pulse 100 99 Oximetry
[2020-10-03] MEDS: Budesonide 0.5 MG/2 ML Neb Susp NEB SCH ×2 (07:35→19:52)
[2020-10-03] MEDS: levETIRAcetam 500 MG Tab PO SCH ×2 (07:36→17:04)
[2020-10-03] MEDS: Benzonatate 100 MG Cap PO SCH ×3 (07:36→17:05)
[2020-10-03] MEDS: Ipratropium 0.02% 0.5 MG/2.5 ML Neb Soln INH SCH ×3 (07:36→19:53)
[2020-10-03] MEDS: Citalopram 20 MG Tab PO SCH (07:36)
[2020-10-03] MEDS: Furosemide 20 MG Tab PO SCH (07:36)
[2020-10-03] MEDS: Potassium Chloride 20 MEQ Tab.ER PO SCH ×2 (07:36→17:05)
[2020-10-03] MEDS: Albuterol 0.083% 2.5 MG/3 ML Neb Soln INH SCH (07:36)
[2020-10-03] MEDS: Arformoterol 15 MCG/2 ML Neb Soln INH SCH ×2 (07:36→19:53)
--- NOTE | 2020-10-03 11:19 | PCM.PN ---
- General Info Date of Service: 10/03/20 Admission Dx/Problem (Free Text): acute on chronic subdural hematoma on warfarin Subjective Update: This is hospital day 2. Patient was admitted on 10-01-20 for acute on chronic subdural hemorrhages on Coumadin. Today the patient is resting comfortably. She offers no complaints. She has no headache visual acuity changes. No weakness dizziness lightheadedness. She has been eating and drinking appropriately. No visual acuity changes. No paresthesias of her upper or lower extremities. No change in the functionality of her upper or lower extremities. No chest pain no shortness of breath or difficulty breathing. No cough or congestion. No abdominal pain. No nausea or vomiting. No fever no chills. No hematuria dysuria urinary frequency. She had a bowel movement yesterday. She really feels quite well. She does have what she reports is a chronic fine tremor to her upper extremities which is at baseline. Functional Status: Reports: Pain Controlled. Denies: New Symptoms - Patient Data Vitals - Most Recent: Last Vital Signs Temp 97 F 10/03/20 07:41 Pulse 80 10/03/20 07:41 Resp 20 10/03/20 07:41 BP 102/50 L 10/03/20 07:41 Pulse Ox 100 10/03/20 07:41 Weight - Most Recent: 124 lb 12.8 oz I&O - Last 24 Hours: Intake & Output 10/02/20 10/03/20 10/03/20 22:59 06:59 14:59 Intake Total 1000 200 480 Output Total 400 Balance 600 200 480 Lab Results Last 24 Hours: Laboratory Results - last 24 hr 10/02/20 Range/Units 16:55 INR 1.4 Med Orders - Current: Current Medications Acetaminophen (Acetaminophen 325 Mg Tab) 650 mg PO Q4H PRN PRN Reason: Pain (Mild 1-3)/fever Albuterol (Albuterol 0.083% 2.5 Mg/3 Ml Neb Soln) 2.5 mg INH DAILYRT [place] Last Admin: 10/03/20 07:36 Dose: 2.5 mg Documented by: Albuterol (Albuterol 0.083% 2.5 Mg/3 Ml Neb Soln) 2.5 mg NEB Q4HRRT PRN PRN Reason: Dyspnea Last Admin: 10/02/20 06:24 Dose: 2.5 mg Documented by: Arformoterol Tartrate (Arformoterol 15 Mcg/2 Ml Neb Soln) 15 mcg INH [id number] [facility] Last Admin: 10/03/20 07:36 Dose: 15 mcg Documented by: Atorvastatin Calcium (Atorvastatin 10 Mg Tab) 10 mg PO BEDTIME [facility] Last Admin: 10/02/20 19:16 Dose: 10 mg Documented by: Benzonatate (Benzonatate 100 Mg Cap) 100 mg PO TID [facility] Last Admin: 10/03/20 07:36 Dose: 100 mg Documented by: Bisacodyl (Bisacodyl 5 Mg Tab) 5 mg PO DAILY PRN PRN Reason: Constipation Budesonide (Budesonide 0.5 Mg/2 Ml Neb Susp) 0.5 mg NEB BIDRT [facility] Last Admin: 10/03/20 07:35 Dose: 0.5 mg Documented by: Citalopram Hydrobromide (Citalopram 20 Mg Tab) 20 mg PO DAILY [facility] Last Admin: 10/03/20 07:36 Dose: 20 mg Documented by: Furosemide (Furosemide 20 Mg Tab) 20 mg PO DAILY [facility] Last Admin: 10/03/20 07:36 Dose: 20 mg Documented by: Ipratropium [place] (Ipratropium 0.02% 0.5 Mg/2.5 Ml Neb Soln) 0.5 mg INH TIDRT [facility] Last Admin: 10/03/20 07:36 Dose: 0.5 mg Documented by: Levetiracetam (Levetiracetam 500 Mg Tab) 500 mg PO BID [facility] Last Admin: 10/03/20 07:36 Dose: 500 mg Documented by: Lorazepam (Lorazepam 1 Mg Tab) 1 mg PO TID PRN PRN Reason: Anxiety Non-Formulary Medication (Roflumilast [Daliresp]) 1 tab PO DAILY [facility] Ondansetron HCl (Ondansetron 4 Mg Tab.Dis) 4 mg PO Q4H PRN PRN Reason: Nausea/Vomiting Potassium Chloride (Potassium Chloride 20 Meq Tab.Er) 20 meq PO BIDMEALS [facility] Last Admin: 10/03/20 07:36 Dose: 20 meq Documented by: Sodium Chloride (Sodium Chloride 0.9% 10 Ml Syringe) 10 ml FLUSH ASDIRECTED PRN PRN Reason: Keep Vein Open Last Admin: 10/02/20 19:17 Dose: 10 ml Documented by: Discontinued Medications Sodium Chloride (Normal Saline) 1,000 mls @ 1,000 mls/hr IV ASDIRECTED [place] Last Admin: 10/01/20 15:45 Dose: 1,000 mls/hr Documented by: Factor IX Complex Human/ (Factor IX (Pha)) 0 mls @ 2,500 mls/hr IV ONETIME ONE Stop: 10/01/20 17:16 Last Admin: 10/01/20 18:21 Dose: Not Given Documented by: Levetiracetam 1,000 mg/ Sodium (Chloride) 110 mls @ 400 mls/hr IV ONETIME ONE Stop: 10/01/20 17:46 Last Admin: 10/01/20 17:27 Dose: 400 mls/hr Documented by: Phytonadione 10 mg/ Sodium (Chloride) 51 mls @ 100 mls/hr IV NOW ONE Stop: 10/01/20 18:22 Last Admin: 10/01/20 18:06 Dose: 100 mls/hr Documented by: Phytonadione 10 mg/ Sodium (Chloride) 51 mls @ 100 mls/hr IV ONETIME ONE Stop: 10/02/20 07:00 Last Admin: 10/02/20 09:04 Dose: 100 mls/hr Documented by: - Patient Data Lab Results Last 24 hrs: Laboratory Results - last 24 hr 10/02/20 Range/Units 16:55 INR 1.4 Result Diagrams: 10/02/20 06:52 10/02/20 06:52 Sepsis Event Note - Evaluation Sepsis Screening Result: No Definite Risk - Focused Exam Vital Signs: Vital Signs Temp Pulse Resp BP Pulse Ox 10/03/20 07:41 97 F 80 20 102/50 L 100 - Problem List & Annotations (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 There is no indication at this time for a provoked DVT for long-term anticoagulation therapy. We will discontinue her therapy which was done previously and will not need to be reinitiated upon discharge. (2) Subdural hematoma SNOMED Code(s): 813176394 Code(s): S06.5X9A - TRAUM SUBDR HEM W LOC OF UNSP DURATION, INIT Status: Acute Current Visit: Yes Annotation/Comment:: Neurological exam today rather unremarkable other than a fine tremor of her upper extremities. This is most likely chronic as she has had chronically. INR today of 1.4 last received Vit K 10mg 10/02/20. Did receive one unit of FFP previously on 10/01/20. INR 1.4 probably her baseline. No intervention at this time. Repeat CT in 3 weeks for following. (3) Weakness SNOMED Code(s): 12444672 Code(s): R53.1 - WEAKNESS Status: Acute Current Visit: Yes Annotation/Comment:: Weakness most likely multifactorial. Physical therapy to evaluate for possible swing bed placement. Fall risk at home. Will need rehab prior to returning home until her daughter moved here and has assistance. (4) CHF (congestive heart failure) SNOMED Code(s): 16719741 Code(s): I50.9 - HEART FAILURE, UNSPECIFIED Status: Acute Priority: High Current Visit: No Onset Date: 07/23/19 Qualifiers: Heart failure type: unspecified Heart failure chronicity: acute Qualified Code(s): I50.9 - Heart failure, unspecified Annotation/Comment:: No concern of congestive heart failure at this time. No chest pain no shortness of breath. No ACS type symptoms. Continue home therapies. Stable. (5) COPD (chronic obstructive pulmonary disease) SNOMED Code(s): 32600461 Code(s): J44.9 - CHRONIC OBSTRUCTIVE PULMONARY DISEASE, UNSPECIFIED Status: Acute Priority: High Current Visit: No Qualifiers: COPD type: emphysema Emphysema type: panlobular Qualified Code(s): J43.1 - Panlobular emphysema Annotation/Comment:: Continue home therapies. No signs of exacerbation. Tolerating home therapies. We will continue on oxygen. No steroids at this time. Stable. Continue to monitor (6) Anemia SNOMED Code(s): 533007793 Code(s): D64.9 - ANEMIA, UNSPECIFIED Status: Acute Current Visit: Yes Qualifiers: Anemia type: unspecified type Qualified Code(s): D64.9 - Anemia, unspecified Annotation/Comment:: Patient's hemoglobin on 07-10-20 was 13.5, 07-27-20 was 10.8 and today is 10.5. Unsure of the cause of her anemia. Could be multifactorial it does appear that she has some decrease in her MCV and MCH which could be concerning for iron deficiency or could be related to the recent bleeding. Anemia panel has been ordered. Stool for occult blood. No other sites of bleeding. Treat accordingly after the work-up. - Problem List Review Problem List Initiated/Reviewed/Updated: Yes - Assessment Assessment:: Assessment/plan as above. Continue previous therapies. Repeat labs in the morning. Evaluate anemia. Most likely swing bed tomorrow. VTE: Active acute on chronic subdural bleeds teds at this time no anticoagulation. Sepsis: No signs of sepsis at this time. Continue to monitor. CODE STATUS DNR/DNI. Patient needs continued inpatient management at this time to ensure that her INR is still appropriate. She also needs evaluation for her anemia. Continue with therapies as previous. Most likely switch to swing bed tomorrow.
[2020-10-03] MEDS: atorvaSTATin 10 MG Tab PO SCH (19:52)
[2020-10-03] MEDS: Sodium Chloride 0.9% 10 ML Syringe FLUSH PRN (19:53)
[2020-10-04] MEDS: Benzonatate 100 MG Cap PO SCH (07:32)
[2020-10-04] MEDS: Potassium Chloride 20 MEQ Tab.ER PO SCH (07:33)
[2020-10-04] MEDS: levETIRAcetam 500 MG Tab PO SCH (07:34)
[2020-10-04] MEDS: Citalopram 20 MG Tab PO SCH (07:36)
[2020-10-04] MEDS: Furosemide 20 MG Tab PO SCH (07:37)
[2020-10-04] MEDS ORDERED: Ferrous Sulfate 325 MG Tab PO SCH (08:00)
[2020-10-04 08:07] LABS: ANION GAP 4.3 meq/L (7-15); CHLORIDE,CL 107 mmol/L (98-107); SODIUM,NA 143 mmol/L (136-145)
[2020-10-04 08:22] LABS: PTT,PARTIAL THROMBOPLSTIN TIME 26.9 SEC (24.5-32.8)
[2020-10-04] MEDS: Albuterol 0.083% 2.5 MG/3 ML Neb Soln INH SCH (08:35)
[2020-10-04] MEDS: Budesonide 0.5 MG/2 ML Neb Susp NEB SCH (08:36)
[2020-10-04] MEDS: Ipratropium 0.02% 0.5 MG/2.5 ML Neb Soln INH SCH (08:36)
[2020-10-04] MEDS: Arformoterol 15 MCG/2 ML Neb Soln INH SCH (08:36)
--- NOTE | 2020-10-04 13:12 | PCM.DCSUM1 ---
Discharge Summary - Hospital Course Brief History: This patient was admitted into the hospital on 10-01-20 with constricted chronic subdural and bilateral hematomas. This patient had increasing weakness and falls at home over the past couple of weeks. She is on Coumadin chronically for a provoked DVT approximately 10 years ago of surgery for Johnie with breast cancer. In consultation with neurosurgery in [place] was advised to bring patient monitor neuro status repeat CT at 24 hours and then at 3 weeks with a neurosurgery consult following. She is unable care for herself at home currently due to her declining health. Her daughter is moving to the area and she will be placed on swing bed if she is not safe to be at home by herself until she can have the appropriate assistant project engineer. She will chronic neurological deficits prior to this incidence she has a chronic tremor which continues. Otherwise no neurological acute change in the subdurals. 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 There is no indication at this time for a provoked DVT for long-term anticoagulation therapy. We will discontinue her therapy which was done previously and will not need to be reinitiated upon discharge. Her INR is at 1.4 which is problably her base line. No VTE prophylaxis at this time due to the acute bleeding episodes. (2) Subdural hematoma SNOMED Code(s): 638330549 ICD Code: S06.5X9A - TRAUM SUBDR HEM W LOC OF UNSP DURATION, INIT Status: Acute Problem Details: Unchanged Neurological exam today rather unremarkable other than a fine tremor of her upper extremities. This is most likely chronic as she has had chronically. INR today of 1.4 last received Vit K 10mg 10/02/20. Did receive one unit of FFP previously on 10/01/20. INR 1.4 probably her baseline. No intervention at this time. Repeat CT in [address] has been ordered for follow up and neurosurgical follow has been scheduled as well. (3) Weakness SNOMED Code(s): 94485533 ICD Code: R53.1 - WEAKNESS Status: Acute Problem Details: Weakness most likely multifactorial. Physical therapy to evaluate for possible swing bed placement. Fall risk at home. Will need rehab prior to returning home until her daughter moved here and has assistance. (4) CHF (congestive heart failure) SNOMED Code(s): 35666030 ICD Code: I50.9 - HEART FAILURE, UNSPECIFIED Status: Acute Priority: High Onset Date: 07/23/19 Problem Details: No concern of congestive heart failure at this time. No chest pain no shortness of breath. No ACS type symptoms. Continue home therapies. Stable. Qualifiers: Heart failure type: unspecified Heart failure chronicity: acute Qualified Code(s): I50.9 - Heart failure, unspecified (5) COPD (chronic obstructive pulmonary disease) SNOMED Code(s): 68831488 ICD Code: J44.9 - CHRONIC OBSTRUCTIVE PULMONARY DISEASE, UNSPECIFIED Status: Acute Priority: High Problem Details: Continue home therapies. No signs of exacerbation. Tolerating home therapies. We will continue on oxygen. No steroids at this time. Stable. Continue to monitor Qualifiers: COPD type: emphysema Emphysema type: panlobular Qualified Code(s): J43.1 - Panlobular emphysema (6) Anemia SNOMED Code(s): 342011073 ICD Code: D64.9 - ANEMIA, UNSPECIFIED Status: Acute Problem Details: Patient's hemoglobin level today 10.7 which is stable from yesterday. INR is 1.2. I did complete an anemia panel where her iron level was 26 which is quite low her TIBC which is 249 which is low she had a normal ferritin vitamin B12 and folate. This is clearly iron deficiency anemia her Hemoccult was negative. We will continue her iron supplementation and follow this. Qualifiers: Anemia type: iron deficiency - Patient Summary/Data Consults: Consultations 10/02/20 11:13 Consult to Physical Therapy [PT Evaluation and Treatment] [CONS] Routine 10/03/20 10:48 OT Evaluation and Treatment [CONS] Routine Hospital Course: This patient was brought to emergency department on 10/01/2020 with concerns of weakness and falls at home. She was found to have acute on chronic bilateral subdurals in the presence of long-term anticoagulation. This person is on Coumadin for either a DVT or a PE which was provoked following a breast surgery 10 years ago. At home she has had some falls due to declining health and physical ability at home. She was noted to be supratherapeutic upon arrival in the emergency department. She was given vitamin K and 1 unit of FFP. Neurosurgery was consulted and instructions were given to follow her neurological status repeat CT in 24 hours which was unchanged and a neurosurgery follow-up with CT at 3 weeks. Her INR has been reduced down to 1.2. She has had no other changes in her neurological exam. She does have a deficit of a prior tremor that she had prior to these falls. Otherwise her neurological exam is unremarkable. Her vital signs of been stable. She is unable to return home at this time due to her physical deconditioning. We will place her in a swing bed for continued therapy and monitoring. Once her family is able to assist her at home which should be in the next couple of weeks we will discharge the patient at that time from swing bed. I do not feel that there is any need for long-term anticoagulation for a provoked DVT this far out over 10 years. We will hold her Coumadin at this time. - Discharge Plan *PRESCRIPTION DRUG MONITORING PROGRAM REVIEWED*: Not Applicable *COPY OF PRESCRIPTION DRUG MONITORING REPORT IN PATIENT INGE: Not Applicable Home Medications: Home Meds Budesonide [Pulmicort] 0.5 mg IH BID@799,199902/07/19 [History] Albuterol Sulfate 1 ampule INH QAM 07/23/19 [History] Albuterol [Ventolin HFA] 2 puff INH Q4H PRN 07/23/19 [History] Arformoterol [Brovana] 15 mcg INH Q12HR 07/23/19 [History] Ipratropium [Atrovent] 0.5 mg INH TID@0800,1499,199907/23/19 [History] Benzonatate [Tessalon [place]] 100 mg PO TID 03/08/20 [History] Warfarin [Coumadin] 1 tab PO ASDIRECTED 03/08/20 [History] Roflumilast [Daliresp] 1 tab PO DAILY 05/27/20 [History] Phytonadione [Vitamin K] 100 mcg PO DAILY 07/10/20 [History] atorvaSTATin [Lipitor] 10 mg PO BEDTIME 07/10/20 [History] polyethylene glycoL 3350 [MiraLAX] 17 gm PO BEDTIME 07/10/20 [History] Furosemide [Lasix] 20 mg PO DAILY 07/27/20 [History] LORazepam [Ativan] 1 mg PO TID PRN 07/27/20 [History] Potassium Chloride 20 meq PO BIDMEALS #20 tablet.er 07/30/20 [Rx] Citalopram [Citalopram HBr] 20 mg PO DAILY 08/05/20 [History] Arformoterol [Brovana] 15 mcg NEB BIDRT neb 08/06/20 [Rx] Budesonide [Pulmicort] 0.5 mg NEB BIDRT neb 08/06/20 [Rx] Patient Handouts: Weakness, [id number], Dehydration, Adult, [id number] Forms: ED Department Discharge Referrals: PCP,None [Primary Care Provider] - - Discharge Summary/Plan Comment DC Time >30 min.: Yes Total # of Minutes for Discharge Time: 60 Discharge Summary/Plan Comment: Please use this note as the discharge summary from the acute stay in the hospital in her admission note for swing bed please - General Info Admission Dx/Problem (Free Text: acute on chronic subdural hematoma on warfarin Subjective Update: This is hospital day 3 of inpatient stay for this patient with acute on chronic bilateral subdurals following multiple falls at home who is on long-term anticoagulation with Coumadin. She has been off her Coumadin since her hospitalization. She really offers no complaints today. Her chronic tremor that she had prior to the subdurals is unchanged. She has no headache visual acuity changes. No weakness dizziness lightheadedness. No chest pain shortness of breath or difficulty breathing. Abdominal pain nausea vomiting. She has been eating and drinking appropriately. She has been voiding without assistance. No black or tarry stools or diarrhea. She is able to ambulate around the room with her walker with the assistance of the nursing staff as well. She offers no complaints today. Functional Status: Reports: Pain Controlled - Patient Data Vitals - Most Recent: Last Vital Signs Temp 96.2 F L 10/04/20 07:54 Pulse 73 10/04/20 07:54 Resp 24 H 10/04/20 07:54 BP 112/64 10/04/20 07:54 Pulse Ox 97 08/18/21 07:54 Weight - Most Recent: 125 lb 6.4 oz I&O - Last 24 hours: Intake & Output 10/03/20 10/04/20 10/04/20 22:59 06:59 14:59 Intake Total 510 200 240 Output Total 100 150 Balance 410 50 240 Lab Results - Last 24 hrs: Laboratory Results - last 24 hr 10/04/20 10/04/20 10/04/20 Range/Units 07:25 07:25 07:45 WBC 4.7 (4.0-10.2) K/uL RBC 3.94 (3.77-5.09) M/uL Hgb 10.7 L (11.7-15.5) g/dL Hct 34.8 (34.0-46.0) % MCV 88.3 (84.0-98.0) fL MCH 27.2 L (28.2-33.3) pg MCHC 30.7 L (31.7-36.0) g/dL RDW 14.0 (11.2-14.1) % Plt Count 210 (150-350) K/uL Neut % (Auto) 69.1 (45.0-80.0) % Lymph % (Auto) 20.1 (10.0-50.0) % [place] % (Auto) 8.7 (2.0-14.0) % Eos % (Auto) 1.7 (0.0-5.0) % Baso % (Auto) 0.4 (0.0-2.0) % Neut # (Auto) 3.27 (1.40-7.00) K/uL Lymph # (Auto) 0.95 (0.50-3.50) K/uL [place] # (Auto) 0.41 (0.00-1.00) K/uL Eos # (Auto) 0.08 (0.00-0.50) K/uL Baso # (Auto) 0.02 (0.00-0.20) K/uL PT 11.6 (9.5-12.0) SEC INR 1.2 APTT 26.9 (24.5-32.8) SEC Sodium 143 (136-145) mmol/L Potassium 3.8 (3.5-5.1) mmol/L Chloride 107 (98-107) mmol/L Carbon Dioxide 31.7 (21.0-32.0) mmol/L Anion Gap 4.3 L (7-15) meq/L BUN 12 (7-18) mg/dL Creatinine 0.59 (0.51-1.17) mg/dL Est Cr Clr Drug Dosing 64.16 mL/min Estimated GFR (MDRD) > 60 mL/min Glucose 108 H (70-99) mg/dL Calcium 8.7 (8.5-10.1) mg/dL ADAN Results - Last 24 hrs: Microbiology 10/03/20 17:09 Stool Occult Blood (ADAN) - Final Stool / Feces NEGATIVE OCCULT BLOOD REFERENCE RANGE: NEGATIVE Med Orders - Current: Current Medications Acetaminophen (Acetaminophen 325 Mg Tab) 650 mg PO Q4H PRN PRN Reason: Pain (Mild 1-3)/fever Albuterol (Albuterol 0.083% 2.5 Mg/3 Ml Neb Soln) 2.5 mg INH DAILYRT [facility] Last Admin: 10/04/20 08:35 Dose: 2.5 mg Documented by: Albuterol (Albuterol 0.083% 2.5 Mg/3 Ml Neb Soln) 2.5 mg NEB Q4HRRT PRN PRN Reason: Dyspnea Last Admin: 10/02/20 06:24 Dose: 2.5 mg Documented by: Arformoterol Tartrate (Arformoterol 15 Mcg/2 Ml Neb Soln) 15 mcg INH E00TIIN [facility] Last Admin: 10/04/20 08:36 Dose: 15 mcg Documented by: Atorvastatin Calcium (Atorvastatin 10 Mg Tab) 10 mg PO BEDTIME [facility] Last Admin: 10/03/20 19:52 Dose: 10 mg Documented by: Benzonatate (Benzonatate 100 Mg Cap) 100 mg PO TID [facility] Last Admin: 10/04/20 07:32 Dose: 100 mg Documented by: Bisacodyl (Bisacodyl 5 Mg Tab) 5 mg PO DAILY PRN PRN Reason: Constipation Budesonide (Budesonide 0.5 Mg/2 Ml Neb Susp) 0.5 mg NEB BIDRT [facility] Last Admin: 10/04/20 08:36 Dose: 0.5 mg Documented by: Citalopram Hydrobromide (Citalopram 20 Mg Tab) 20 mg PO DAILY [facility] Last Admin: 10/04/20 07:36 Dose: 20 mg Documented by: Ferrous Sulfate (Ferrous Sulfate 325 Mg Tab) 325 mg PO WITHBREAKFAST [facility] Last Admin: 10/04/20 07:34 Dose: 325 mg Documented by: Furosemide (Furosemide 20 Mg Tab) 20 mg PO DAILY [facility] Last Admin: 10/04/20 07:37 Dose: 20 mg Documented by: Ipratropium [place] (Ipratropium 0.02% 0.5 Mg/2.5 Ml Neb Soln) 0.5 mg INH TIDRT [facility] Last Admin: 10/04/20 08:36 Dose: 0.5 mg Documented by: Levetiracetam (Levetiracetam 500 Mg Tab) 500 mg PO BID [facility] Last Admin: 10/04/20 07:34 Dose: 500 mg Documented by: Lorazepam (Lorazepam 1 Mg Tab) 1 mg PO TID PRN PRN Reason: Anxiety Ondansetron HCl (Ondansetron 4 Mg Tab.Dis) 4 mg PO Q4H PRN PRN Reason: Nausea/Vomiting Potassium Chloride (Potassium Chloride 20 Meq Tab.Er) 20 meq PO BID@0730,1700 [facility] Last Admin: 10/04/20 07:33 Dose: 20 meq Documented by: Sodium Chloride (Sodium Chloride 0.9% 10 Ml Syringe) 10 ml FLUSH ASDIRECTED PRN PRN Reason: Keep Vein Open Last Admin: 10/03/20 19:53 Dose: 10 ml Documented by: Discontinued Medications Sodium Chloride (Normal Saline) 1,000 mls @ 1,000 mls/hr IV ASDIRECTED [facility] Last Admin: 10/01/20 15:45 Dose: 1,000 mls/hr Documented by: Factor IX Complex Human/ (Factor IX (Pha)) 0 mls @ 2,500 mls/hr IV ONETIME ONE Stop: 10/01/20 17:16 Last Admin: 10/01/20 18:21 Dose: Not Given Documented by: Levetiracetam 1,000 mg/ Sodium (Chloride) 110 mls @ 400 mls/hr IV ONETIME ONE Stop: 10/01/20 17:46 Last Admin: 10/01/20 17:27 Dose: 400 mls/hr Documented by: Phytonadione 10 mg/ Sodium (Chloride) 51 mls @ 100 mls/hr IV NOW ONE Stop: 10/01/20 18:22 Last Admin: 10/01/20 18:06 Dose: 100 mls/hr Documented by: Phytonadione 10 mg/ Sodium (Chloride) 51 mls @ 100 mls/hr IV ONETIME ONE Stop: 10/02/20 07:00 Last Admin: 10/02/20 09:04 Dose: 100 mls/hr Documented by: Non-Formulary Medication (Roflumilast [Daliresp]) 1 tab PO DAILY [facility] Last Admin: 10/04/20 08:46 Dose: 1 tab Documented by: Potassium Chloride (Potassium Chloride 20 Meq Tab.Er) 20 meq PO BIDMEALS [facility] Last Admin: 10/03/20 07:36 Dose: 20 meq Documented by: - Exam General: Reports: Alert, Oriented HEENT: Reports: Pupils Equal Neck: Reports: Supple Lungs: Reports: Clear to Auscultation, Normal Respiratory Effort Cardiovascular: Reports: Regular Rate, Regular Rhythm GI/Abdominal Exam: Normal Bowel Sounds, Soft, Non-Tender (Female) Exam: Deferred Rectal (Female) Exam: Deferred Back Exam: Reports: Normal Inspection, Full Range of Motion Extremities: Normal Inspection, Normal Range of Motion, Non-Tender, No Pedal Edema, Normal Capillary Refill Skin: Reports: Warm Neurological: Reports: No New Focal Deficit (She does have a fine tremor with purposeful movement. The tremor does not happen at rest. Moves all extremities round and equal to command. Cranial nerves II-XII are grossly intact.) Psy/Mental Status: Reports: Alert, Normal Affect *Q Meaningful Use (DIS) - VTE *Q VTE Anticoagulation Contraindications: Medical/Procedure Contrai
== END 2020-10-04 12:30 | disposition swing bed (61) | DRG 66 ==
LOC: LL.ED 14:05 → LL.MS 17:43 → UNDOADMIN 18:31 → UNDODISIN 10-04 12:30
PROVIDERS: ADMIT Physician Assistant; ATTEND Physician Assistant
DX: S06.5X9A Traumatic subdural hemorrhage with loss of consciousness of unspecified duration, initial encounter (principal); R53.1 Weakness; W19.XXXA Unspecified fall, initial encounter; I62.01 Nontraumatic acute subdural hemorrhage; I62.03 Nontraumatic chronic subdural hemorrhage; J43.1 Panlobular emphysema; D64.9 Anemia, unspecified; I42.9 Cardiomyopathy, unspecified; J44.9 Chronic obstructive pulmonary disease, unspecified; G47.30 Sleep apnea, unspecified; H54.7 Unspecified visual loss; I50.9 Heart failure, unspecified; E78.00 Pure hypercholesterolemia, unspecified; I49.9 Cardiac arrhythmia, unspecified; Z20.822 Contact with and (suspected) exposure to COVID-19; E86.0 Dehydration; K59.09 Other constipation; K21.9 Gastro-esophageal reflux disease without esophagitis; K57.90 Diverticulosis of intestine, part unspecified, without perforation or abscess without bleeding; M19.90 Unspecified osteoarthritis, unspecified site; Z92.3 Personal history of irradiation; M81.0 Age-related osteoporosis without current pathological fracture; G43.909 Migraine, unspecified, not intractable, without status migrainosus; F41.9 Anxiety disorder, unspecified; F32.9 Major depressive disorder, single episode, unspecified; E11.9 Type 2 diabetes mellitus without complications; Z79.51 Long term (current) use of inhaled steroids; E87.6 Hypokalemia; E66.9 Obesity, unspecified; Z85.3 Personal history of malignant neoplasm of breast; Z79.899 Other long term (current) drug therapy; Z79.01 Long term (current) use of anticoagulants; Z88.8 Allergy status to other drugs, medicaments and biological substances; Z91.041 Radiographic dye allergy status; Z86.718 Personal history of other venous thrombosis and embolism; Z99.81 Dependence on supplemental oxygen; Z90.12 Acquired absence of left breast and nipple; Z98.41 Cataract extraction status, right eye; Z98.42 Cataract extraction status, left eye; Z90.49 Acquired absence of other specified parts of digestive tract; Z87.891 Personal history of nicotine dependence
CPT/HCPCS: 36415; 36430; 70450; 71045; 80048; 80053; 81001; 82272; 82607; 82728; 82746; 83540; 83550; 83605; 83690; 83735; 84484; 85025; 85610; 85730; 86140; 86900; 86901; 93005; 93010; 94640; 96374; 97110-GP; 97162-GP; 97165-GO; 97530-GP; 99223; 99232; 99233; 99239; 99285-25; A9270-GY; J1953; J3430; J7030; J7613-GY; P9017; U0002

== ENCOUNTER 2020-10-04 12:40 | Inpatient (IN) | payer MEDICARE, BC ==
[2020-10-04] MEDS ORDERED: Acetaminophen 325 MG Tab PO PRN (13:13)
[2020-10-04] MEDS ORDERED: Sodium Chloride 0.9% 10 ML Syringe FLUSH PRN ×2 (13:13)
[2020-10-04] MEDS ORDERED: Bisacodyl 5 MG Tab PO PRN (13:13)
[2020-10-04] MEDS ORDERED: Ondansetron 4 MG Tab.DIS PO PRN (13:13)
[2020-10-04] MEDS: Ipratropium 0.02% 0.5 MG/2.5 ML Neb Soln INH SCH ×2 (14:44→20:34)
[2020-10-04] MEDS: Benzonatate 100 MG Cap PO SCH (17:12)
[2020-10-04] MEDS: levETIRAcetam 500 MG Tab PO SCH (17:12)
[2020-10-04] MEDS: Potassium Chloride 20 MEQ Tab.ER PO SCH (17:12)
[2020-10-04] MEDS: Arformoterol 15 MCG/2 ML Neb Soln INH SCH (20:34)
[2020-10-04] MEDS: atorvaSTATin 10 MG Tab PO SCH (20:34)
[2020-10-04] MEDS: Budesonide 0.5 MG/2 ML Neb Susp NEB SCH (20:34)
[2020-10-05] MEDS: Benzonatate 100 MG Cap PO SCH ×3 (07:52→17:45)
[2020-10-05] MEDS: Furosemide 20 MG Tab PO SCH (07:52)
[2020-10-05] MEDS: Ferrous Sulfate 325 MG Tab PO SCH (07:52)
[2020-10-05] MEDS: Citalopram 20 MG Tab PO SCH (07:52)
[2020-10-05] MEDS: levETIRAcetam 500 MG Tab PO SCH ×2 (07:52→17:44)
[2020-10-05] MEDS: Potassium Chloride 20 MEQ Tab.ER PO SCH ×2 (07:53→17:44)
[2020-10-05] MEDS: Albuterol 0.083% 2.5 MG/3 ML Neb Soln INH SCH (08:26)
[2020-10-05] MEDS: Ipratropium 0.02% 0.5 MG/2.5 ML Neb Soln INH SCH ×3 (08:26→20:28)
[2020-10-05] MEDS: Budesonide 0.5 MG/2 ML Neb Susp NEB SCH ×2 (08:27→20:28)
[2020-10-05] MEDS: Arformoterol 15 MCG/2 ML Neb Soln INH SCH ×2 (08:27→20:28)
[2020-10-05] MEDS: ROFLUMILAST PO SCH (08:44)
[2020-10-05] MEDS: atorvaSTATin 10 MG Tab PO SCH (20:28)
[2020-10-06] MEDS: levETIRAcetam 500 MG Tab PO SCH ×2 (07:41→17:46)
[2020-10-06] MEDS: Potassium Chloride 20 MEQ Tab.ER PO SCH ×2 (07:42→17:46)
[2020-10-06] MEDS: Citalopram 20 MG Tab PO SCH (07:42)
[2020-10-06] MEDS: Benzonatate 100 MG Cap PO SCH ×3 (07:42→17:46)
[2020-10-06] MEDS: Ferrous Sulfate 325 MG Tab PO SCH (07:42)
[2020-10-06] MEDS: Budesonide 0.5 MG/2 ML Neb Susp NEB SCH ×2 (07:43→20:15)
[2020-10-06] MEDS: Ipratropium 0.02% 0.5 MG/2.5 ML Neb Soln INH SCH ×3 (07:43→20:15)
[2020-10-06] MEDS: Furosemide 20 MG Tab PO SCH (07:43)
[2020-10-06] MEDS: Arformoterol 15 MCG/2 ML Neb Soln INH SCH ×2 (07:44→20:15)
[2020-10-06] MEDS: ROFLUMILAST PO SCH (07:45)
[2020-10-06] MEDS: Albuterol 0.083% 2.5 MG/3 ML Neb Soln INH SCH (07:50)
[2020-10-06] MEDS: atorvaSTATin 10 MG Tab PO SCH (20:15)
[2020-10-07] MEDS: Albuterol 0.083% 2.5 MG/3 ML Neb Soln INH SCH (07:07)
[2020-10-07] MEDS: Budesonide 0.5 MG/2 ML Neb Susp NEB SCH ×2 (07:08→19:17)
[2020-10-07] MEDS: Ipratropium 0.02% 0.5 MG/2.5 ML Neb Soln INH SCH ×3 (07:08→19:17)
[2020-10-07] MEDS: Arformoterol 15 MCG/2 ML Neb Soln INH SCH ×2 (07:09→19:17)
[2020-10-07] MEDS: ROFLUMILAST PO SCH (08:33)
[2020-10-07] MEDS: Ferrous Sulfate 325 MG Tab PO SCH (08:33)
[2020-10-07] MEDS: levETIRAcetam 500 MG Tab PO SCH ×2 (08:35→17:40)
[2020-10-07] MEDS: Potassium Chloride 20 MEQ Tab.ER PO SCH ×2 (08:35→17:40)
[2020-10-07] MEDS: Citalopram 20 MG Tab PO SCH (08:36)
[2020-10-07] MEDS: Furosemide 20 MG Tab PO SCH (08:36)
[2020-10-07] MEDS: Benzonatate 100 MG Cap PO SCH ×3 (08:36→17:40)
[2020-10-07] MEDS: atorvaSTATin 10 MG Tab PO SCH (19:17)
[2020-10-07] MEDS: Albuterol 0.083% 2.5 MG/3 ML Neb Soln NEB PRN (21:41)
[2020-10-07] MEDS: LORazepam 1 MG Tab PO PRN (21:41)
[2020-10-08] MEDS: Albuterol 0.083% 2.5 MG/3 ML Neb Soln INH SCH (07:15)
[2020-10-08] MEDS: Budesonide 0.5 MG/2 ML Neb Susp NEB SCH ×2 (07:16→20:23)
[2020-10-08] MEDS: Ipratropium 0.02% 0.5 MG/2.5 ML Neb Soln INH SCH ×3 (07:16→20:23)
[2020-10-08] MEDS: Arformoterol 15 MCG/2 ML Neb Soln INH SCH ×2 (07:17→20:23)
[2020-10-08] MEDS: Citalopram 20 MG Tab PO SCH (08:13)
[2020-10-08] MEDS: ROFLUMILAST PO SCH (08:13)
[2020-10-08] MEDS: Furosemide 20 MG Tab PO SCH (08:14)
[2020-10-08] MEDS: Ferrous Sulfate 325 MG Tab PO SCH (08:14)
[2020-10-08] MEDS: Potassium Chloride 20 MEQ Tab.ER PO SCH ×2 (08:15→17:11)
[2020-10-08] MEDS: levETIRAcetam 500 MG Tab PO SCH ×2 (08:16→17:11)
[2020-10-08] MEDS: Benzonatate 100 MG Cap PO SCH ×3 (08:16→17:11)
[2020-10-08] MEDS: atorvaSTATin 10 MG Tab PO SCH (20:23)
[2020-10-09] MEDS: Arformoterol 15 MCG/2 ML Neb Soln INH SCH ×2 (07:02→20:31)
[2020-10-09] MEDS: Budesonide 0.5 MG/2 ML Neb Susp NEB SCH ×2 (07:02→20:30)
[2020-10-09] MEDS: Ipratropium 0.02% 0.5 MG/2.5 ML Neb Soln INH SCH ×3 (07:02→20:30)
[2020-10-09] MEDS: Albuterol 0.083% 2.5 MG/3 ML Neb Soln INH SCH (07:02)
[2020-10-09] MEDS: levETIRAcetam 500 MG Tab PO SCH ×2 (07:02→17:14)
[2020-10-09] MEDS: Citalopram 20 MG Tab PO SCH (07:03)
[2020-10-09] MEDS: Potassium Chloride 20 MEQ Tab.ER PO SCH ×2 (07:03→17:14)
[2020-10-09] MEDS: Benzonatate 100 MG Cap PO SCH ×3 (07:03→17:14)
[2020-10-09] MEDS: Furosemide 20 MG Tab PO SCH (07:03)
[2020-10-09] MEDS: Ferrous Sulfate 325 MG Tab PO SCH (07:03)
[2020-10-09] MEDS: ROFLUMILAST PO SCH (07:17)
[2020-10-09 07:48] LABS: CHLORIDE,CL 105 mmol/L (98-107); SODIUM,NA 143 mmol/L (136-145)
[2020-10-09 07:50] LABS: ANION GAP 8.8 meq/L (7-15)
[2020-10-09] MEDS: atorvaSTATin 10 MG Tab PO SCH (20:30)
[2020-10-10] MEDS: Albuterol 0.083% 2.5 MG/3 ML Neb Soln NEB PRN (04:05)
[2020-10-10] MEDS: Albuterol 0.083% 2.5 MG/3 ML Neb Soln INH SCH (07:34)
[2020-10-10] MEDS: Ipratropium 0.02% 0.5 MG/2.5 ML Neb Soln INH SCH ×3 (07:35→19:52)
[2020-10-10] MEDS: Benzonatate 100 MG Cap PO SCH ×3 (07:35→17:49)
[2020-10-10] MEDS: Ferrous Sulfate 325 MG Tab PO SCH (07:35)
[2020-10-10] MEDS: Arformoterol 15 MCG/2 ML Neb Soln INH SCH ×2 (07:35→19:52)
[2020-10-10] MEDS: Furosemide 20 MG Tab PO SCH (07:35)
[2020-10-10] MEDS: Budesonide 0.5 MG/2 ML Neb Susp NEB SCH ×2 (07:35→19:53)
[2020-10-10] MEDS: Citalopram 20 MG Tab PO SCH (07:36)
[2020-10-10] MEDS: levETIRAcetam 500 MG Tab PO SCH ×2 (07:36→17:49)
[2020-10-10] MEDS: Potassium Chloride 20 MEQ Tab.ER PO SCH ×2 (07:37→17:48)
[2020-10-10] MEDS: ROFLUMILAST PO SCH (08:05)
[2020-10-10] MEDS: atorvaSTATin 10 MG Tab PO SCH (19:53)
[2020-10-11] MEDS: Albuterol 0.083% 2.5 MG/3 ML Neb Soln NEB PRN ×2 (06:16→10:23)
[2020-10-11] MEDS: Albuterol 0.083% 2.5 MG/3 ML Neb Soln INH SCH (07:10)
[2020-10-11] MEDS: Ipratropium 0.02% 0.5 MG/2.5 ML Neb Soln INH SCH ×3 (07:10→20:13)
[2020-10-11] MEDS: Arformoterol 15 MCG/2 ML Neb Soln INH SCH ×2 (07:10→20:13)
[2020-10-11] MEDS: Ferrous Sulfate 325 MG Tab PO SCH (07:11)
[2020-10-11] MEDS: Citalopram 20 MG Tab PO SCH (07:11)
[2020-10-11] MEDS: Benzonatate 100 MG Cap PO SCH ×3 (07:11→17:07)
[2020-10-11] MEDS: Budesonide 0.5 MG/2 ML Neb Susp NEB SCH ×2 (07:11→20:13)
[2020-10-11] MEDS: Furosemide 20 MG Tab PO SCH (07:11)
[2020-10-11] MEDS: levETIRAcetam 500 MG Tab PO SCH ×2 (07:11→17:07)
[2020-10-11] MEDS: Potassium Chloride 20 MEQ Tab.ER PO SCH ×2 (07:11→17:07)
[2020-10-11] MEDS: ROFLUMILAST PO SCH (07:12)
[2020-10-11] MEDS: atorvaSTATin 10 MG Tab PO SCH (20:13)
[2020-10-12] MEDS: Albuterol 0.083% 2.5 MG/3 ML Neb Soln NEB PRN (04:36)
[2020-10-12] MEDS: Albuterol 0.083% 2.5 MG/3 ML Neb Soln INH SCH (07:00)
[2020-10-12] MEDS: Ipratropium 0.02% 0.5 MG/2.5 ML Neb Soln INH SCH ×3 (07:09→20:17)
[2020-10-12] MEDS: Ferrous Sulfate 325 MG Tab PO SCH (07:09)
[2020-10-12] MEDS: levETIRAcetam 500 MG Tab PO SCH ×2 (07:09→17:11)
[2020-10-12] MEDS: Citalopram 20 MG Tab PO SCH (07:09)
[2020-10-12] MEDS: Potassium Chloride 20 MEQ Tab.ER PO SCH ×2 (07:10→17:11)
[2020-10-12] MEDS: Furosemide 20 MG Tab PO SCH (07:10)
[2020-10-12] MEDS: Benzonatate 100 MG Cap PO SCH ×3 (07:10→17:11)
[2020-10-12] MEDS: ROFLUMILAST PO SCH (07:12)
[2020-10-12] MEDS: Arformoterol 15 MCG/2 ML Neb Soln INH SCH ×2 (07:12→20:17)
[2020-10-12] MEDS: Budesonide 0.5 MG/2 ML Neb Susp NEB SCH ×2 (07:13→20:17)
[2020-10-12] MEDS: atorvaSTATin 10 MG Tab PO SCH (20:16)
[2020-10-13] MEDS: Albuterol 0.083% 2.5 MG/3 ML Neb Soln NEB PRN ×2 (03:21→09:54)
[2020-10-13] MEDS: Benzonatate 100 MG Cap PO SCH (07:55)
[2020-10-13] MEDS: Ferrous Sulfate 325 MG Tab PO SCH (07:55)
[2020-10-13] MEDS: Citalopram 20 MG Tab PO SCH (07:55)
[2020-10-13] MEDS: Arformoterol 15 MCG/2 ML Neb Soln INH SCH (07:55)
[2020-10-13] MEDS: Ipratropium 0.02% 0.5 MG/2.5 ML Neb Soln INH SCH (07:55)
[2020-10-13] MEDS: Potassium Chloride 20 MEQ Tab.ER PO SCH (07:55)
[2020-10-13] MEDS: levETIRAcetam 500 MG Tab PO SCH (07:55)
[2020-10-13] MEDS: Furosemide 20 MG Tab PO SCH (07:55)
[2020-10-13] MEDS: Budesonide 0.5 MG/2 ML Neb Susp NEB SCH (07:55)
[2020-10-13] MEDS: Albuterol 0.083% 2.5 MG/3 ML Neb Soln INH SCH (07:56)
[2020-10-13] MEDS: ROFLUMILAST PO SCH (07:59)
[2020-10-13 08:01] VITALS: BP 102/42; PULSE 74
[2020-10-13] MEDS: LORazepam 1 MG Tab PO PRN (09:53)
--- NOTE | 2020-10-13 11:06 | PCM.PN ---
- General Info Date of Service: 10/13/20 Admission Dx/Problem (Free Text): 1)Subdural Hematoma, Acute on Chronic 2)Hx Anticoagulation Use 3)Weakness 4)CHF 5)COPD 6)Anemia Subjective Update: Patient seen today on rounds. She is ready to go home and completed her PT/OT and home health has been set up. Case management working with family. - Review of Systems General: Reports: No Symptoms HEENT: Reports: No Symptoms Pulmonary: Reports: No Symptoms Cardiovascular: Reports: No Symptoms Gastrointestinal: Reports: No Symptoms Genitourinary: Reports: No Symptoms Musculoskeletal: Reports: No Symptoms Skin: Reports: No Symptoms Neurological: Reports: No Symptoms Psychiatric: Reports: No Symptoms - Patient Data Vitals - Most Recent: Last Vital Signs Temp 36.7 C 10/13/20 08:00 Pulse 74 10/13/20 08:00 Resp 20 10/13/20 08:00 BP 102/42 L 10/13/20 08:00 Pulse Ox 100 10/13/20 08:00 Weight - Most Recent: 59.058 kg I&O - Last 24 Hours: Intake & Output 10/12/20 10/13/20 10/13/20 22:59 06:59 14:59 Intake Total 400 640 Balance 400 640 Med Orders - Current: Current Medications Acetaminophen (Acetaminophen 325 Mg Tab) 650 mg PO Q4H PRN PRN Reason: Pain (Mild 1-3)/fever Albuterol (Albuterol 0.083% 2.5 Mg/3 Ml Neb Soln) 2.5 mg INH DAILYRT [facility] Last Admin: 10/13/20 07:56 Dose: 2.5 mg Documented by: Albuterol (Albuterol 0.083% 2.5 Mg/3 Ml Neb Soln) 2.5 mg NEB Q4HRRT PRN PRN Reason: Dyspnea Last Admin: 10/13/20 09:54 Dose: 2.5 mg Documented by: Arformoterol Tartrate (Arformoterol 15 Mcg/2 Ml Neb Soln) 15 mcg INH [id number] [facility] Last Admin: 10/13/20 07:55 Dose: 15 mcg Documented by: Atorvastatin Calcium (Atorvastatin 10 Mg Tab) 10 mg PO BEDTIME [facility] Last Admin: 10/12/20 20:16 Dose: 10 mg Documented by: Benzonatate (Benzonatate 100 Mg Cap) 100 mg PO TID [facility] Last Admin: 10/13/20 07:55 Dose: 100 mg Documented by: Bisacodyl (Bisacodyl 5 Mg Tab) 5 mg PO DAILY PRN PRN Reason: Constipation Budesonide (Budesonide 0.5 Mg/2 Ml Neb Susp) 0.5 mg NEB BIDRT [facility] Last Admin: 10/13/20 07:55 Dose: 0.5 mg Documented by: Citalopram Hydrobromide (Citalopram 20 Mg Tab) 20 mg PO DAILY [facility] Last Admin: 10/13/20 07:55 Dose: 20 mg Documented by: Ferrous Sulfate (Ferrous Sulfate 325 Mg Tab) 325 mg PO WITHBREAKFAST [facility] Last Admin: 10/13/20 07:55 Dose: 325 mg Documented by: Furosemide (Furosemide 20 Mg Tab) 20 mg PO DAILY [facility] Last Admin: 10/13/20 07:55 Dose: 20 mg Documented by: Ipratropium [place] (Ipratropium 0.02% 0.5 Mg/2.5 Ml Neb Soln) 0.5 mg INH TIDRT [facility] Last Admin: 10/13/20 07:55 Dose: 0.5 mg Documented by: Levetiracetam (Levetiracetam 500 Mg Tab) 500 mg PO BID [facility] Last Admin: 10/13/20 07:55 Dose: 500 mg Documented by: Lorazepam (Lorazepam 1 Mg Tab) 1 mg PO TID PRN PRN Reason: Anxiety Last Admin: 10/13/20 09:53 Dose: 1 mg Documented by: Roflumilast [ Janine] 1 TabOwn Med 1 tab PO DAILY [facility] Last Admin: 10/13/20 07:59 Dose: 1 tab Documented by: Ondansetron HCl (Ondansetron 4 Mg Tab.Dis) 4 mg PO Q4H PRN PRN Reason: Nausea/Vomiting Potassium Chloride (Potassium Chloride 20 Meq Tab.Er) 20 meq PO BID@0730,1700 [facility] Last Admin: 10/13/20 07:55 Dose: 20 meq Documented by: Sodium Chloride (Sodium Chloride 0.9% 10 Ml Syringe) 10 ml FLUSH ASDIRECTED PRN PRN Reason: Keep Vein Open Sodium Chloride (Sodium Chloride 0.9% 10 Ml Syringe) 10 ml FLUSH ASDIRECTED PRN PRN Reason: Keep Vein Open - Exam Quality Assessment: Supplemental Oxygen General: Alert, Oriented HEENT: Mucous Membr. Moist/[place] Neck: Supple Lungs: Clear to Auscultation (slightly diminished), Normal Respiratory Effort Cardiovascular: Regular Rate, Regular Rhythm GI/Abdominal Exam: Normal Bowel Sounds, Soft, Non-Tender (Female) Exam: Deferred Extremities: Normal Inspection, Normal Range of Motion, No Pedal Edema, Normal Capillary Refill Skin: Warm, Dry Neurological: No New Focal Deficit, Other (Note temor of right upper extremity) Psy/Mental Status: Alert, Normal Affect, Normal Mood - Patient Data Result Diagrams: 10/09/20 07:20 10/09/20 07:20 Sepsis Event Note - Evaluation Sepsis Screening Result: No Definite Risk - Focused Exam Vital Signs: Vital Signs Temp Pulse Resp BP Pulse Ox 10/13/20 08:00 36.7 C 74 20 102/42 L 100 - Problem List & Annotations (1) Subdural hematoma SNOMED Code(s): 905453904 Code(s): S06.5X9A - TRAUM SUBDR HEM W LOC OF UNSP DURATION, INIT Status: Acute Current Visit: No Annotation/Comment:: Unchanged Neurological exam today rather unremarkable other than a fine tremor of her upper extremities. Plan was to have to a repeat CT in [address] has been ordered for follow up and neurosurgical follow has been scheduled as well. (2) USP current use of anticoagulant therapy SNOMED Code(s): 528334577 Code(s): Z79.01 - INTERMEDIATE (CURRENT) USE OF ANTICOAGULANTS Status: Acute Current Visit: No Annotation/Comment:: No VTE prophylaxis at this time due to the acute bleeding episodes. Hx of Coumadin use for PE 10 years ago. Will leave any restarting of this med to PCP and Neurosurgery coordination. (3) Weakness SNOMED Code(s): 32723205 Code(s): R53.1 - WEAKNESS Status: Acute Current Visit: No Annotation/Comment:: PT/OT has discharged her from service. She has met all the goals needed to return home. [facility] to see her and will assess need for home PT/OT. Will also be getting set up with MOW, SN, and [facility]. (4) CHF (congestive heart failure) SNOMED Code(s): 38159678 Code(s): I50.9 - HEART FAILURE, UNSPECIFIED Status: Acute Priority: High Current Visit: No Onset Date: 07/23/19 Qualifiers: Annotation/Comment:: No concern of congestive heart failure at this time. Stable. (5) COPD (chronic obstructive pulmonary disease) SNOMED Code(s): 55153109 Code(s): J44.9 - CHRONIC OBSTRUCTIVE PULMONARY DISEASE, UNSPECIFIED Status: Acute Priority: High Current Visit: No Annotation/Comment:: No signs of exacerbation. Tolerating home therapies. We will continue on oxygen. No Continue to monitor. (6) Anemia SNOMED Code(s): 834369843 Code(s): D64.9 - ANEMIA, UNSPECIFIED Status: Acute Current Visit: No Annotation/Comment:: We will continue her iron supplementation and follow this. Have PCP to follow anemia pain and perhaps consider IV iron if needed. - Problem List Review Problem List Initiated/Reviewed/Updated: Yes - Plan Plan:: -Discharge to home today.
[2020-10-13] MEDS ORDERED: Albuterol 6.7 GM Inhaler INH PRN (11:29)
[2020-10-13] MEDS ORDERED: LORazepam 1 MG Tab PO PRN (11:29)
[2020-10-13] MEDS ORDERED: Ipratropium 0.02% 0.5 MG/2.5 ML Neb Soln INH SCH (15:00)
[2020-10-13] MEDS ORDERED: Non-Formulary Medication 1 Each (Potassium Chloride [Potassium Chloride] 20 MEQ Tablet.Er) PO SCH (17:30)
[2020-10-13] MEDS ORDERED: atorvaSTATin 10 MG Tab PO SCH (20:00)
[2020-10-13] MEDS ORDERED: Arformoterol 15 MCG/2 ML Neb Soln INH SCH (20:00)
[2020-10-13] MEDS ORDERED: Arformoterol 15 MCG/2 ML Neb Soln NEB SCH (20:00)
[2020-10-13] MEDS ORDERED: Budesonide 0.5 MG/2 ML Neb Susp NEB SCH (20:00)
[2020-10-13] MEDS ORDERED: Polyethylene Glycol 3350 Powder 17 GM Packet PO SCH (20:00)
[2020-10-14] MEDS ORDERED: Furosemide 20 MG Tab PO SCH (08:00)
[2020-10-14] MEDS ORDERED: Albuterol 0.083% 2.5 MG/3 ML Neb Soln INH SCH (08:00)
[2020-10-14] MEDS ORDERED: Citalopram 20 MG Tab PO SCH (08:00)
== END 2020-10-13 13:53 | disposition home or self-care (01) | DRG 950 ==
LOC: LL.MS 13:48
PROVIDERS: ADMIT Nurse Practitioner Family; ATTEND Nurse Practitioner Family
DX: S06.5X9D Traumatic subdural hemorrhage with loss of consciousness of unspecified duration, subsequent encounter (principal); R53.1 Weakness; J43.1 Panlobular emphysema; I50.9 Heart failure, unspecified; D64.9 Anemia, unspecified; Z79.01 Long term (current) use of anticoagulants; Z79.51 Long term (current) use of inhaled steroids; Z79.899 Other long term (current) drug therapy
CPT/HCPCS: 36415; 80053; 85025; 94640; 97110-GO; 97110-GP; 97129-GO; 97130-GO; 97161-GP; 97165-GO; 97530-GO; 97530-GP; 97535-GO; A9270-GY; J7613-GY

== ENCOUNTER 2020-12-27 10:15 | Emergency (ER) | payer MEDICARE, BC ==
--- NOTE | 2020-12-29 00:09 | EDM.PDOC ---
ED HPI GENERAL MEDICAL PROBLEM - General Chief Complaint: Neurological Problem Stated Complaint: headache, hx of subdural hematoma Time Seen by Provider: 12/27/20 10:17 Source of Information: Reports: Patient History Limitations: Reports: No Limitations - History of Present Illness INITIAL COMMENTS - FREE TEXT/NARRATIVE: Pt. presents to ER with complaints of headache. Pt. states that she hit he head on a car door several days ago. She states she is experiencing head "fullness" and is concerned because she is on coumadin. Denies any numbness/tingling in extremities. No problems with speech and ambulation. She has been alert and oriented, but complains of feeling more fatigued. Pt. denies any chest pain, shortness of breath, cough, congestion or rhinorrhea. Location: Reports: Head - Related Data Allergies Allergy/AdvReac Type Severity Reaction Status Date / Time methylprednisolone Allergy Shortness Verified 10/01/20 14:47 of Breath revefenacin [From Yupelri] Allergy Other Verified 10/01/20 14:47 IV Dye used for U/S (echo) Allergy Shortness Uncoded 08/05/20 18:53 of Breath Home Meds: Home Meds Budesonide [Pulmicort] 0.5 mg IH BID@0800,199902/07/19 [History] Albuterol Sulfate 1 ampule INH QAM 07/23/19 [History] Albuterol [Ventolin HFA] 2 puff INH Q4H PRN 07/23/19 [History] Arformoterol [Brovana] 15 mcg INH Q12HR 07/23/19 [History] Ipratropium [Atrovent] 0.5 mg INH TID@0800,1500,199907/23/19 [History] Benzonatate [Tessalon [place]] 100 mg PO TID 03/08/20 [History] Roflumilast [Daliresp] 1 tab PO DAILY 05/27/20 [History] atorvaSTATin [Lipitor] 10 mg PO BEDTIME 07/10/20 [History] polyethylene glycoL 3350 [MiraLAX] 17 gm PO BEDTIME 07/10/20 [History] Furosemide [Lasix] 20 mg PO DAILY 07/27/20 [History] LORazepam [Ativan] 1 mg PO TID PRN 07/27/20 [History] Potassium Chloride 20 meq PO BIDMEALS #20 tablet.er 07/30/20 [Rx] Citalopram [Citalopram HBr] 20 mg PO DAILY 08/05/20 [History] Arformoterol [Brovana] 15 mcg NEB BIDRT neb 08/06/20 [Rx] Budesonide [Pulmicort] 0.5 mg NEB BIDRT neb 08/06/20 [Rx] Albuterol [Proventil Neb Soln] 2.5 mg INH DAILYRT neb 10/13/20 [Rx] Ferrous Sulfate 325 mg PO WITHBREAKFAST tablet 10/13/20 [Rx] levETIRAcetam [Keppra] 500 mg PO BID tablet 10/13/20 [Rx] Past Medical History HEENT History: Reports: Cataract, Impaired Vision Other HEENT History: Patient wears glasses. Complete full upper and lower dentures. Cardiovascular History: Reports: Arrhythmia, Blood Clots/VTE/DVT, Cardiomyopathy, Heart Failure, High Cholesterol Other Cardiovascular History: PVCs. Moderate sinus arrhythmia. Cardiomegaly with history of Cor pulmonale. Postoperative DVT of the left leg on 02/18/07 after mastectomy in 2006 with current Coumadin therapy. Respiratory History: Reports: Bronchitis, Recurrent, COPD, Intubation, Previous, Pneumonia, Recurrent Other Respiratory History: Oxygen dependent at home: 2-3L/NC. Despite previous medical records patient denies history of sleep apnea and CPAP requirement. Gastrointestinal History: Reports: Cholelithiasis, Chronic Constipation, Diverticulosis, GERD, Other (See Below) Other Gastrointestinal History: Tortuous colon. Genitourinary History: Reports: None DIVEMASTER History: Reports: Polycystic Ovaries, Other DIVEMASTER History: Menopause in her 40s. Full term without complications during pregnancies or deliveries Musculoskeletal History: Reports: Arthritis, Osteoarthritis, Osteoporosis Neurological History: Reports: Headaches, Chronic, Migraines, Other (See Below) Other Neuro History: Migraine headaches in early adulthood nonproblematic at this time. Bilateral subdural hematoma to temporal and parietal lobes, 10/01/20 Psychiatric History: Reports: Anxiety, Depression Endocrine/Metabolic History: Reports: Diabetes, Type II, Hypokalemia, Obesity/BMI 30+, Osteopenia, Osteoporosis, Other (See Below) Other Endocrine/Metabolic History: Prediabetes. Hyponatremia. Hypoalbuminemia. Hematologic History: Reports: None Immunologic History: Reports: None Oncologic (Cancer) History: Reports: Breast, Other (See Below) Other Oncologic History: Left-sided stage I breast cancer in 2006 with mastectomy and radiation therapy. Dermatologic History: Reports: None - Infectious Disease History Infectious Disease History: Reports: Chicken Pox, Mumps - Past Surgical History Head Surgeries/Procedures: Reports: None HEENT Surgical History: Reports: Cataract Surgery, Oral Surgery, Other (See Below) Other HEENT Surgeries/Procedures: Bilateral cataract surgery in 2019. Complete teeth extraction. Cardiovascular Surgical History: Reports: None Respiratory Surgical History: Reports: None GI Surgical History: Reports: Cholecystectomy, Colonoscopy Other GI Surgeries/Procedures: Colonoscopy on 03/09/2020. Open cholecystectomy on 06/26/13. Female Surgical History: Reports: Breast Biopsy, Mastectomy, Other (See Below) Other Female Surgeries/Procedures: Left Sided mastectomy in 2006 Endocrine Surgical History: Reports: None Neurological Surgical History: Reports: None Musculoskeletal Surgical History: Reports: None Oncologic Surgical History: Reports: Biopsy of Breast, Mastectomy, Other (See Below) Other Oncologic Surgeries/Procedures: Mastectomy as above. Dermatological Surgical History: Reports: None - Past Imaging History Past Imaging History: Reports: Cardiac Echo (Last on 07/17/2020 with ejection fraction of 55-60% with previous evaluation on 08/17/2019 with ejection fraction of 50-60%.), CAT Scan (CT of the chest without contrast on 08/17/2019 and 06/25/17. CT of the abdomen and pelvis on 12/29/2019 and 06/26/13.), Mammogram (Last mammogram in November 2018 by patient history.), Venous Doppler (Left leg on .) Social & Family History - Family History Family Medical History: No Pertinent Family History HEENT: Reports: None Cardiac: Reports: Arrhythmia, Pacemaker, Other (See Below) Other Cardiac Family History: Mother with pacemaker. Respiratory: Reports: Asthma, Other (See Below) Other Respiratory Family Hisory: Father with asthma secondary to coal exposure. GI: Reports: None : Reports: None OBGYN: Reports: None Musculoskeletal: Reports: None Neurological: Reports: Alzheimers Disease, Dementia, Migraines, Other (See Below) Other Neurological Family History: Mother with migraine headaches. Brothers 2 with organic brain syndrome. Psychiatric: Reports: None Endocrine/Metabolic: Reports: Diabetes, type II, IDDM, Other (See Below) Other Endocrine/Metabolic Family History: Mother with IDDM. 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 Denies: Vertigo Respiratory: Reports: No Symptoms Cardiovascular: Reports: No Symptoms Endocrine: Reports: No Symptoms GI/Abdominal: Reports: No Symptoms : Reports: No Symptoms Musculoskeletal: Reports: No Symptoms Skin: Reports: No Symptoms Neurological: Reports: Dizziness, Headache. Denies: Confusion, Numbness, Paresthesia, Syncope, Tremors, Trouble Speaking, Difficulty Walking, Weakness, Gait Disturbance Psychiatric: Reports: No Symptoms Hematologic/Lymphatic: Reports: No Symptoms Immunologic: Reports: No Symptoms ED EXAM, GENERAL - Physical Exam Exam: See Below Exam Limited By: No Limitations General Appearance: Alert, WD/WN, No Apparent Distress Eye Exam: Bilateral Eye: EOMI, Normal Fundi, Normal Inspection, PERRL Throat/Mouth: Normal Inspection, Normal Lips, Normal Teeth, Normal Oropharynx, Normal Voice, No Airway Compromise Head: Atraumatic, Normocephalic Neck: Normal Inspection, Supple, Non-Tender, Full Range of Motion Respiratory/Chest: No Respiratory Distress, Lungs Clear, No Accessory Muscle Use, Chest Non-Tender Cardiovascular: Normal Peripheral Pulses, No Edema, No JVD, No Murmur, Irregularly Irregular Neurological: Alert, Oriented, CN II-XII Intact, Normal Cognition, Normal Gait, Normal Reflexes, No Motor/Sensory Deficits, Other (No pronator drift. 5/5 strength in upper and lower extremities.) Skin Exam: Warm, Dry, Intact, Normal Color, No Rash Course - Vital Signs Last Recorded V/S: Last Vital Signs Temp 36.7 C 12/27/20 10:17 Pulse 97 12/27/20 10:17 Resp 20 12/27/20 10:17 BP 137/92 H 12/27/20 10:17 Pulse Ox 97 12/27/20 10:17 - Radiology Interpretation Free Text/Narrative:: CT brain without contrast obtained. No hemorrhage or other acute pathology noted. Departure - Departure Time of Disposition: 12:00 Disposition: Home, Self-Care 01 Clinical Impression: Closed head injury - Discharge Information Instructions: Concussion, Adult, [id number] Referrals: Leonor Millan PA-C [Primary Care Provider] - Forms: ED Department Discharge Additional Instructions: Home to rest. It may take some time for symptoms to go away. Minimize cognitive activity (reading, screen time, etc.) Rest as much as possible. Return to ER if you have headache, confusion, vision loss or change, or other worrisome signs/symptoms. Sepsis Event Note (ED) - Evaluation Sepsis Screening Result: No Definite Risk - Problem List Review Problem List Initiated/Reviewed/Updated: Yes - Assessment/Plan Plan: Home to rest. It may take some time for symptoms to go away. Minimize cognitive activity (reading, screen time, etc.) Rest as much as possible. Return to ER if you have headache, confusion, vision loss or change, or other worrisome signs/symptoms.
== END 2020-12-27 11:40 | disposition home or self-care (01) ==
LOC: LL.ED 10:15
DX: S09.90XA Unspecified injury of head, initial encounter (principal); E78.00 Pure hypercholesterolemia, unspecified; I50.9 Heart failure, unspecified; J44.9 Chronic obstructive pulmonary disease, unspecified; Z88.8 Allergy status to other drugs, medicaments and biological substances; Z91.041 Radiographic dye allergy status; Z79.899 Other long term (current) drug therapy; Z87.891 Personal history of nicotine dependence; W22.8XXA Striking against or struck by other objects, initial encounter
CPT/HCPCS: 70450; 99283-25

== ENCOUNTER 2021-07-24 10:15 | Emergency (ER) | payer MEDICARE, BC ==
[2021-07-24 11:32] LABS: ANION GAP 6.2 meq/L (7-15); CHLORIDE,CL 106 mmol/L (98-107); SODIUM,NA 144 mmol/L (136-145)
[2021-07-24 11:35] LABS: ESTIMATED GFR > 60 mL/min
[2021-07-24] MEDS ORDERED: Albuterol/Ipratropium 3.0-0.5 MG/3 ML Neb Soln NEB ONE (11:37)
[2021-07-24 11:38] LABS: CORONAVIRUS COVID-19 NAA NEGATIVE (NEGATIVE); RESPIRATORY SYNCYTIAL VIR NAA NEGATIVE (NEGATIVE)
[2021-07-24] MEDS ORDERED: Albuterol/Ipratropium 3.0-0.5 MG/3 ML Neb Soln ONE (11:38)
[2021-07-24] MEDS ORDERED: Dexamethasone 10 MG/ML SDV IVPUSH ONE (12:03)
[2021-07-24] MEDS ORDERED: Dexamethasone 10 MG/ML SDV IM ONE (12:11)
== END 2021-07-24 12:15 | disposition home or self-care (01) ==
LOC: LL.ED 10:15
DX: J44.1 Chronic obstructive pulmonary disease with (acute) exacerbation (principal); E11.9 Type 2 diabetes mellitus without complications; E66.9 Obesity, unspecified; Z68.24 Body mass index [BMI] 24.0-24.9, adult; Z91.041 Radiographic dye allergy status; Z88.8 Allergy status to other drugs, medicaments and biological substances; Z20.822 Contact with and (suspected) exposure to COVID-19
CPT/HCPCS: 0241U; 36415; 71046; 80053; 85025; 94640; 96372; 99284; J1100; J7620-GY

== ENCOUNTER 2022-02-04 09:15 | Emergency (ER) | payer MEDICARE, BC ==
[2022-02-04] MEDS ORDERED: Levalbuterol HCl 0.63 MG/3 ML Neb NEB ONE (09:46)
[2022-02-04 10:27] LABS: CHLORIDE,CL 99 mmol/L (98-107); SODIUM,NA 138 mmol/L (136-145)
[2022-02-04 10:29] LABS: ANION GAP 10.4 meq/L (7-15); ESTIMATED GFR 81 mL/min (>=60)
== END 2022-02-04 11:25 | disposition home or self-care (01) ==
LOC: LL.ED 09:15
DX: R07.89 Other chest pain (principal); J44.9 Chronic obstructive pulmonary disease, unspecified; E78.00 Pure hypercholesterolemia, unspecified; E11.9 Type 2 diabetes mellitus without complications; E66.9 Obesity, unspecified; Z68.30 Body mass index [BMI] 30.0-30.9, adult; Z91.041 Radiographic dye allergy status; Z88.8 Allergy status to other drugs, medicaments and biological substances; Z79.899 Other long term (current) drug therapy; Z79.01 Long term (current) use of anticoagulants; Z90.49 Acquired absence of other specified parts of digestive tract
CPT/HCPCS: 36415; 71046; 80053; 85025; 85379; 85610; 99284; 99285

== ENCOUNTER 2022-03-08 10:51 | Emergency (ER) | payer MEDICARE, BC ==
[2022-03-08 11:42] LABS: CORONAVIRUS COVID-19 NAA NEGATIVE (NEGATIVE); RESPIRATORY SYNCYTIAL VIR NAA NEGATIVE (NEGATIVE)
[2022-03-08] MEDS ORDERED: Albuterol/Ipratropium 3.0-0.5 MG/3 ML Neb Soln NEB ONE (11:46)
[2022-03-08] MEDS ORDERED: Azithromycin 250 MG Tab PO ONE (12:03)
[2022-03-08] MEDS ORDERED: predniSONE 20 MG Tab PO ONE (12:27)
[2022-03-08 12:37] LABS: ANION GAP 7.4 meq/L (7-15); CHLORIDE,CL 103 mmol/L (98-107); SODIUM,NA 142 mmol/L (136-145)
[2022-03-08 12:38] LABS: ESTIMATED GFR 91 mL/min (>=60)
[2022-03-09] MEDS ORDERED: predniSONE 20 MG Tab PO ONE (12:02)
== END 2022-03-08 12:36 | disposition home or self-care (01) ==
LOC: LL.ED 10:51
DX: J44.1 Chronic obstructive pulmonary disease with (acute) exacerbation (principal); J10.1 Influenza due to other identified influenza virus with other respiratory manifestations; E78.00 Pure hypercholesterolemia, unspecified; E11.9 Type 2 diabetes mellitus without complications; E66.9 Obesity, unspecified; Z91.041 Radiographic dye allergy status; Z88.8 Allergy status to other drugs, medicaments and biological substances; Z79.899 Other long term (current) drug therapy; Z79.01 Long term (current) use of anticoagulants; Z90.49 Acquired absence of other specified parts of digestive tract; Z87.891 Personal history of nicotine dependence; Z20.822 Contact with and (suspected) exposure to COVID-19
CPT/HCPCS: 0241U; 36415; 80053; 83880; 85025; 86140; 99283; A9270; J7512; J7620-GY

== ENCOUNTER 2022-03-27 14:03 | Emergency (ER) | payer MEDICARE, BC ==
[2022-03-27] MEDS ORDERED: Azithromycin 250 MG Tab PO ONE (14:13)
[2022-03-27] MEDS ORDERED: predniSONE 20 MG Tab PO ONE (14:30)
[2022-03-27 15:07] LABS: CHLORIDE,CL 97 mmol/L (98-107); SODIUM,NA 143 mmol/L (136-145)
[2022-03-27 15:08] LABS: ANION GAP 6.7 meq/L (7-15); ESTIMATED GFR 94 mL/min (>=60)
== END 2022-03-27 17:05 | disposition home or self-care (01) ==
LOC: LL.ED 14:03
DX: J44.1 Chronic obstructive pulmonary disease with (acute) exacerbation (principal); E78.00 Pure hypercholesterolemia, unspecified; E11.9 Type 2 diabetes mellitus without complications; E66.9 Obesity, unspecified; Z68.25 Body mass index [BMI] 25.0-25.9, adult; Z88.8 Allergy status to other drugs, medicaments and biological substances; Z91.041 Radiographic dye allergy status; Z79.899 Other long term (current) drug therapy; Z79.01 Long term (current) use of anticoagulants; Z90.49 Acquired absence of other specified parts of digestive tract
CPT/HCPCS: 36415; 80053; 83605; 85025; 99284; 99285; A9270-GY; J7512

== ENCOUNTER 2022-04-04 14:03 | Inpatient (IN) | payer MEDICARE, BC ==
[2022-04-04 16:13] LABS: ANION GAP 4.4 meq/L (7-15)
[2022-04-04] MEDS ORDERED: Furosemide 40 MG/4 ML VIAL IVPUSH ONE (16:54)
[2022-04-04] MEDS ORDERED: Ondansetron 4 MG/2 ML SDV IVPUSH PRN (16:54)
[2022-04-04] MEDS ORDERED: Acetaminophen 325 MG Tab PO PRN (16:54)
[2022-04-04] MEDS ORDERED: Albuterol 6.7 GM Inhaler INH PRN (16:57)
[2022-04-04] MEDS ORDERED: Levofloxacin/Dextrose 5%-Water 500 MG in Premix Bag 1 BAG IV SCH (17:00)
[2022-04-04] MEDS: Albuterol/Ipratropium 3.0-0.5 MG/3 ML Neb Soln INH SCH ×2 (18:16→20:41)
[2022-04-04] MEDS: cefTRIAXone 1 GM Vial IVPUSH SCH (18:16)
[2022-04-04] MEDS: Sodium Chloride 0.9% 10 ML Syringe FLUSH PRN ×2 (18:17→18:19)
[2022-04-04] MEDS: Azithromycin 250 MG Tab PO SCH (18:20)
[2022-04-04] MEDS: Benzonatate 100 MG Cap PO SCH (18:21)
[2022-04-04] MEDS: Potassium Chloride 20 MEQ Tab.ER PO SCH (18:21)
[2022-04-04] MEDS ORDERED: Ipratropium 0.02% 0.5 MG/2.5 ML Neb Soln INH SCH (20:00)
[2022-04-04] MEDS: Warfarin 2.5 MG Tab PO SCH (20:22)
[2022-04-04] MEDS: atorvaSTATin 10 MG Tab PO SCH (20:22)
[2022-04-04] MEDS: Budesonide 0.5 MG/2 ML Neb Susp INH SCH (20:22)
[2022-04-04] MEDS: Arformoterol 15 MCG/2 ML Neb Soln NEB SCH (20:22)
[2022-04-05] MEDS: Albuterol/Ipratropium 3.0-0.5 MG/3 ML Neb Soln INH SCH ×6 (04:25→21:07)
[2022-04-05 07:58] LABS: ANION GAP 9.9 meq/L (7-15)
[2022-04-05] MEDS: Potassium Chloride 20 MEQ Tab.ER PO SCH ×3 (08:28→17:47)
[2022-04-05] MEDS: Budesonide 0.5 MG/2 ML Neb Susp INH SCH ×2 (08:28→21:07)
[2022-04-05] MEDS: Arformoterol 15 MCG/2 ML Neb Soln NEB SCH ×2 (08:28→21:07)
[2022-04-05] MEDS: Benzonatate 100 MG Cap PO SCH ×2 (08:29→17:47)
[2022-04-05] MEDS: Sodium Chloride 0.9% 10 ML Syringe FLUSH PRN ×2 (08:29→08:31)
[2022-04-05] MEDS: Azithromycin 250 MG Tab PO SCH (08:29)
[2022-04-05] MEDS: Furosemide 20 MG Tab PO SCH (08:29)
[2022-04-05] MEDS: cefTRIAXone 1 GM Vial IVPUSH SCH (08:30)
[2022-04-05] MEDS ORDERED: Magnesium Oxide 400 MG Tab PO SCH (08:30)
[2022-04-05] MEDS ORDERED: LORazepam 0.5 MG Tab PO PRN (09:58)
[2022-04-05] MEDS: Acetylcysteine [N-Acetyl-L-Cysteine] 600 MG Capsule PO SCH ×2 (12:18→17:44)
[2022-04-05] MEDS: Roflumilast [Daliresp] 500 MCG Tablet PO SCH (12:18)
[2022-04-05] MEDS: Warfarin 2.5 MG Tab PO SCH (17:45)
[2022-04-05] MEDS: LORazepam 0.5 MG Tab PO PRN (17:59)
[2022-04-05] MEDS ORDERED: LORazepam 0.5 MG Tab PO SCH (20:00)
[2022-04-05] MEDS: atorvaSTATin 10 MG Tab PO SCH (21:07)
[2022-04-06] MEDS: LORazepam 0.5 MG Tab PO PRN ×3 (01:09→13:41)
[2022-04-06] MEDS: Arformoterol 15 MCG/2 ML Neb Soln NEB SCH ×3 (02:29→23:34)
[2022-04-06] MEDS: Albuterol/Ipratropium 3.0-0.5 MG/3 ML Neb Soln INH SCH ×6 (02:29→20:32)
[2022-04-06] MEDS: Budesonide 0.5 MG/2 ML Neb Susp INH SCH ×3 (02:30→21:26)
[2022-04-06] MEDS: Potassium Chloride 20 MEQ Tab.ER PO SCH ×3 (07:39→17:46)
[2022-04-06] MEDS: Benzonatate 100 MG Cap PO SCH ×2 (07:39→17:46)
[2022-04-06] MEDS: Azithromycin 250 MG Tab PO SCH (07:39)
[2022-04-06] MEDS: Furosemide 20 MG Tab PO SCH (07:39)
[2022-04-06] MEDS: cefTRIAXone 1 GM Vial IVPUSH SCH (07:54)
[2022-04-06 08:35] LABS: ANION GAP 8.4 meq/L (7-15)
[2022-04-06] MEDS: Acetylcysteine [N-Acetyl-L-Cysteine] 600 MG Capsule PO SCH ×2 (11:55→17:46)
[2022-04-06] MEDS: Roflumilast [Daliresp] 500 MCG Tablet PO SCH (11:56)
[2022-04-06 12:28] LABS: CORONAVIRUS COVID-19 NAA NEGATIVE (NEGATIVE); RESPIRATORY SYNCYTIAL VIR NAA NEGATIVE (NEGATIVE)
[2022-04-06] MEDS: Magnesium Oxide 400 MG Tab PO SCH (13:41)
[2022-04-06] MEDS ORDERED: methylPREDNISolone Sodium Succinate 125 MG/2 ML SDV IVPUSH ONE (15:09)
[2022-04-06] MEDS ORDERED: LORazepam 0.5 MG Tab PO ONE (17:22)
[2022-04-06] MEDS: Warfarin 2.5 MG Tab PO SCH (17:46)
[2022-04-06] MEDS: atorvaSTATin 10 MG Tab PO SCH (20:28)
[2022-04-07] MEDS: Albuterol/Ipratropium 3.0-0.5 MG/3 ML Neb Soln INH SCH ×6 (00:54→19:38)
[2022-04-07] MEDS: LORazepam 0.5 MG Tab PO PRN ×3 (01:07→19:45)
[2022-04-07] MEDS: Acetylcysteine [N-Acetyl-L-Cysteine] 600 MG Capsule PO SCH ×2 (08:20→17:48)
[2022-04-07] MEDS: Roflumilast [Daliresp] 500 MCG Tablet PO SCH (08:20)
[2022-04-07] MEDS: Potassium Chloride 20 MEQ Tab.ER PO SCH ×3 (08:20→17:50)
[2022-04-07] MEDS: Azithromycin 250 MG Tab PO SCH (08:21)
[2022-04-07] MEDS: Magnesium Oxide 400 MG Tab PO SCH (08:22)
[2022-04-07] MEDS: Benzonatate 100 MG Cap PO SCH ×2 (08:22→17:51)
[2022-04-07] MEDS: Furosemide 20 MG Tab PO SCH (08:22)
[2022-04-07] MEDS: Budesonide 0.5 MG/2 ML Neb Susp INH SCH ×2 (08:23→19:38)
[2022-04-07] MEDS: Arformoterol 15 MCG/2 ML Neb Soln NEB SCH ×2 (08:23→19:38)
[2022-04-07] MEDS: cefTRIAXone 1 GM Vial IVPUSH SCH (08:23)
[2022-04-07] MEDS: Warfarin 2.5 MG Tab PO SCH (17:49)
[2022-04-07] MEDS: atorvaSTATin 10 MG Tab PO SCH (19:37)
[2022-04-08] MEDS: Albuterol/Ipratropium 3.0-0.5 MG/3 ML Neb Soln INH SCH ×6 (02:49→19:54)
[2022-04-08] MEDS: LORazepam 0.5 MG Tab PO PRN ×4 (03:23→20:02)
[2022-04-08 08:10] LABS: ANION GAP 4.8 meq/L (7-15)
[2022-04-08] MEDS: Acetylcysteine [N-Acetyl-L-Cysteine] 600 MG Capsule PO SCH ×2 (08:32→19:53)
[2022-04-08] MEDS: Roflumilast [Daliresp] 500 MCG Tablet PO SCH (08:32)
[2022-04-08] MEDS: Magnesium Oxide 400 MG Tab PO SCH (08:33)
[2022-04-08] MEDS: Furosemide 20 MG Tab PO SCH (08:33)
[2022-04-08] MEDS: cefTRIAXone 1 GM Vial IVPUSH SCH (08:33)
[2022-04-08] MEDS: Azithromycin 250 MG Tab PO SCH (08:33)
[2022-04-08] MEDS: Benzonatate 100 MG Cap PO SCH ×2 (08:33→17:04)
[2022-04-08] MEDS: Potassium Chloride 20 MEQ Tab.ER PO SCH ×3 (08:33→17:04)
[2022-04-08] MEDS: Budesonide 0.5 MG/2 ML Neb Susp INH SCH ×3 (08:33→20:27)
[2022-04-08] MEDS: Arformoterol 15 MCG/2 ML Neb Soln NEB SCH ×3 (08:33→20:27)
[2022-04-08] MEDS: atorvaSTATin 10 MG Tab PO SCH (19:53)
[2022-04-09] MEDS: Albuterol/Ipratropium 3.0-0.5 MG/3 ML Neb Soln INH SCH ×4 (01:53→11:17)
[2022-04-09] MEDS: LORazepam 0.5 MG Tab PO PRN ×2 (02:06→08:10)
[2022-04-09 08:07] LABS: ANION GAP 7.6 meq/L (7-15)
[2022-04-09] MEDS: Acetylcysteine [N-Acetyl-L-Cysteine] 600 MG Capsule PO SCH (08:11)
[2022-04-09] MEDS: Benzonatate 100 MG Cap PO SCH (08:11)
[2022-04-09] MEDS: Arformoterol 15 MCG/2 ML Neb Soln NEB SCH (08:11)
[2022-04-09] MEDS: Magnesium Oxide 400 MG Tab PO SCH (08:11)
[2022-04-09] MEDS: Budesonide 0.5 MG/2 ML Neb Susp INH SCH (08:11)
[2022-04-09] MEDS: Potassium Chloride 20 MEQ Tab.ER PO SCH ×2 (08:11→11:17)
[2022-04-09] MEDS: Furosemide 20 MG Tab PO SCH (08:12)
[2022-04-09] MEDS: cefTRIAXone 1 GM Vial IVPUSH SCH (08:12)
[2022-04-09] MEDS: Roflumilast [Daliresp] 500 MCG Tablet PO SCH (09:34)
== END 2022-04-09 11:51 | disposition home or self-care (01) | DRG 193 ==
LOC: LL.ED 14:03 → LL.MS 16:45
PROVIDERS: ADMIT Physician Assistant Medical; ATTEND Physician Assistant Medical
DX: J18.9 Pneumonia, unspecified organism (principal); I50.43 Acute on chronic combined systolic (congestive) and diastolic (congestive) heart failure; J44.1 Chronic obstructive pulmonary disease with (acute) exacerbation; J44.9 Chronic obstructive pulmonary disease, unspecified; F05 Delirium due to known physiological condition; E78.00 Pure hypercholesterolemia, unspecified; Z51.5 Encounter for palliative care; E87.6 Hypokalemia; Z20.822 Contact with and (suspected) exposure to COVID-19; F41.9 Anxiety disorder, unspecified; H54.7 Unspecified visual loss; K59.09 Other constipation; K57.90 Diverticulosis of intestine, part unspecified, without perforation or abscess without bleeding; K21.9 Gastro-esophageal reflux disease without esophagitis; M19.90 Unspecified osteoarthritis, unspecified site; F32.A Depression, unspecified; I50.9 Heart failure, unspecified; E66.9 Obesity, unspecified; M81.0 Age-related osteoporosis without current pathological fracture; E78.5 Hyperlipidemia, unspecified; Z68.25 Body mass index [BMI] 25.0-25.9, adult; Z91.041 Radiographic dye allergy status; Z79.01 Long term (current) use of anticoagulants; Z79.899 Other long term (current) drug therapy; Z86.718 Personal history of other venous thrombosis and embolism; Z99.81 Dependence on supplemental oxygen; Z85.3 Personal history of malignant neoplasm of breast; Z87.891 Personal history of nicotine dependence
CPT/HCPCS: 0241U; 36415; 36416; 70450; 71045; 80048; 80053; 81003; 82140; 82550; 83036; 83605; 83615; 83735; 83880; 84484; 85025; 85379; 85610; 86140; 87070; 87205; 93005; 93010; 94640; 99223; 99232; 99233; 99238; 99285; A9270-GY; J0696; J1940; J2930; J3490; J7620-GY